=== PATIENT | female | born 1945 | race Two or more races ===

== ENCOUNTER 2022-05-12 11:38 | Inpatient (IN) | payer MEDICARE, MEDICAID, SELFPAY ==
[2022-05-12] VITALS (23 sets, daily range): BP systolic 134–178; BP diastolic 49–79; PULSE 66–85; RESP 15–33; TEMP 35–37; O2SAT 65–100; BMI 41.8
--- NOTE | ~2022-05-12 | XR_ITS ---
EXAMINATION: XR CHEST CLINICAL INFORMATION: Acute mental status change COMPARISON: None TECHNIQUE: Frontal view of the chest was obtained. FINDINGS: There is an endotracheal tube with tip projecting over the right mainstem bronchus. This should be pulled back several centimeters. The cardiac and mediastinal contours are normal. There are increased markings in the left upper lobe questionable for pneumonia. The lungs are otherwise clear. There is no pleural effusion or pneumothorax. No acute bone abnormality is seen. XR/XR chest 1V IMPRESSION: Endotracheal tube tip projects over right mainstem bronchus and should be pulled back several centimeters. Question left upper lobe pneumonia. Findings will be communicated by the [place] work flow career development coordinator/teacher.
--- NOTE | ~2022-05-12 | CT_ITS ---
EXAMINATION: CT HEAD WITHOUT CONTRAST CLINICAL INFORMATION: Altered mental status. On eliquis. COMPARISON: No relevant prior imaging. TECHNIQUE: Contiguous axial imaging was performed from the skull base to vertex without intravenous administration of contrast. This CT examination was performed using dose optimization techniques as appropriate, variously including the following: *Automated exposure control *Adjustment of mA and/or kV according to patient size (this includes techniques or standardized protocols for targeted exams where dose is matched to indication/reason for exam; i.e. extremities or head) *Use of iterative reconstruction technique DLP: 763 mGy-cm FINDINGS: There is no acute intracranial hemorrhage or abnormal extra-axial collection. Lateral and third ventricles are normal. No hydrocephalus. There are ill-defined foci of hypoattenuation for instance within the right basal ganglia and both thalami. Scattered nonspecific foci of hypoattenuation are also visualized within the periventricular white matter that most likely represent a chronic manifestation of small vessel ischemia. Aly-white matter differentiation is otherwise preserved and there is no clear evidence of acute territorial infarct. The calvarium and skull base are intact. The right mastoid air cells are completely opacified. No active paranasal sinus disease. CT/CT head/brain wo con IMPRESSION: No evidence of acute intracranial hemorrhage. There are age indeterminant lacunar infarcts within the right basal ganglia and both thalami. Scattered likely chronic small vessel ischemic changes are also visualized throughout the periventricular white matter. Comparison with prior imaging is recommended if available.
--- NOTE | 2022-05-12 11:47 | ECG_ITS ---
Test Reason : intubated p/t arrval Blood Pressure : / mmHG Vent. Rate : 078 BPM Atrial Rate : 078 BPM P-R Int : 154 ms QRS Dur : 084 ms QT Int : 398 ms P-R-T Axes : 065 027 099 degrees QTc Int : 453 ms Normal sinus rhythm T wave abnormality, consider lateral ischemia Abnormal ECG No previous ECGs available Referred By: Harriet Peng Electronically Signed By:JUANY SANCHEZ MD
[2022-05-12] MEDS: methylPREDNISolone Sod Succ 125 MG/2 ML VIAL IVPUSH (11:52)
[2022-05-12] MEDS: Furosemide 100 MG/10 ML VIAL 80 MG IVPUSH (11:53)
--- NOTE | 2022-05-12 12:03 | ED.AMS ---
HPI - Altered Mental Status General Chief Complaint: Upper Respiratory Symptoms Stated Complaint: UNRESPSPONSIVE,BAGGING,INTUBATED PER EMS Time Seen by Provider: 05/12/22 11:46 Source: EMS Mode of arrival: EMS Limitations: altered mental status History of Present Illness HPI narrative: 76 yo female with hx of COPD home O2 dependent, CHF, HTN also on dilt and eliquis from med list ?afib, comes in from home reportedly [facility]NA found patient with dyspnea and sats were 91% on her home O2. EMS notes about 100 feet of O2 tubing. On EMS arrival the patient was obtunded leaning forward with sats at 62% on her home O2. She could not comply with CPAP - intubated with 8.0 tube came in at 27 at the lip R mainstem, pulled back. Patient on arrival to ED awake and able to follow commands of opening eyes and squeezing hands. Patient never lost pulses. MD complaint: altered mental status (respiratory arrest) Onset (ago): day(s) (today ) Timing confirmed by: caregiver Severity: severe Consistency of symptoms: waxing and waning Context: COPD Associated symptoms: shortness of breath and other (altered mental status) Treatments prior to arrival: intubation (8.0 ) Related Data Home Medications Medication Instructions Recorded Confirmed albuterol sulfate 90 mcg/actuation 1 inh inhalation Q4-6H PRN Wheezing 05/12/22 05/12/22 breath activated powder inhaler,sensor budesonide-formoterol HFA 160 2 puff inhalation BID 05/12/22 05/12/22 mcg-4.5 mcg/actuation aerosol inhaler (Symbicort) carisoprodol 350 mg tablet (Soma) 350 mg PO QID 05/12/22 carvedilol 6.25 mg tablet 6.25 mg PO BID 05/12/22 05/12/22 citalopram 20 mg tablet 30 mg PO DAILY 05/12/22 05/12/22 clonazepam 1 mg tablet 1 mg PO BEDTIME 05/12/22 05/12/22 clonidine HCl 0.1 mg tablet 0.1 mg PO BEDTIME 05/12/22 05/12/22 diltiazem HCl 360 mg 360 mg PO DAILY 05/12/22 05/12/22 capsule,extended release 24 hr diphenhydramine HCl 25 mg tablet 25 mg PO BEDTIME 05/12/22 05/12/22 insulin glargine 100 unit/mL (3 55 unit subcut DAILY 05/12/22 05/12/22 mL) subcutaneous pen (Basaglar KwikPen U-100 Insulin) irbesartan 300 mg tablet 300 mg PO DAILY 05/12/22 05/12/22 metformin 500 mg tablet,extended 1,000 mg PO BID 05/12/22 05/12/22 release 24 hr mirtazapine 15 mg tablet 15 mg PO BEDTIME 05/12/22 05/12/22 omeprazole 20 mg capsule,delayed 20 mg PO DAILY 05/12/22 05/12/22 release ramelteon 8 mg tablet 8 mg PO BEDTIME 05/12/22 05/12/22 spironolactone 25 mg tablet 25 mg PO DAILY 05/12/22 05/12/22 Allergies Allergy/AdvReac Type Severity Reaction Status Date / Time codeine Allergy Unknown Verified 05/12/22 12:14 naproxen Allergy Unknown Verified 05/12/22 12:15 Review of Systems Review of Systems: ROS unable to be obtained due to altered mental status [facility] Past Medical History Source: unable to obtain Medical History (Updated 05/12/22 @ 13:30 by Darline Kang DO) Anemia CHF (congestive heart failure) COPD (chronic obstructive pulmonary disease) Diabetes HTN (hypertension) Social History Social History (Updated 05/12/22 @ 12:11 by Darline Kang DO) Household Members: Unknown / Unable to assess Housing: Unknown / Unable to assess Unable to assess alcohol history related to: Unable to respond and Unknown Patient Tobacco Use Status: Tobacco use Unknown Use of substances other than those prescribed or required for medical reasons: Unable to respond Spiritual Healthcare Practices: unable to assess Quaker Healthcare Practices: unable to assess Cultural Healthcare Practices: unable to assess Advance Directives: No Advance Directives Information Provided: No Do you have thoughts of harming others: None Do you have a plan to hurt others: No Plan Recently lost weight without trying: Unsure How much weight loss: Unsure Nutrition Risks: On aspiration precautions Patient : No : No Poor oral hygiene: No Physical Exam ED Vital Signs: Vital Signs - 24 hr 05/12/22 11:46 05/12/22 12:04 05/12/22 12:05 Temperature 97 F Pulse Rate 85 70 Respiratory Rate 20 22 H Blood Pressure 174/69 H Pulse Oximetry 95 Oxygen Delivery Method Fraction of Inspired Oxygen 40 05/12/22 13:19 05/12/22 13:26 05/12/22 13:22 Temperature 97.4 F Pulse Rate 66 Respiratory Rate 16 Blood Pressure 162/51 H Pulse Oximetry 95 95 Oxygen Delivery Method Mechanical Ventilation Mechanical Ventilation Fraction of Inspired Oxygen 40 BMI result Body Mass Index 3.6 Appearance: Somnolent, follows simple commands mild acute distress. Eyes: R pupil reactive 3mm L pupil reactive 4mm ENT: Pharynx normal. some frothy secretions noted 8.0 ETT tube 27 at the lip Neck: Normal inspection. Neck supple. CVS: Normal heart rate and rhythm. Pulses normal. Respiratory: Mild respiratory distress. Breath sounds diminished throughout with rales at the bases Abdomen: Soft and nontender. Obese Skin: Skin warm and dry. Normal skin color. Normal skin turgor. Extremities: 1+ pitting lower extremity edema. No calf ttp Neuro: Follows commands, opens eyes moves both feet and squeezes both hands when asked to. Course Course Course Narrative: ETT pulled back confirmed via CXR at this time possible infection suspected 124pm one dose of IV zosyn ordered failed PSV in ED - will discuss with ICU attending Hemoglobin 7.3 patient reports a hx of anemia will call out to other hospitals for med records will admit to ICU for further workup MDM - Altered Mental Status MDM Narrative Medical decision making narrative: 76 yo female with hx of HTN, COPD O2 dependent, DM, anemia, CHF here with c/o respiratory arrest at home on arrival she is following commands was R mainstem prehospital - at this time inline neb ordered, IV lasix, IV steroids, CXR, CT head given anisocoria and eliquis use for ICH. ABG ordered. Suspect COPD/CHF exacerbation. Patient is clearing quite well in the ED with assisted ventilation. Lab Data Result diagrams: 05/12/22 12:34 05/12/22 12:33 Labs: Lab Results 05/12/22 05/12/22 05/12/22 Range/Units 11:42 12:03 12:03 WBC (4.8-10.8) X10*3/uL RBC (4.20-5.50) X10*6/uL Hgb (12.0-16.0) g/dl Hct (37.0-47.0) % MCV (80.0-98.0) fL MCH (27.0-33.0) pg MCHC (31.0-35.0) g/dl RDW (11.0-16.0) % Plt Count (160-400) X10*3/uL MPV (9.4-12.3) fL Immature Gran % (Auto) (0.0-0.4) % Neut % (Auto) (45-73) % Lymph % (Auto) (20-40) % [place] % (Auto) (2-11) % Eos % (Auto) (0-4) % Baso % (Auto) (0-2) % Lymph # (Auto) (1.2-4.9) X10*3/uL [place] # (Auto) (0.1-1.2) X10*3/uL Eos # (Auto) (0.0-0.4) X10*3/uL Baso # (Auto) (0.0-0.2) X10*3/uL Abs Immat Gran (auto) (0.00-0.03) X10*3/uL Absolute Neuts (auto) (2.0-8.3) x10*3/uL Absolute Nucleated RBC (0.0-0.012) X10*3/uL Nucleated RBC % (auto) (0.0-0.2) /100WBC PT (9.9-13.0) SEC INR (0.9-1.1) O2 Saturation % ABG pH at Pt Temp (7.35-7.45) ABG pCO2 at Pt Temp (32-45) mmHg ABG pO2 at Pt Temp (83-108) mmHg ABG HCO3 (22-26) mmol/L ABG Base Excess (Actual) VBG pH (7.32-7.43) VBG pCO2 mmHg VBG pO2 mmHg VBG HCO3 (22-26) mmol/L VBG O2 Saturation % VBG Base Excess mmol/L Sodium (135-145) mmol/L Potassium (3.3-5.1) mmol/L Chloride (96-108) mmol/L Carbon Dioxide (22-29) mmol/L Anion Gap (12-20) BUN (9-16) mg/dL Creatinine (0.5-1.4) mg/dL Estim Creat Clear Calc Estimated GFR POC Glucose 376 H* (60-115) mg/dL Random Glucose (60-115) mg/dL Lactic Acid 1.7 (0.5-2.0) mmol/L Calcium (8.4-10.2) mg/dL Magnesium (1.6-2.6) mg/dL Total Bilirubin (0.0-1.0) mg/dL AST (5-31) U/L ALT (0-31) U/L Alkaline Phosphatase (39-117) U/L Troponin I High Sens (<3.5-17.0) ng/L B-Natriuretic Peptide 110 H (<100) pg/mL Total Protein (6.5-8.0) g/dL Albumin (3.5-5.0) g/dL Lipase (8-78) U/L Urine Color Urine Appearance Urine pH (5.0-8.0) Ur Specific [employer] [place] (1.005-1.025) Urine Protein (NEG-TRACE) MG/DL Urine Glucose (UA) (NEG) MG/DL Urine Ketones (NEG) MG/DL Urine Blood (NEG) Urine Nitrite (NEG) Ur Leukocyte Esterase (NEG) Urine RBC (0) /HPF Urine WBC (0-4) /HPF Ur Squamous Epith Cells /LPF Amorphous Sediment /LPF Urine Bacteria /LPF Stool Occult Blood (NEGATIVE) Urine Opiates Screen (Not Detect) Urine Fentanyl Screen (Not Detect) Ur Barbiturates Screen (Not Detect) Ur Phencyclidine Scrn (Not Detect) Ur Amphetamines Screen (Not Detect) U Benzodiazepines Scrn (Not Detect) Urine Cocaine Screen (Not Detect) U Marijuana (THC) Screen (Not Detect) COVID-19 (KIM) (Negative) COVID-19 Clin Com 05/12/22 05/12/22 05/12/22 Range/Units 12:03 12:23 12:33 WBC (4.8-10.8) X10*3/uL RBC (4.20-5.50) X10*6/uL Hgb (12.0-16.0) g/dl Hct (37.0-47.0) % MCV (80.0-98.0) fL MCH (27.0-33.0) pg MCHC (31.0-35.0) g/dl RDW (11.0-16.0) % Plt Count (160-400) X10*3/uL MPV (9.4-12.3) fL Immature Gran % (Auto) (0.0-0.4) % Neut % (Auto) (45-73) % Lymph % (Auto) (20-40) % [place] % (Auto) (2-11) % Eos % (Auto) (0-4) % Baso % (Auto) (0-2) % Lymph # (Auto) (1.2-4.9) X10*3/uL [place] # (Auto) (0.1-1.2) X10*3/uL Eos # (Auto) (0.0-0.4) X10*3/uL Baso # (Auto) (0.0-0.2) X10*3/uL Abs Immat Gran (auto) (0.00-0.03) X10*3/uL Absolute Neuts (auto) (2.0-8.3) x10*3/uL Absolute Nucleated RBC (0.0-0.012) X10*3/uL Nucleated RBC % (auto) (0.0-0.2) /100WBC PT (9.9-13.0) SEC INR (0.9-1.1) O2 Saturation 91.0 % ABG pH at Pt Temp 7.35 (7.35-7.45) ABG pCO2 at Pt Temp 63 H* (32-45) mmHg ABG pO2 at Pt Temp 68 L (83-108) mmHg ABG HCO3 35 H (22-26) mmol/L ABG Base Excess (Actual) TNP VBG pH (7.32-7.43) VBG pCO2 mmHg VBG pO2 mmHg VBG HCO3 (22-26) mmol/L VBG O2 Saturation % VBG Base Excess mmol/L Sodium 134 L (135-145) mmol/L Potassium 5.3 H (3.3-5.1) mmol/L Chloride 93 L (96-108) mmol/L Carbon Dioxide 34 H (22-29) mmol/L Anion Gap 12 (12-20) BUN 15 (9-16) mg/dL Creatinine 0.87 (0.5-1.4) mg/dL Estim Creat Clear Calc 8.0 Estimated GFR > 60 POC Glucose (60-115) mg/dL Random Glucose 420 H* (60-115) mg/dL Lactic Acid (0.5-2.0) mmol/L Calcium 8.5 (8.4-10.2) mg/dL Magnesium 1.8 (1.6-2.6) mg/dL Total Bilirubin 0.3 (0.0-1.0) mg/dL AST 30 (5-31) U/L ALT 28 (0-31) U/L Alkaline Phosphatase 138 H (39-117) U/L Troponin I High Sens 6.1 (<3.5-17.0) ng/L B-Natriuretic Peptide (<100) pg/mL Total Protein 7.2 (6.5-8.0) g/dL Albumin 3.7 (3.5-5.0) g/dL Lipase 25 (8-78) U/L Urine Color Urine Appearance Urine pH (5.0-8.0) Ur Specific [employer] [place] (1.005-1.025) Urine Protein (NEG-TRACE) MG/DL Urine Glucose (UA) (NEG) MG/DL Urine Ketones (NEG) MG/DL Urine Blood (NEG) Urine Nitrite (NEG) Ur Leukocyte Esterase (NEG) Urine RBC (0) /HPF Urine WBC (0-4) /HPF Ur Squamous Epith Cells /LPF Amorphous Sediment /LPF Urine Bacteria /LPF Stool Occult Blood (NEGATIVE) Urine Opiates Screen (Not Detect) Urine Fentanyl Screen (Not Detect) Ur Barbiturates Screen (Not Detect) Ur Phencyclidine Scrn (Not Detect) Ur Amphetamines Screen (Not Detect) U Benzodiazepines Scrn (Not Detect) Urine Cocaine Screen (Not Detect) U Marijuana (THC) Screen (Not Detect) COVID-19 (KIM) (Negative) COVID-19 Clin Com 05/12/22 05/12/22 05/12/22 Range/Units 12:33 12:34 12:40 WBC 12.3 H (4.8-10.8) X10*3/uL RBC 4.13 L (4.20-5.50) X10*6/uL Hgb 7.3 L (12.0-16.0) g/dl Hct 28.9 L (37.0-47.0) % MCV 70.0 L (80.0-98.0) fL MCH 17.7 L (27.0-33.0) pg MCHC 25.3 L (31.0-35.0) g/dl RDW 18.3 H (11.0-16.0) % Plt Count 230 (160-400) X10*3/uL MPV 9.5 (9.4-12.3) fL Immature Gran % (Auto) 1.0 H (0.0-0.4) % Neut % (Auto) 87.1 H (45-73) % Lymph % (Auto) 7.4 L (20-40) % [place] % (Auto) 3.7 (2-11) % Eos % (Auto) 0.6 (0-4) % Baso % (Auto) 0.2 (0-2) % Lymph # (Auto) 0.9 L (1.2-4.9) X10*3/uL [place] # (Auto) 0.5 (0.1-1.2) X10*3/uL Eos # (Auto) 0.1 (0.0-0.4) X10*3/uL Baso # (Auto) 0.0 (0.0-0.2) X10*3/uL Abs Immat Gran (auto) 0.12 H (0.00-0.03) X10*3/uL Absolute Neuts (auto) 10.7 H (2.0-8.3) x10*3/uL Absolute Nucleated RBC 0.000 (0.0-0.012) X10*3/uL Nucleated RBC % (auto) 0.0 (0.0-0.2) /100WBC PT 11.5 (9.9-13.0) SEC INR 1.0 (0.9-1.1) O2 Saturation % ABG pH at Pt Temp (7.35-7.45) ABG pCO2 at Pt Temp (32-45) mmHg ABG pO2 at Pt Temp (83-108) mmHg ABG HCO3 (22-26) mmol/L ABG Base Excess (Actual) VBG pH 7.30 L (7.32-7.43) VBG pCO2 85 mmHg VBG pO2 68 mmHg VBG HCO3 42 H (22-26) mmol/L VBG O2 Saturation 89.0 % VBG Base Excess 13.3 mmol/L Sodium (135-145) mmol/L Potassium (3.3-5.1) mmol/L Chloride (96-108) mmol/L Carbon Dioxide (22-29) mmol/L Anion Gap (12-20) BUN (9-16) mg/dL Creatinine (0.5-1.4) mg/dL Estim Creat Clear Calc Estimated GFR POC Glucose (60-115) mg/dL Random Glucose (60-115) mg/dL Lactic Acid (0.5-2.0) mmol/L Calcium (8.4-10.2) mg/dL Magnesium (1.6-2.6) mg/dL Total Bilirubin (0.0-1.0) mg/dL AST (5-31) U/L ALT (0-31) U/L Alkaline Phosphatase (39-117) U/L Troponin I High Sens (<3.5-17.0) ng/L B-Natriuretic Peptide (<100) pg/mL Total Protein (6.5-8.0) g/dL Albumin (3.5-5.0) g/dL Lipase (8-78) U/L Urine Color Urine Appearance Urine pH (5.0-8.0) Ur Specific [employer] (1.005-1.025) Urine Protein (NEG-TRACE) MG/DL Urine Glucose (UA) (NEG) MG/DL Urine Ketones (NEG) MG/DL Urine Blood (NEG) Urine Nitrite (NEG) Ur Leukocyte Esterase (NEG) Urine RBC (0) /HPF Urine WBC (0-4) /HPF Ur Squamous Epith Cells /LPF Amorphous Sediment /LPF Urine Bacteria /LPF Stool Occult Blood (NEGATIVE) Urine Opiates Screen (Not Detect) Urine Fentanyl Screen (Not Detect) Ur Barbiturates Screen (Not Detect) Ur Phencyclidine Scrn (Not Detect) Ur Amphetamines Screen (Not Detect) U Benzodiazepines Scrn (Not Detect) Urine Cocaine Screen (Not Detect) U Marijuana (THC) Screen (Not Detect) COVID-19 (KIM) (Negative) COVID-19 Clin Com 05/12/22 05/12/22 05/12/22 Range/Units 12:43 12:43 12:43 WBC (4.8-10.8) X10*3/uL RBC (4.20-5.50) X10*6/uL Hgb (12.0-16.0) g/dl Hct (37.0-47.0) % MCV (80.0-98.0) fL MCH (27.0-33.0) pg MCHC (31.0-35.0) g/dl RDW (11.0-16.0) % Plt Count (160-400) X10*3/uL MPV (9.4-12.3) fL Immature Gran % (Auto) (0.0-0.4) % Neut % (Auto) (45-73) % Lymph % (Auto) (20-40) % [place] % (Auto) (2-11) % Eos % (Auto) (0-4) % Baso % (Auto) (0-2) % Lymph # (Auto) (1.2-4.9) X10*3/uL [place] # (Auto) (0.1-1.2) X10*3/uL Eos # (Auto) (0.0-0.4) X10*3/uL Baso # (Auto) (0.0-0.2) X10*3/uL Abs Immat Gran (auto) (0.00-0.03) X10*3/uL Absolute Neuts (auto) (2.0-8.3) x10*3/uL Absolute Nucleated RBC (0.0-0.012) X10*3/uL Nucleated RBC % (auto) (0.0-0.2) /100WBC PT (9.9-13.0) SEC INR (0.9-1.1) O2 Saturation % ABG pH at Pt Temp (7.35-7.45) ABG pCO2 at Pt Temp (32-45) mmHg ABG pO2 at Pt Temp (83-108) mmHg ABG HCO3 (22-26) mmol/L ABG Base Excess (Actual) VBG pH (7.32-7.43) VBG pCO2 mmHg VBG pO2 mmHg VBG HCO3 (22-26) mmol/L VBG O2 Saturation % VBG Base Excess mmol/L Sodium (135-145) mmol/L Potassium (3.3-5.1) mmol/L Chloride (96-108) mmol/L Carbon Dioxide (22-29) mmol/L Anion Gap (12-20) BUN (9-16) mg/dL Creatinine (0.5-1.4) mg/dL Estim Creat Clear Calc Estimated GFR POC Glucose (60-115) mg/dL Random Glucose (60-115) mg/dL Lactic Acid (0.5-2.0) mmol/L Calcium (8.4-10.2) mg/dL Magnesium (1.6-2.6) mg/dL Total Bilirubin (0.0-1.0) mg/dL AST (5-31) U/L ALT (0-31) U/L Alkaline Phosphatase (39-117) U/L Troponin I High Sens (<3.5-17.0) ng/L B-Natriuretic Peptide (<100) pg/mL Total Protein (6.5-8.0) g/dL Albumin (3.5-5.0) g/dL Lipase (8-78) U/L Urine Color YELLOW Urine Appearance CLEAR Urine pH 7.0 (5.0-8.0) Ur Specific [place] 1.020 (1.005-1.025) Urine Protein 3+ H (NEG-TRACE) MG/DL Urine Glucose (UA) >=1000 H (NEG) MG/DL Urine Ketones NEG (NEG) MG/DL Urine Blood TRACE (NEG) Urine Nitrite NEG (NEG) Ur Leukocyte Esterase NEG (NEG) Urine RBC 1-4 (0) /HPF Urine WBC 1-4 (0-4) /HPF Ur Squamous Epith Cells TRACE /LPF Amorphous Sediment 1+ /LPF Urine Bacteria NONE /LPF Stool Occult Blood (NEGATIVE) Urine Opiates Screen Not Detected (Not Detect) Urine Fentanyl Screen Not Detected (Not Detect) Ur Barbiturates Screen Not Detected (Not Detect) Ur Phencyclidine Scrn Not Detected (Not Detect) Ur Amphetamines Screen Not Detected (Not Detect) U Benzodiazepines Scrn Not Detected (Not Detect) Urine Cocaine Screen Not Detected (Not Detect) U Marijuana (THC) Screen Not Detected (Not Detect) COVID-19 (KIM) Negative (Negative) COVID-19 Clin Com See Note 05/12/22 Range/Units 13:54 WBC (4.8-10.8) X10*3/uL RBC (4.20-5.50) X10*6/uL Hgb (12.0-16.0) g/dl Hct (37.0-47.0) % MCV (80.0-98.0) fL MCH (27.0-33.0) pg MCHC (31.0-35.0) g/dl RDW (11.0-16.0) % Plt Count (160-400) X10*3/uL MPV (9.4-12.3) fL Immature Gran % (Auto) (0.0-0.4) % Neut % (Auto) (45-73) % Lymph % (Auto) (20-40) % [place] % (Auto) (2-11) % Eos % (Auto) (0-4) % Baso % (Auto) (0-2) % Lymph # (Auto) (1.2-4.9) X10*3/uL [place] # (Auto) (0.1-1.2) X10*3/uL Eos # (Auto) (0.0-0.4) X10*3/uL Baso # (Auto) (0.0-0.2) X10*3/uL Abs Immat Gran (auto) (0.00-0.03) X10*3/uL Absolute Neuts (auto) (2.0-8.3) x10*3/uL Absolute Nucleated RBC (0.0-0.012) X10*3/uL Nucleated RBC % (auto) (0.0-0.2) /100WBC PT (9.9-13.0) SEC INR (0.9-1.1) O2 Saturation % ABG pH at Pt Temp (7.35-7.45) ABG pCO2 at Pt Temp (32-45) mmHg ABG pO2 at Pt Temp (83-108) mmHg ABG HCO3 (22-26) mmol/L ABG Base Excess (Actual) VBG pH (7.32-7.43) VBG pCO2 mmHg VBG pO2 mmHg VBG HCO3 (22-26) mmol/L VBG O2 Saturation % VBG Base Excess mmol/L Sodium (135-145) mmol/L Potassium (3.3-5.1) mmol/L Chloride (96-108) mmol/L Carbon Dioxide (22-29) mmol/L Anion Gap (12-20) BUN (9-16) mg/dL Creatinine (0.5-1.4) mg/dL Estim Creat Clear Calc Estimated GFR POC Glucose (60-115) mg/dL Random Glucose (60-115) mg/dL Lactic Acid (0.5-2.0) mmol/L Calcium (8.4-10.2) mg/dL Magnesium (1.6-2.6) mg/dL Total Bilirubin (0.0-1.0) mg/dL AST (5-31) U/L ALT (0-31) U/L Alkaline Phosphatase (39-117) U/L Troponin I High Sens (<3.5-17.0) ng/L B-Natriuretic Peptide (<100) pg/mL Total Protein (6.5-8.0) g/dL Albumin (3.5-5.0) g/dL Lipase (8-78) U/L Urine Color Urine Appearance Urine pH (5.0-8.0) Ur Specific [place] (1.005-1.025) Urine Protein (NEG-TRACE) MG/DL Urine Glucose (UA) (NEG) MG/DL Urine Ketones (NEG) MG/DL Urine Blood (NEG) Urine Nitrite (NEG) Ur Leukocyte Esterase (NEG) Urine RBC (0) /HPF Urine WBC (0-4) /HPF Ur Squamous Epith Cells /LPF Amorphous Sediment /LPF Urine Bacteria /LPF Stool Occult Blood NEGATIVE (NEGATIVE) Urine Opiates Screen (Not Detect) Urine Fentanyl Screen (Not Detect) Ur Barbiturates Screen (Not Detect) Ur Phencyclidine Scrn (Not Detect) Ur Amphetamines Screen (Not Detect) U Benzodiazepines Scrn (Not Detect) Urine Cocaine Screen (Not Detect) U Marijuana (THC) Screen (Not Detect) COVID-19 (KIM) (Negative) COVID-19 Clin Com ECG Data ECG #1: Attestation: I personally reviewed and interpreted this ECG as follows: ECG interpretation date: 05/12/22 ECG interpretation time: 13:37 Interpretation: Rate: 78 Rhythm: NSR [place]: normal Normal P waves. Normal GINA. Normal QRS complex. Poor R wave progression ST T wave : no MARC, inverted in I and aVL qTC: normal prior studies: none available The study has been interpreted contemporaneously by me. . Critical Care Time Critical Care Time Critical Care Time: Yes Total Critical Care Time: 60 Attestation: vent settings, management of pre-hospital airway, IV medications, admission to ICU I attest to this time spent taking care of the patient Discharge Plan Discharge Clinical Impression: Anemia, COPD with acute exacerbation Respiratory failure Qualifiers: Chronicity: acute Respiratory failure complication: hypoxia Qualified Code(s): J96.01 - Acute respiratory failure with hypoxia Patient Disposition: Admitted As Inpatient Discharge Date/Time: 05/12/22 15:19
[2022-05-12] MEDS: Albuterol/Iprat 2.5/0.5MG 3 ML AMPUL.NEB INHALE (12:04)
--- NOTE | 2022-05-12 12:17 | PC.NURSE ---
patient presented to Ed intubated by EMS , she was ventilating appropriately vitals stable on arrival . tolerating vent . on AC settings .Provider pulled tube to 24 at lip .patient arrousable to stimuli . able to follow simple commands . pupils unequal per provider , plan for brain CT . left pupil sluggish reaction to light . skin warm dry . lungs diminished throughout ., right lower lobe absent sounds .At this time vitals signs stable . patient calm not pulling at medical devices .
[2022-05-12 12:21] LABS: Lactic Acid 1.7 mmol/L (0.5-2.0)
[2022-05-12 12:30] LABS: ABG HCO3 35 mmol/L (22-26); ABG pCO2 63 mmHg (32-45); ABG pH 7.35 (7.35-7.45); ABG pO2 68 mmHg (83-108)
[2022-05-12 12:31] LABS: B Type Natriuretic Peptide 110 pg/mL (<100); Troponin-I High Sensitivity 6.1 ng/L (<3.5-17.0)
[2022-05-12 12:44] LABS: Basophils Percent Auto 0.2 % (0-2); Eosinophils Absolute Auto 0.1 X10*3/uL (0.0-0.4); Eosinophils Percent Auto 0.6 % (0-4); Hematocrit 28.9 % (37.0-47.0); Hemoglobin 7.3 g/dl (12.0-16.0); Imm Gran Abs Auto 0.12 X10*3/uL (0.00-0.03); Lymphocytes Absolute Auto 0.9 X10*3/uL (1.2-4.9); Lymphocytes Percent Auto 7.4 % (20-40); MANUAL DIFF FLAG NO; Mean Corpuscular HGB Conc 25.3 g/dl (31.0-35.0); Mean Corpuscular Hemoglobin 17.7 pg (27.0-33.0); Mean Platelet Volume 9.5 fL (9.4-12.3); Monocytes Absolute Auto 0.5 X10*3/uL (0.1-1.2); Monocytes Percent Auto 3.7 % (2-11); Neutrophils Absolute Auto 10.7 x10*3/uL (2.0-8.3); Neutrophils Percent Auto 87.1 % (45-73); Platelet Count 230 X10*3/uL (160-400); Red Blood Count 4.13 X10*6/uL (4.20-5.50); Red Cell Distribution Width 18.3 % (11.0-16.0); White Blood Count 12.3 X10*3/uL (4.8-10.8)
[2022-05-12 12:45] LABS: Venous Blood Gas Refer to POC result
[2022-05-12 12:50] LABS: VBG Base Excess 13.3 mmol/L; VBG HCO3 42 mmol/L (22-26); VBG pCO2 85 mmHg; VBG pO2 68 mmHg
[2022-05-12 12:55] LABS: Prothrombin Time 11.5 SEC (9.9-13.0)
--- NOTE | 2022-05-12 12:56 | PC.NURSE ---
Vent settings peap 8 at 40% volume 400 .
[2022-05-12 13:03] LABS: Appearance Urine CLEAR; Color Urine YELLOW; Glucose Urine UA >=1000 MG/DL (NEG); Leukocyte Esterase Urine NEG (NEG); Nitrite Urine NEG (NEG); UACC Culture Trigger NO; Urine Blood TRACE (NEG); Urine Ketones NEG (NEG); Urine Protein 3+ MG/DL (NEG-TRACE)
[2022-05-12 13:12] LABS: COVID-19 Test Negative (Negative)
[2022-05-12 13:16] LABS: Amorphous Sediment Urine 1+ /LPF; Squamous Epithelial Cell Urine TRACE /LPF
[2022-05-12 13:29] LABS: Alanine Aminotransferase 28 U/L (0-31); Albumin Level 3.7 g/dL (3.5-5.0); Alkaline Phosphatase 138 U/L (39-117); Anion Gap 12 (12-20); Aspartate Amino Transferase 30 U/L (5-31); Bilirubin Total 0.3 mg/dL (0.0-1.0); Blood Urea Nitrogen 15 mg/dL (9-16); Calcium 8.5 mg/dL (8.4-10.2); Carbon Dioxide 34 mmol/L (22-29); Chloride 93 mmol/L (96-108); Estimated Glomerular Filt Rate > 60; Glucose Random 420 mg/dL (60-115); Lipase 25 U/L (8-78); Magnesium 1.8 mg/dL (1.6-2.6); Potassium 5.3 mmol/L (3.3-5.1); Sodium 134 mmol/L (135-145); Total Protein 7.2 g/dL (6.5-8.0)
--- NOTE | 2022-05-12 13:29 | PC.NURSE ---
Orogastric placed with positive placement per MD.Not hooked up to suction per MD . positive placement per auscultation .
[2022-05-12] MEDS: Insulin Regular, Human 100 UNIT/ML 3 ML VIAL IVPUSH (13:43)
[2022-05-12] MEDS: Piperacillin Sodium/Tazobactam 3.375 GM in 0.9 % Sodium Chloride 50 ML IV (13:45)
[2022-05-12 13:46] LABS: Glucose, Whole Blood 376 mg/dL (60-115)
[2022-05-12 13:56] LABS: ABG Refer to POC result
[2022-05-12 14:03] LABS: OBS Int Ctl Valid YES; OBS1 NEGATIVE (NEGATIVE)
[2022-05-12 14:06] LABS: Amphetamine Screen Urine Not Detected (Not Detect); Barbiturates, Urine Not Detected (Not Detect); Benzodiazepines Screen Urine Not Detected (Not Detect); Cannabinoid Screen Urine Not Detected (Not Detect); Cocaine Screen Urine Not Detected (Not Detect); Fentanyl, urine Not Detected (Not Detect); Opiate Screen Urine Not Detected (Not Detect); Phencyclidine Screen Urine Not Detected (Not Detect)
--- NOTE | 2022-05-12 14:35 | PC.NURSE ---
Rn to RN given to Jory .
--- NOTE | 2022-05-12 14:54 | PHA.MEDREC ---
Addendum entered by Eveline Love RPh 05/13/22 10:31: Patient name and updated, Soma confirmed with PDMP Original Note: Pharmacy Consult ? Medication Reconciliation Pharmacy has completed the medication reconciliation. Spoke with billyugther to confirm medications. She reported most but could not recall them all. Daughter reported patient goes to 3 pharmacy; [facility], [facility] [place], and [facility]. The medication daughter did not report but pharmacy had was Symbicort, citalopram, and omeprazole. Daughter reported diltiazem however last fill 11/27/21. Daughter report Soma 350 mg QID however I cannot confirm medicaiton with pharmacy or on PDMP. [facility] as [facility]. [facility] even though daughter report picking up medication there. Eveline Love, PharmD
--- NOTE | 2022-05-12 15:23 | PC.NURSE ---
Patient arrived to unit via stretcher from ED at 1500 - Patient awake, following commands, calm and corporative. Vent setting switched over to PSV 15/5 30% at 1505 - tolerating well, O2 sat 100%, breathing even and nonlabored. Patient extubated to Bipap support 15/5 45% at 1520 per MD order - tolerating well.
--- NOTE | 2022-05-12 15:23 | PM.CCHP ---
History of Present Illness Date of Service: 05/12/22 Attending physician on admission: Jaswinder Thompson Chief Complaint: Acute respiratory failure Mrs. Hutton is admitted to the ICU this afternoon with acute respiratory failure. 76 yo female with PMhx of obesity, COPD on 2L home oxygen, CHF on Aldactone, Coreg and valsartan, HTN, DM on Lantus, anemia, GERD, SHARON, and restless leg syndrome. [place] [facility] [place] was hospitalized there for COVID infection 11/25-, and for subsequent pulmon embolism 12/15-, for which she was started on Eliquis.? Also from 02/13- for COPD exac requiring BiPAP, and 02/24-07/2022 for influenza A requiring BiPAP.? The records indicate that she is an active smoker, VNA found patient with dyspnea at home this morning, reportedly w sat 91% on her home O2. ?EMS was called. ?On EMS arrival, the patient was obtunded, with sats 62% on her home O2. ?She could not comply with CPAP.? There was no circulatory arrest, nor any resp arrest as far as I can tell.? The patient was intubated in the field, then BIBA to the ED. In the ED, the patient arrived with an 8.0 ETT, at 27cm at the lip, with Sat 95% on ambu bag ventilation.? CXR showed a 2-3 cm R mainstem intubation, w loss of vol on the left, with either CHRIST infiltrate or collapse. ?The ETT was pulled back, resulting in improved oxygenation and improved aeration of the entire left lung.? The patient was awake on arrival to ED, able to answer simple questions about her history and follow simple commands.? She was afebrile.? HR 85, BP 174/69.? Some froth noted in the ETT.? Rhythm was sinus.? She had rales at the bases, w 1+ pitting lower extremity edema.? No neuro deficits.? Stool was brown, guiac neg. Labs in the ED noted WBC 12, Hgb 7.3 (was 7.6 on 02/26/22), INR 1.0, BUN/creat 15/0.8, bicarb 34, gluc 420, alb 3.7, Lactic acid 1.7, trop 6.1, BNP 110.? ABG (unstated FiO2) at 12:23 was 7.35/63/68/35.? VBG at 12:40 was 7.30/85/+13.? U/A negative for infection.? Urine tox all negative.? COVID neg.? The patient was given a dose of diuretic and a dose of Abx.? Since she was awake, she was tried on PSV but reportedly failed.? She was therefore admitted to the ICU. On my exam, the patient was completely awake and easily able to answer all our questions.? MS looks completely normal and she is requesting to have the ETT removed.? Temp 97.6?.? HR is 73, SR.? BP is 178/69.? On PSV 15/40%/+8, RR is 23, Vt 350cc, Ve 8L, PIP 23cm, ETCO2 40mm, Sat 98-100%.? No JVD at 30-40?.? Chest is CTA w normal exp phase.? Heart tones soft, no murmur or gallops were noted. ?Abdomen is obese and benign.? It feels like she has at least 1+ central edema.? She has about a liter of clear light yellow urine in her Jovel bag from the Lasix in the ED.? Last POC was 354. The patient was extubated to BiPAP.? After about half an hour or so, we had her down to BiPAP 10/5/30%, on which RR was 21, Vt 440cc, Ve 9.4L, ETCO2 50, Sat 97%.? On questioning, the patient denied a h/o heart failure, she says she doesn?t see a hot billet shear operator, but she may not know. IMPRESSION: 1. Underlying COPD 2. Underlying tobacco abuse.? She?s gotta stop smoking, which is further dangerous bec of her home oxygen. 3. Underlying chronic hypoxemic and hypercapnic resp failure (high serum bicarb suggests CO2 retention; she is not on diuretics). 4. Reported h/o CHF, but I have no documentation.? She is obviously on heart failure medicines though.? Not sure why she is not on a diuretic. 5. Acute hypoxemic and hypercarbic resp failure.? Unclear etiology.? She has no wheezing and no cough, so not likely COPD exac, but she was hypercarbic.? Could be CHF.? Needs an echo.? She also has a metabolic alkalosis.? We?ll start her on Diamox.? Continue Coreg and valsartan.? Hold Aldactone for now bec of her hyperkalemia. 6. Uncontrolled HTN. ?Continue her home meds.? NTP 2? for now. 7. DM.? Start SS insulin. 8. SHARON.? Continue the citalopram. 9. Hyperkalemia.? Hold Aldactone. 10. Replete magnesium. Critical care time (include review of extensive [facility] records):? 110+ min REPLACED BY [facility] Past Medical History Medical History (Updated 05/12/22 @ 13:30 by Darline Kang DO) Anemia CHF (congestive heart failure) COPD (chronic obstructive pulmonary disease) Diabetes HTN (hypertension) Social History Social History (Updated 05/12/22 @ 12:11 by Darline Kang DO) Household Members: Unknown / Unable to assess Housing: Unknown / Unable to assess Unable to assess alcohol history related to: Unable to respond and Unknown Patient Tobacco Use Status: Tobacco use Unknown Use of substances other than those prescribed or required for medical reasons: Unable to respond Spiritual Healthcare Practices: unable to assess Scientology Healthcare Practices: unable to assess Cultural Healthcare Practices: unable to assess Advance Directives: No Advance Directives Information Provided: No Do you have thoughts of harming others: None Do you have a plan to hurt others: No Plan Recently lost weight without trying: Unsure How much weight loss: Unsure Nutrition Risks: On aspiration precautions Patient : No : No Poor oral hygiene: No Meds Allergies Allergy/AdvReac Type Severity Reaction Status Date / Time codeine Allergy Unknown Verified 05/12/22 12:14 naproxen Allergy Unknown Verified 05/12/22 12:15 Active Medications: Current Medications Nitroglycerin (Nitroglycerin 2 % Oint 1 Gm Packet) 2 inch TRANSDERMA Q6H [facility] Home Medications Medication Instructions Recorded Confirmed Last Taken Type albuterol sulfate 90 mcg/actuation 1 inh inhalation Q4-6H PRN Wheezing 05/12/22 05/12/22 Unknown History breath activated powder inhaler,sensor apixaban 5 mg tablet (Eliquis) 5 mg PO BID 05/12/22 05/12/22 Unknown History budesonide-formoterol HFA 160 2 puff inhalation BID 05/12/22 05/12/22 Unknown History mcg-4.5 mcg/actuation aerosol inhaler (Symbicort) carisoprodol 350 mg tablet (Soma) 350 mg PO QID 05/12/22 Unknown History carvedilol 6.25 mg tablet 6.25 mg PO BID 05/12/22 05/12/22 Unknown History citalopram 20 mg tablet 30 mg PO DAILY 05/12/22 05/12/22 Unknown History clonazepam 1 mg tablet 1 mg PO BEDTIME 05/12/22 05/12/22 Unknown History clonidine HCl 0.1 mg tablet 0.1 mg PO BEDTIME 05/12/22 05/12/22 Unknown History diltiazem HCl 360 mg 360 mg PO DAILY 05/12/22 05/12/22 Unknown History capsule,extended release 24 hr diphenhydramine HCl 25 mg tablet 25 mg PO BEDTIME 05/12/22 05/12/22 Unknown History insulin glargine 100 unit/mL (3 55 unit subcut DAILY 05/12/22 05/12/22 Unknown History mL) subcutaneous pen (Basaglar KwikPen U-100 Insulin) irbesartan 300 mg tablet 300 mg PO DAILY 05/12/22 05/12/22 Unknown History metformin 500 mg tablet,extended 1,000 mg PO BID 05/12/22 05/12/22 Unknown History release 24 hr mirtazapine 15 mg tablet 15 mg PO BEDTIME 05/12/22 05/12/22 Unknown History omeprazole 20 mg capsule,delayed 20 mg PO DAILY 05/12/22 05/12/22 Unknown History release ramelteon 8 mg tablet 8 mg PO BEDTIME 05/12/22 05/12/22 Unknown History spironolactone 25 mg tablet 25 mg PO DAILY 05/12/22 05/12/22 Unknown History Physical Exam Vital Signs: Vital Signs: Last Vital Signs Temp 98.2 F 05/12/22 14:16 Pulse 68 05/12/22 14:16 Resp 16 05/12/22 14:16 BP 147/50 H 05/12/22 14:16 Pulse Ox 95 05/12/22 14:16 O2 Del Method 05/12/22 14:16 FiO2 40 05/12/22 13:22 BMI result Body Mass Index 3.6 Results Labs CBC and Chem 7: 05/12/22 12:34 05/12/22 12:33 Labs: Laboratory Results - last 24 hr 05/12/22 05/12/22 05/12/22 11:42 12:03 12:03 MCV MCH MCHC RDW Plt Count MPV Immature Gran % (Auto) Neut % (Auto) Lymph % (Auto) [place] % (Auto) Eos % (Auto) Baso % (Auto) Lymph # (Auto) [place] # (Auto) Eos # (Auto) Baso # (Auto) Abs Immat Gran (auto) Absolute Neuts (auto) Absolute Nucleated RBC Nucleated RBC % (auto) PT INR O2 Saturation ABG pH at Pt Temp ABG pCO2 at Pt Temp ABG pO2 at Pt Temp ABG HCO3 ABG Base Excess (Actual) VBG pH VBG pCO2 VBG pO2 VBG HCO3 VBG O2 Saturation VBG Base Excess Anion Gap Estim Creat Clear Calc Estimated GFR POC Glucose 376 H* Random Glucose Lactic Acid 1.7 Calcium Magnesium Total Bilirubin AST ALT Alkaline Phosphatase Troponin I High Sens B-Natriuretic Peptide 110 H Total Protein Albumin Lipase Urine Color Urine Appearance Urine pH Ur Specific [place] Urine Protein Urine Glucose (UA) Urine Ketones Urine Blood Urine Nitrite Ur Leukocyte Esterase Urine RBC Urine WBC Ur Squamous Epith Cells Amorphous Sediment Urine Bacteria Stool Occult Blood Urine Opiates Screen Urine Fentanyl Screen Ur Barbiturates Screen Ur Phencyclidine Scrn Ur Amphetamines Screen U Benzodiazepines Scrn Urine Cocaine Screen U Marijuana (THC) Screen COVID-19 (KIM) COVID-19 Clin Com 05/12/22 05/12/22 05/12/22 12:03 12:23 12:33 MCV MCH MCHC RDW Plt Count MPV Immature Gran % (Auto) Neut % (Auto) Lymph % (Auto) [place] % (Auto) Eos % (Auto) Baso % (Auto) Lymph # (Auto) [place] # (Auto) Eos # (Auto) Baso # (Auto) Abs Immat Gran (auto) Absolute Neuts (auto) Absolute Nucleated RBC Nucleated RBC % (auto) PT INR O2 Saturation 91.0 ABG pH at Pt Temp 7.35 ABG pCO2 at Pt Temp 63 H* ABG pO2 at Pt Temp 68 L ABG HCO3 35 H ABG Base Excess (Actual) TNP VBG pH VBG pCO2 VBG pO2 VBG HCO3 VBG O2 Saturation VBG Base Excess Anion Gap 12 Estim Creat Clear Calc 8.0 Estimated GFR > 60 POC Glucose Random Glucose 420 H* Lactic Acid Calcium 8.5 Magnesium 1.8 Total Bilirubin 0.3 AST 30 ALT 28 Alkaline Phosphatase 138 H Troponin I High Sens 6.1 B-Natriuretic Peptide Total Protein 7.2 Albumin 3.7 Lipase 25 Urine Color Urine Appearance Urine pH Ur Specific [place] Urine Protein Urine Glucose (UA) Urine Ketones Urine Blood Urine Nitrite Ur Leukocyte Esterase Urine RBC Urine WBC Ur Squamous Epith Cells Amorphous Sediment Urine Bacteria Stool Occult Blood Urine Opiates Screen Urine Fentanyl Screen Ur Barbiturates Screen Ur Phencyclidine Scrn Ur Amphetamines Screen U Benzodiazepines Scrn Urine Cocaine Screen U Marijuana (THC) Screen COVID-19 (KIM) COVID-19 Clin Com 05/12/22 05/12/22 05/12/22 12:33 12:34 12:40 MCV 70.0 L MCH 17.7 L MCHC 25.3 L RDW 18.3 H Plt Count 230 MPV 9.5 Immature Gran % (Auto) 1.0 H Neut % (Auto) 87.1 H Lymph % (Auto) 7.4 L [place] % (Auto) 3.7 Eos % (Auto) 0.6 Baso % (Auto) 0.2 Lymph # (Auto) 0.9 L [place] # (Auto) 0.5 Eos # (Auto) 0.1 Baso # (Auto) 0.0 Abs Immat Gran (auto) 0.12 H Absolute Neuts (auto) 10.7 H Absolute Nucleated RBC 0.000 Nucleated RBC % (auto) 0.0 PT 11.5 INR 1.0 O2 Saturation ABG pH at Pt Temp ABG pCO2 at Pt Temp ABG pO2 at Pt Temp ABG HCO3 ABG Base Excess (Actual) VBG pH 7.30 L VBG pCO2 85 VBG pO2 68 VBG HCO3 42 H VBG O2 Saturation 89.0 VBG Base Excess 13.3 Anion Gap Estim Creat Clear Calc Estimated GFR POC Glucose Random Glucose Lactic Acid Calcium Magnesium Total Bilirubin AST ALT Alkaline Phosphatase Troponin I High Sens B-Natriuretic Peptide Total Protein Albumin Lipase Urine Color Urine Appearance Urine pH Ur Specific [place] Urine Protein Urine Glucose (UA) Urine Ketones Urine Blood Urine Nitrite Ur Leukocyte Esterase Urine RBC Urine WBC Ur Squamous Epith Cells Amorphous Sediment Urine Bacteria Stool Occult Blood Urine Opiates Screen Urine Fentanyl Screen Ur Barbiturates Screen Ur Phencyclidine Scrn Ur Amphetamines Screen U Benzodiazepines Scrn Urine Cocaine Screen U Marijuana (THC) Screen COVID-19 (KIM) COVID-19 [email or web address] 05/12/22 05/12/22 05/12/22 12:43 12:43 12:43 MCV MCH MCHC RDW Plt Count MPV Immature Gran % (Auto) Neut % (Auto) Lymph % (Auto) [place] % (Auto) Eos % (Auto) Baso % (Auto) Lymph # (Auto) [place] # (Auto) Eos # (Auto) Baso # (Auto) Abs Immat Gran (auto) Absolute Neuts (auto) Absolute Nucleated RBC Nucleated RBC % (auto) PT INR O2 Saturation ABG pH at Pt Temp ABG pCO2 at Pt Temp ABG pO2 at Pt Temp ABG HCO3 ABG Base Excess (Actual) VBG pH VBG pCO2 VBG pO2 VBG HCO3 VBG O2 Saturation VBG Base Excess Anion Gap Estim Creat Clear Calc Estimated GFR POC Glucose Random Glucose Lactic Acid Calcium Magnesium Total Bilirubin AST ALT Alkaline Phosphatase Troponin I High Sens B-Natriuretic Peptide Total Protein Albumin Lipase Urine Color YELLOW Urine Appearance CLEAR Urine pH 7.0 Ur Specific [place] 1.020 Urine Protein 3+ H Urine Glucose (UA) >=1000 H Urine Ketones NEG Urine Blood TRACE Urine Nitrite NEG Ur Leukocyte Esterase NEG Urine RBC 1-4 Urine WBC 1-4 Ur Squamous Epith Cells TRACE Amorphous Sediment 1+ Urine Bacteria NONE Stool Occult Blood Urine Opiates Screen Not Detected Urine Fentanyl Screen Not Detected Ur Barbiturates Screen Not Detected Ur Phencyclidine Scrn Not Detected Ur Amphetamines Screen Not Detected U Benzodiazepines Scrn Not Detected Urine Cocaine Screen Not Detected U Marijuana (THC) Screen Not Detected COVID-19 (KIM) Negative COVID-19 [email or web address] See Note 05/12/22 13:54 MCV MCH MCHC RDW Plt Count MPV Immature Gran % (Auto) Neut % (Auto) Lymph % (Auto) [place] % (Auto) Eos % (Auto) Baso % (Auto) Lymph # (Auto) [place] # (Auto) Eos # (Auto) Baso # (Auto) Abs Immat Gran (auto) Absolute Neuts (auto) Absolute Nucleated RBC Nucleated RBC % (auto) PT INR O2 Saturation ABG pH at Pt Temp ABG pCO2 at Pt Temp ABG pO2 at Pt Temp ABG HCO3 ABG Base Excess (Actual) VBG pH VBG pCO2 VBG pO2 VBG HCO3 VBG O2 Saturation VBG Base Excess Anion Gap Estim Creat Clear Calc Estimated GFR POC Glucose Random Glucose Lactic Acid Calcium Magnesium Total Bilirubin AST ALT Alkaline Phosphatase Troponin I High Sens B-Natriuretic Peptide Total Protein Albumin Lipase Urine Color Urine Appearance Urine pH Ur Specific [place] Urine Protein Urine Glucose (UA) Urine Ketones Urine Blood Urine Nitrite Ur Leukocyte Esterase Urine RBC Urine WBC Ur Squamous Epith Cells Amorphous Sediment Urine Bacteria Stool Occult Blood NEGATIVE Urine Opiates Screen Urine Fentanyl Screen Ur Barbiturates Screen Ur Phencyclidine Scrn Ur Amphetamines Screen U Benzodiazepines Scrn Urine Cocaine Screen U Marijuana (THC) Screen COVID-19 (KIM) COVID-19 Clin Com Imaging Radiologist's Impressions: Impressions Chest X-Ray 05/12/22 12:00 IMPRESSION: Endotracheal tube tip projects over right mainstem bronchus and should be pulled back several centimeters. Question left upper lobe pneumonia. Findings will be communicated by the [place] work flow locomotive inspector. Head CT 05/12/22 13:23 IMPRESSION: No evidence of acute intracranial hemorrhage. There are age indeterminant lacunar infarcts within the right basal ganglia and both thalami. Scattered likely chronic small vessel ischemic changes are also visualized throughout the periventricular white matter. Comparison with prior imaging is recommended if available. Critical Care Time Critical Care Time (minutes): 120
[2022-05-12] MEDS: fentaNYL citrate/PF 100 MCG/2 ML VIAL 25 MCG IVPUSH (15:30)
[2022-05-12] MEDS: Nitroglycerin 2 % Oint 1 GM Packet 2 INCH TRANSDERMA ×2 (15:32→20:40)
[2022-05-12 15:53] LABS: Glucose, Whole Blood 354 mg/dL (60-115)
[2022-05-12] MEDS: acetaZOLAMIDE sodium 500 MG VIAL IVPUSH (16:22)
[2022-05-12] MEDS: Insulin Lispro 100 UNIT/ML 3 ML VIAL 15 UNIT SUBCUT (16:23)
[2022-05-12] MEDS: Magnesium Sulfate/H2O 2 GM/50 ML PIGGYBACK IV (17:48)
[2022-05-12 18:16] LABS: Phosphorus 4.8 mg/dL (2.7-4.5)
[2022-05-12 18:55] LABS: Glucose, Whole Blood 299 mg/dL (60-115)
[2022-05-12 19:37] LABS: VBG Base Excess 10.6 mmol/L; VBG HCO3 36 mmol/L (22-26); VBG pCO2 54 mmHg; VBG pH 7.43 (7.32-7.43); VBG pO2 51 mmHg
[2022-05-12 19:37] LABS: Venous Blood Gas Refer to POC result
[2022-05-12 20:03] LABS: Glucose, Whole Blood 283 mg/dL (60-115)
[2022-05-12 20:23] LABS: Anion Gap 13 (12-20); Blood Urea Nitrogen 18 mg/dL (9-16); Calcium 8.5 mg/dL (8.4-10.2); Carbon Dioxide 35 mmol/L (22-29); Chloride 92 mmol/L (96-108); Creatinine Clr Calc Pharmacy 72.4; Estimated Glomerular Filt Rate > 60; Glucose Random 303 mg/dL (60-115); Potassium 3.8 mmol/L (3.3-5.1); Sodium 136 mmol/L (135-145)
[2022-05-12] MEDS: cloNIDine HCL 0.1 MG TABLET PO (20:36)
[2022-05-12] MEDS: Mirtazapine 15 MG TABLET PO (20:36)
[2022-05-12] MEDS: diphenhydrAMINE HCL 25 MG TABLET PO (20:36)
[2022-05-12] MEDS: Apixaban 5 MG TABLET PO (20:36)
[2022-05-12] MEDS: carvediloL 6.25 MG TABLET PO (20:36)
[2022-05-12] MEDS: Insulin Lispro 100 UNIT/ML 3 ML VIAL SUBCUT (20:37)
[2022-05-13] VITALS (22 sets, daily range): BP systolic 119–167; BP diastolic 48–79; PULSE 56–112; RESP 10–27; TEMP 37–37.6; O2SAT 89–100; BMI 41.1
[2022-05-13] MEDS: Acetaminophen 325 MG TABLET 650 MG PO (01:15)
[2022-05-13] MEDS: acetaZOLAMIDE sodium 500 MG VIAL IVPUSH (03:21)
[2022-05-13] MEDS: Nitroglycerin 2 % Oint 1 GM Packet 2 INCH TRANSDERMA (03:30)
[2022-05-13] MEDS: Omeprazole 20 MG CAPSULE.DR PO (05:40)
[2022-05-13 05:46] LABS: MANUAL DIFF FLAG NO
[2022-05-13 05:49] LABS: Basophils Percent Auto 0.2 % (0-2); Hematocrit 24.6 % (37.0-47.0); Imm Gran Abs Auto 0.08 X10*3/uL (0.00-0.03); Imm Gran Pct Auto 0.7 % (0.0-0.4); Lymphocytes Absolute Auto 1.2 X10*3/uL (1.2-4.9); Lymphocytes Percent Auto 10.6 % (20-40); Mean Corpuscular HGB Conc 27.2 g/dl (31.0-35.0); Mean Corpuscular Hemoglobin 18.3 pg (27.0-33.0); Mean Corpuscular Volume 67.2 fL (80.0-98.0); Mean Platelet Volume 9.9 fL (9.4-12.3); Monocytes Absolute Auto 0.4 X10*3/uL (0.1-1.2); Monocytes Percent Auto 3.6 % (2-11); NRBC Pct Auto 0.2 /100WBC (0.0-0.2); Neutrophils Absolute Auto 9.8 x10*3/uL (2.0-8.3); Neutrophils Percent Auto 84.9 % (45-73); Platelet Count 243 X10*3/uL (160-400); Red Blood Count 3.66 X10*6/uL (4.20-5.50); Red Cell Distribution Width 18.2 % (11.0-16.0); White Blood Count 11.5 X10*3/uL (4.8-10.8)
[2022-05-13 05:52] LABS: Hemoglobin 6.7 g/dl (12.0-16.0)
[2022-05-13 05:57] LABS: VBG Base Excess 9.4 mmol/L; VBG HCO3 34 mmol/L (22-26); VBG pCO2 46 mmHg; VBG pH 7.47 (7.32-7.43); VBG pO2 91 mmHg
[2022-05-13 05:57] LABS: Venous Blood Gas Refer to POC result
[2022-05-13 06:15] LABS: Alanine Aminotransferase 19 U/L (0-31); Albumin Level 3.3 g/dL (3.5-5.0); Alkaline Phosphatase 102 U/L (39-117); Anion Gap 12 (12-20); Aspartate Amino Transferase 11 U/L (5-31); Bilirubin Total 0.3 mg/dL (0.0-1.0); Blood Urea Nitrogen 21 mg/dL (9-16); Calcium 8.3 mg/dL (8.4-10.2); Carbon Dioxide 31 mmol/L (22-29); Chloride 97 mmol/L (96-108); Creatinine Clr Calc Pharmacy 70.8; Estimated Glomerular Filt Rate > 60; Glucose Random 223 mg/dL (60-115); Potassium 3.6 mmol/L (3.3-5.1); Sodium 136 mmol/L (135-145); Total Protein 6.4 g/dL (6.5-8.0)
--- NOTE | 2022-05-13 07:00 | CA_ITS ---
Transthoracic Echocardiogram Patient (Last, First, Middle): Abby Ford, Gender: Female Date of : 1945 Age: 76 Procedure Date: 05/13/2022 Procedure Type: Transthoracic Echocardiogram Location: ICU Height: 157.48 cm Weight: 102.06 kg BSA: 2.01 m2 Heart Rate: bpm BP: 134 / 49 mmHg Tree Chipper: MOHAN Kennedy MD: Tera GIORDANO Paint Spray Inspector: Aristides Preciado MD Symptoms: Chf Study Quality: Technically Difficult/contrast ECG Rhythm: Sinus Conclusions: - 1. Technically limited study despite use of contrast agent due to body habitus 2. Normal LV systolic function with impaired relaxation filling pattern 3. Possible mild aortic stenosis 4. RV systolic pressure could not be calculated on this study Findings Procedure Information Contrast agent, definity, is being given per protocol without apparent complications. Left Ventricle Normal left ventricular size, thickness, and systolic function. The visually estimated ejection fraction is between 55-60%. Spectral Doppler is indicative of an impaired relaxation filling pattern. E/E prime ratio is between 8 and 15 consistent with indeterminate filling pressures. Right Ventricle The right ventricle was not well visualized. Atria The left atrium is mildly dilated. Interatrial shunt cannot be excluded. The right atrium was not well visualized. Aortic Valve The aortic valve was not well visualized. There is mild aortic valve stenosis. The peak aortic gradient is 14 mmHg.The mean gradient is 7 mmHg. The aortic valve area is 1.68 cm2. There is no aortic valve regurgitation. Mitral Valve The mitral valve was not well visualized. There is trace mitral valve regurgitation. There is no mitral valve stenosis. Pulmonic Valve The pulmonic valve was not well visualized. Tricuspid Valve The tricuspid valve was not well visualized. Tricuspid regurgitation envelope is inadequate for calculation of right ventricular systolic pressure. Great Vessels The aorta was not well visualized. The pulmonary artery was not well visualized. Venous The inferior vena cava was not well visualized. Pericardium/Pleural The pericardium was not well visualized. Prior Study Comparison No prior study available for comparison. Measurements 2D Linear Measurements IVSd: 1.09 0.6-0.9/0.6-1.0 cm LVIDd: 4.28 3.9-5.3/4.2-5.9 cm LVIDd Index: 2.13 2.4-3.2/2.2-3.1 cm/m2 LVIDs: 2.71 2.0-3.6 cm LVPWd: 0.98 0.7-1.1 cm LA Diam: 3.70 2.7-3.8/3.0-4.0 cm LAIDs Index: 1.84 1.5-2.3 cm/m2 LV Mass: 306.64 67-162/88-224 g LV Mass Index: 152.56 43-95/49-115 g/m2 LVOT Diam: 1.90 3.0+(-)1.3 cm 2D Systolic Function EF 4C: 51.10 >55% EF 2C: 59.70 >55% EF BiP: 55.50 >55% Mitral Valve MV Pk E: 0.94 MV PK A: 1.15 MV Decel Time: 235.00 E/A: 0.80 E'Lateral: 8.05 E'Medial: 7.51 E/E' Med: 12.50 E/E' Lat: 11.70 PHT: 69.00 MVA PHT: 3.19 Decel [place]: 3.99 Aortic Valve AoV Pk Jose L: 1.85 AoV Mn Jose L: 1.27 AoV VTI: 0.43 AoV Pk Grad: 14.00 Aov Mn Grad: 7.00 JARVIS Cont.VTI: 1.68 LVOT LVOT Pk Jose L: 1.00 LVOT Mn Jose L: 0.72 LVOT VTI: 0.25 LVOT Pk Grad: 4.00 LVOT Mn Grad: 2.00 LVOT Diam: 1.90 LVOT Area: 2.84 Diastolic Function MV Pk E: 0.94 MV Pk A: 1.15 E/A: 0.80 E'Medial: 7.51 E/E' Med: 12.50 E' Laterial: 8.05 E/E' Lat: 11.70 Right Ventricle TAPSE (mm): 29.50 TVS' Jose L: 12.70 Great Vessels Aorta Sinus of Valsalva: 2.81 2.0-3.5 cm Ao Asc: 2.90 2.1-3.4 cm Updated in Other Vendor System with Status of Final Aristides Preciado MD electronically signed on 05/13/2022 3:31:17 PM with status of Final
[2022-05-13 07:07] LABS: Glucose, Whole Blood 223 mg/dL (60-115)
[2022-05-13] MEDS: Valsartan 160 MG TABLET PO (08:50)
[2022-05-13] MEDS: Escitalopram Oxalate 10 MG TABLET 15 MG PO (08:50)
[2022-05-13] MEDS: carvediloL 6.25 MG TABLET PO ×2 (08:50→21:58)
[2022-05-13] MEDS: Apixaban 5 MG TABLET PO (08:50)
[2022-05-13] MEDS: dilTIAZem HCL CD 180 MG CAP.ER.24H 360 MG PO (08:50)
[2022-05-13] MEDS: Insulin Lispro 100 UNIT/ML 3 ML VIAL SUBCUT ×4 (08:50→21:59)
--- NOTE | 2022-05-13 10:17 | P.CDIC_ITS ---
CDI Concurrent Query Documentation Clarification: PHYSICIAN'S DOCUMENTATION REQUEST Date of Query: 05/13/22 1018 Patient Name: Abby Ford Admit Date: 05/12/22 Dear Doctor, A review of the medical record indicates additional documentation may be needed. Please review below and update the documentation accordingly. Clinical Indicators: Risk Factors/Clinical Indicators/Treatments ICU note 05/12 - DM on Lantus, gluc 420 DM - Start SS Insulin POC glucose 05/12 - [id number] Please clarify the following regarding Diabetes Mellitus (DM): l Type/Etiology: * Type I DM * Type II DM * Other type of DM (please specify) * Hypoglycemia * Hyperglycemia * No complications of DM * Other complication ? please specify * Unable to determine Use of terms such as suspected, likely, concern for, or probable (associated with a specific diagnosis that is being evaluated, monitored, or treated as if it exists) are acceptable and can be coded in the inpatient setting, when documented at the time of discharge. Thank you, Argelia Ruiz [facility], CDIS Extension: [phone] Please use your independent medical judgment in providing your response. THIS QUERY IS PART OF THE PERMANENT MEDICAL RECORD Provider Response: Other Other Diagnosis: Type II DM
--- NOTE | 2022-05-13 10:24 | PM.CCPN ---
Subjective Subjective Date of Service: 05/13/22 Interval History: Mrs. Hutton was admitted to the ICU yesterday (May 12) with acute respiratory failure. The patient is a 76 yo female with PMhx of obesity, COPD on 2L home oxygen, CHF on Aldactone, Coreg and valsartan, HTN, DM on Lantus, anemia, GERD, SHARON, and restless leg syndrome. Records from [facility] indicate that she was hospitalized there for COVID infection 11/25-, and for subsequent pulmon embolism 12/15-, for which she was started on Eliquis.? She was also admitted there from 02/13- for COPD exac requiring BiPAP, and 02/24-07/2022 for influenza A requiring BiPAP.? The records indicate that she is an active smoker, HISTORY OF PRESENT ILLNESS: ?Yesterday morning, her VNA found the patient with dyspnea at home, reportedly w sat 91% on her home O2. ?EMS was called. ?On EMS arrival, the patient was obtunded, with sats 62% on her home O2. ?She could not comply with CPAP.? There was no circulatory arrest, nor any resp arrest as far as I can tell.? The patient was intubated in the field, then BIBA to the ED. In the ED, the patient arrived with an 8.0 ETT at 27cm at the lip, with Sat 95% on ambu bag ventilation.? CXR showed a 2-3 cm R mainstem intubation, w loss of vol on the left, with either CHRIST infiltrate or collapse.? The ETT was pulled back, resulting in improved oxygenation and improved aeration of the entire left lung on chest x-ray.? The patient was awake on arrival to ED, able to answer simple questions about her history and follow simple commands.? She was afebrile.? HR 85, BP 174/69.? Some froth noted in the ETT.? Rhythm was sinus.? She had rales at the bases, w 1+ pitting lower extremity edema.? No neuro deficits.? Stool was brown, guiac neg. Labs in the ED noted WBC 12, Hgb 7.3 (was 7.6 on 02/26/22), INR 1.0, BUN/creat 15/0.8, bicarb 34, gluc 420, alb 3.7, Lactic acid 1.7, trop 6.1, BNP 110.? ABG (unstated FiO2) at 12:23 was 7.35/63/68/35.? VBG at 12:40 was 7.30/85/+13.? U/A negative for infection.? Urine tox all negative.? COVID neg.? The patient was given a dose of diuretic and a dose of Abx.? She was awake, so she was tried on PSV but reportedly failed.? She was therefore admitted to the ICU. On my exam, the patient was completely awake and easily able to answer all our questions.? MS was normal and she was requesting to have the ETT removed.? Sat was up to 100% on FiO2 40%.? No JVD.? Chest was CTA w normal exp phase.? She had at least 1+ central edema, w copious urine in the [place] bag. The patient was extubated to BiPAP without incident.? She was able to come off BiPAP in the evening with no problem to take her pills.? She stayed on BiPAP overnight.? This morning?s VBG on BiPAP 30% showed 7.47/46/+9.? She came off BiPAP this morning with no problems, ate her breakfast.? Breathing easy with Sat 97% on 2L, Sat 95% on 1L, and Sat 89% on room air.? We put her back on 1L.? HR 70, BP 161/63.? When I asked her what happened yesterday, she does not know.? She has no jugular venous distention with the head of the bed at about 40 degrees.? Chest is clear to auscultation, with a normal expiratory phase.? Heart tones are soft, I heard no murmur or gallops.? The abdomen is obese and benign.? She has 1-2 +central edema. LABORATORY DATA:? As below.? Notably, Hb is down to 6.7.? BUN/creat 21/0.7 after the diuretic yesterday, POC in the 220s. ECHOCARDIOGRAM done this morning by the histology tech, interpreted by me:? LV function is normal, no regional wall motion abnormalities noted. ?EF probably around 60%.? Moderate LVH.? RV size and contractility is normal.? No significant valvular abnormalities.? Pulmonary artery pressure normal.? IVC was dilated w minimal insp collapse. IMPRESSION: 1. Underlying COPD 2. Underlying tobacco abuse.? She?s gotta stop smoking, which is further dangerous bec of her home oxygen. 3. Underlying chronic hypoxemic and hypercapnic resp failure (high serum bicarb suggests CO2 retention; she was not previously on diuretics). 4. H/o PE, for which she?s on Eliquis. 5. Reported h/o CHF, but I have no previous documentation.? She is obviously on heart failure medicines.? Not sure why she is not on a diuretic.? The echo from this morning suggests that she has heart failure with normal ejection fraction, i.e. diastolic failure.? The echo also suggests that she may be volume overloaded.? I put her on Lasix.? Continue Coreg, valsartan, and Aldactone. 6. Acute hypoxemic and hypercarbic resp failure.? Unclear etiology.? She had no wheezing and no cough, so not likely COPD exac.? She was hypercarbic.? Most likely etiol was diastolic heart failure.? She needs more diuresis.? I gave her 40 mg Lasix po this morning and put her on Lasix 20 mg po daily.? She also has a compensatory metabolic alkalosis, so I put her on Diamox.? Would check a VBG every morning that she has routine morning labs.? D/C the Diamox when her BE gets down to low single digits. 7. HTN.? Continue her home meds. 8. DM.? On SS insulin. ?I restarted her metformin this morning. 9. SHARON.? Continue the citalopram. 10. Anemia.? She has a h/o anemia which I believe is followed at [facility].? We gave her 1 unit RBCs this morning. Stable for transfer to [facility].? I will sign out to the hospitalist. Critical Care Time (minutes): 0 Physical Exam Vital Signs: Vital Signs: Last Vital Signs Temp 99.0 F 05/13/22 09:50 Pulse 82 05/13/22 10:00 Resp 27 H 05/13/22 10:00 BP 163/63 H 05/13/22 10:00 Pulse Ox 89 L 05/13/22 10:00 O2 Del Method 05/13/22 10:00 O2 Flow Rate 2 05/13/22 09:00 FiO2 30 05/13/22 08:00 BMI result Body Mass Index 41.1 Objective Data Labs CBC & Chem 7: 05/13/22 05:37 05/13/22 05:37 Labs: Laboratory Results - last 24 hr 05/12/22 05/12/22 05/12/22 11:42 12:03 12:03 WBC RBC Hgb Hct MCV MCH MCHC RDW Plt Count MPV Immature Gran % (Auto) Neut % (Auto) Lymph % (Auto) [place] % (Auto) Eos % (Auto) Baso % (Auto) Lymph # (Auto) [place] # (Auto) Eos # (Auto) Baso # (Auto) Abs Immat Gran (auto) Absolute Neuts (auto) Absolute Nucleated RBC Nucleated RBC % (auto) PT INR O2 Saturation ABG pH at Pt Temp ABG pCO2 at Pt Temp ABG pO2 at Pt Temp ABG HCO3 ABG Base Excess (Actual) VBG pH VBG pCO2 VBG pO2 VBG HCO3 VBG O2 Saturation VBG Base Excess Sodium Potassium Chloride Carbon Dioxide Anion Gap BUN Creatinine Estim Creat Clear Calc Estimated GFR POC Glucose 376 H* Random Glucose Lactic Acid 1.7 Calcium Phosphorus Magnesium Total Bilirubin AST ALT Alkaline Phosphatase Troponin I High Sens B-Natriuretic Peptide 110 H Total Protein Albumin Lipase Urine Color Urine Appearance Urine pH Ur Specific [place] Urine Protein Urine Glucose (UA) Urine Ketones Urine Blood Urine Nitrite Ur Leukocyte Esterase Urine RBC Urine WBC Ur Squamous Epith Cells Amorphous Sediment Urine Bacteria Stool Occult Blood Urine Opiates Screen Urine Fentanyl Screen Ur Barbiturates Screen Ur Phencyclidine Scrn Ur Amphetamines Screen U Benzodiazepines Scrn Urine Cocaine Screen U Marijuana (THC) Screen COVID-19 (KIM) COVID-19 Clin Com Blood Type Antibody Screen Crossmatch 05/12/22 05/12/22 05/12/22 12:03 12:23 12:33 WBC RBC Hgb Hct MCV MCH MCHC RDW Plt Count MPV Immature Gran % (Auto) Neut % (Auto) Lymph % (Auto) [place] % (Auto) Eos % (Auto) Baso % (Auto) Lymph # (Auto) [place] # (Auto) Eos # (Auto) Baso # (Auto) Abs Immat Gran (auto) Absolute Neuts (auto) Absolute Nucleated RBC Nucleated RBC % (auto) PT INR O2 Saturation 91.0 ABG pH at Pt Temp 7.35 ABG pCO2 at Pt Temp 63 H* ABG pO2 at Pt Temp 68 L ABG HCO3 35 H ABG Base Excess (Actual) TNP VBG pH VBG pCO2 VBG pO2 VBG HCO3 VBG O2 Saturation VBG Base Excess Sodium 134 L Potassium 5.3 H Chloride 93 L Carbon Dioxide 34 H Anion Gap 12 BUN 15 Creatinine 0.87 Estim Creat Clear Calc 8.0 Estimated GFR > 60 POC Glucose Random Glucose 420 H* Lactic Acid Calcium 8.5 Phosphorus 4.8 H Magnesium 1.8 Total Bilirubin 0.3 AST 30 ALT 28 Alkaline Phosphatase 138 H Troponin I High Sens 6.1 B-Natriuretic Peptide Total Protein 7.2 Albumin 3.7 Lipase 25 Urine Color Urine Appearance Urine pH Ur Specific [place] Urine Protein Urine Glucose (UA) Urine Ketones Urine Blood Urine Nitrite Ur Leukocyte Esterase Urine RBC Urine WBC Ur Squamous Epith Cells Amorphous Sediment Urine Bacteria Stool Occult Blood Urine Opiates Screen Urine Fentanyl Screen Ur Barbiturates Screen Ur Phencyclidine Scrn Ur Amphetamines Screen U Benzodiazepines Scrn Urine Cocaine Screen U Marijuana (THC) Screen COVID-19 (KIM) COVID-19 Clin Com Blood Type Antibody Screen Crossmatch 05/12/22 05/12/22 05/12/22 12:33 12:34 12:40 WBC 12.3 H RBC 4.13 L Hgb 7.3 L Hct 28.9 L MCV 70.0 L MCH 17.7 L MCHC 25.3 L RDW 18.3 H Plt Count 230 MPV 9.5 Immature Gran % (Auto) 1.0 H Neut % (Auto) 87.1 H Lymph % (Auto) 7.4 L [place] % (Auto) 3.7 Eos % (Auto) 0.6 Baso % (Auto) 0.2 Lymph # (Auto) 0.9 L [place] # (Auto) 0.5 Eos # (Auto) 0.1 Baso # (Auto) 0.0 Abs Immat Gran (auto) 0.12 H Absolute Neuts (auto) 10.7 H Absolute Nucleated RBC 0.000 Nucleated RBC % (auto) 0.0 PT 11.5 INR 1.0 O2 Saturation ABG pH at Pt Temp ABG pCO2 at Pt Temp ABG pO2 at Pt Temp ABG HCO3 ABG Base Excess (Actual) VBG pH 7.30 L VBG pCO2 85 VBG pO2 68 VBG HCO3 42 H VBG O2 Saturation 89.0 VBG Base Excess 13.3 Sodium Potassium Chloride Carbon Dioxide Anion Gap BUN Creatinine Estim Creat Clear Calc Estimated GFR POC Glucose Random Glucose Lactic Acid Calcium Phosphorus Magnesium Total Bilirubin AST ALT Alkaline Phosphatase Troponin I High Sens B-Natriuretic Peptide Total Protein Albumin Lipase Urine Color Urine Appearance Urine pH Ur Specific [place] Urine Protein Urine Glucose (UA) Urine Ketones Urine Blood Urine Nitrite Ur Leukocyte Esterase Urine RBC Urine WBC Ur Squamous Epith Cells Amorphous Sediment Urine Bacteria Stool Occult Blood Urine Opiates Screen Urine Fentanyl Screen Ur Barbiturates Screen Ur Phencyclidine Scrn Ur Amphetamines Screen U Benzodiazepines Scrn Urine Cocaine Screen U Marijuana (THC) Screen COVID-19 (KIM) COVID-19 Clin Com Blood Type Antibody Screen Crossmatch 05/12/22 05/12/22 05/12/22 12:43 12:43 12:43 WBC RBC Hgb Hct MCV MCH MCHC RDW Plt Count MPV Immature Gran % (Auto) Neut % (Auto) Lymph % (Auto) [place] % (Auto) Eos % (Auto) Baso % (Auto) Lymph # (Auto) [place] # (Auto) Eos # (Auto) Baso # (Auto) Abs Immat Gran (auto) Absolute Neuts (auto) Absolute Nucleated RBC Nucleated RBC % (auto) PT INR O2 Saturation ABG pH at Pt Temp ABG pCO2 at Pt Temp ABG pO2 at Pt Temp ABG HCO3 ABG Base Excess (Actual) VBG pH VBG pCO2 VBG pO2 VBG HCO3 VBG O2 Saturation VBG Base Excess Sodium Potassium Chloride Carbon Dioxide Anion Gap BUN Creatinine Estim Creat Clear Calc Estimated GFR POC Glucose Random Glucose Lactic Acid Calcium Phosphorus Magnesium Total Bilirubin AST ALT Alkaline Phosphatase Troponin I High Sens B-Natriuretic Peptide Total Protein Albumin Lipase Urine Color YELLOW Urine Appearance CLEAR Urine pH 7.0 Ur Specific [place] 1.020 Urine Protein 3+ H Urine Glucose (UA) >=1000 H Urine Ketones NEG Urine Blood TRACE Urine Nitrite NEG Ur Leukocyte Esterase NEG Urine RBC 1-4 Urine WBC 1-4 Ur Squamous Epith Cells TRACE Amorphous Sediment 1+ Urine Bacteria NONE Stool Occult Blood Urine Opiates Screen Not Detected Urine Fentanyl Screen Not Detected Ur Barbiturates Screen Not Detected Ur Phencyclidine Scrn Not Detected Ur Amphetamines Screen Not Detected U Benzodiazepines Scrn Not Detected Urine Cocaine Screen Not Detected U Marijuana (THC) Screen Not Detected COVID-19 (KIM) Negative COVID-19 Clin Com See Note Blood Type Antibody Screen Crossmatch 05/12/22 05/12/22 05/12/22 13:54 14:41 15:50 WBC RBC Hgb Hct MCV MCH MCHC RDW Plt Count MPV Immature Gran % (Auto) Neut % (Auto) Lymph % (Auto) [place] % (Auto) Eos % (Auto) Baso % (Auto) Lymph # (Auto) [place] # (Auto) Eos # (Auto) Baso # (Auto) Abs Immat Gran (auto) Absolute Neuts (auto) Absolute Nucleated RBC Nucleated RBC % (auto) PT INR O2 Saturation ABG pH at Pt Temp ABG pCO2 at Pt Temp ABG pO2 at Pt Temp ABG HCO3 ABG Base Excess (Actual) VBG pH VBG pCO2 VBG pO2 VBG HCO3 VBG O2 Saturation VBG Base Excess Sodium Potassium Chloride Carbon Dioxide Anion Gap BUN Creatinine Estim Creat Clear Calc Estimated GFR POC Glucose 354 H* Random Glucose Lactic Acid Calcium Phosphorus Magnesium Total Bilirubin AST ALT Alkaline Phosphatase Troponin I High Sens B-Natriuretic Peptide Total Protein Albumin Lipase Urine Color Urine Appearance Urine pH Ur Specific [place] Urine Protein Urine Glucose (UA) Urine Ketones Urine Blood Urine Nitrite Ur Leukocyte Esterase Urine RBC Urine WBC Ur Squamous Epith Cells Amorphous Sediment Urine Bacteria Stool Occult Blood NEGATIVE Urine Opiates Screen Urine Fentanyl Screen Ur Barbiturates Screen Ur Phencyclidine Scrn Ur Amphetamines Screen U Benzodiazepines Scrn Urine Cocaine Screen U Marijuana (THC) Screen COVID-19 (KIM) COVID-19 Clin Com Blood Type B Positive Antibody Screen NEGATIVE Crossmatch See Detail 05/12/22 05/12/22 05/12/22 18:52 19:33 19:59 WBC RBC Hgb Hct MCV MCH MCHC RDW Plt Count MPV Immature Gran % (Auto) Neut % (Auto) Lymph % (Auto) [place] % (Auto) Eos % (Auto) Baso % (Auto) Lymph # (Auto) [place] # (Auto) Eos # (Auto) Baso # (Auto) Abs Immat Gran (auto) Absolute Neuts (auto) Absolute Nucleated RBC Nucleated RBC % (auto) PT INR O2 Saturation ABG pH at Pt Temp ABG pCO2 at Pt Temp ABG pO2 at Pt Temp ABG HCO3 ABG Base Excess (Actual) VBG pH 7.43 VBG pCO2 54 VBG pO2 51 VBG HCO3 36 H VBG O2 Saturation 82.0 VBG Base Excess 10.6 Sodium Potassium Chloride Carbon Dioxide Anion Gap BUN Creatinine Estim Creat Clear Calc Estimated GFR POC Glucose 299 H 283 H Random Glucose Lactic Acid Calcium Phosphorus Magnesium Total Bilirubin AST ALT Alkaline Phosphatase Troponin I High Sens B-Natriuretic Peptide Total Protein Albumin Lipase Urine Color Urine Appearance Urine pH Ur Specific [place] Urine Protein Urine Glucose (UA) Urine Ketones Urine Blood Urine Nitrite Ur Leukocyte Esterase Urine RBC Urine WBC Ur Squamous Epith Cells Amorphous Sediment Urine Bacteria Stool Occult Blood Urine Opiates Screen Urine Fentanyl Screen Ur Barbiturates Screen Ur Phencyclidine Scrn Ur Amphetamines Screen U Benzodiazepines Scrn Urine Cocaine Screen U Marijuana (THC) Screen COVID-19 (KIM) COVID-19 Clin Com Blood Type Antibody Screen Crossmatch 05/12/22 05/13/22 05/13/22 20:04 05:36 05:37 WBC 11.5 H RBC 3.66 L Hgb 6.7 L* Hct 24.6 L MCV 67.2 L MCH 18.3 L MCHC 27.2 L RDW 18.2 H Plt Count 243 MPV 9.9 Immature Gran % (Auto) 0.7 H Neut % (Auto) 84.9 H Lymph % (Auto) 10.6 L [place] % (Auto) 3.6 Eos % (Auto) 0.0 Baso % (Auto) 0.2 Lymph # (Auto) 1.2 [place] # (Auto) 0.4 Eos # (Auto) 0.0 Baso # (Auto) 0.0 Abs Immat Gran (auto) 0.08 H Absolute Neuts (auto) 9.8 H Absolute Nucleated RBC 0.020 H Nucleated RBC % (auto) 0.2 PT INR O2 Saturation ABG pH at Pt Temp ABG pCO2 at Pt Temp ABG pO2 at Pt Temp ABG HCO3 ABG Base Excess (Actual) VBG pH 7.47 H VBG pCO2 46 VBG pO2 91 VBG HCO3 34 H VBG O2 Saturation 99.0 VBG Base Excess 9.4 Sodium 136 Potassium 3.8 D Chloride 92 L Carbon Dioxide 35 H Anion Gap 13 BUN 18 H Creatinine 0.77 Estim Creat Clear Calc 72.4 Estimated GFR > 60 POC Glucose Random Glucose 303 H Lactic Acid Calcium 8.5 Phosphorus Magnesium Total Bilirubin AST ALT Alkaline Phosphatase Troponin I High Sens B-Natriuretic Peptide Total Protein Albumin Lipase Urine Color Urine Appearance Urine pH Ur Specific [place] Urine Protein Urine Glucose (UA) Urine Ketones Urine Blood Urine Nitrite Ur Leukocyte Esterase Urine RBC Urine WBC Ur Squamous Epith Cells Amorphous Sediment Urine Bacteria Stool Occult Blood Urine Opiates Screen Urine Fentanyl Screen Ur Barbiturates Screen Ur Phencyclidine Scrn Ur Amphetamines Screen U Benzodiazepines Scrn Urine Cocaine Screen U Marijuana (THC) Screen COVID-19 (KIM) COVID-19 Clin Com Blood Type Antibody Screen Crossmatch 05/13/22 05/13/22 05:37 07:04 WBC RBC Hgb Hct MCV MCH MCHC RDW Plt Count MPV Immature Gran % (Auto) Neut % (Auto) Lymph % (Auto) [place] % (Auto) Eos % (Auto) Baso % (Auto) Lymph # (Auto) [place] # (Auto) Eos # (Auto) Baso # (Auto) Abs Immat Gran (auto) Absolute Neuts (auto) Absolute Nucleated RBC Nucleated RBC % (auto) PT INR O2 Saturation ABG pH at Pt Temp ABG pCO2 at Pt Temp ABG pO2 at Pt Temp ABG HCO3 ABG Base Excess (Actual) VBG pH VBG pCO2 VBG pO2 VBG HCO3 VBG O2 Saturation VBG Base Excess Sodium 136 Potassium 3.6 Chloride 97 Carbon Dioxide 31 H Anion Gap 12 BUN 21 H Creatinine 0.78 Estim Creat Clear Calc 70.8 Estimated GFR > 60 POC Glucose 223 H Random Glucose 223 H Lactic Acid Calcium 8.3 L Phosphorus Magnesium Total Bilirubin 0.3 AST 11 D ALT 19 Alkaline Phosphatase 102 D Troponin I High Sens B-Natriuretic Peptide Total Protein 6.4 L Albumin 3.3 L Lipase Urine Color Urine Appearance Urine pH Ur Specific [place] Urine Protein Urine Glucose (UA) Urine Ketones Urine Blood Urine Nitrite Ur Leukocyte Esterase Urine RBC Urine WBC Ur Squamous Epith Cells Amorphous Sediment Urine Bacteria Stool Occult Blood Urine Opiates Screen Urine Fentanyl Screen Ur Barbiturates Screen Ur Phencyclidine Scrn Ur Amphetamines Screen U Benzodiazepines Scrn Urine Cocaine Screen U Marijuana (THC) Screen COVID-19 (KIM) COVID-19 Clin Com Blood Type Antibody Screen Crossmatch Quality Stroke Does the patient have a stroke diagnosis?: No VTE Prior VTE?: Yes VTE Risk Level:: Medical - moderate - high VTE Device Contraindication: N/A - Device Ordered VTE Drug Contraindication: N/A - Med Ordered
[2022-05-13] MEDS: acetaZOLAMIDE 250 MG TABLET PO ×3 (11:02→21:58)
[2022-05-13] MEDS: Furosemide 40 MG TABLET PO (11:02)
[2022-05-13] MEDS: Spironolactone 25 MG TABLET PO (11:03)
[2022-05-13 11:11] LABS: Glucose, Whole Blood 254 mg/dL (60-115)
[2022-05-13] MEDS: Fluticasone/Vilanterol 200/25 BLST.W.DEV 1 PUFF INHALE (11:46)
[2022-05-13] MEDS: metFORMIN HCl ER 500 MG TAB.ER.24H PO ×2 (11:46→22:06)
--- NOTE | 2022-05-13 13:02 | MHC.CM.PN ---
This flex o writer operator spoke with daughter/HCP Paige for discharge planning. [facility] reviewed- certified notice mailed. Patient does have apartment but has been staying with daughter in [place] receiving PT/OT and RN services from [facility]. Referral sent to [facility] to follow patient. HCP requested from [facility]. Daughter would like patient to return to her apartment as it is more functionally fit to her needs, but there are something they need to do to the apartment first i.e. install cameras for safety. Pt can return to daughter's house if those things are not completed. PCP is Misti [facility].
[2022-05-13 13:29] LABS: Iron 11 mcg/dL (30-160); Percent Iron Saturation 3 % (15-50); Total Iron Binding Capacity 345 mcg/dL (228-428); Unsaturated Iron Binding 334 ug/dL
--- NOTE | 2022-05-13 13:59 | P.EN_ITS ---
Event Note Date of Service: 05/13/22 Event Note: 76F admitted with acute hypoxic and hypercapnic respiratory failure due to acute on chronic diastolic CHF and COPD exacerbation requiring intubation. Patient was diuresed and able to be extubated. Of note patient has acute drop in hemoglobin, suspected to be acute on chronic blood loss anemia with iron labs consistent with iron deficiency. Patient has a history of possible small subsegmental PE in the left upper lobe from November 2021, she has been on Eliqui s now for 6 months, bedside echo with no RV strain, low clot burden, question GI bleed, therefore, will discontinue Eliquis. Will continue diuresis and request GI eval.
[2022-05-13 14:00] LABS: Ferritin 5 ng/mL (10-250)
[2022-05-13 16:49] LABS: Glucose, Whole Blood 267 mg/dL (60-115)
[2022-05-13 20:03] LABS: Glucose, Whole Blood 337 mg/dL (60-115)
[2022-05-13] MEDS: cloNIDine HCL 0.1 MG TABLET PO (21:58)
[2022-05-13] MEDS: Mirtazapine 15 MG TABLET PO (21:58)
[2022-05-13] MEDS: diphenhydrAMINE HCL 25 MG TABLET PO (21:58)
[2022-05-14 03:36] VITALS: BP 135/63; PULSE 63; RESP 20; TEMP 36.6; O2SAT 100
[2022-05-14 06:00] VITALS: BMI 39.1
[2022-05-14 06:30] LABS: Hematocrit 31.5 % (37.0-47.0); Hemoglobin 8.7 g/dl (12.0-16.0); Mean Corpuscular HGB Conc 27.6 g/dl (31.0-35.0); Mean Corpuscular Hemoglobin 19.2 pg (27.0-33.0); Mean Corpuscular Volume 69.7 fL (80.0-98.0); Mean Platelet Volume 9.8 fL (9.4-12.3); NRBC Pct Auto 0.3 /100WBC (0.0-0.2); Platelet Count 283 X10*3/uL (160-400); Red Blood Count 4.52 X10*6/uL (4.20-5.50); Red Cell Distribution Width 19.7 % (11.0-16.0); White Blood Count 9.1 X10*3/uL (4.8-10.8)
[2022-05-14 06:33] LABS: VBG Base Excess 5.3 mmol/L; VBG HCO3 32 mmol/L (22-26); VBG pCO2 59 mmHg; VBG pH 7.34 (7.32-7.43); VBG pO2 48 mmHg
[2022-05-14] MEDS: Omeprazole 20 MG CAPSULE.DR PO (06:33)
[2022-05-14 06:53] LABS: Anion Gap 12 (12-20); Blood Urea Nitrogen 30 mg/dL (9-16); Calcium 8.6 mg/dL (8.4-10.2); Carbon Dioxide 31 mmol/L (22-29); Chloride 97 mmol/L (96-108); Creatinine Clr Calc Pharmacy 50.6; Estimated Glomerular Filt Rate 51; Glucose Random 223 mg/dL (60-115); Magnesium 2.2 mg/dL (1.6-2.6); Phosphorus 4.5 mg/dL (2.7-4.5); Sodium 136 mmol/L (135-145)
[2022-05-14 07:54] VITALS: BP 138/60; PULSE 62; RESP 20; TEMP 36.4; O2SAT 98
[2022-05-14 07:59] LABS: Glucose, Whole Blood 229 mg/dL (60-115)
[2022-05-14 08:04] LABS: Venous Blood Gas Refer to POC result
[2022-05-14] MEDS: Insulin Lispro 100 UNIT/ML 3 ML VIAL SUBCUT ×4 (09:10→20:56)
[2022-05-14] MEDS: metFORMIN HCl ER 500 MG TAB.ER.24H PO ×2 (09:11→19:54)
[2022-05-14] MEDS: Spironolactone 25 MG TABLET PO (09:11)
[2022-05-14] MEDS: Escitalopram Oxalate 10 MG TABLET 15 MG PO (09:11)
[2022-05-14] MEDS: Furosemide 20 MG TABLET PO (09:11)
[2022-05-14] MEDS: Valsartan 160 MG TABLET PO (09:11)
[2022-05-14] MEDS: carvediloL 6.25 MG TABLET PO ×2 (09:11→19:54)
[2022-05-14] MEDS: dilTIAZem HCL CD 180 MG CAP.ER.24H 360 MG PO (09:11)
[2022-05-14] MEDS: acetaZOLAMIDE 250 MG TABLET PO (09:11)
--- NOTE | 2022-05-14 09:14 | P.CDIC_ITS ---
CDI Concurrent Query Documentation Clarification: PHYSICIAN'S DOCUMENTATION REQUEST Date of Query: 05/14/2214 Patient Name: Abby Ford Admit Date: 05/12/22 Dear Doctor, A review of the medical record indicates additional documentation may be needed. Please review below and update the documentation accordingly. Risk Factors/Clinical Indicators/Treatments Nursing height and weight - BMI 41.1 5' 2 in height. Extreme obesity Class III If possible, please provide an associated diagnosis related to the abnormal BMI, such as: For a BMI >= 40: * Overweight * Obesity * Due to excess calories * Drug induced * Due to other cause * Severe or Morbid Obesity * With alveolar hypoventilation * Without alveolar hypoventilation Or: * BMI is not significant * Other (please specify) * Unable to determine Use of terms such as suspected, likely, concern for, or probable (associated with a specific diagnosis that is being evaluated, monitored, or treated as if it exists) are acceptable and can be coded in the inpatient setting, when documented at the time of discharge. Thank you, Argelia Ruiz [facility], CDIS Extension: [phone] Please use your independent medical judgment in providing your response. THIS QUERY IS PART OF THE PERMANENT MEDICAL RECORD Provider Response: Morbid Obesity
--- NOTE | 2022-05-14 09:14 | MHC.CDI.CONC ---
CDI Concurrent Query Documentation Clarification: PHYSICIAN'S DOCUMENTATION REQUEST Date of Query: 05/14/2214 Patient Name: Abby Ford Admit Date: 05/12/22 Dear Doctor, A review of the medical record indicates additional documentation may be needed. Please review below and update the documentation accordingly. Risk Factors/Clinical Indicators/Treatments Nursing height and weight - BMI 41.1 5' 2 in height. Extreme obesity Class III If possible, please provide an associated diagnosis related to the abnormal BMI, such as: For a BMI >= 40: Overweight Obesity Due to excess calories Drug induced Due to other cause Severe or Morbid Obesity With alveolar hypoventilation Without alveolar hypoventilation Or: BMI is not significant Other (please specify) Unable to determine Use of terms such as suspected, likely, concern for, or probable (associated with a specific diagnosis that is being evaluated, monitored, or treated as if it exists) are acceptable and can be coded in the inpatient setting, when documented at the time of discharge. Thank you, Argelia Ruiz [facility], CDIS Extension: [phone] Please use your independent medical judgment in providing your response. THIS QUERY IS PART OF THE PERMANENT MEDICAL RECORD Provider Response: Morbid Obesity
[2022-05-14 11:34] VITALS: BP 164/70; PULSE 69; RESP 20; TEMP 36.6; O2SAT 92
--- NOTE | 2022-05-14 11:36 | CONS_ITS ---
DATE OF SERVICE: 05/14/2022 REFERRING PHYSICIAN: Tha Mae MD REASON FOR CONSULTATION: Iron-deficiency anemia. HISTORY OF PRESENT ILLNESS: The patient is a pleasant 76-year-old woman, who was admitted to the hospital on May 12 after presenting to the emergency room with respiratory failure. She required endotracheal intubation and did well. She was extubated and transferred to the floor. During this hospitalization, the patient has been found to have anemia with a hematocrit of 28.9 on admission. This dropped to 24.6 without any GI bleeding and she was transfused 1 unit of packed red blood cells with improvement in her hematocrit to 31.5 this morning. MCV has been low and iron saturation was also low at 3%. Ferritin was low at 5. She does have a prior history of Eliquis use for PE and Eliquis has subsequently been discontinued. Stool occult blood testing has been negative. The patient denies any prior history of upper GI symptoms except for reflux, for which she takes medication. She believes she underwent colonoscopy many years ago in [place], which was negative. PAST MEDICAL HISTORY: 1. COPD, on home oxygen. 2. Congestive heart failure. 3. Hypertension. 4. Diabetes. 5. Gastroesophageal reflux disease. 6. Restless legs syndrome. 7. Anxiety. CURRENT MEDICATIONS: Current medication list is reviewed in the chart. ALLERGIES: CODEINE AND NAPROXEN. FAMILY HISTORY: This is reviewed with the patient and is negative for GI malignancy. SOCIAL HISTORY: She is a tobacco user. There is no history of substance abuse. REVIEW OF SYSTEMS: SKIN: No pruritus. HEENT: Negative. CARDIOPULMONARY: No shortness of breath or chest pain. GASTROINTESTINAL: As above. GENITOURINARY: Negative. NEUROPSYCHIATRIC: Negative. PHYSICAL EXAMINATION: GENERAL: Shows a pleasant female, sitting comfortably in a chair. She is tolerating a diet. VITAL SIGNS: Stable. SKIN: Anicteric. HEENT: Shows no scleral icterus. NECK: Without lymphadenopathy or thyromegaly. LUNGS: Clear. HEART: Shows regular rate and rhythm. S1, S2. No murmur. ABDOMEN: Soft without focal masses or tenderness. Bowel sounds are present. No organomegaly is noted. EXTREMITIES: Without edema. LABORATORY DATA: Reviewed. IMPRESSION: Iron-deficiency anemia. She shows no signs of active GI bleeding at this time. She should undergo outpatient elective colonoscopy at some point and consideration could also be given to endoscopy because of her history of reflux. This does not need to be done emergently and can be arranged for the time when her pulmonary status has been maximized as she is at higher risk for complications given her underlying cardiopulmonary issues. I agree with continuing her proton pump inhibitor for her underlying reflux symptoms. Thanks for asking me to see her. I will follow her in the hospital with you. MD PATRICIA Gilbert/NALIA / [phone]
[2022-05-14 11:40] LABS: Glucose, Whole Blood 167 mg/dL (60-115)
--- NOTE | 2022-05-14 12:52 | HO.PM.IMPN ---
Subjective Subjective Date of Service: 05/14/22 Interval History: cc: sob interval history:improved Cardiovascular Cardiovascular: Reports no additional cardiovascular complaints Gastrointestinal Gastrointestinal: Reports no additional gastrointestinal complaints Physical Exam Vital Signs: Vital Signs: Last Vital Signs Temp 98 F 05/14/22 11:34 Pulse 69 05/14/22 11:34 Resp 20 05/14/22 11:34 BP 164/70 H 05/14/22 11:34 Pulse Ox 92 05/14/22 11:34 O2 Del Method 05/14/22 11:34 O2 Flow Rate 2 05/14/22 07:54 FiO2 30 05/13/22 08:00 BMI result Body Mass Index 39.1 General: AO X 3, no acute distress Resp: Crackles bilateral, no accessory muscles used CVS: S1,S2,RRR, edema GI: soft, non tender, non distended Neuro: motor grossly intact, alert Psych: appropriate affect, appropriate insight Objective Data Active Medications Acetaminophen (Acetaminophen 325 Mg Tablet) 650 mg PO Q6H PRN PRN Reason: Headache Last Admin: 05/13/22 01:15 Dose: 650 mg Documented By: GIANFRANCO Carvedilol (Carvedilol 6.25 Mg Tablet) 6.25 mg PO BID MAGGIE; Protocol Last Admin: 05/14/22 09:11 Dose: 6.25 mg Documented By: NICOLE Clonidine HCl (Clonidine Hcl 0.1 Mg Tablet) 0.1 mg PO BEDTIME MAGGIE; Protocol Last Admin: 05/13/22 21:58 Dose: 0.1 mg Documented By: GREY Diltiazem HCl (Diltiazem Hcl Cd 180 Mg Cap.Er.24h) 360 mg PO DAILY MAGGIE; Protocol Last Admin: 05/14/22 09:11 Dose: 360 mg Documented By: NICOLE Diphenhydramine HCl (Diphenhydramine Hcl 25 Mg Tablet) 25 mg PO BEDTIME MAGGIE Last Admin: 05/13/22 21:58 Dose: 25 mg Documented By: GREY Escitalopram Oxalate (Escitalopram Oxalate 10 Mg Tablet) 15 mg PO DAILY MAGGIE Last Admin: 05/14/22 09:11 Dose: 15 mg Documented By: NICOLE Fentanyl (Fentanyl Citrate/Pf 100 Mcg/2 Ml Vial) 25 mcg IVPUSH Q15M PRN; Protocol PRN Reason: WOB Last Admin: 05/12/22 15:30 Dose: 25 mcg Documented By: CHARMAINE Fluticasone/Vilanterol (Fluticasone/Vilanterol 200/25 Blst.W.Dev) 1 puff INHALE RDAILY [facility] Last Admin: 05/13/22 11:46 Dose: 1 puff Documented By: CHARMAINE Insulin Human Lispro (Insulin Lispro 100 Unit/Ml 3 Ml Vial) 0 unit SUBCUT QIDACHS [facility]; Protocol Last Admin: 05/14/22 09:10 Dose: 6 unit Documented By: NICOLE Metformin HCl (Metformin Hcl Er 500 Mg Tab.Er.24h) 500 mg PO BID [facility] Last Admin: 05/14/22 09:11 Dose: 500 mg Documented By: NICOLE Mirtazapine (Mirtazapine 15 Mg Tablet) 15 mg PO BEDTIME [facility] Last Admin: 05/13/22 21:58 Dose: 15 mg Documented By: GREY Non-Formulary Medication (Ramelteon) 8 mg PO BEDTIME [facility] Omeprazole (Omeprazole 20 Mg Capsule.Dr) 20 mg PO DAILY@0630 [facility] Last Admin: 05/14/22 06:33 Dose: 20 mg Documented By: GREY Spironolactone (Spironolactone 25 Mg Tablet) 25 mg PO DAILY [facility]; Protocol Last Admin: 05/14/22 09:11 Dose: 25 mg Documented By: NICOLE Valsartan (Valsartan 160 Mg Tablet) 160 mg PO DAILY [facility] Last Admin: 05/14/22 09:11 Dose: 160 mg Documented By: NICOLE Labs CBC & Chem 7: 05/14/22 06:17 05/14/22 06:17 Labs: Laboratory Results - last 24 hr 05/13/22 05/13/22 05/13/22 05:36 05:37 05:37 MCV MCH MCHC RDW Plt Count MPV Absolute Nucleated RBC Nucleated RBC % (auto) Smear Path Review SEE NOTE VBG pH 7.47 H VBG pCO2 46 VBG pO2 91 VBG HCO3 34 H VBG O2 Saturation 99.0 VBG Base Excess 9.4 Anion Gap Estim Creat Clear Calc Estimated GFR POC Glucose Random Glucose Calcium Phosphorus Magnesium Iron 11 L TIBC 345 % Saturation 3 L Unsat Iron Binding 334 Ferritin 5 L 05/13/22 05/13/22 05/14/22 16:45 19:40 06:17 MCV 69.7 L MCH 19.2 L MCHC 27.6 L RDW 19.7 H Plt Count 283 MPV 9.8 Absolute Nucleated RBC 0.030 H Nucleated RBC % (auto) 0.3 H Smear Path Review VBG pH VBG pCO2 VBG pO2 VBG HCO3 VBG O2 Saturation VBG Base Excess Anion Gap Estim Creat Clear Calc Estimated GFR POC Glucose 267 H 337 H Random Glucose Calcium Phosphorus Magnesium Iron TIBC % Saturation Unsat Iron Binding Ferritin 05/14/22 05/14/22 05/14/22 06:17 06:29 07:56 MCV MCH MCHC RDW Plt Count MPV Absolute Nucleated RBC Nucleated RBC % (auto) Smear Path Review VBG pH 7.34 VBG pCO2 59 VBG pO2 48 VBG HCO3 32 H VBG O2 Saturation 71.0 VBG Base Excess 5.3 Anion Gap 12 Estim Creat Clear Calc 50.6 Estimated GFR 51 POC Glucose 229 H Random Glucose 223 H Calcium 8.6 Phosphorus 4.5 Magnesium 2.2 Iron TIBC % Saturation Unsat Iron Binding Ferritin 05/14/22 11:32 MCV MCH MCHC RDW Plt Count MPV Absolute Nucleated RBC Nucleated RBC % (auto) Smear Path Review VBG pH VBG pCO2 VBG pO2 VBG HCO3 VBG O2 Saturation VBG Base Excess Anion Gap Estim Creat Clear Calc Estimated GFR POC Glucose 167 H Random Glucose Calcium Phosphorus Magnesium Iron TIBC % Saturation Unsat Iron Binding Ferritin Microbiology Microbiology Results: Microbiology 05/12/22 12:28 Blood Culture - Preliminary Blood - Venous No growth after 24 hours. 05/12/22 12:03 Blood Culture - Preliminary Blood - Venous No growth after 24 hours. Assessment and Plan (1) COPD with acute exacerbation: Status: Acute Plan 76F presented with sob, was intubated in the field, diuresed and quickly able to be successfully extubated acute on chronic hypoxic and hypercapneic respiratory failure due to copd/OHS/ISAAC and acute on chronic diastolic chf diuresed well, will do diuretic holiday for now monitor bmp pulm eval wean o2 PT eval morbid obesity weight loss subsegemental pe was in november 2021, will dc eliquis iron defeciency anemia gi appreaciated, no active bleed, continue ppi, outpatient scope DM insulin HTN aldactone, coreg, valsartan dvt prophylaxis - lovenox reason for continued hospitalization: onhoing risk for hypcapnea, close monitoring of electrolytes Quality Stroke Does the patient have a stroke diagnosis?: No VTE Prior VTE?: Yes VTE Risk Level:: Medical - moderate - high VTE Device Contraindication: N/A - Device Ordered VTE Drug Contraindication: N/A - Med Ordered
[2022-05-14] MEDS: Enoxaparin Sodium 40 MG/0.4 ML SYRINGE SUBCUT (13:43)
[2022-05-14 15:10] VITALS: BP 167/70; PULSE 58; RESP 18; TEMP 36.6; O2SAT 90
[2022-05-14 17:29] LABS: Glucose, Whole Blood 327 mg/dL (60-115)
[2022-05-14 19:52] VITALS: BP 180/88; PULSE 62; RESP 14; TEMP 36.2; O2SAT 94
[2022-05-14] MEDS: Acetaminophen 325 MG TABLET 650 MG PO (19:54)
[2022-05-14] MEDS: Mirtazapine 15 MG TABLET PO (19:55)
[2022-05-14] MEDS: diphenhydrAMINE HCL 25 MG TABLET PO (19:55)
[2022-05-14] MEDS: cloNIDine HCL 0.1 MG TABLET PO (19:55)
[2022-05-14 20:41] LABS: Glucose, Whole Blood 342 mg/dL (60-115)
[2022-05-14 23:46] VITALS: BP 193/80; PULSE 59; RESP 18; TEMP 36.6; O2SAT 95
[2022-05-15 03:21] VITALS: BP 154/69; PULSE 56; RESP 20; TEMP 36.8; O2SAT 100
--- NOTE | 2022-05-15 05:14 | PC.NURSE ---
Pt desats to 86-87% on RA while asleep after midnight, pt was arousable, O2 at 1- 2L/min via NC placed, O2 sats went up to high 90s after.
[2022-05-15] MEDS: Omeprazole 20 MG CAPSULE.DR PO (05:21)
[2022-05-15 05:54] VITALS: BMI 39.2
[2022-05-15 06:46] LABS: Hematocrit 32.3 % (37.0-47.0); Mean Corpuscular HGB Conc 27.9 g/dl (31.0-35.0); Mean Corpuscular Hemoglobin 19.3 pg (27.0-33.0); Mean Corpuscular Volume 69.2 fL (80.0-98.0); Mean Platelet Volume 9.4 fL (9.4-12.3); NRBC Pct Auto 0.2 /100WBC (0.0-0.2); Platelet Count 271 X10*3/uL (160-400); Red Blood Count 4.67 X10*6/uL (4.20-5.50); Red Cell Distribution Width 19.8 % (11.0-16.0)
[2022-05-15 06:47] LABS: Venous Blood Gas Refer to POC result
[2022-05-15 06:48] LABS: VBG Base Excess 5.2 mmol/L; VBG HCO3 32 mmol/L (22-26); VBG pCO2 60 mmHg; VBG pH 7.33 (7.32-7.43); VBG pO2 48 mmHg
[2022-05-15 07:06] LABS: Anion Gap 12 (12-20); Blood Urea Nitrogen 23 mg/dL (9-16); Calcium 8.8 mg/dL (8.4-10.2); Carbon Dioxide 29 mmol/L (22-29); Chloride 99 mmol/L (96-108); Creatinine Clr Calc Pharmacy 68.9; Estimated Glomerular Filt Rate > 60; Glucose Fasting 241 mg/dL (60-99); Potassium 3.7 mmol/L (3.3-5.1); Sodium 136 mmol/L (135-145)
[2022-05-15 07:29] LABS: Glucose, Whole Blood 221 mg/dL (60-115)
[2022-05-15 07:44] VITALS: BP 147/50; PULSE 68; RESP 20; TEMP 36.4; O2SAT 97
[2022-05-15 08:08] LABS: Glucose, Whole Blood 244 mg/dL (60-115)
[2022-05-15] MEDS: Insulin Lispro 100 UNIT/ML 3 ML VIAL SUBCUT ×4 (08:31→21:16)
[2022-05-15] MEDS: dilTIAZem HCL CD 180 MG CAP.ER.24H 360 MG PO (08:32)
[2022-05-15] MEDS: metFORMIN HCl ER 500 MG TAB.ER.24H PO ×2 (08:33→21:16)
[2022-05-15] MEDS: Escitalopram Oxalate 10 MG TABLET 15 MG PO (08:33)
[2022-05-15] MEDS: Valsartan 160 MG TABLET PO (08:33)
[2022-05-15] MEDS: Spironolactone 25 MG TABLET PO (08:34)
[2022-05-15] MEDS: carvediloL 6.25 MG TABLET PO ×2 (08:34→21:16)
[2022-05-15 10:06] VITALS: BP 147/50; PULSE 68; O2SAT 97
[2022-05-15 11:09] LABS: Glucose, Whole Blood 197 mg/dL (60-115)
--- NOTE | 2022-05-15 11:10 | PM.CNPUL ---
History of Present Illness History of Present Illness Consult date: 05/15/22 Reason for consult: COPD, obstructive sleep apnea and other (Resp. failure ) Chief complaint: ACUTE RESPIRATORY FAILURE Narrative: This 76 years old female was admitted on 05/13, with acute respiratory failure, required intubation in the field, and after evaluation in the emergency room she was admitted to ICU. However she recovered quickly and became quite alert , asking to be extubated which was done, and she has stayed alert and orientated afterwards. The circumstances which should precipitated her acute on chronic failure is not clear, but most likely she was non compliant to the use of NIVS at night, and also continued smoking. Patient is not a good historian and I have collected the information mainly from the hospital records. This 76 years old female, probably does have chronic obstructive sleep apnea/hypoventilation syndrome. She also must have chronic obstructive pulmonary disease, and she is an active smoker. She is grossly obese with BMI of 39.2. In November this year, she was hospitalized in [facility] with acute COVID pneumonia, after discharge within 1 week she was readmitted with pulmonary embolism. Patient does have multiple comorbidities including, morbid obesity, ISAAC/hypoventilation syndrome, COPD, active smoking, GERD symptoms,, Patient is supposed to use CPAP at night and also oxygen 2 L/minute. However as noted above she has probably been non compliant. Also as noted above she has been smoking actively. Review of Systems Review of Systems: Yes Unobtainable due to mental condition PMFSH Past Medical History Medical History Anemia CHF (congestive heart failure) COPD (chronic obstructive pulmonary disease) Diabetes HTN (hypertension) Social History Social History Household Members: Unknown / Unable to assess Housing: Unknown / Unable to assess Unable to assess alcohol history related to: Unable to respond and Unknown Patient Tobacco Use Status: Tobacco use Unknown Use of substances other than those prescribed or required for medical reasons: Unable to respond Currently Displaying Signs/Symptoms of Drug Intoxication Withdrawal: No Spiritual Healthcare Practices: unable to assess [facility] Pract[facility]: unable to assess Cultural Healthcare Practices: unable to assess Advance Directives: No Advance Directives Information Provided: No Do you have thoughts of harming others: None Do you have a plan to hurt others: No Plan Recently lost weight without trying: Unsure How much weight loss: Unsure Nutrition Risks: On aspiration precautions Patient : No : No Poor oral hygiene: No service: No Current occupational status: disabled Meds Allergies Allergy/AdvReac Type Severity Reaction Status Date / Time codeine Allergy Unknown Verified 05/12/22 12:14 naproxen Allergy Unknown Verified 05/12/22 12:15 Active Medications: Current Medications Acetaminophen (Acetaminophen 325 Mg Tablet) 650 mg PO Q6H PRN PRN Reason: Headache Last Admin: 05/14/22 19:54 Dose: 650 mg Carvedilol (Carvedilol 6.25 Mg Tablet) 6.25 mg PO BID [facility]; Protocol Last Admin: 05/15/22 08:34 Dose: 6.25 mg Clonidine HCl (Clonidine Hcl 0.1 Mg Tablet) 0.1 mg PO BEDTIME [facility]; Protocol Last Admin: 05/14/22 19:55 Dose: 0.1 mg Diltiazem HCl (Diltiazem Hcl Cd 180 Mg Cap.Er.24h) 360 mg PO DAILY [facility]; Protocol Last Admin: 05/15/22 08:32 Dose: 360 mg Diphenhydramine HCl (Diphenhydramine Hcl 25 Mg Tablet) 25 mg PO BEDTIME [facility] Last Admin: 05/14/22 19:55 Dose: 25 mg Enoxaparin Sodium (Enoxaparin Sodium 40 Mg/0.4 Ml Syringe) 40 mg SUBCUT Q24H [facility] Last Admin: 05/14/22 13:43 Dose: 40 mg Escitalopram Oxalate (Escitalopram Oxalate 10 Mg Tablet) 15 mg PO DAILY [facility] Last Admin: 05/15/22 08:33 Dose: 15 mg Fentanyl (Fentanyl Citrate/Pf 100 Mcg/2 Ml Vial) 25 mcg IVPUSH Q15M PRN; Protocol PRN Reason: WOB Last Admin: 05/12/22 15:30 Dose: 25 mcg Fluticasone/Vilanterol (Fluticasone/Vilanterol 200/25 Blst.W.Dev) 1 puff INHALE RDAILY [facility] Last Admin: 05/15/22 08:22 Dose: Not Given Insulin Human Lispro (Insulin Lispro 100 Unit/Ml 3 Ml Vial) 0 unit SUBCUT QIDACHS [facility]; Protocol Last Admin: 05/15/22 08:31 Dose: 6 unit Metformin HCl (Metformin Hcl Er 500 Mg Tab.Er.24h) 500 mg PO BID [facility] Last Admin: 05/15/22 08:33 Dose: 500 mg Mirtazapine (Mirtazapine 15 Mg Tablet) 15 mg PO BEDTIME [facility] Last Admin: 05/14/22 19:55 Dose: 15 mg Non-Formulary Medication (Ramelteon) 8 mg PO BEDTIME [facility] Omeprazole (Omeprazole 20 Mg Capsule.Dr) 20 mg PO DAILY@0630 [facility] Last Admin: 05/15/22 05:21 Dose: 20 mg Spironolactone (Spironolactone 25 Mg Tablet) 25 mg PO DAILY [facility]; Protocol Last Admin: 05/15/22 08:34 Dose: 25 mg Valsartan (Valsartan 160 Mg Tablet) 160 mg PO DAILY [facility] Last Admin: 05/15/22 08:33 Dose: 160 mg Home Medications Medication Instructions Recorded Confirmed Last Taken Type albuterol sulfate 90 mcg/actuation 1 inh inhalation Q4-6H PRN Wheezing 05/12/22 05/12/22 Unknown History breath activated powder inhaler,sensor apixaban 5 mg tablet (Eliquis) 5 mg PO BID 05/12/22 05/12/22 Unknown History budesonide-formoterol HFA 160 2 puff inhalation BID 05/12/22 05/12/22 Unknown History mcg-4.5 mcg/actuation aerosol inhaler (Symbicort) carisoprodol 350 mg tablet (Soma) 350 mg PO QID 05/12/22 05/13/22 Unknown History carvedilol 6.25 mg tablet 6.25 mg PO BID 05/12/22 05/12/22 Unknown History citalopram 20 mg tablet 30 mg PO DAILY 05/12/22 05/12/22 Unknown History clonazepam 1 mg tablet 1 mg PO BEDTIME 05/12/22 05/12/22 Unknown History clonidine HCl 0.1 mg tablet 0.1 mg PO BEDTIME 05/12/22 05/12/22 Unknown History diltiazem HCl 360 mg 360 mg PO DAILY 05/12/22 05/12/22 Unknown History capsule,extended release 24 hr diphenhydramine HCl 25 mg tablet 25 mg PO BEDTIME 05/12/22 05/12/22 Unknown History insulin glargine 100 unit/mL (3 55 unit subcut DAILY 05/12/22 05/12/22 Unknown History mL) subcutaneous pen (Basaglar KwikPen U-100 Insulin) irbesartan 300 mg tablet 300 mg PO DAILY 05/12/22 05/12/22 Unknown History metformin 500 mg tablet,extended 1,000 mg PO BID 05/12/22 05/12/22 Unknown History release 24 hr mirtazapine 15 mg tablet 15 mg PO BEDTIME 05/12/22 05/12/22 Unknown History omeprazole 20 mg capsule,delayed 20 mg PO DAILY 05/12/22 05/12/22 Unknown History release ramelteon 8 mg tablet 8 mg PO BEDTIME 05/12/22 05/12/22 Unknown History spironolactone 25 mg tablet 25 mg PO DAILY 05/12/22 05/12/22 Unknown History Physical Exam Vital Signs: Vital Signs: Last Vital Signs Temp 97.6 F 05/15/22 07:44 Pulse 68 05/15/22 10:06 Resp 20 05/15/22 07:44 BP 147/50 H 05/15/22 10:06 Pulse Ox 97 05/15/22 10:06 O2 Del Method 05/15/22 07:44 O2 Flow Rate 2 05/15/22 07:44 FiO2 30 05/13/22 08:00 BMI result Body Mass Index 39.2 Const: Other: At the time of my examination she does answer questions, but slow, and cannot carry on any conversation. She is sitting up in chair and seems to be comfortable General: comfortable and no acute distress HEENT: Head: Yes normal to inspection General nose exam: No nasal polyps present and No nasal discharge present Face and sinus: Yes sinuses nontender Mouth: oropharynx normal Throat: Yes posterior oropharynx normal Eyes: General: appearance normal, both eyes and all related structures Neck: Neck: Yes normal visual inspection, Yes no lymphadenopathy, Yes trachea midline and Yes no JVD Thyroid: Thyroid normal Chest: Chest palpation & inspection: normal inspection of the chest and no tenderness Resp: Other: Percussion note resonant, breath sounds are very distant with prolonged expiratory phase. No active wheezes or crepitations are heard. Cardio: Palpation: PMI not normal Rate: regular rate Rhythm: regular rhythm Heart sounds: no gallops and no murmurs GI: Palpation (GI): Soft to palpation, nontender, No hepatosplenomegaly present and no masses Auscultation: normal bowel sounds Back/Spine/Pelvis: Thoracic/Lumbar Spine: thoracic and lumbar spine normal to inspection Skin: General skin exam: no rashes or lesions noted Neuro: General: no focal motor deficits Cranial nerves: Yes CN's II-XII intact bilaterally Extrem: General: Yes normal to inspection, Yes no clubbing, cyanosis or edema and Yes no calf tenderness Psych: Speech and movement: Normal speech and movement present Results Laboratory Findings CBC and BMP: 05/15/22 06:36 05/15/22 06:36 ABG, PT/INR, D-dimer: PT/INR, D-dimer PT 11.5 SEC (9.9-13.0) 05/12/22 12:33 INR 1.0 (0.9-1.1) 05/12/22 12:33 Abnormal lab findings: Abnormal Labs 05/12/22 05/12/22 05/12/22 11:42 12:03 12:23 WBC RBC Hgb Hct MCV MCH MCHC RDW Immature Gran % (Auto) Neut % (Auto) Lymph % (Auto) Lymph # (Auto) Abs Immat Gran (auto) Absolute Neuts (auto) Absolute Nucleated RBC Nucleated RBC % (auto) ABG pCO2 at Pt Temp 63 H* ABG pO2 at Pt Temp 68 L ABG HCO3 35 H VBG pH VBG HCO3 Sodium Potassium Chloride Carbon Dioxide BUN POC Glucose 376 H* Random Glucose Fasting Glucose Calcium Phosphorus Iron % Saturation Ferritin Alkaline Phosphatase B-Natriuretic Peptide 110 H Total Protein Albumin Urine Protein Urine Glucose (UA) Crossmatch 05/12/22 05/12/22 05/12/22 12:33 12:34 12:40 WBC 12.3 H RBC 4.13 L Hgb 7.3 L Hct 28.9 L MCV 70.0 L MCH 17.7 L MCHC 25.3 L RDW 18.3 H Immature Gran % (Auto) 1.0 H Neut % (Auto) 87.1 H Lymph % (Auto) 7.4 L Lymph # (Auto) 0.9 L Abs Immat Gran (auto) 0.12 H Absolute Neuts (auto) 10.7 H Absolute Nucleated RBC Nucleated RBC % (auto) ABG pCO2 at Pt Temp ABG pO2 at Pt Temp ABG HCO3 VBG pH 7.30 L VBG HCO3 42 H Sodium 134 L Potassium 5.3 H Chloride 93 L Carbon Dioxide 34 H BUN POC Glucose Random Glucose 420 H* Fasting Glucose Calcium Phosphorus 4.8 H Iron % Saturation Ferritin Alkaline Phosphatase 138 H B-Natriuretic Peptide Total Protein Albumin Urine Protein Urine Glucose (UA) Crossmatch 05/12/22 05/12/22 05/12/22 12:43 14:41 15:50 WBC RBC Hgb Hct MCV MCH MCHC RDW Immature Gran % (Auto) Neut % (Auto) Lymph % (Auto) Lymph # (Auto) Abs Immat Gran (auto) Absolute Neuts (auto) Absolute Nucleated RBC Nucleated RBC % (auto) ABG pCO2 at Pt Temp ABG pO2 at Pt Temp ABG HCO3 VBG pH VBG HCO3 Sodium Potassium Chloride Carbon Dioxide BUN POC Glucose 354 H* Random Glucose Fasting Glucose Calcium Phosphorus Iron % Saturation Ferritin Alkaline Phosphatase B-Natriuretic Peptide Total Protein Albumin Urine Protein 3+ H Urine Glucose (UA) >=1000 H Crossmatch See Detail 05/12/22 05/12/22 05/12/22 18:52 19:33 19:59 WBC RBC Hgb Hct MCV MCH MCHC RDW Immature Gran % (Auto) Neut % (Auto) Lymph % (Auto) Lymph # (Auto) Abs Immat Gran (auto) Absolute Neuts (auto) Absolute Nucleated RBC Nucleated RBC % (auto) ABG pCO2 at Pt Temp ABG pO2 at Pt Temp ABG HCO3 VBG pH VBG HCO3 36 H Sodium Potassium Chloride Carbon Dioxide BUN POC Glucose 299 H 283 H Random Glucose Fasting Glucose Calcium Phosphorus Iron % Saturation Ferritin Alkaline Phosphatase B-Natriuretic Peptide Total Protein Albumin Urine Protein Urine Glucose (UA) Crossmatch 05/12/22 05/13/22 05/13/22 20:04 05:36 05:37 WBC 11.5 H RBC 3.66 L Hgb 6.7 L* Hct 24.6 L MCV 67.2 L MCH 18.3 L MCHC 27.2 L RDW 18.2 H Immature Gran % (Auto) 0.7 H Neut % (Auto) 84.9 H Lymph % (Auto) 10.6 L Lymph # (Auto) Abs Immat Gran (auto) 0.08 H Absolute Neuts (auto) 9.8 H Absolute Nucleated RBC 0.020 H Nucleated RBC % (auto) ABG pCO2 at Pt Temp ABG pO2 at Pt Temp ABG HCO3 VBG pH 7.47 H VBG HCO3 34 H Sodium Potassium Chloride 92 L Carbon Dioxide 35 H BUN 18 H POC Glucose Random Glucose 303 H Fasting Glucose Calcium Phosphorus Iron % Saturation Ferritin Alkaline Phosphatase B-Natriuretic Peptide Total Protein Albumin Urine Protein Urine Glucose (UA) Crossmatch 05/13/22 05/13/22 05/13/22 05:37 07:04 11:08 WBC RBC Hgb Hct MCV MCH MCHC RDW Immature Gran % (Auto) Neut % (Auto) Lymph % (Auto) Lymph # (Auto) Abs Immat Gran (auto) Absolute Neuts (auto) Absolute Nucleated RBC Nucleated RBC % (auto) ABG pCO2 at Pt Temp ABG pO2 at Pt Temp ABG HCO3 VBG pH VBG HCO3 Sodium Potassium Chloride Carbon Dioxide 31 H BUN 21 H POC Glucose 223 H 254 H Random Glucose 223 H Fasting Glucose Calcium 8.3 L Phosphorus Iron 11 L % Saturation 3 L Ferritin 5 L Alkaline Phosphatase B-Natriuretic Peptide Total Protein 6.4 L Albumin 3.3 L Urine Protein Urine Glucose (UA) Crossmatch 05/13/22 05/13/22 05/14/22 16:45 19:40 06:17 WBC RBC Hgb 8.7 L D Hct 31.5 L D MCV 69.7 L MCH 19.2 L MCHC 27.6 L RDW 19.7 H Immature Gran % (Auto) Neut % (Auto) Lymph % (Auto) Lymph # (Auto) Abs Immat Gran (auto) Absolute Neuts (auto) Absolute Nucleated RBC 0.030 H Nucleated RBC % (auto) 0.3 H ABG pCO2 at Pt Temp ABG pO2 at Pt Temp ABG HCO3 VBG pH VBG HCO3 Sodium Potassium Chloride Carbon Dioxide BUN POC Glucose 267 H 337 H Random Glucose Fasting Glucose Calcium Phosphorus Iron % Saturation Ferritin Alkaline Phosphatase B-Natriuretic Peptide Total Protein Albumin Urine Protein Urine Glucose (UA) Crossmatch 05/14/22 05/14/22 05/14/22 06:17 06:29 07:56 WBC RBC Hgb Hct MCV MCH MCHC RDW Immature Gran % (Auto) Neut % (Auto) Lymph % (Auto) Lymph # (Auto) Abs Immat Gran (auto) Absolute Neuts (auto) Absolute Nucleated RBC Nucleated RBC % (auto) ABG pCO2 at Pt Temp ABG pO2 at Pt Temp ABG HCO3 VBG pH VBG HCO3 32 H Sodium Potassium Chloride Carbon Dioxide 31 H BUN 30 H POC Glucose 229 H Random Glucose 223 H Fasting Glucose Calcium Phosphorus Iron % Saturation Ferritin Alkaline Phosphatase B-Natriuretic Peptide Total Protein Albumin Urine Protein Urine Glucose (UA) Crossmatch 05/14/22 05/14/22 05/14/22 11:32 15:12 17:26 WBC RBC Hgb Hct MCV MCH MCHC RDW Immature Gran % (Auto) Neut % (Auto) Lymph % (Auto) Lymph # (Auto) Abs Immat Gran (auto) Absolute Neuts (auto) Absolute Nucleated RBC Nucleated RBC % (auto) ABG pCO2 at Pt Temp ABG pO2 at Pt Temp ABG HCO3 VBG pH VBG HCO3 Sodium Potassium Chloride Carbon Dioxide BUN POC Glucose 167 H 244 H 327 H Random Glucose Fasting Glucose Calcium Phosphorus Iron % Saturation Ferritin Alkaline Phosphatase B-Natriuretic Peptide Total Protein Albumin Urine Protein Urine Glucose (UA) Crossmatch 05/14/22 05/15/22 05/15/22 20:35 06:36 06:36 WBC RBC Hgb 9.0 L Hct 32.3 L MCV 69.2 L MCH 19.3 L MCHC 27.9 L RDW 19.8 H Immature Gran % (Auto) Neut % (Auto) Lymph % (Auto) Lymph # (Auto) Abs Immat Gran (auto) Absolute Neuts (auto) Absolute Nucleated RBC 0.020 H Nucleated RBC % (auto) ABG pCO2 at Pt Temp ABG pO2 at Pt Temp ABG HCO3 VBG pH VBG HCO3 Sodium Potassium Chloride Carbon Dioxide BUN 23 H POC Glucose 342 H Random Glucose Fasting Glucose 241 H Calcium Phosphorus Iron % Saturation Ferritin Alkaline Phosphatase B-Natriuretic Peptide Total Protein Albumin Urine Protein Urine Glucose (UA) Crossmatch 05/15/22 05/15/22 05/15/22 06:43 07:26 11:01 WBC RBC Hgb Hct MCV MCH MCHC RDW Immature Gran % (Auto) Neut % (Auto) Lymph % (Auto) Lymph # (Auto) Abs Immat Gran (auto) Absolute Neuts (auto) Absolute Nucleated RBC Nucleated RBC % (auto) ABG pCO2 at Pt Temp ABG pO2 at Pt Temp ABG HCO3 VBG pH VBG HCO3 32 H Sodium Potassium Chloride Carbon Dioxide BUN POC Glucose 221 H 197 H Random Glucose Fasting Glucose Calcium Phosphorus Iron % Saturation Ferritin Alkaline Phosphatase B-Natriuretic Peptide Total Protein Albumin Urine Protein Urine Glucose (UA) Crossmatch Microbiology: Microbiology 05/12/22 12:28 Blood - Venous Blood Culture - Preliminary No growth after 48 hours. 05/12/22 12:03 Blood - Venous Blood Culture - Preliminary No growth after 48 hours. Diagnostic Findings Chest x-ray: report reviewed and image reviewed Assessment and Plan (1) COPD with acute exacerbation: Status: Acute (2) ISAAC and COPD overlap syndrome: Status: Acute (3) Hypoventilation syndrome: Status: Acute Plan In addition to her multiple comorbidities, she has above-noted pulmonary and sleep related problems. She presents with issue of noncompliance and poor management at home. Continued smoking, and not using the CPAP/BiPAP , results in acute on chronic respiratory failure. She does have underlying chronic obstructive pulmonary disease as well, which will not improve as long as she keeps on smoking. I a.m. not sure if she is competent to take care of herself at home or not. For the time being I recommend: That she should use O2 2 L/minute or as needed to keep O2 sat above 90%. She should use by BIPAP, a t night, pressure setting 15/6 cm , at least for 8 hours daily. When she is more alert she should be encouraged to do deep breathing exercises. For COPD she can be continued on Breo 200-25 1 inhalation daily. I think she would also benefit from, Marianna kwok, Q 6 hours while awake. She may need a short-term rehab placement, on total her general condition is stabilized. Procedures Date of Service Date of Service: 05/15/22
[2022-05-15 11:25] VITALS: BP 163/57; PULSE 59; RESP 20; TEMP 36.8; O2SAT 95
--- NOTE | 2022-05-15 12:10 | HO.PM.IMPN ---
Subjective Subjective Date of Service: 05/15/22 Interval History: cc: sob interval history:improved Cardiovascular Cardiovascular: Reports no additional cardiovascular complaints Gastrointestinal Gastrointestinal: Reports no additional gastrointestinal complaints Physical Exam Vital Signs: Vital Signs: Last Vital Signs Temp 98.3 F 05/15/22 11:25 Pulse 59 05/15/22 11:25 Resp 20 05/15/22 11:25 BP 163/57 H 05/15/22 11:25 Pulse Ox 95 05/15/22 11:25 O2 Del Method 05/15/22 11:25 O2 Flow Rate 2 05/15/22 07:44 FiO2 30 05/13/22 08:00 BMI result Body Mass Index 39.2 General: AO X 3, no acute distress Resp: Crackles bilateral, no accessory muscles used CVS: S1,S2,RRR, edema GI: soft, non tender, non distended Neuro: motor grossly intact, alert Psych: appropriate affect, appropriate insight Objective Data Active Medications Acetaminophen (Acetaminophen 325 Mg Tablet) 650 mg PO Q6H PRN PRN Reason: Headache Last Admin: 05/14/22 19:54 Dose: 650 mg Documented By: ESTEABN Carvedilol (Carvedilol 6.25 Mg Tablet) 6.25 mg PO BID [facility]; Protocol Last Admin: 05/15/22 08:34 Dose: 6.25 mg Documented By: ALLAN Clonidine HCl (Clonidine Hcl 0.1 Mg Tablet) 0.1 mg PO BEDTIME [facility]; Protocol Last Admin: 05/14/22 19:55 Dose: 0.1 mg Documented By: ESTEBAN Comments: GD=015/88 Diltiazem HCl (Diltiazem Hcl Cd 180 Mg Cap.Er.24h) 360 mg PO DAILY [facility]; Protocol Last Admin: 05/15/22 08:32 Dose: 360 mg Documented By: ALLAN Diphenhydramine HCl (Diphenhydramine Hcl 25 Mg Tablet) 25 mg PO BEDTIME [facility] Last Admin: 05/14/22 19:55 Dose: 25 mg Documented By: ESTEBAN Enoxaparin Sodium (Enoxaparin Sodium 40 Mg/0.4 Ml Syringe) 40 mg SUBCUT Q24H [facility] Last Admin: 05/14/22 13:43 Dose: 40 mg Documented By: JERICAORRDarrick Escitalopram Oxalate (Escitalopram Oxalate 10 Mg Tablet) 15 mg PO DAILY [facility] Last Admin: 05/15/22 08:33 Dose: 15 mg Documented By: ALLAN Fentanyl (Fentanyl Citrate/Pf 100 Mcg/2 Ml Vial) 25 mcg IVPUSH Q15M PRN; Protocol PRN Reason: WOB Last Admin: 05/12/22 15:30 Dose: 25 mcg Documented By: CHARMAINE Fluticasone/Vilanterol (Fluticasone/Vilanterol 200/25 Blst.W.Dev) 1 puff INHALE RDAILY [facility] Last Admin: 05/15/22 08:22 Dose: Not Given Documented By: YUVAL Non-Admin Reason: Med Not Available Insulin Human Lispro (Insulin Lispro 100 Unit/Ml 3 Ml Vial) 0 unit SUBCUT QIDACHS [facility]; Protocol Last Admin: 05/15/22 11:54 Dose: 4 unit Documented By: YAS Metformin HCl (Metformin Hcl Er 500 Mg Tab.Er.24h) 500 mg PO BID [facility] Last Admin: 05/15/22 08:33 Dose: 500 mg Documented By: ALLAN Mirtazapine (Mirtazapine 15 Mg Tablet) 15 mg PO BEDTIME [facility] Last Admin: 05/14/22 19:55 Dose: 15 mg Documented By: ESTEBAN Non-Formulary Medication (Ramelteon) 8 mg PO BEDTIME [facility] Omeprazole (Omeprazole 20 Mg Capsule.Dr) 20 mg PO DAILY@0630 [facility] Last Admin: 05/15/22 05:21 Dose: 20 mg Documented By: ESTEBAN Spironolactone (Spironolactone 25 Mg Tablet) 25 mg PO DAILY [facility]; Protocol Last Admin: 05/15/22 08:34 Dose: 25 mg Documented By: ALLAN Valsartan (Valsartan 160 Mg Tablet) 160 mg PO DAILY [facility] Last Admin: 05/15/22 08:33 Dose: 160 mg Documented By: ALLAN Labs CBC & Chem 7: 05/15/22 06:36 05/15/22 06:36 Labs: Laboratory Results - last 24 hr 05/14/22 05/14/22 05/14/22 15:12 17:26 20:35 MCV MCH MCHC RDW Plt Count MPV Absolute Nucleated RBC Nucleated RBC % (auto) VBG pH VBG pCO2 VBG pO2 VBG HCO3 VBG O2 Saturation VBG Base Excess Anion Gap Estim Creat Clear Calc Estimated GFR POC Glucose 244 H 327 H 342 H Fasting Glucose Calcium 05/15/22 05/15/22 05/15/22 06:36 06:36 06:43 MCV 69.2 L MCH 19.3 L MCHC 27.9 L RDW 19.8 H Plt Count 271 MPV 9.4 Absolute Nucleated RBC 0.020 H Nucleated RBC % (auto) 0.2 VBG pH 7.33 VBG pCO2 60 VBG pO2 48 VBG HCO3 32 H VBG O2 Saturation 72.0 VBG Base Excess 5.2 Anion Gap 12 Estim Creat Clear Calc 68.9 Estimated GFR > 60 POC Glucose Fasting Glucose 241 H Calcium 8.8 05/15/22 05/15/22 07:26 11:01 MCV MCH MCHC RDW Plt Count MPV Absolute Nucleated RBC Nucleated RBC % (auto) VBG pH VBG pCO2 VBG pO2 VBG HCO3 VBG O2 Saturation VBG Base Excess Anion Gap Estim Creat Clear Calc Estimated GFR POC Glucose 221 H 197 H Fasting Glucose Calcium Microbiology Microbiology Results: Microbiology 05/12/22 12:28 Blood Culture - Preliminary Blood - Venous No growth after 48 hours. 05/12/22 12:03 Blood Culture - Preliminary Blood - Venous No growth after 48 hours. Assessment and Plan (1) COPD with acute exacerbation: Status: Acute Plan 76F presented with sob, was intubated in the field, diuresed and quickly able to be successfully extubated acute on chronic hypoxic and hypercapneic respiratory failure due to copd/OHS/ISAAC and acute on chronic diastolic chf diuresed well, will do diuretic holiday for now monitor bmp pulm aprpeciated, will likely need bipap, plan for overnight pulse ox morbid obesity weight loss subsegemental pe was in november 2021, dced eliquis iron defeciency anemia gi appreaciated, no active bleed, continue ppi, outpatient scope DM insulin HTN aldactone, coreg, valsartan dvt prophylaxis - lovenox reason for continued hospitalization: onhoing risk for hypcapnea, close monitoring of electrolytes, needs to set up bipap prior to discharge to avoid readmission for similar presentation Quality Stroke Does the patient have a stroke diagnosis?: No VTE Prior VTE?: Yes VTE Risk Level:: Medical - moderate - high VTE Device Contraindication: N/A - Device Ordered VTE Drug Contraindication: N/A - Med Ordered
[2022-05-15] MEDS: Enoxaparin Sodium 40 MG/0.4 ML SYRINGE SUBCUT (14:45)
[2022-05-15 15:12] VITALS: BP 173/61; PULSE 62; RESP 18; TEMP 37; O2SAT 94
[2022-05-15 16:01] LABS: Glucose, Whole Blood 272 mg/dL (60-115)
[2022-05-15 20:00] VITALS: BP 199/84; PULSE 70; RESP 18; TEMP 36.9; O2SAT 98
[2022-05-15 20:54] LABS: Glucose, Whole Blood 281 mg/dL (60-115)
[2022-05-15] MEDS: diphenhydrAMINE HCL 25 MG TABLET PO (21:16)
[2022-05-15] MEDS: Mirtazapine 15 MG TABLET PO (21:16)
[2022-05-15] MEDS: cloNIDine HCL 0.1 MG TABLET PO (21:16)
[2022-05-15] MEDS: Acetaminophen 325 MG TABLET 650 MG PO (21:23)
[2022-05-16] VITALS: BP 164/72; PULSE 64; RESP 18; TEMP 36.9; O2SAT 95
[2022-05-16 04:00] VITALS: BP 173/65; PULSE 68; RESP 18; TEMP 36.6; O2SAT 88
[2022-05-16 05:36] VITALS: O2SAT 91
[2022-05-16 05:50] LABS: ABG Base Excess 2.3 mmol/L; ABG HCO3 27 mmol/L (22-26); ABG pCO2 41 mmHg (32-45); ABG pH 7.41 (7.35-7.45); ABG pO2 62 mmHg (83-108)
[2022-05-16 05:50] LABS: ABG Refer to POC result
[2022-05-16] MEDS: Omeprazole 20 MG CAPSULE.DR PO (06:12)
[2022-05-16 07:06] LABS: VBG Base Excess 1.9 mmol/L; VBG HCO3 25 mmol/L (22-26); VBG pCO2 37 mmHg; VBG pH 7.44 (7.32-7.43); VBG pO2 71 mmHg
[2022-05-16 07:11] LABS: Hematocrit 30.5 % (37.0-47.0); Hemoglobin 8.7 g/dl (12.0-16.0); Mean Corpuscular HGB Conc 28.5 g/dl (31.0-35.0); Mean Corpuscular Hemoglobin 19.3 pg (27.0-33.0); Mean Corpuscular Volume 67.8 fL (80.0-98.0); Mean Platelet Volume 10.1 fL (9.4-12.3); Platelet Count 291 X10*3/uL (160-400); Red Cell Distribution Width 19.7 % (11.0-16.0); Venous Blood Gas Refer to POC result
[2022-05-16] MEDS: Insulin Lispro 100 UNIT/ML 3 ML VIAL SUBCUT ×2 (07:26→11:59)
[2022-05-16 07:31] LABS: Anion Gap 11 (12-20); Blood Urea Nitrogen 19 mg/dL (9-16); Calcium 8.5 mg/dL (8.4-10.2); Carbon Dioxide 27 mmol/L (22-29); Chloride 102 mmol/L (96-108); Creatinine Clr Calc Pharmacy 73.5; Estimated Glomerular Filt Rate > 60; Glucose Fasting 253 mg/dL (60-99); Potassium 3.9 mmol/L (3.3-5.1); Sodium 136 mmol/L (135-145)
[2022-05-16 07:32] LABS: Glucose, Whole Blood 270 mg/dL (60-115)
[2022-05-16 07:44] VITALS: BP 165/72; PULSE 73; RESP 18; TEMP 36.7; O2SAT 93
[2022-05-16] MEDS: dilTIAZem HCL CD 180 MG CAP.ER.24H 360 MG PO (08:21)
[2022-05-16] MEDS: Spironolactone 25 MG TABLET PO (08:22)
[2022-05-16] MEDS: Escitalopram Oxalate 10 MG TABLET 15 MG PO (08:22)
[2022-05-16] MEDS: metFORMIN HCl ER 500 MG TAB.ER.24H PO (08:22)
[2022-05-16] MEDS: carvediloL 6.25 MG TABLET PO (08:22)
[2022-05-16] MEDS: Valsartan 160 MG TABLET PO (08:22)
[2022-05-16 09:10] VITALS: PULSE 66; PULSE 93; O2SAT 91; O2SAT 94
[2022-05-16 11:16] VITALS: BP 164/71; PULSE 69; RESP 18; TEMP 37.1; O2SAT 95
[2022-05-16 11:45] LABS: Glucose, Whole Blood 201 mg/dL (60-115)
--- NOTE | 2022-05-16 11:55 | PM.DS ---
DS: Providers Provider Date of Service: 05/16/22 Date of admission: 05/12/22 13:57 Primary care physician: Misti Francis PA-C Consults: 05/13/22 13:58 Consult to Gastroenterology Routine Consulting Provider: Dony Jimenez Reason for consultation: iron defeciency anemia 05/14/22 10:29 Consult to Pulmonology Routine Consulting Provider: Humberto Caldwell Reason for consultation: ?OHS/ISAAC DS: Diagnosis Discharge Diagnosis (1) COPD with acute exacerbation: Status: Acute DS: Summary Hospital Course Hospital Course: from intiial hpi: Chief Complaint: Acute respiratory failure Mrs. Hutton is admitted to the ICU this afternoon with acute respiratory failure. 76 yo female with PMhx of obesity, COPD on 2L home oxygen, CHF on Aldactone, Coreg and valsartan, HTN, DM on Lantus, anemia, GERD, SHARON, and restless leg syndrome. [place] [facility] [place] for COVID infection 11/25-, and for subsequent pulmon embolism 12/15-, for which she was started on Eliquis.? Also from 02/13- for COPD exac requiring BiPAP, and 02/24-07/2022 for influenza A requiring BiPAP.? The records indicate that she is an active smoker, [facility] found patient with dyspnea at home this morning, reportedly w sat 91% on her home O2. ?EMS was called. ?On EMS arrival, the patient was obtunded, with sats 62% on her home O2. ?She could not comply with CPAP.? There was no circulatory arrest, nor any resp arrest as far as I can tell.? The patient was intubated in the field, then BIBA to the ED. In the ED, the patient arrived with an 8.0 ETT, at 27cm at the lip, with Sat 95% on ambu bag ventilation.? CXR showed a 2-3 cm R mainstem intubation, w loss of vol on the left, with either CHRIST infiltrate or collapse. ?The ETT was pulled back, resulting in improved oxygenation and improved aeration of the entire left lung.? The patient was awake on arrival to ED, able to answer simple questions about her history and follow simple commands.? She was afebrile.? HR 85, BP 174/69.? Some froth noted in the ETT.? Rhythm was sinus.? She had rales at the bases, w 1+ pitting lower extremity edema.? No neuro deficits.? Stool was brown, guiac neg. Labs in the ED noted WBC 12, Hgb 7.3 (was 7.6 on 02/26/22), INR 1.0, BUN/creat 15/0.8, bicarb 34, gluc 420, alb 3.7, Lactic acid 1.7, trop 6.1, BNP 110.? ABG (unstated FiO2) at 12:23 was 7.35/63/68/35.? VBG at 12:40 was 7.30/85/+13.? U/A negative for infection.? Urine tox all negative.? COVID neg.? The patient was given a dose of diuretic and a dose of Abx.? Since she was awake, she was tried on PSV but reportedly failed.? She was therefore admitted to the ICU. On my exam, the patient was completely awake and easily able to answer all our questions.? MS looks completely normal and she is requesting to have the ETT removed.? Temp 97.6?.? HR is 73, SR.? BP is 178/69.? On PSV 15/40%/+8, RR is 23, Vt 350cc, Ve 8L, PIP 23cm, ETCO2 40mm, Sat 98-100%.? No JVD at 30-40?.? Chest is CTA w normal exp phase.? Heart tones soft, no murmur or gallops were noted. ?Abdomen is obese and benign.? It feels like she has at least 1+ central edema.? She has about a liter of clear light yellow urine in her Jovel bag from the Lasix in the ED.? Last POC was 354. The patient was extubated to BiPAP.? After about half an hour or so, we had her down to BiPAP 10/5/30%, on which RR was 21, Vt 440cc, Ve 9.4L, ETCO2 50, Sat 97%.? 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 hospital course: Patient was admitted for acute on chronic hypoxic and hypercapnic respiratory failure due to COPD/ohs/ ISAAC and acute on chronic diastolic CHF. patient had been intubated in the field, was admitted to the intensive care unit, Patient diuresed well and was able to be extubated fairly quickly. She was seen by Pulmonary who felt patient would likely need BiPAP at night, overnight continuous oxygen sleep study did not qualify patient for BiPAP, but patient does need overnight oxygen, she should follow up outpatient for proper sleep study. Patient was noted to have iron deficiency anemia with no obvious active bleed. She was seen by GI who recommended continuing PPI, iron supplementation, outpatient scope. For patient's history of subsegmental pulmonary embolism in November 2021 her Eliquis has been discontinued due to already completing 6 months of therapy, low clot burden, active iron deficiency anemia, risks of continuing anticoagulation appear to outweigh benefits. For her morbid obesity weight loss recommended. For her diabetes she will continue insulin. For hypertension show continue Aldactone, Coreg, valsartan. Patient is feeling much better will be discharged home with visiting nurse services. Time Spent with Patient Time attestation: Total time spent providing and/or coordinating discharge services: Discharge coordination time: Greater than 30 minutes Quality: Safe Use of Opioids Does Pt have an Active Cancer Diagnosis on the Problem List?: No Quality: Stroke Does the patient have a stroke diagnosis?: No Physical Exam Vital Signs: Vital Signs: Last Vital Signs Temp 98.7 F 05/16/22 11:16 Pulse 69 05/16/22 11:16 Resp 18 05/16/22 11:16 BP 164/71 H 05/16/22 11:16 Pulse Ox 95 05/16/22 11:16 O2 Del Method 05/16/22 11:16 O2 Flow Rate 2 05/15/22 07:44 FiO2 30 05/13/22 08:00 BMI result Body Mass Index 39.2 General: AO X 3, no acute distress Resp: Crackles bilateral, no accessory muscles used CVS: S1,S2,RRR, edema GI: soft, non tender, non distended Neuro: motor grossly intact, alert Psych: appropriate affect, appropriate insight DS: Data Data Completed and Pending Labs on day of discharge: Laboratory Results - last 24 hr 05/15/22 05/15/22 05/16/22 15:54 20:50 05:44 WBC RBC Hgb Hct MCV MCH MCHC RDW Plt Count MPV Absolute Nucleated RBC Nucleated RBC % (auto) O2 Saturation 90.0 ABG pH at Pt Temp 7.41 ABG pCO2 at Pt Temp 41 ABG pO2 at Pt Temp 62 L ABG HCO3 27 H ABG Base Excess (Actual) 2.3 VBG pH VBG pCO2 VBG pO2 VBG HCO3 VBG O2 Saturation VBG Base Excess Sodium Potassium Chloride Carbon Dioxide Anion Gap BUN Creatinine Estim Creat Clear Calc Estimated GFR POC Glucose 272 H 281 H Fasting Glucose Calcium 05/16/22 05/16/22 05/16/22 06:51 06:51 07:00 WBC 8.0 RBC 4.50 Hgb 8.7 L Hct 30.5 L MCV 67.8 L MCH 19.3 L MCHC 28.5 L RDW 19.7 H Plt Count 291 MPV 10.1 Absolute Nucleated RBC 0.000 Nucleated RBC % (auto) 0.0 O2 Saturation ABG pH at Pt Temp ABG pCO2 at Pt Temp ABG pO2 at Pt Temp ABG HCO3 ABG Base Excess (Actual) VBG pH 7.44 H VBG pCO2 37 VBG pO2 71 VBG HCO3 25 VBG O2 Saturation 94.0 VBG Base Excess 1.9 Sodium 136 Potassium 3.9 Chloride 102 Carbon Dioxide 27 Anion Gap 11 L BUN 19 H Creatinine 0.73 Estim Creat Clear Calc 73.5 Estimated GFR > 60 POC Glucose Fasting Glucose 253 H Calcium 8.5 05/16/22 05/16/22 07:25 11:13 WBC RBC Hgb Hct MCV MCH MCHC RDW Plt Count MPV Absolute Nucleated RBC Nucleated RBC % (auto) O2 Saturation ABG pH at Pt Temp ABG pCO2 at Pt Temp ABG pO2 at Pt Temp ABG HCO3 ABG Base Excess (Actual) VBG pH VBG pCO2 VBG pO2 VBG HCO3 VBG O2 Saturation VBG Base Excess Sodium Potassium Chloride Carbon Dioxide Anion Gap BUN Creatinine Estim Creat Clear Calc Estimated GFR POC Glucose 270 H 201 H Fasting Glucose Calcium Preliminary micro results at discharge 05/12/22 12:28 Blood Culture - Preliminary Blood - Venous No growth after 48 hours. 05/12/22 12:03 Blood Culture - Preliminary Blood - Venous No growth after 48 hours. Discharge Plan Discharge Patient Disposition: Home Health Service Discharge Diagnosis: resp failure Referrals: Ronan Franklin [Outside] - 1 Week Humberto Caldwell MD [Physician] - 1 Week Dony Jimenez [Physician] - 1 Week Misti Francis PA-C [Primary Care Provider] - 1 Week Discharge Medications: New ferrous sulfate 325 mg (65 mg iron) tablet 325 mg PO DAILY Qty: 30 0RF Continued carisoprodol [Soma] 350 mg Tablet 350 mg PO QID clonidine HCl 0.1 mg Tablet 0.1 mg PO BEDTIME carvedilol 6.25 mg Tablet 6.25 mg PO BID Rx Instructions: must administer with a meal/food clonazepam 1 mg Tablet 1 mg PO BEDTIME Rx Instructions: administer 30 minutes before bedtime diltiazem HCl 360 mg Capsule,Extended Release 24hr 360 mg PO DAILY spironolactone 25 mg Tablet 25 mg PO DAILY citalopram 20 mg Tablet 30 mg PO DAILY omeprazole 20 mg Capsule,Delayed Release(Dr/Ec) 20 mg PO DAILY mirtazapine 15 mg Tablet 15 mg PO BEDTIME metformin 500 mg Tablet Extended Release 24 Hr 1,000 mg PO BID irbesartan 300 mg Tablet 300 mg PO DAILY ramelteon 8 mg Tablet 8 mg PO BEDTIME budesonide-formoterol [Symbicort] 160-4.5 mcg/actuation Hfa Aerosol Inhaler 2 puff INHALATION BID insulin glargine [Basaglar KwikPen U-100 Insulin] 100 unit/mL (3 mL) Insulin Pen 55 unit SUBCUT DAILY albuterol sulfate 90 mcg/actuation Aero Powdr Breath Act W/Sensor 1 inh INHALATION Q4-6H PRN (Reason: Wheezing) diphenhydramine HCl 25 mg Tablet 25 mg PO BEDTIME Discontinued Eliquis 5 mg Tablet 5 mg PO BID Discharge Orders: Discharge Order (Routine); Ordered 05/16/22 Ordered By: Tha Mae Diet: advance to usual diet Activity on Discharge: As tolerated Stand Alone Forms: Patient Portal Discharge page Care Plan Goals: recovery Health Concerns: isaac, copd, anemia Plan of Treatment: outpatient pulm follow up for sleep study, continue o2 at night, stop eliquis, start iron, follow up with gi Assessment: see above
--- NOTE | 2022-05-16 11:58 | MHC.CM.PN ---
PT CLEARED TO DC HOME TODAY WITH [facility] JODEE CALLED PTS DAUGHTER TO DISCUSS DC PLANS SHE REPORTS THE PLAN IS FOR THE PT TO STAY WITH HER AT [address] [place] [address] AT DC SHE REQUESTS PT BE SENT BY AMBULANCE AT 1700 HOURS AT WHICH TIME SHE WILL BE HOME PT WILL DC TO DAUGHTERS HOME WITH RESUMPTION OF [facility] TODAY AT 1700 HOURS [facility]IA [facility]
--- NOTE | 2022-05-16 11:59 | W.MHC.F2F ---
Service Date Service Date: 05/16/22 Encounter Date of encounter: 05/16/22 Reasons for Services Signs and symptoms assessed: weakness post icu hospitalization Reason for group home: medication management, medication treatment and teach disease management Homebound: Leaving the home is medically contraindicated at this time without the asist of a device and/or another person due th the listed conditions above and below. Reason homebound: unsteady gait / fall risk Certification: Based on the above findings, I certify that this patient is confined to the home and needs intermittent group home care, physical therapy and/or speech therapy, or continues to need occupational therapy. The patient is under my care, and I have initiated the establishment of the plan of care. The patient will be followed by a physician who will periodically review the plan of care.
[2022-05-16] MEDS: Enoxaparin Sodium 40 MG/0.4 ML SYRINGE SUBCUT (14:41)
== END 2022-05-16 17:15 | disposition home health service (06) | DRG 291 ==
LOC: HO.ED 12:43 → HO.EDOVER 14:02 → HO.ICU 14:32 → HO.IMC 05-13 13:57
PROVIDERS: Internal Medicine; Physician Assistant Medical; Student in an Organized Health Care Education/Training Program; Admitting Provider Anesthesiology; Emergency Provider Emergency Medicine; PCP Registered Nurse; Visit Provider Internal Medicine
DX: I11.0 Hypertensive heart disease with heart failure (principal); I50.33 Acute on chronic diastolic (congestive) heart failure; J96.22 Acute and chronic respiratory failure with hypercapnia; J96.21 Acute and chronic respiratory failure with hypoxia; J44.1 Chronic obstructive pulmonary disease with (acute) exacerbation; E87.3 Alkalosis; D62 Acute posthemorrhagic anemia; E66.2 Morbid (severe) obesity with alveolar hypoventilation; Z20.822 Contact with and (suspected) exposure to COVID-19; E11.9 Type 2 diabetes mellitus without complications; Z99.81 Dependence on supplemental oxygen; K21.9 Gastro-esophageal reflux disease without esophagitis; F41.1 Generalized anxiety disorder; G25.81 Restless legs syndrome; Z86.16 Personal history of COVID-19; F17.210 Nicotine dependence, cigarettes, uncomplicated; Z71.6 Tobacco abuse counseling; Z86.711 Personal history of pulmonary embolism; Z68.39 Body mass index [BMI] 39.0-39.9, adult; E87.5 Hyperkalemia; Z88.5 Allergy status to narcotic agent; Z88.6 Allergy status to analgesic agent; Z79.4 Long term (current) use of insulin; Z79.01 Long term (current) use of anticoagulants; Z79.84 Long term (current) use of oral hypoglycemic drugs; Z79.899 Other long term (current) drug therapy
CPT/HCPCS: 36415; 36600; 70450; 71045; 80048; 80053; 80307; 81001; 81003; 82272; 82728; 82803; 82947; 83540; 83605; 83690; 83735; 83880; 84100; 84484; 85025; 85027; 85610; 86850; 86900; 86901; 86923; 87040; 87635; 93005; 93306; 94002; 94640; 96365; 96375; 97116; 97161; 99285; C1758; J1650; J1940; J2543; J2930; J3010; J3475; P9016; Q0163

== ENCOUNTER 2022-06-01 15:58 | Inpatient (IN) | payer MEDICARE, MEDICAID, SELFPAY ==
[2022-06-01] VITALS (15 sets, daily range): BP systolic 000–156; BP diastolic 00–63; PULSE 0–98; RESP 0–24; TEMP -17.7–37.9; O2SAT 0–100; BMI 37.3
--- NOTE | ~2022-06-01 | CT_ITS ---
EXAMINATION: CT HEAD WITHOUT CONTRAST CLINICAL INFORMATION: , Status post cardiac arrest. Rule out stroke. COMPARISON: Head CT 05/12/2022 TECHNIQUE: Imaging was performed from the skull base to vertex without intravenous administration of contrast. This CT examination was performed using dose optimization techniques as appropriate, variously including the following: *Automated exposure control *Adjustment of mA and/or kV according to patient size (this includes techniques or standardized protocols for targeted exams where dose is matched to indication/reason for exam; i.e. extremities or head) *Use of iterative reconstruction technique Total exam dose length product: 920 mGy-cm FINDINGS: No intra or extra-axial fluid collection, hemorrhage, or mass. No ventriculomegaly. No midline shift or herniation. Basal cisterns are patent. Aly-white matter differentiation is maintained. No territorial encephalomalacia. Evidence of prior lacunar infarcts in the left wyatt radiata and right basal ganglia, unchanged. Area of hypoattenuation in the left thalamus compatible with lacunar infarct, unchanged. No significant volume loss. Patchy periventricular and deep white matter hypoattenuation is consistent with mild small vessel ischemic changes. No calvarial fracture or soft tissue abnormality. Nonspecific opacification of mastoid air cells bilaterally. Mild mucosal thickening in ethmoid air cells and left sphenoid sinus. Hyperostosis frontalis interna noted. CT/CT head/brain wo con IMPRESSION: 1. No intracranial hemorrhage, or acute edematous territorial infarct identified. 2. Prior lacunar infarcts and chronic small vessel ischemic white matter changes.
--- NOTE | ~2022-06-01 | CT_ITS ---
EXAMINATION: CT ANGIOGRAM OF THE CHEST WITH AND WITHOUT CONTRAST (CT PULMONARY ANGIOGRAM FOR PE) CLINICAL INFORMATION: Reason for Exam Cardiac arrest r/o PE COMPARISON: None TECHNIQUE: Prior to contrast administration, noncontrast localization images were obtained. Subsequently, multidetector volumetric imaging was performed from the thoracic inlet to below the diaphragms following the administration of 85 mL Omnipaque 350 intravenous contrast. No contrast reaction reported Sagittal, coronal, and MIP oblique sagittal reformatted images were obtained on the CT workstation, uploaded to PACS, and reviewed. This CT examination was performed using dose optimization techniques as appropriate, variously including the following: *Automated exposure control *Adjustment of mA and/or kV according to patient size (this includes techniques or standardized protocols for targeted exams where dose is matched to indication/reason for exam; i.e. extremities or head) *Use of iterative reconstruction technique Total exam dose-length product 192 mGy-cm FINDINGS: QUALITY OF STUDY/CONTRAST BOLUS: Satisfactory. PULMONARY ARTERIES: No central or segmental pulmonary emboli. THORACIC AORTA: No aneurysm or dissection. LUNG: Left lower lobe atelectasis is present. Denser consolidation is present in the superior segment of the left lower lobe (5:28). An area of consolidation is present at the right apex (5:10). PLEURA: No significant pleural effusion or pneumothorax. MEDIASTINUM: Tip of the patient's ET tube is at the proximal right mainstem bronchus and should be Normal heart size. A central line has its tip in the distal SVC. No pericardial effusion. No hilar or mediastinal lymphadenopathy. No evidence of septal bowing or right heart strain. CHEST WALL/AXILLA: No axillary or internal mammary lymphadenopathy. OSSEOUS STRUCTURES: Degenerative changes are present in the spine with scoliosis convex to right. UPPER ABDOMEN: NG tube with tip in antrum No reflux of contrast into the hepatic veins to suggest elevated right heart pressures. CT/CT angio chest PE protocol IMPRESSION: 1. ET tube with tip in right mainstem bronchus and should be pulled back. 2. No pulmonary emboli are noted. 3. Left lower lobe and right upper lobe consolidations. VTE: negative
--- NOTE | ~2022-06-01 | XR_ITS ---
EXAMINATION: XR CHEST CLINICAL INFORMATION: ET tube placement COMPARISON: 06/01/2022 TECHNIQUE: Frontal view of the chest was obtained. FINDINGS: Suboptimal assessment due to patient rotation. Endotracheal tube tip lies approximately 3.5 cm above the power. Enteric tube courses into the stomach. Right IJ central line tip lies in the region of the cavoatrial junction. There is patchy airspace opacity throughout the left lung and possibly in the right perihilar region. No appreciable pneumothorax. Trace left pleural effusion suspected. Cardiac size appears near the upper limits of normal accounting for patient rotation. No acute osseous findings are seen. XR/XR chest 1V IMPRESSION: Endotracheal tube tip 3.5 cm above the poewr. Patchy airspace opacity throughout the left lung and possibly in the right perihilar region. Trace left pleural effusion suspected.
--- NOTE | ~2022-06-01 | XR_ITS ---
EXAMINATION: XR CHEST CLINICAL INFORMATION: Respiratory arrest COMPARISON: Previous chest x-rays most recent 05/12/2022 TECHNIQUE: 2 AP portable of the chest was obtained. FINDINGS: First film demonstrates endotracheal tube projecting over the right mainstem bronchus and complete white out of the left hemithorax. Second film demonstrates endotracheal tube with tip 2 cm above the power. The cardiac and mediastinal contours are stable. There are patchy areas of atelectasis or airspace disease seen in the left lung. There may be central bronchial wall thickening in the right lung and area of atelectasis or airspace disease in the right upper lobe overlying the first rib. There is no pleural effusion or pneumothorax. There is a nasogastric tube. The tip is not seen. XR/XR chest 1V IMPRESSION: First chest x-ray demonstrates endotracheal tube projecting over the right mainstem bronchus and complete atelectasis of the left lung. Second chest x-ray demonstrates endotracheal tube 2 cm above the power and patchy areas of atelectasis or airspace disease in the left lung and bronchial wall thickening and small area of atelectasis or airspace disease in the right upper lobe. Nasogastric tube tip not seen.
--- NOTE | ~2022-06-01 | CT_ITS ---
EXAMINATION: CT ABDOMEN AND PELVIS WITH CONTRAST CLINICAL INFORMATION: Cardiac arrest. UTI with question of uropathy COMPARISON: None TECHNIQUE: Multidetector volumetric images were obtained from the superior aspect of the liver through the pubic symphysis following administration 85 mL of Omnipaque 350 intravenous contrast. Sagittal and coronal reformatted images were obtained on the technologist's workstation. Oral contrast: No This CT examination was performed using dose optimization techniques as appropriate, variously including the following: *Automated exposure control *Adjustment of mA and/or kV according to patient size (this includes techniques or standardized protocols for targeted exams where dose is matched to indication/reason for exam; i.e. extremities or head) *Use of iterative reconstruction technique DLP: 553 mGy-cm FINDINGS: LUNG BASES: Small bilateral pleural effusions are present, left greater than right. Left lower lobe atelectasis and left lower lobe consolidation is again seen LIVER, GALLBLADDER, AND BILIARY TREE: The liver is normal in size, shape, and attenuation. No focal hepatic lesion or biliary ductal dilatation is present. Status post cholecystectomy. PANCREAS: Unremarkable. SPLEEN: Unremarkable. ADRENAL GLANDS: Unremarkable. KIDNEYS AND URETERS: The kidneys are normal in size, shape, and attenuation. Tiny renal hypodensities most likely represent small cysts. No hydronephrosis, hydroureter, or calculi seen. No perinephric stranding. BLADDER: Bladder is empty containing a Jovel catheter GASTROINTESTINAL TRACT: NG tube has its tip in the antrum The small and large bowel are unremarkable. The appendix is is not seen but there is no evidence of appendicitis. ABDOMINAL WALL: No significant hernia is appreciated. LYMPH NODES: No retroperitoneal lymphadenopathy VASCULAR: Unremarkable. PELVIC VISCERA: Unremarkable. OSSEOUS STRUCTURES: Degenerative changes are present in the spine. No bony destructive lesions. CT/CT abdomen pelvis w con IMPRESSION: 1. No nephrolithiasis or urinary tract obstruction is seen. 2. Incidental note made of cholecystectomy and other incidental findings described above. Fleischner guidelines were followed.
--- NOTE | ~2022-06-01 | XR_ITS ---
EXAMINATION: XR CHEST CLINICAL INFORMATION: Central line placement COMPARISON: Chest x-ray 06/01/2022 1611 hours TECHNIQUE: Frontal view of the chest was obtained. FINDINGS: Interval placement of right IJ central venous catheter with distal tip projecting over the distal SVC. No pneumothorax. The power is difficult to clearly delineate on the current radiograph. The endotracheal tube tip terminates approximately 2 cm above the expected position of the power. An enteric tube extends below the diaphragm and included portion of the image. Persistent hazy and patchy opacities throughout the left lung. Patchy opacity in the right lung apex is also redemonstrated. No definite pleural effusion. Cardiomediastinal silhouette is within normal limits allowing for patient rotation. Defibrillator pad overlies the lower lateral right hemithorax. XR/XR chest 1V IMPRESSION: 1. Right IJ central venous catheter tip projects over the distal SVC. No pneumothorax. 2. Slightly low-lying endotracheal tube tip terminating approximately 2 cm above the power. 3. Persistent hazy and patchy airspace opacities in the left lung and right lung apex.
--- NOTE | ~2022-06-01 | XR_ITS ---
EXAMINATION: XR CHEST CLINICAL INFORMATION: Nasogastric tube placement. COMPARISON: 06/18/2022 chest radiograph. TECHNIQUE: Frontal view of the chest was obtained. FINDINGS: Support devices: Interval removal of the endotracheal tube. Nasogastric tube is seen with tip not included on the study but seen below the left hemidiaphragm. The lungs are clear. The heart and mediastinal structures are unremarkable XR/XR chest 1V IMPRESSION: 1. Nasogastric tube tip not included on the study but seen below the left hemidiaphragm and appears similar to the previous study. 2. No acute cardiopulmonary process.
--- NOTE | ~2022-06-01 | XR_ITS ---
EXAMINATION: XR CHEST CLINICAL INFORMATION: NG tube insertion COMPARISON: Chest x-ray on 06/26/2022 TECHNIQUE: Frontal view of the chest was obtained. FINDINGS: The patient is rotated. An enteric tube courses below the diaphragm and terminates near the pylorus. A portion of the tube is not visualized on this exam. Increase in right basilar opacities compared to the prior exam. No pleural effusions. XR/XR chest 1V IMPRESSION: Enteric tube courses below the diaphragm and terminates near the pylorus. Increase in right basilar opacities.
--- NOTE | ~2022-06-01 | XR_ITS ---
EXAMINATION: XR CHEST CLINICAL INFORMATION: Elevated WBC COMPARISON: 06/01/2022 TECHNIQUE: Frontal view of the chest was obtained. FINDINGS: Endotracheal tube is 3.5 cm above the power. The tip of the right IJ catheter is at the level of the mid to distal SVC. Enteric tube courses along the esophagus, into the stomach, beyond the [id number]. Large body habitus. Lungs are hypoinflated. Pulmonary vasculature and not well evaluated due to the hypoinflation. Difficult to exclude any pulmonary vascular congestion. The hazy opacity at the left base appears to represent layering of small pleural effusion. Patchy pulmonary opacities are mildly improved. No new airspace infiltrates compared to 05/22/2022. No pneumothorax. Cardiac silhouette appears to be borderline enlarged. XR/XR chest 1V IMPRESSION: * ET tube is in satisfactory position at 3.5 cm above the power. * Mild interval improvement of patchy pulmonary opacities. No new pulmonary infiltrates. * Persistent small left pleural effusion.
--- NOTE | ~2022-06-01 | CT_ITS ---
EXAMINATION: CT BRAIN, CT CHEST, ABDOMEN PELVIS WITHOUT CONTRAST. CLINICAL INFORMATION: Altered mental status, fever COMPARISON: CT brain 06/06/2022 TECHNIQUE: 5 mm in axial and reformatted 2 mm thin sagittal and coronal images of brain were obtained. Subsequently axial 5 mm thin and reformatted 3 mm thin sagittal and coronal images of chest, abdomen and pelvis were obtained. DLP [id number]. FINDINGS: Brain: There is no acute intra-axial, extra-axial bleed, masses or midline shift. There is no acute infarction evolution. There is no edema. There is diffuse periventricular hypodensity in both cerebral hemispheres suggestive of chronic small vessel ischemic changes. There are few lacunar infarcts in the left wyatt radiata, unchanged. The lateral ventricles are enlarged but symmetrical. Bone windows reveal no calvarial abnormality. There is mild mucoperiosteal thickening left sphenoid and bilateral mastoid sinuses. CHEST: The lungs are expanded with patchy atelectatic changes in the lingula, right lower lobe and left lower lobe posterior basal segment minimal atelectasis consolidation. Heart size and the great vessels are normal caliber. Central trachea and the bronchi widely patent. The endotracheal tube is 9 cm above the power in the neck and needs to be advanced at least by 6 cm. There is an enteric tube with its tip in the stomach. There is a right jugular central venous catheter in the distal SVC. No pericardial effusion seen. There is no pleural effusion or thickening. The axilla and the chest wall appears normal. No osseous abnormality seen except for degenerative spondylosis and calcification of anterior longitudinal ligament. ABDOMEN AND PELVIS: Visualized liver, spleen, pancreas and left adrenal gland is unremarkable. 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 Gallbladder has been surgically removed. There is mild hepatomegaly. Both kidneys are normal size, shape and position. No radiopaque calculi or hydronephrosis seen. The bowel gas pattern is nonspecific with scattered stool and diverticuli in the colon. No diverticulitis seen. There is no obstruction. The small bowel loops are normal caliber. Appendix is not visualized. The abdominal aorta is normal caliber. No retroperitoneal lymph nodes seen. The bladder is nondistended secondary to Jovel's catheter. No free fluid seen. No pelvic or inguinal lymph nodes. No hernia seen. Bone windows reveal degenerative disc changes L5-S1 disc level with spondylosis. There is diffuse osteopenia. CT/CT abdomen pelvis wo con IMPRESSION: No acute intracranial process seen. Few lacunar infarcts and atrophy, stable. Left lower lobe posterior segment minimal consolidation/atelectasis. Minimal atelectatic changes in the lingula and right lower lobe. Endotracheal tube tip is in the neck and needs to be advanced by 5 to 7 cm. Endotracheal tube and right jugular central venous catheter are in satisfactory position. Jovel's catheter tip is in bladder. Colonic diverticulosis and constipation. No diverticulitis or the axilla and the obstruction. Results were called to Dr. Richardson by phone at 8:08 AM.
--- NOTE | ~2022-06-01 | XR_ITS ---
EXAMINATION: XR CHEST CLINICAL INFORMATION: Status post endotracheal and orogastric tube placement. COMPARISON: CT chest dated 06/12/2022; TECHNIQUE: Frontal view of the chest was obtained. The patient is rotated. FINDINGS: Accounting for patient rotation, the heart, great vessels, pulmonary vasculature and mediastinum are stable. There is an endotracheal tube seen, with tip situated approximately 3.7 cm superior to the power. The orogastric tube tip is located inferior to the left hemidiaphragm and cutoff of the submitted examination. Accounting for rotation, the lungs appear relatively clear, without infiltrate or congestive heart failure. Respiratory tubing overlapping the lower left chest, limiting evaluation. No pleural effusion or pneumothorax is seen. There is no acute osseous abnormality. XR/XR chest 1V IMPRESSION: There is satisfactory placement of endotracheal and orogastric tubes, as detailed. No infiltrate or congestive heart failure is seen. There is no pneumothorax or pleural effusion.
--- NOTE | 2022-06-01 15:59 | ECG_ITS ---
Test Reason : cardiac arrest Blood Pressure : / mmHG Vent. Rate : 073 BPM Atrial Rate : 073 BPM P-R Int : 142 ms QRS Dur : 080 ms QT Int : 438 ms P-R-T Axes : 046 024 093 degrees QTc Int : 482 ms Normal sinus rhythm Septal infarct , age undetermined T wave abnormality, consider lateral ischemia Abnormal ECG When compared to the previous EKG of Vent. rate has decreased Referred By: Tera Ryan Electronically Signed By:JUANY SANCHEZ MD
[2022-06-01] MEDS: Etomidate 20 MG/10 ML VIAL IVPUSH (16:02)
[2022-06-01] MEDS: Rocuronium Bromide 50 MG/5 ML VIAL IVPUSH (16:02)
[2022-06-01] MEDS: Magnesium Sulfate/D5W 1 GM/100 ML PIGGYBACK IV (16:17)
--- NOTE | 2022-06-01 16:20 | PC.NURSE ---
chest x-ray at bedside, tube in the the right lung, tube adjusted from 25 at the lip to 23 at the lip, sating at 94% on the vent ac 24/400 and 50% 5 of peep and og in place
[2022-06-01 16:41] LABS: Venous Blood Gas Refer to POC result
[2022-06-01 16:42] LABS: VBG Base Excess -7.7 mmol/L; VBG HCO3 17 mmol/L (22-26); VBG pCO2 34 mmHg; VBG pO2 103 mmHg
[2022-06-01 16:42] LABS: VBG Base Excess -7.7 mmol/L; VBG HCO3 17 mmol/L (22-26); VBG pCO2 34 mmHg; VBG pO2 103 mmHg
[2022-06-01 16:43] LABS: Hematocrit 31.9 % (37.0-47.0); Hemoglobin 8.5 g/dl (12.0-16.0); Mean Corpuscular HGB Conc 26.6 g/dl (31.0-35.0); Mean Corpuscular Hemoglobin 18.9 pg (27.0-33.0); Mean Corpuscular Volume 70.9 fL (80.0-98.0); Mean Platelet Volume 9.2 fL (9.4-12.3); NRBC Pct Auto 0.2 /100WBC (0.0-0.2); Platelet Count 318 X10*3/uL (160-400); Red Cell Distribution Width 19.6 % (11.0-16.0); White Blood Count 15.1 X10*3/uL (4.8-10.8)
--- NOTE | 2022-06-01 16:49 | ED_ITS ---
HPI - CPR General Chief Complaint: Cardiac Arrest/CPR Stated Complaint: cardiac Time Seen by Provider: 06/01/22 15:59 Source: EMS Mode of arrival: EMS Limitations: other History of Present Illness HPI narrative: Patient comes emergency room via EMS. According to EMS, the family reports that they call 911 when they found the patient unconscious. The family reports that 10 minutes prior to the 911 call, the patient was doing well, within normal limits. When EMS arrived to the patient's home, the patient was in agonal breathing, did have a pulse. EMS crew initially ventilated the patient. It was noted that the patient's heart rate was in the low 30s, and blood pressure in the low 80s. 1 g of atropine was given. Shortly after patient went to cardiac arrest. EMS started CPR, approximately 1 minute 30 seconds afterwards, patient regained ROSK. EMS gave the patient 1 round of epinephrine. They were able to insert a Suhas airway. On arrival to the emergency room, patient was intubated Related Data Home Medications Medication Instructions Recorded Confirmed albuterol sulfate 90 mcg/actuation 1 inh inhalation Q4-6H PRN Wheezing 05/12/22 06/01/22 breath activated powder inhaler,sensor budesonide-formoterol HFA 160 2 puff inhalation BID 05/12/22 06/01/22 mcg-4.5 mcg/actuation aerosol inhaler (Symbicort) carisoprodol 350 mg tablet (Soma) 350 mg PO QID 05/12/22 06/01/22 carvedilol 6.25 mg tablet 6.25 mg PO BID 05/12/22 06/01/22 citalopram 20 mg tablet 30 mg PO DAILY 05/12/22 06/01/22 clonazepam 1 mg tablet 1 mg PO BEDTIME 05/12/22 06/01/22 clonidine HCl 0.1 mg tablet 0.1 mg PO BEDTIME 05/12/22 06/01/22 diltiazem HCl 360 mg 360 mg PO DAILY 05/12/22 06/01/22 capsule,extended release 24 hr diphenhydramine HCl 25 mg tablet 25 mg PO BEDTIME 05/12/22 06/01/22 insulin glargine 100 unit/mL (3 65 unit subcut DAILY@1700 05/12/22 06/01/22 mL) subcutaneous pen (Melany AnnaPen U-100 Insulin) irbesartan 300 mg tablet 300 mg PO DAILY 05/12/22 06/01/22 metformin 500 mg tablet,extended 1,000 mg PO BIDAC 05/12/22 06/01/22 release 24 hr mirtazapine 15 mg tablet 15 mg PO BEDTIME 05/12/22 06/01/22 omeprazole 20 mg capsule,delayed 20 mg PO DAILY 05/12/22 06/01/22 release ramelteon 8 mg tablet 8 mg PO BEDTIME 05/12/22 06/01/22 Previous Rx's Medication Instructions Recorded ferrous sulfate 325 mg (65 mg 325 mg PO DAILY #30 tabs 05/16/22 iron) tablet Allergies Allergy/AdvReac Type Severity Reaction Status Date / Time codeine Allergy Unknown Verified 05/12/22 12:14 naproxen Allergy Unknown Verified 05/12/22 12:15 Review of Systems Review of Systems: Yes Unobtainable due to mental condition FORMERLY [facility], [facility] Past Medical History Medical History Anemia CHF (congestive heart failure) COPD (chronic obstructive pulmonary disease) Diabetes HTN (hypertension) Social History Social History Household Members: Unknown / Unable to assess Housing: Unknown / Unable to assess Unable to assess alcohol history related to: Unable to respond and Unknown Patient Tobacco Use Status: Tobacco use Unknown Advance Directives: Yes Advance Directives on File: Yes Advance Directives Date on File: 05/15/22 service: No Current occupational status: disabled Physical Exam Vital Signs: Vital Signs: Last Vital Signs Temp 97.3 F 06/01/22 18:14 Pulse 69 06/01/22 18:14 Resp 22 H 06/01/22 18:14 BP 93/40 L 06/01/22 18:14 Pulse Ox 98 06/01/22 18:14 O2 Del Method 06/01/22 18:14 FiO2 50 06/01/22 17:43 BMI result Body Mass Index 37.3 Const: Other: Appearance: Unresponsive Eyes: Pupils equal, round and reactive to light. ENT: Pharynx normal. Neck: Normal inspection. Neck supple. No lymph nodes noted. No crepitus CVS: Normal heart rate and rhythm. Pulses normal. Normal S1 and S2 Respiratory: Intubated, decreased breath sounds bilaterally Abdomen: Soft and nontender. Distended. Skin: Skin warm and dry. Normal skin color. Normal skin turgor. Extremities: Bilateral +3 pitting edema, No Lacerations. No Rash Neuro: Unable to participating cranial nerve assessment Psych: Unresponsive Course Course Course Narrative: Patient presented similarly approximately 1 month ago, in respiratory arrest. This time, patient did lose pulse for a minute and half. Patient is being giving 2 L of IV fluids based on an ideal weight of 55 kg, patient is morbidly obese. IV Zosyn has been started, there may be airspace. Patient's lactic acid is elevated likely secondary to prolonged hypoxia and chest compressions/CPR Patient was intubated in the emergency room, central line will be placed shortly Central line is placed, no complications, patient tolerated well the procedure. Patient needed additional 4 mg of Versed since she was moving despite being on full dose of propofol I discussed the patient with Dr. Thompson, who recommends to discontinue all fluids, last time that the patient was admitted, patient had CHF exacerbations despite a low BNP MDM - Cardiac Arrest/CPR Lab Data Result diagrams: 06/01/22 16:33 06/01/22 16:34 Labs: Lab Results 06/01/22 06/01/22 06/01/22 Range/Units 16:32 16:33 16:33 WBC 15.1 H (4.8-10.8) X10*3/uL RBC 4.50 (4.20-5.50) X10*6/uL Hgb 8.5 L (12.0-16.0) g/dl Hct 31.9 L (37.0-47.0) % MCV 70.9 L (80.0-98.0) fL MCH 18.9 L (27.0-33.0) pg MCHC 26.6 L (31.0-35.0) g/dl RDW 19.6 H (11.0-16.0) % Plt Count 318 (160-400) X10*3/uL MPV 9.2 L (9.4-12.3) fL Immature Gran % (Auto) Cancelled Neut % (Auto) Cancelled Lymph % (Auto) Cancelled [place] % (Auto) Cancelled Eos % (Auto) Cancelled Baso % (Auto) Cancelled Lymph # (Auto) Cancelled [place] # (Auto) Cancelled Eos # (Auto) Cancelled Baso # (Auto) Cancelled Abs Immat Gran (auto) Cancelled Absolute Neuts (auto) Cancelled Absolute Nucleated RBC 0.030 H (0.0-0.012) X10*3/uL Nucleated RBC % (auto) 0.2 (0.0-0.2) /100WBC Neutrophils % (Manual) 80 H (45-73) % Band Neutrophils % 6 H (3-5) % Lymphocytes % (Manual) 6 L (20-40) % Monocytes % (Manual) 4 (2-11) % Metamyelocytes % 1 % Myelocytes % 3 % Abs Neuts (Manual) 13.0 H (2.0-8.3) X10*3/uL Lymphocytes # (Manual) 0.9 L (1.2-4.9) X10*3/uL Monocytes # (Manual) 0.6 (0.1-1.2) X10*3/uL Metamyelocytes # 0.2 X10*3/uL Myelocytes # 0.5 X10*/uL Platelet Estimate NORMAL (NORMAL) Large Platelets PRESENT Giant Platelets PRESENT Plt Morphology Comment NOTED RBC Morphology NOTED Hypochromasia 2+ (15-30) /OIF Microcytosis 2+ (15-30) /OIF PT 11.2 (10.0-13.1) SEC INR 1.0 (0.9-1.1) VBG pH 7.30 L (7.32-7.43) VBG pCO2 34 mmHg VBG pO2 103 mmHg VBG HCO3 17 L (22-26) mmol/L VBG O2 Saturation 98.0 % VBG Base Excess -7.7 mmol/L Sodium (135-145) mmol/L Potassium (3.3-5.1) mmol/L Chloride (96-108) mmol/L Carbon Dioxide (22-29) mmol/L Anion Gap (12-20) BUN (9-16) mg/dL Creatinine (0.5-1.4) mg/dL Estim Creat Clear Calc Estimated GFR Random Glucose (60-115) mg/dL Lactic Acid (0.5-2.0) mmol/L Calcium (8.4-10.2) mg/dL Magnesium (1.6-2.6) mg/dL Total Bilirubin (0.0-1.0) mg/dL AST (5-31) U/L ALT (0-31) U/L Alkaline Phosphatase (39-117) U/L Troponin I High Sens (<3.5-17.0) ng/L B-Natriuretic Peptide (<100) pg/mL Total Protein (6.5-8.0) g/dL Albumin (3.5-5.0) g/dL Urine Color Urine Appearance Urine pH (5.0-8.0) Ur Specific [place] (1.005-1.025) Urine Protein (NEG-TRACE) MG/DL Urine Glucose (UA) (NEG) MG/DL Urine Ketones (NEG) MG/DL Urine Blood (NEG) Urine Nitrite (NEG) Ur Leukocyte Esterase (NEG) Urine RBC (0) /HPF Urine WBC (0-4) /HPF Ur Squamous Epith Cells /LPF Amorphous Sediment /LPF Urine Bacteria /LPF COVID-19 (KIM) (Negative) COVID-19 Clin Com 06/01/22 06/01/22 06/01/22 Range/Units 16:33 16:33 16:33 WBC (4.8-10.8) X10*3/uL RBC (4.20-5.50) X10*6/uL Hgb (12.0-16.0) g/dl Hct (37.0-47.0) % MCV (80.0-98.0) fL MCH (27.0-33.0) pg MCHC (31.0-35.0) g/dl RDW (11.0-16.0) % Plt Count (160-400) X10*3/uL MPV (9.4-12.3) fL Immature Gran % (Auto) Neut % (Auto) Lymph % (Auto) [place] % (Auto) Eos % (Auto) Baso % (Auto) Lymph # (Auto) [place] # (Auto) Eos # (Auto) Baso # (Auto) Abs Immat Gran (auto) Absolute Neuts (auto) Absolute Nucleated RBC (0.0-0.012) X10*3/uL Nucleated RBC % (auto) (0.0-0.2) /100WBC Neutrophils % (Manual) (45-73) % Band Neutrophils % (3-5) % Lymphocytes % (Manual) (20-40) % Monocytes % (Manual) (2-11) % Metamyelocytes % % Myelocytes % % Abs Neuts (Manual) (2.0-8.3) X10*3/uL Lymphocytes # (Manual) (1.2-4.9) X10*3/uL Monocytes # (Manual) (0.1-1.2) X10*3/uL Metamyelocytes # X10*3/uL Myelocytes # X10*/uL Platelet Estimate (NORMAL) Large Platelets Giant Platelets Plt Morphology Comment RBC Morphology Hypochromasia /OIF Microcytosis /OIF PT (10.0-13.1) SEC INR (0.9-1.1) VBG pH (7.32-7.43) VBG pCO2 mmHg VBG pO2 mmHg VBG HCO3 (22-26) mmol/L VBG O2 Saturation % VBG Base Excess mmol/L Sodium (135-145) mmol/L Potassium (3.3-5.1) mmol/L Chloride (96-108) mmol/L Carbon Dioxide (22-29) mmol/L Anion Gap (12-20) BUN (9-16) mg/dL Creatinine (0.5-1.4) mg/dL Estim Creat Clear Calc Estimated GFR Random Glucose (60-115) mg/dL Lactic Acid 10.6 H* (0.5-2.0) mmol/L Calcium (8.4-10.2) mg/dL Magnesium (1.6-2.6) mg/dL Total Bilirubin (0.0-1.0) mg/dL AST (5-31) U/L ALT (0-31) U/L Alkaline Phosphatase (39-117) U/L Troponin I High Sens 9.5 D (<3.5-17.0) ng/L B-Natriuretic Peptide 139 H (<100) pg/mL Total Protein (6.5-8.0) g/dL Albumin (3.5-5.0) g/dL Urine Color Urine Appearance Urine pH (5.0-8.0) Ur Specific [place] (1.005-1.025) Urine Protein (NEG-TRACE) MG/DL Urine Glucose (UA) (NEG) MG/DL Urine Ketones (NEG) MG/DL Urine Blood (NEG) Urine Nitrite (NEG) Ur Leukocyte Esterase (NEG) Urine RBC (0) /HPF Urine WBC (0-4) /HPF Ur Squamous Epith Cells /LPF Amorphous Sediment /LPF Urine Bacteria /LPF COVID-19 (KIM) Negative (Negative) COVID-19 Clin Com See Note 06/01/22 06/01/22 06/01/22 Range/Units 16:34 16:37 17:40 WBC (4.8-10.8) X10*3/uL RBC (4.20-5.50) X10*6/uL Hgb (12.0-16.0) g/dl Hct (37.0-47.0) % MCV (80.0-98.0) fL MCH (27.0-33.0) pg MCHC (31.0-35.0) g/dl RDW (11.0-16.0) % Plt Count (160-400) X10*3/uL MPV (9.4-12.3) fL Immature Gran % (Auto) Neut % (Auto) Lymph % (Auto) [place] % (Auto) Eos % (Auto) Baso % (Auto) Lymph # (Auto) [place] # (Auto) Eos # (Auto) Baso # (Auto) Abs Immat Gran (auto) Absolute Neuts (auto) Absolute Nucleated RBC (0.0-0.012) X10*3/uL Nucleated RBC % (auto) (0.0-0.2) /100WBC Neutrophils % (Manual) (45-73) % Band Neutrophils % (3-5) % Lymphocytes % (Manual) (20-40) % Monocytes % (Manual) (2-11) % Metamyelocytes % % Myelocytes % % Abs Neuts (Manual) (2.0-8.3) X10*3/uL Lymphocytes # (Manual) (1.2-4.9) X10*3/uL Monocytes # (Manual) (0.1-1.2) X10*3/uL Metamyelocytes # X10*3/uL Myelocytes # X10*/uL Platelet Estimate (NORMAL) Large Platelets Giant Platelets Plt Morphology Comment RBC Morphology Hypochromasia /OIF Microcytosis /OIF PT (10.0-13.1) SEC INR (0.9-1.1) VBG pH 7.30 L (7.32-7.43) VBG pCO2 34 mmHg VBG pO2 103 mmHg VBG HCO3 17 L (22-26) mmol/L VBG O2 Saturation 98.0 % VBG Base Excess -7.7 mmol/L Sodium 130 L (135-145) mmol/L Potassium 5.1 D (3.3-5.1) mmol/L Chloride 91 L (96-108) mmol/L Carbon Dioxide 22 (22-29) mmol/L Anion Gap 22 H (12-20) BUN 11 (9-16) mg/dL Creatinine 0.87 (0.5-1.4) mg/dL Estim Creat Clear Calc 67.1 Estimated GFR > 60 Random Glucose 383 H* (60-115) mg/dL Lactic Acid (0.5-2.0) mmol/L Calcium 8.3 L (8.4-10.2) mg/dL Magnesium 2.4 (1.6-2.6) mg/dL Total Bilirubin 0.3 (0.0-1.0) mg/dL AST 85 H (5-31) U/L ALT 58 H (0-31) U/L Alkaline Phosphatase 143 H D (39-117) U/L Troponin I High Sens (<3.5-17.0) ng/L B-Natriuretic Peptide (<100) pg/mL Total Protein 7.1 (6.5-8.0) g/dL Albumin 3.6 (3.5-5.0) g/dL Urine Color YELLOW Urine Appearance HAZY Urine pH 6.5 (5.0-8.0) Ur Specific [place] 1.025 (1.005-1.025) Urine Protein 2+ H (NEG-TRACE) MG/DL Urine Glucose (UA) >=1000 H (NEG) MG/DL Urine Ketones NEG (NEG) MG/DL Urine Blood 1+ H (NEG) Urine Nitrite NEG (NEG) Ur Leukocyte Esterase NEG (NEG) Urine RBC 10-14 H (0) /HPF Urine WBC 0-2 (0-4) /HPF Ur Squamous Epith Cells TRACE /LPF Amorphous Sediment TRACE /LPF Urine Bacteria TRACE /LPF COVID-19 (KIM) (Negative) COVID-19 Clin Com Imaging Data Chest x-ray: Radiologist's impression: FINDINGS: First film demonstrates endotracheal tube projecting over the right mainstem bronchus and complete white out of the left hemithorax. Second film demonstrates endotracheal tube with tip 2 cm above the power. The cardiac and mediastinal contours are stable. There are patchy areas of atelectasis or airspace disease seen in the left lung. There may be central bronchial wall thickening in the right lung and area of atelectasis or airspace disease in the right upper lobe overlying the first rib. There is no pleural effusion or pneumothorax. There is a nasogastric tube. The tip is not seen. XR/XR chest 1V IMPRESSION: First chest x-ray demonstrates endotracheal tube projecting over the right mainstem bronchus and complete atelectasis of the left lung. ? Second chest x-ray demonstrates endotracheal tube 2 cm above the power and patchy areas of atelectasis or airspace disease in the left lung and bronchial wall thickening and small area of atelectasis or airspace disease in the right upper lobe. Nasogastric tube tip not seen. Procedures Central Line Placement Right IJ: Time Out Performed: Yes Patient Placed on Monitor/Pulse Ox: Yes MD Prep: mask, gown and gloves Central Line Prep: Chlorhexidine scrub Ultrasound Used for Placement: Yes Central Line Lumen Inserted: triple Post Procedure: sutured in place, good blood return, all ports aspirated, flushed, capped and sterile dressing applied Post Procedure X-Ray: tip of catheter in good position and no pneumothorax seen Patient Tolerated Procedure: well Complications: none Intubation sedative: Etomidate Mg Given: 20 paralytic: Rocuronium Mg Given: 50 Laryngoscope: other (GlideScope) ET Tube Size: 7 ET Tube Uncuffed: Yes Tube Secured Depth (cm): 23 Tube Secured Location: lips Tube Placement Confirmation: visualized tube passing through cords, equal breath sounds bilaterally, no breath sounds over epigastrium and confirmation by capnometry Patient Tolerated Procedure: well Intubation Complications: none Critical Care Time Critical Care Time Critical Care Time: Yes Total Critical Care Time: 90 Attestation: I have personally provided critical care time. Time includes review of lab data, radiology results, discussion with consultants, and monitoring for potential decompensation. Intervention performed as documented. Discharge Plan Discharge Clinical Impression: Cardiac arrest, Respiratory failure, Pneumonia, Acute hyperglycemia Patient Disposition: Admitted As Inpatient
[2022-06-01 16:57] LABS: Prothrombin Time 11.2 SEC (10.0-13.1)
[2022-06-01 17:01] LABS: Lactic Acid 10.6 mmol/L (0.5-2.0)
[2022-06-01 17:04] LABS: COVID-19 Test Negative (Negative); IDNOW Serial# 16C4AD1C
[2022-06-01 17:06] LABS: B Type Natriuretic Peptide 139 pg/mL (<100); Troponin-I High Sensitivity 9.5 ng/L (<3.5-17.0)
[2022-06-01] MEDS: propofoL 1,000 MG/100 ML VIAL 18.32 MG IVCONT (17:07)
[2022-06-01] MEDS: 0.9 % Sodium Chloride 2,000 ML 999 ML IVCONT ×2 (17:10→23:58)
[2022-06-01 17:14] LABS: Alanine Aminotransferase 58 U/L (0-31); Albumin Level 3.6 g/dL (3.5-5.0); Alkaline Phosphatase 143 U/L (39-117); Anion Gap 22 (12-20); Aspartate Amino Transferase 85 U/L (5-31); Bilirubin Total 0.3 mg/dL (0.0-1.0); Blood Urea Nitrogen 11 mg/dL (9-16); Calcium 8.3 mg/dL (8.4-10.2); Carbon Dioxide 22 mmol/L (22-29); Chloride 91 mmol/L (96-108); Creatinine Clr Calc Pharmacy 67.1; Estimated Glomerular Filt Rate > 60; Glucose Random 383 mg/dL (60-115); Magnesium 2.4 mg/dL (1.6-2.6); Potassium 5.1 mmol/L (3.3-5.1); Sodium 130 mmol/L (135-145); Total Protein 7.1 g/dL (6.5-8.0)
[2022-06-01 17:16] LABS: Band Neutrophils Percent 6 % (3-5); Lymphocytes Absolute Manual 0.9 X10*3/uL (1.2-4.9); Lymphocytes Percent Manual 6 % (20-40); Metamyelocytes Absolute 0.2 X10*3/uL; Metamyelocytes Percent 1 %; Monocytes Absolute Manual 0.6 X10*3/uL (0.1-1.2); Monocytes Percent Manual 4 % (2-11); Myelocytes Absolute 0.5 X10*/uL; Myelocytes Percent 3 %; Neutrophils Percent Manual 80 % (45-73)
[2022-06-01 17:17] LABS: Microcytosis 2+ (15-30) /OIF; RBC Morphology NOTED
[2022-06-01 17:18] LABS: Giant Platelet PRESENT; Large Platelet PRESENT; Platelet Estimate NORMAL (NORMAL); Platelet Morphology Comment NOTED
[2022-06-01 17:19] LABS: Hypochromasia 2+ (15-30) /OIF
[2022-06-01] MEDS: Piperacillin Sodium/Tazobactam 3.375 GM in 0.9 % Sodium Chloride 50 ML IV (17:19)
[2022-06-01] MEDS: Midazolam HCl/PF 2 MG/2 ML VIAL 4 MG IVPUSH (17:50)
--- NOTE | 2022-06-01 17:50 | PC.NURSE ---
DR TURNER AT BEDSIDE STARTING A CENTRAL LINE IN THE RIGHT CAROTID
[2022-06-01 18:21] LABS: Appearance Urine HAZY; Color Urine YELLOW; Glucose Urine UA >=1000 MG/DL (NEG); Leukocyte Esterase Urine NEG (NEG); Nitrite Urine NEG (NEG); PH 6.5 (5.0-8.0); Specific Gravity - Urine 1.025 (1.005-1.025); UACC Culture Trigger NO; Urine Blood 1+ (NEG); Urine Ketones NEG (NEG); Urine Protein 2+ MG/DL (NEG-TRACE)
[2022-06-01 18:30] LABS: Squamous Epithelial Cell Urine TRACE /LPF; WBC Urine 0-2 /HPF (0-4)
[2022-06-01 18:31] LABS: Bacteria Urine TRACE /LPF
[2022-06-01 18:32] LABS: UACC CULT NO
[2022-06-01] MEDS: Insulin Regular, Human 100 UNIT/ML 3 ML VIAL 10 UNIT IVPUSH (18:32)
[2022-06-01 18:33] LABS: Amorphous Sediment Urine TRACE /LPF
[2022-06-01 18:37] LABS: Reflex Lactate? Lactic Acid Added
--- NOTE | 2022-06-01 18:37 | PC.NURSE ---
VERBAL ORDER BY DR TURNER TO D.C THE IV FLUIDS AT THIS TIME
--- NOTE | 2022-06-01 18:40 | PHA.MEDREC ---
Pharmacy Consult ? Medication Reconciliation Pharmacy has completed the medication reconciliation. Confirmed medications with patient's daughter Paige. Patient no longer on Eliquis. Daughter reports patient receives metformin 2 tablets BID instead 2 tablet daily. Diltiazem has not been filled since match however daughter reports patient is on medication. Eveline Love, PharmD
--- NOTE | 2022-06-01 19:32 | PC.NURSE ---
Report taken from Kacey CHAN, first contact with pt. Ventilated and sedated, propofol running without difficulty through central line at 40mcg/kg/min. VSS. Skin pwd. Temp sensing bustamante catheter placed by previous RN draining concentrated yellow urine. Vent settings 24-400-40%. Awaiting ICU bed assignment.
[2022-06-01 19:34] LABS: ~Lactic Acid-LAB USE ONLY 3.7 mmol/L (0.5-2.0)
--- NOTE | 2022-06-01 19:52 | PC.NURSE ---
ICU PA to bedside for assessment. Plan for abd CT. LLE IO removed, POC 218. PA notified of updated POC. No change in pt physical assessment. Remains comfortably sedated. VSS.
[2022-06-01 19:55] LABS: Glucose, Whole Blood 218 mg/dL (60-115)
[2022-06-01 20:34] LABS: Phosphorus 5.7 mg/dL (2.7-4.5)
[2022-06-01 20:49] LABS: Troponin-I High Sensitivity 43.6 ng/L (<3.5-17.0)
[2022-06-01 20:58] LABS: Procalcitonin < 0.02 ng/mL
[2022-06-01] MEDS: Heparin Sodium,Porcine 5,000 UNIT/ML VIAL 5000 UNIT SUBCUT (21:00)
[2022-06-01] MEDS: Sodium Bicarbonate 8.4% 50 MEQ/50 ML SYRINGE IVPUSH (21:01)
[2022-06-01] MEDS: propofoL 1,000 MG/100 ML VIAL 24.43 MG IVCONT (21:02)
[2022-06-01 21:16] LABS: Reflex Lactate? 2 Y
--- NOTE | 2022-06-01 21:21 | PHA.PROG ---
Admission Date/Time: June 01, 2022 18:38 Indication: Resp Infection Weight in k.9 kg Adjusted body weight in K.92 kg [place] body weight in K kg Obesity Dosing Indication % IBW: 178% Serum Creatinine - Last 168 Hours 06/01/22 16:34 Creatinine 0.87 Estimated CrCl and GFR - Last 168 Hours 06/01/22 16:34 Estim Creat Clear Calc 67.1 Estimated GFR > 60 Vancomycin Loading Dose: 2000 mg Current Vancomycin Dosing Regimen: 1250 mg Q24H Date and Time for next Vancomycin Level to be drawn: 06/03 @ 1900 Pharmacist Comments on Vancomycin Plan: Patient is morbidly obese. Vancomycin can be unpredicatble in obese patient therefore needs careful monitor. Loading dose vancomycin 2000 mg scheduled to be given in the ED 06/01 @ 2100. Maintenance dose vancomycin 1250 mg Q24H scheduled to begin 06/02 @ 2100. Expected AUC 485 with a trough 12.5. Patient is expected to be in therapeutic levels after loading dose. Random level to be drawn prior to 3rd dose to access for safety and efficacy due to patient's age and weight Pharmacy to monitor renal function Eveline Love PharmD Vancomycin dosing will take advantage of [employer] as a clinical decision support tool that uses Bayesian modeling to calculate individual patient's pharmacokinetic parameters and forecast the patient's drug concentration time course with the target goal AUC 24 range of 400 - 600 mg/L/hr.
[2022-06-01 21:36] LABS: MANUAL DIFF FLAG NO
[2022-06-01 21:37] LABS: Basophils Percent Auto 0.3 % (0-2); Eosinophils Percent Auto 0.2 % (0-4); Hematocrit 28.3 % (37.0-47.0); Hemoglobin 7.9 g/dl (12.0-16.0); Imm Gran Abs Auto 0.16 X10*3/uL (0.00-0.03); Lymphocytes Absolute Auto 1.2 X10*3/uL (1.2-4.9); Lymphocytes Percent Auto 7.6 % (20-40); Mean Corpuscular HGB Conc 27.9 g/dl (31.0-35.0); Mean Corpuscular Hemoglobin 19.2 pg (27.0-33.0); Mean Corpuscular Volume 68.7 fL (80.0-98.0); Mean Platelet Volume 9.3 fL (9.4-12.3); Monocytes Absolute Auto 0.7 X10*3/uL (0.1-1.2); Monocytes Percent Auto 4.6 % (2-11); Neutrophils Absolute Auto 13.3 x10*3/uL (2.0-8.3); Neutrophils Percent Auto 86.3 % (45-73); Platelet Count 276 X10*3/uL (160-400); Red Blood Count 4.12 X10*6/uL (4.20-5.50); Red Cell Distribution Width 19.5 % (11.0-16.0); White Blood Count 15.4 X10*3/uL (4.8-10.8)
[2022-06-01] MEDS: 0.9 % Sodium Chloride 1,000 ML 100 ML IVCONT (21:44)
[2022-06-01 21:50] LABS: ~Lactic Acid-LAB USE ONLY 5.6 mmol/L (0.5-2.0)
[2022-06-01 21:52] LABS: Alanine Aminotransferase 58 U/L (0-31); Albumin Level 3.3 g/dL (3.5-5.0); Alkaline Phosphatase 117 U/L (39-117); Anion Gap 16 (12-20); Aspartate Amino Transferase 56 U/L (5-31); Bilirubin Total 0.5 mg/dL (0.0-1.0); Blood Urea Nitrogen 13 mg/dL (9-16); Calcium 8.2 mg/dL (8.4-10.2); Carbon Dioxide 29 mmol/L (22-29); Chloride 93 mmol/L (96-108); Creatinine Clr Calc Pharmacy 77.9; Estimated Glomerular Filt Rate > 60; Glucose Random 216 mg/dL (60-115); Potassium 4.6 mmol/L (3.3-5.1); Sodium 133 mmol/L (135-145); Total Protein 6.5 g/dL (6.5-8.0)
--- NOTE | 2022-06-01 22:38 | P.HPCC_ITS ---
History of Present Illness Date of Service: 06/01/22 Attending physician on admission: Jaswinder Thompson Chief Complaint: She was found unresponsive This is a 76-year-old female who is morbidly obese, ISAAC, has a history of hypercapnic/hypoxemic respiratory failure of to be due to CHF who has required BiPAP as well as intubation, most recently she was admitted here at the end of this past month (04/2022), hypertension, hyperlipidemia, anemia, GERD, COPD on home O2 at 2 L nasal cannula, restless legs syndrome, diabetes, who has been admitted to this hospital several times to COPD exacerbations, influenza a and who is also known to be a ongoing smoker. Today the patient was seen emergency room after being brought by EMS who was called for the patient was found unresponsive by family members about 10 minutes prior to their arrival, up on scene by EMS the patient had agonal breathing but did have a pulse, patient was ventilated and at the time her heart rate had been in the 30s with a blood pressure in the 80s systolic, 1 mg of atropine and shortly after the patient had gone into cardiac arrest, CPR had been started and received 1 mg of epinephrine after about a minute and half ROSC ?was obtained, a Suhas airway had been placed and the patient was intubated in the emergency room and a central line was placed.? Patient was placed on propofol and a single dose of Versed was given for sedation, 2 L of IV fluid as and a dose of Zosyn was given, her lactic acid had been elevated and was thought to be secondary to her cardiac arrest. The overall workup revealed a white count 15.1, H&H of 8.5 and 31.9, platelets 318, MCV 68.7, sodium 130, potassium 5.1, chloride 91, carbon dioxide 22, BUN 11, creatinine 0.87, blood glucose 383, electrolytes and renal function were normal. Her lactic acid was elevated at 10.6 now at 3.7, troponin 9.5, BNP 139, albumin 3.3. PH 7.3, pCO2 34, PO2 103, HC03 17, O2 98%, base excess-7.7 while on a ventilator. At this point the patient will be transferred to ICU for further management. ? ROS:? UNABLE TO OBTAIN PATIENT INTUBATED ? Past Medical History:? As above Past Surgical History:? None per records. ? Family history:? Unknown ? Social History: ?Patient is known to be an ongoing smoker, she is disable, ? CODE STATUS:? Full code ? Allergies:? No known drug allergies ? Home Medications:? see [facility] Rec INITIAL SEPSIS EXAM DONE AT 19:35 VS: ?BP 124/42 , heart rate 74??? , respirations , ?97% on mechanical ventilati on, temperature 98.7 ? VENT SETTINGS : AC 24; 400; 5; 40% ? General:? Sedated on a ventilator ? Skin:? Dry, thin on the lower extremities with 1+ pitting edema of the bilater al legs up to mid tibia.? Left intraosseous line in place. ? ? HEENT:? Head is normocephalic, atraumatic, pupils pinpointed and nonreactive.? Neck is supple, no JVD or lymphadenopathy, no masses. R CVL ? Cardiac:? Clear S1-S2, no murmurs rubs or gallops. ? Pulmonary:? Diminished lung sounds bilaterally with rhonchorous sounds at the left base, no crackles or rales, no wheezing. ? ? Abdomen:? Protuberant, no bowel sounds in all 4 quadrants.? Somewhat hard and distended, tympanic.? No ecchymosis of the flanks or in the periumbilical area. Jovel in place with yellow urine. ? Musculoskeletal:? No bony abnormalities, on passive range of motion at the major joints there is no cogwheeling or crepitus, no calf asymmetry or edema of the legs.? ? Neurologic:? As above otherwise unable to assess ? Vascular:? 2+ pulses upper and lower extremities distally. Less than 2nd capillary refill at the finger and toes bilaterally. SIGNIFICANT LABORATORY DATA:? ABOVE REVIEW OF IMAGES: CHEST X-RAY IMPRESSION: First chest x-ray demonstrates endotracheal tube projecting over the right mainstem bronchus and complete atelectasis of the left lung. ? Second chest x-ray demonstrates endotracheal tube 2 cm above the power and patchy areas of atelectasis or airspace disease in the left lung and bronchial wall thickening and small area of atelectasis or airspace disease in the right upper lobe. Nasogastric tube tip not seen. ? EKG REVIEW: ?To my view, sinus rhythm 73 beats per minute.? No ST elevations, no ST depressions, there is T-wave inversions in lead V1 and aVL.? QTC 438.? No comparison. ASSESSMENT AND PLAN: 1. STATUS POST CARDIAC ARREST 2. ACUTE SEPSIS 3. NOSOCOMIAL PNEUMONIA 4. HYPOALBUMINEMIA 5. HYPO OSMOLAR HYPOVOLEMIC HYPONATREMIA 6. UNCONTROLLED DIABETES TYPE 2 7. METABOLIC ACIDOSIS AND LACTIC ACIDOSIS likely due to METFORMIN INTAKE, but worsened by cardiac arrest an underlying infection 8. HYPERPHOSPHATEMIA WITH THE MARYCRUZ 9. REACTIVE TROPONIN ABNORMALITY PLAN OF CARE: 1. Patient will be admitted to the ICU, the target is normal temperature but we will not called the patient.? She does have Jovel catheter and will monitor I's and O's, continue with ventilation support. 2. To me the patient is clearly septic, she does have a white count, bandemia, adventitious lung sounds and a abnormal x-ray likely representing a nosocomial pneumonia, she did receive Zosyn in the ER, will give her vancomycin, order sputum culture and Gram stain. 3. We will help support her blood pressure with albumin salt administration, continue with sedation if necessary use pressors. ?I will make sure the patient gets a total of 3 L of fluids based on her body weight. 4. Insulin sliding scale and replete electrolytes as needed. 5. To further evaluate the possibility of her cardiac arrest I will order a CT angiogram of the chest to rule out pulmonary embolism and further define a suspicion for pneumonia, given low lack of bowel sounds and hardness of at a CT of the abdomen and pelvis will be ordered along with a. 6. Laboratories to be repeated admitted tonight and then tomorrow. ?I will remove the left tibial intraosseous line. 7. So far have been able to contact anybody from her contacts or family members. GI PROPHYLAXIS: ?IV ppi DVT PROPHYLAXIS: ?Heparin subQ q.8 hours ? Critical care time used for critical evaluation of this patient, diagnosis, treatment and coordination of care, review her records and documentation TOTAL CRITICAL CARE TIME 90 MIN ? Patient's care was discussed in detail with Dr. Thompson.? He is aware of all the above as well as the plan of care for this patient. ? [facility] Past Medical History Medical History Anemia CHF (congestive heart failure) COPD (chronic obstructive pulmonary disease) Diabetes HTN (hypertension) Social History Social History Household Members: Unknown / Unable to assess Housing: Unknown / Unable to assess Unable to assess alcohol history related to: Unable to respond and Unknown Patient Tobacco Use Status: Tobacco use Unknown Advance Directives: Yes Advance Directives on File: Yes Advance Directives Date on File: 05/15/22 service: No Current occupational status: disabled Meds Allergies Allergy/AdvReac Type Severity Reaction Status Date / Time codeine Allergy Unknown Verified 05/12/22 12:14 naproxen Allergy Unknown Verified 05/12/22 12:15 Active Medications: Current Medications Heparin Sodium (Porcine) (Heparin Sodium,Porcine 5,000 Unit/Ml Vial) 5,000 unit SUBCUT Q8H MAGGIE Last Admin: 06/01/22 21:00 Dose: 5,000 unit Propofol (Diprivan) 1,000 mg in 100 mls @ 0 mls/hr IVCONT .Q0M MAGGIE; Protocol Last Admin: 06/01/22 21:02 Dose: 40 mcg/kg/min, 24.43 mls/hr Sodium Chloride (Ns) 1,000 mls @ 100 mls/hr IVCONT .Q10H MAGGIE Last Admin: 06/01/22 21:44 Dose: 100 mls/hr Piperacillin Sod/Tazobactam (Sod 3.375 gm/ Sodium Chloride) 50 mls @ 100 mls/hr IV Q6H MAGGIE Vancomycin HCl () 520 mls @ 260 mls/hr IV ONCE ONE Stop: 06/01/22 22:59 Last Admin: 06/01/22 21:00 Dose: 260 mls/hr Norepinephrine Bitartrate (Levophed) 8 mg in 250 mls @ 0 mls/hr IVCONT .Q0M MAGGIE; Protocol Fentanyl (Sublimaze/Ns) 1,000 mcg in 100 mls @ 0 mls/hr IVCONT .Q0M MAGGIE; Protocol Vancomycin HCl 1,250 mg/ (Sodium Chloride) 250 mls @ 166.667 mls/hr IV Q24H MAGGIE Sodium Chloride (Ns) 2,000 mls @ 999 mls/hr IVCONT .Q2H1M MAGGIE Stop: 06/02/22 00:00 Naloxone HCl (Naloxone Hcl 0.4 Mg/Ml Vial) 0.2 mg IVPUSH Q2M PRN PRN Reason: Excessive sedation or RR < 8 Pantoprazole Sodium (Pantoprazole Sodium 40 Mg/10 Ml Vial) 40 mg IVPUSH DAILY@0630 [facility] Pharmacy Consult (Consult Rx Perform Med Rec) 1 each MISCELLANE ONCE PRN PRN Reason: Consult order Pharmacy Consult (Consult Rx Vancomycin Dosing) 1 each MISCELLANE DAILY PRN PRN Reason: Consult order Pharmacy Consult (Consult Rx Perform Med Rec) 1 each MISCELLANE ONCE PRN PRN Reason: Consult order Home Medications Medication Instructions Recorded Confirmed Last Taken Type albuterol sulfate 90 mcg/actuation 1 inh inhalation Q4-6H PRN Wheezing 05/12/22 06/01/22 Unknown History breath activated powder inhaler,sensor budesonide-formoterol HFA 160 2 puff inhalation BID 05/12/22 06/01/22 06/01/22 History mcg-4.5 mcg/actuation aerosol inhaler (Symbicort) carisoprodol 350 mg tablet (Soma) 350 mg PO QID 05/12/22 06/01/22 06/01/22 History carvedilol 6.25 mg tablet 6.25 mg PO BID 05/12/22 06/01/22 06/01/22 History citalopram 20 mg tablet 30 mg PO DAILY 05/12/22 06/01/22 06/01/22 History clonazepam 1 mg tablet 1 mg PO BEDTIME 05/12/22 06/01/22 05/31/22 History clonidine HCl 0.1 mg tablet 0.1 mg PO BEDTIME 05/12/22 06/01/22 05/31/22 History diltiazem HCl 360 mg 360 mg PO DAILY 05/12/22 06/01/22 06/01/22 History capsule,extended release 24 hr diphenhydramine HCl 25 mg tablet 25 mg PO BEDTIME 05/12/22 06/01/22 05/31/22 History insulin glargine 100 unit/mL (3 65 unit subcut DAILY@1700 05/12/22 06/01/22 05/31/22 History mL) subcutaneous pen (Basaglar KwikPen U-100 Insulin) irbesartan 300 mg tablet 300 mg PO DAILY 05/12/22 06/01/22 06/01/22 History metformin 500 mg tablet,extended 1,000 mg PO BIDAC 05/12/22 06/01/22 06/01/22 History release 24 hr mirtazapine 15 mg tablet 15 mg PO BEDTIME 05/12/22 06/01/22 05/31/22 History omeprazole 20 mg capsule,delayed 20 mg PO DAILY 05/12/22 06/01/22 06/01/22 History release ramelteon 8 mg tablet 8 mg PO BEDTIME 05/12/22 06/01/22 05/31/22 History Physical Exam Vital Signs: Vital Signs: Last Vital Signs Temp 99.5 F 06/01/22 21:14 Pulse 73 06/01/22 21:14 Resp 24 H 06/01/22 21:14 BP 114/41 L 06/01/22 21:14 Pulse Ox 97 06/01/22 21:14 O2 Del Method 06/01/22 21:14 FiO2 40 06/01/22 21:14 BMI result Body Mass Index 37.3 Results Labs CBC and Chem 7: 06/01/22 21:32 06/01/22 21:32 Labs: Laboratory Results - last 24 hr 06/01/22 06/01/22 06/01/22 16:32 16:33 16:33 MCV 70.9 L MCH 18.9 L MCHC 26.6 L RDW 19.6 H Plt Count 318 MPV 9.2 L Immature Gran % (Auto) Cancelled Neut % (Auto) Cancelled Lymph % (Auto) Cancelled Boyd % (Auto) Cancelled Eos % (Auto) Cancelled Baso % (Auto) Cancelled Lymph # (Auto) Cancelled Boyd # (Auto) Cancelled Eos # (Auto) Cancelled Baso # (Auto) Cancelled Abs Immat Gran (auto) Cancelled Absolute Neuts (auto) Cancelled Absolute Nucleated RBC 0.030 H Nucleated RBC % (auto) 0.2 Neutrophils % (Manual) 80 H Band Neutrophils % 6 H Lymphocytes % (Manual) 6 L Monocytes % (Manual) 4 Metamyelocytes % 1 Myelocytes % 3 Abs Neuts (Manual) 13.0 H Lymphocytes # (Manual) 0.9 L Monocytes # (Manual) 0.6 Metamyelocytes # 0.2 Myelocytes # 0.5 Platelet Estimate NORMAL Large Platelets PRESENT Giant Platelets PRESENT Plt Morphology Comment NOTED RBC Morphology NOTED Hypochromasia 2+ (15-30) Microcytosis 2+ (15-30) PT 11.2 INR 1.0 VBG pH 7.30 L VBG pCO2 34 VBG pO2 103 VBG HCO3 17 L VBG O2 Saturation 98.0 VBG Base Excess -7.7 Anion Gap Estim Creat Clear Calc Estimated GFR POC Glucose Random Glucose Lactic Acid Lactic Acid F/U @ 2Hr Lactic Acid F/U @ 4Hr Calcium Phosphorus Magnesium Total Bilirubin AST ALT Alkaline Phosphatase Troponin I High Sens B-Natriuretic Peptide Total Protein Albumin Procalcitonin Urine Color Urine Appearance Urine pH Ur Specific [place] Urine Protein Urine Glucose (UA) Urine Ketones Urine Blood Urine Nitrite Ur Leukocyte Esterase Urine RBC Urine WBC Ur Squamous Epith Cells Amorphous Sediment Urine Bacteria COVID-19 (KIM) COVID-19 Clin Com 06/01/22 06/01/22 06/01/22 16:33 16:33 16:33 MCV MCH MCHC RDW Plt Count MPV Immature Gran % (Auto) Neut % (Auto) Lymph % (Auto) Boyd % (Auto) Eos % (Auto) Baso % (Auto) Lymph # (Auto) Boyd # (Auto) Eos # (Auto) Baso # (Auto) Abs Immat Gran (auto) Absolute Neuts (auto) Absolute Nucleated RBC Nucleated RBC % (auto) Neutrophils % (Manual) Band Neutrophils % Lymphocytes % (Manual) Monocytes % (Manual) Metamyelocytes % Myelocytes % Abs Neuts (Manual) Lymphocytes # (Manual) Monocytes # (Manual) Metamyelocytes # Myelocytes # Platelet Estimate Large Platelets Giant Platelets Plt Morphology Comment RBC Morphology Hypochromasia Microcytosis PT INR VBG pH VBG pCO2 VBG pO2 VBG HCO3 VBG O2 Saturation VBG Base Excess Anion Gap Estim Creat Clear Calc Estimated GFR POC Glucose Random Glucose Lactic Acid 10.6 H* Lactic Acid F/U @ 2Hr Lactic Acid F/U @ 4Hr Calcium Phosphorus Magnesium Total Bilirubin AST ALT Alkaline Phosphatase Troponin I High Sens 9.5 D B-Natriuretic Peptide 139 H Total Protein Albumin Procalcitonin Urine Color Urine Appearance Urine pH Ur Specific [place] Urine Protein Urine Glucose (UA) Urine Ketones Urine Blood Urine Nitrite Ur Leukocyte Esterase Urine RBC Urine WBC Ur Squamous Epith Cells Amorphous Sediment Urine Bacteria COVID-19 (KIM) Negative COVID-19 Clin Com See Note 06/01/22 06/01/22 06/01/22 16:33 16:34 16:37 MCV MCH MCHC RDW Plt Count MPV Immature Gran % (Auto) Neut % (Auto) Lymph % (Auto) Boyd % (Auto) Eos % (Auto) Baso % (Auto) Lymph # (Auto) Boyd # (Auto) Eos # (Auto) Baso # (Auto) Abs Immat Gran (auto) Absolute Neuts (auto) Absolute Nucleated RBC Nucleated RBC % (auto) Neutrophils % (Manual) Band Neutrophils % Lymphocytes % (Manual) Monocytes % (Manual) Metamyelocytes % Myelocytes % Abs Neuts (Manual) Lymphocytes # (Manual) Monocytes # (Manual) Metamyelocytes # Myelocytes # Platelet Estimate Large Platelets Giant Platelets Plt Morphology Comment RBC Morphology Hypochromasia Microcytosis PT INR VBG pH 7.30 L VBG pCO2 34 VBG pO2 103 VBG HCO3 17 L VBG O2 Saturation 98.0 VBG Base Excess -7.7 Anion Gap 22 H Estim Creat Clear Calc 67.1 Estimated GFR > 60 POC Glucose Random Glucose 383 H* Lactic Acid Lactic Acid F/U @ 2Hr Lactic Acid F/U @ 4Hr Calcium 8.3 L Phosphorus 5.7 H Magnesium 2.4 Total Bilirubin 0.3 AST 85 H ALT 58 H Alkaline Phosphatase 143 H D Troponin I High Sens B-Natriuretic Peptide Total Protein 7.1 Albumin 3.6 Procalcitonin < 0.02 Urine Color Urine Appearance Urine pH Ur Specific [place] Urine Protein Urine Glucose (UA) Urine Ketones Urine Blood Urine Nitrite Ur Leukocyte Esterase Urine RBC Urine WBC Ur Squamous Epith Cells Amorphous Sediment Urine Bacteria COVID-19 (KIM) COVID-19 Clin [facility] 06/01/22 06/01/22 06/01/22 17:40 19:13 19:50 MCV MCH MCHC RDW Plt Count MPV Immature Gran % (Auto) Neut % (Auto) Lymph % (Auto) Boyd % (Auto) Eos % (Auto) Baso % (Auto) Lymph # (Auto) Boyd # (Auto) Eos # (Auto) Baso # (Auto) Abs Immat Gran (auto) Absolute Neuts (auto) Absolute Nucleated RBC Nucleated RBC % (auto) Neutrophils % (Manual) Band Neutrophils % Lymphocytes % (Manual) Monocytes % (Manual) Metamyelocytes % Myelocytes % Abs Neuts (Manual) Lymphocytes # (Manual) Monocytes # (Manual) Metamyelocytes # Myelocytes # Platelet Estimate Large Platelets Giant Platelets Plt Morphology Comment RBC Morphology Hypochromasia Microcytosis PT INR VBG pH VBG pCO2 VBG pO2 VBG HCO3 VBG O2 Saturation VBG Base Excess Anion Gap Estim Creat Clear Calc Estimated GFR POC Glucose 218 H Random Glucose Lactic Acid Lactic Acid F/U @ 2Hr 3.7 H* Lactic Acid F/U @ 4Hr Calcium Phosphorus Magnesium Total Bilirubin AST ALT Alkaline Phosphatase Troponin I High Sens B-Natriuretic Peptide Total Protein Albumin Procalcitonin Urine Color YELLOW Urine Appearance HAZY Urine pH 6.5 Ur Specific [place] 1.025 Urine Protein 2+ H Urine Glucose (UA) >=1000 H Urine Ketones NEG Urine Blood 1+ H Urine Nitrite NEG Ur Leukocyte Esterase NEG Urine RBC 10-14 H Urine WBC 0-2 Ur Squamous Epith Cells TRACE Amorphous Sediment TRACE Urine Bacteria TRACE COVID-19 (KIM) COVID-19 Clin Com 06/01/22 06/01/22 06/01/22 20:20 21:32 21:32 MCV 68.7 L MCH 19.2 L MCHC 27.9 L RDW 19.5 H Plt Count 276 MPV 9.3 L Immature Gran % (Auto) 1.0 H Neut % (Auto) 86.3 H Lymph % (Auto) 7.6 L Boyd % (Auto) 4.6 Eos % (Auto) 0.2 Baso % (Auto) 0.3 Lymph # (Auto) 1.2 Boyd # (Auto) 0.7 Eos # (Auto) 0.0 Baso # (Auto) 0.0 Abs Immat Gran (auto) 0.16 H Absolute Neuts (auto) 13.3 H Absolute Nucleated RBC 0.000 Nucleated RBC % (auto) 0.0 Neutrophils % (Manual) Band Neutrophils % Lymphocytes % (Manual) Monocytes % (Manual) Metamyelocytes % Myelocytes % Abs Neuts (Manual) Lymphocytes # (Manual) Monocytes # (Manual) Metamyelocytes # Myelocytes # Platelet Estimate Large Platelets Giant Platelets Plt Morphology Comment RBC Morphology Hypochromasia Microcytosis PT INR VBG pH VBG pCO2 VBG pO2 VBG HCO3 VBG O2 Saturation VBG Base Excess Anion Gap 16 Estim Creat Clear Calc 77.9 Estimated GFR > 60 POC Glucose Random Glucose 216 H Lactic Acid Lactic Acid F/U @ 2Hr Lactic Acid F/U @ 4Hr Calcium 8.2 L Phosphorus Magnesium Total Bilirubin 0.5 AST 56 H ALT 58 H Alkaline Phosphatase 117 Troponin I High Sens 43.6 H D B-Natriuretic Peptide Total Protein 6.5 Albumin 3.3 L Procalcitonin Urine Color Urine Appearance Urine pH Ur Specific [place] Urine Protein Urine Glucose (UA) Urine Ketones Urine Blood Urine Nitrite Ur Leukocyte Esterase Urine RBC Urine WBC Ur Squamous Epith Cells Amorphous Sediment Urine Bacteria COVID-19 (KIM) COVID-19 Clin Com 06/01/22 21:32 MCV MCH MCHC RDW Plt Count MPV Immature Gran % (Auto) Neut % (Auto) Lymph % (Auto) Boyd % (Auto) Eos % (Auto) Baso % (Auto) Lymph # (Auto) Boyd # (Auto) Eos # (Auto) Baso # (Auto) Abs Immat Gran (auto) Absolute Neuts (auto) Absolute Nucleated RBC Nucleated RBC % (auto) Neutrophils % (Manual) Band Neutrophils % Lymphocytes % (Manual) Monocytes % (Manual) Metamyelocytes % Myelocytes % Abs Neuts (Manual) Lymphocytes # (Manual) Monocytes # (Manual) Metamyelocytes # Myelocytes # Platelet Estimate Large Platelets Giant Platelets Plt Morphology Comment RBC Morphology Hypochromasia Microcytosis PT INR VBG pH VBG pCO2 VBG pO2 VBG HCO3 VBG O2 Saturation VBG Base Excess Anion Gap Estim Creat Clear Calc Estimated GFR POC Glucose Random Glucose Lactic Acid Lactic Acid F/U @ 2Hr Lactic Acid F/U @ 4Hr 5.6 H* Calcium Phosphorus Magnesium Total Bilirubin AST ALT Alkaline Phosphatase Troponin I High Sens B-Natriuretic Peptide Total Protein Albumin Procalcitonin Urine Color Urine Appearance Urine pH Ur Specific [place] Urine Protein Urine Glucose (UA) Urine Ketones Urine Blood Urine Nitrite Ur Leukocyte Esterase Urine RBC Urine WBC Ur Squamous Epith Cells Amorphous Sediment Urine Bacteria COVID-19 (KIM) COVID-19 Clin Com Imaging Radiologist's Impressions: Impressions Chest X-Ray 06/01/22 16:25 IMPRESSION: First chest x-ray demonstrates endotracheal tube projecting over the right mainstem bronchus and complete atelectasis of the left lung. Second chest x-ray demonstrates endotracheal tube 2 cm above the power and patchy areas of atelectasis or airspace disease in the left lung and bronchial wall thickening and small area of atelectasis or airspace disease in the right upper lobe. Nasogastric tube tip not seen. Chest X-Ray 06/01/22 18:25 IMPRESSION: 1. Right IJ central venous catheter tip projects over the distal SVC. No pneumothorax. 2. Slightly low-lying endotracheal tube tip terminating approximately 2 cm above the power. 3. Persistent hazy and patchy airspace opacities in the left lung and right lung apex.
[2022-06-01] MEDS: iohexoL 350 MG/ML 100 ML INFUS..BTL IV (23:17)
[2022-06-02] VITALS (37 sets, daily range): BP systolic 95–172; BP diastolic 38–107; PULSE 66–115; RESP 14–28; TEMP 31.4–38.6; O2SAT 91–99; BMI 43.9
--- NOTE | 2022-06-02 | ECG_ITS ---
Test Reason : resporety arrest Blood Pressure : / mmHG Vent. Rate : 117 BPM Atrial Rate : 117 BPM P-R Int : 162 ms QRS Dur : 086 ms QT Int : 440 ms P-R-T Axes : 079 003 028 degrees QTc Int : 613 ms Poor data quality Sinus tachycardia Left atrial enlargement Left ventricular hypertrophy ( Mauro product ) ST & T wave abnormality, consider inferior ischemia Prolonged QT Abnormal ECG When compared to the previous EKG of Poor data quality in current ECG precludes serial comparison Vent. rate has increased Referred By: Tera Ryan Electronically Signed By:JUANY SANCHEZ MD
--- NOTE | 2022-06-02 | ECG_ITS ---
Test Reason : cp Blood Pressure : / mmHG Vent. Rate : 075 BPM Atrial Rate : 075 BPM P-R Int : 150 ms QRS Dur : 090 ms QT Int : 428 ms P-R-T Axes : 010 047 -37 degrees QTc Int : 477 ms Normal sinus rhythm Possible Inferior infarct , age undetermined Prolonged QT T-wave inversion in Inferior leads Abnormal ECG When compared with ECG of 01-JUN-2022 19:02, Borderline criteria for Inferior infarct are now Present T wave inversion now evident in Inferior leads T wave inversion no longer evident in Lateral leads Referred By: Jaswinder Thompson Electronically Signed By:JUANY SANCHEZ MD
[2022-06-02] MEDS: propofoL 1,000 MG/100 ML VIAL 30.54 MG IVCONT (00:03)
[2022-06-02] MEDS: Piperacillin Sodium/Tazobactam 3.375 GM in 0.9 % Sodium Chloride 50 ML IV ×3 (00:32→09:56)
[2022-06-02 00:41] LABS: Glucose, Whole Blood 124 mg/dL (60-115)
[2022-06-02] MEDS: Heparin Sodium,Porcine 5,000 UNIT/ML VIAL 5000 UNIT SUBCUT ×3 (04:04→18:10)
[2022-06-02] MEDS: propofoL 1,000 MG/100 ML VIAL 18.32 MG IVCONT (04:05)
[2022-06-02 04:22] LABS: Glucose, Whole Blood 112 mg/dL (60-115)
[2022-06-02] MEDS: Acetaminophen 325 MG TABLET 650 MG PO (04:48)
[2022-06-02] MEDS: Pantoprazole Sodium 40 MG/10 ML VIAL IVPUSH (04:49)
[2022-06-02 05:42] LABS: MANUAL DIFF FLAG NO
[2022-06-02 05:43] LABS: Venous Blood Gas Refer to POC result
[2022-06-02 05:44] LABS: VBG Base Excess 5.9 mmol/L; VBG HCO3 29 mmol/L (22-26); VBG pCO2 38 mmHg; VBG pH 7.49 (7.32-7.43); VBG pO2 40 mmHg
[2022-06-02 05:46] LABS: Basophils Percent Auto 0.3 % (0-2); Eosinophils Percent Auto 0.3 % (0-4); Hematocrit 25.6 % (37.0-47.0); Hemoglobin 7.1 g/dl (12.0-16.0); Imm Gran Pct Auto 0.9 % (0.0-0.4); Lymphocytes Absolute Auto 0.8 X10*3/uL (1.2-4.9); Lymphocytes Percent Auto 7.1 % (20-40); Mean Corpuscular HGB Conc 27.7 g/dl (31.0-35.0); Mean Corpuscular Hemoglobin 18.6 pg (27.0-33.0); Mean Platelet Volume 8.7 fL (9.4-12.3); Monocytes Absolute Auto 0.5 X10*3/uL (0.1-1.2); Monocytes Percent Auto 4.1 % (2-11); Neutrophils Percent Auto 87.3 % (45-73); Platelet Count 248 X10*3/uL (160-400); Red Blood Count 3.82 X10*6/uL (4.20-5.50); Red Cell Distribution Width 20.1 % (11.0-16.0); White Blood Count 11.4 X10*3/uL (4.8-10.8)
[2022-06-02 05:57] LABS: Lactic Acid 1.1 mmol/L (0.5-2.0)
[2022-06-02 06:05] LABS: Alanine Aminotransferase 43 U/L (0-31); Albumin Level 2.9 g/dL (3.5-5.0); Alkaline Phosphatase 87 U/L (39-117); Anion Gap 12 (12-20); Aspartate Amino Transferase 25 U/L (5-31); Bilirubin Total 0.4 mg/dL (0.0-1.0); Blood Urea Nitrogen 11 mg/dL (9-16); Calcium 7.5 mg/dL (8.4-10.2); Carbon Dioxide 29 mmol/L (22-29); Chloride 97 mmol/L (96-108); Creatinine Clr Calc Pharmacy 92.7; Estimated Glomerular Filt Rate > 60; Glucose Random 141 mg/dL (60-115); Potassium 3.8 mmol/L (3.3-5.1); Sodium 134 mmol/L (135-145); Total Protein 5.6 g/dL (6.5-8.0)
[2022-06-02 06:10] LABS: Troponin-I High Sensitivity 30.8 ng/L (<3.5-17.0)
--- NOTE | 2022-06-02 06:31 | PC.NURSE ---
Pt admitted to ICU at approx 2330 from ED. Tmax 100.6 core. Per PA- target temp 98.7, given tylenol x1 and packed with ice with no effect. NSR on tele with TWI- repeat ekg done, PA aware of results. Pt sedated on propofol, RASS -3, agitated with care at times. NSR on tele, HR 70s. BP WNL. +1 BLE edema. ETT #7.5, 21 cm at lip. On AC settings- 20/400/5/35%. Sputum sample sent. OGT and bustamante placed. All lines/tubes confirmed by pCXR. UOP approx 50 ml/hr. Skin intact.
--- NOTE | 2022-06-02 06:59 | HO.SEPSISX_ITS ---
Sepsis Bolus Exclusion Sepsis Bolus Exclusion This patient met severe sepsis criteria due to the following condition(s):: Lact ate>=4mmol/L In my clinical judgement the administration of 30 ml/kg of crystalloid would be detrimental to this patient due to the patient's following conditions:: Concern for fluid overload and Other Replace the 30 mls/kg with (*zero amount not acceptable): *Note: One of the mora must be documented Crystalloids amount given in mls: (rate must be at least 150cc/hr): 3,000
--- NOTE | 2022-06-02 07:00 | CA_ITS ---
Transthoracic Echocardiogram Patient (Last, First, Middle): Abby Ford, Gender: Female Date of : 1945 Age: 76 Procedure Date: 06/02/2022 Procedure Type: Transthoracic Echocardiogram Location: ICU Height: 165.1 cm Weight: 101.61 kg BSA: 2.08 m2 Heart Rate: 84 bpm BP: 130 / 48 mmHg [employer]: DEBRA Referring MD: Tera GIORDANO Dump Operator: Aristides Preciado MD Symptoms: post Cardiac Arrest Study Quality: Technically Difficult/BSA/Vented/Contrast ECG Rhythm: Sinus Conclusions: - 1. Technically very difficult study despite use of contrast agent 2. On apical views LV systolic function appears mildly depressed with LVEF of 45-50% with impaired relaxation filling pattern 3. Limited visualization of cardiac valves cardiac valvular Doppler within normal limits 4. RV systolic pressure cannot be accurately estimated with RV systolic pressure measured to be 39 mmHg plus RA pressures Findings Procedure Information Contrast agent, definity, is being given per protocol without apparent complications. Left Ventricle Normal left ventricular cavity size. There is normal left ventricular wall thickness. The left ventricular systolic function is mildly decreased. The visually estimated ejection fraction is between 45-50%. Regional wall motion abnormalities can not be excluded due to suboptimal endocardial definition. Spectral Doppler is indicative of an impaired relaxation filling pattern. Right Ventricle The right ventricle was not well visualized. Atria The left atrium was not well visualized. Interatrial shunt cannot be excluded. The right atrium was not well visualized. Aortic Valve The aortic valve was not well visualized. There is no aortic valve stenosis. There is no aortic valve regurgitation. Mitral Valve The mitral valve was not well visualized. There is no mitral valve regurgitation. Pulmonic Valve The pulmonic valve was not well visualized. Tricuspid Valve The tricuspid valve was not well visualized. There is mild tricuspid valve regurgitation. RV systolic pressure cannot be accurately calculated given that are pressures cannot be estimated on this study as patient is on positive-pressure ventilation. RV systolic pressure is 39 mmHg plus RA pressure and probably are elevated Great Vessels The aorta was not well visualized. The pulmonary artery was not well visualized. Venous The inferior vena cava is dilated and does not collapse with inspiration. Pericardium/Pleural The pericardium was not well visualized. Measurements 2D Linear Measurements LVOT Diam: 2.00 3.0+(-)1.3 cm 2D Systolic Function EF 4C: 51.00 >55% EF 2C: 50.90 >55% EF BiP: 48.50 >55% Mitral Valve MV Pk E: 0.81 MV PK A: 1.15 MV Decel Time: 173.00 E/A: 0.70 E'Lateral: 5.00 E'Medial: 4.46 E/E' Med: 18.30 E/E' Lat: 16.30 PHT: 51.00 MVA PHT: 4.31 Decel Hendricks: 4.72 Aortic Valve AoV Pk Jose L: 1.88 AoV Mn Jose L: 1.31 AoV VTI: 0.36 AoV Pk Grad: 14.00 Aov Mn Grad: 8.00 JARVIS Cont.VTI: 1.78 LVOT LVOT Pk Jose L: 1.00 LVOT Mn Jose L: 0.71 LVOT VTI: 0.20 LVOT Pk Grad: 4.00 LVOT Mn Grad: 2.00 LVOT Diam: 2.00 LVOT Area: 3.14 Diastolic Function MV Pk E: 0.81 MV Pk A: 1.15 E/A: 0.70 E'Medial: 4.46 E/E' Med: 18.30 E' Laterial: 5.00 E/E' Lat: 16.30 Right Ventricle TAPSE (mm): 16.80 TVS' Jose L: 9.10 Tricuspid Valve TR Pk Jose L: 3.14 TR Pk Grad: 39.00 Updated in Other Vendor System with Status of Final Aristides Preciado MD electronically signed on 06/02/2022 11:59:51 AM with status of Final
[2022-06-02] MEDS: Metoprolol Tartrate 12.5 MG HALFTAB PO (09:55)
[2022-06-02] MEDS: Chlorhexidine Gluc Oral Rinse 15 ML MOUTHWASH BUCCAL ×3 (09:55→21:49)
[2022-06-02] MEDS: Aspirin 81 MG TAB.CHEW PO (09:55)
[2022-06-02] MEDS: fentaNYL citrate/PF 100 MCG/2 ML VIAL IVPUSH (10:10)
--- NOTE | 2022-06-02 10:21 | P.PNCC_ITS ---
Subjective Subjective Date of Service: 06/02/22 Interval History: Mrs. Ford was admitted to ICU last night after out of hospital cardiorespiratory arrest. The patient is well known to me from her prior admission to this ICU with acute respiratory failure on May 12.? She is a 76 yo female with PMhx of obesity, COPD on 2L home oxygen, CHF on Aldactone, Coreg and valsartan, HTN, DM on Lantus and metformin, anemia, GERD, SHARON, and restless leg syndrome. Records from [facility] indicate that she was hospitalized there for COVID infection 11/25-, and for subsequent pulmon embolism 12/15-, for which she was started on Eliquis.? She was also admitted [facility] from 02/13- for COPD exac requiring BiPAP, and 02/24-07/2022 for influenza A requiring BiPAP.? The records indicate that she was an active smoker, On May 11, the patient was intubated at home by paramedics bec of obtundation and hypoxemia.? There was no circulatory or respiratory arrest at that time.? She was BIBA and was awake in the ED.? She was admitted to the ICU.? Workup suggested CHF, and she was diuresed.? The patient was extubated to BiPAP shortly after arrival to the ICU.? She was discharged to the floor the next day. ECHOCARDIOGRAM on May 12 showed:? LV function was normal, no RWMAs noted.? EF 60%.? Moderate LVH with impaired relaxation filling pattern.? Normal RV size and contractility.? Mild .? RVSP normal.? IVC was dilated w minimal insp collapse. She was discharged home on May 16 and advised to have a sleep study. HISTORY OF PRESENT ILLNESS: EMS was called to the house because of respiratory distress.? According to the family, the patient had been in her usual state of health 10 minutes prior. ?On arrival at the scene, the patient had agonal breathing, and did have a pulse.? Initial heart rate 30s, blood pressure 80s.? Atropine was given followed by cardiac arrest.? CPR was started, 1 mg epinephrine given, and the patient had RO SC after about 1-1/2 minutes.? At some point, a Suhas airway was inserted.? The patient was BIBA to the ED. The patient was immediately intubated on arrival to the ED. ?She was n ormotensive and afebrile. ?WBC was 15, Hb 8.5, chemistries OK, trop 9, BNP 139, lactate was 10.? EKG showed T-wave inversion in leads I and aVL, unchanged from previous tracing of May 12. The patient was given fluids and antibiotics.? Central line was placed.? The patient was moving around and therefore given propofol and Versed.? I advised restricting fluids, given her history of heart failure.? The patient was admitted to the ICU. Patient seemed to be interactive.? She was put on propofol for agitation. ?CTPA showed a small area of consolidation in the left lower lobe.? The main pulmonary artery looks normal sized.? Heart size looks normal; RV may be top-normal.? No pulmonary emboli.? The patient was started on broad-spectrum antibiotics with vanco and Zosyn for presumed LLL pneumonia.? She was volume resuscitated and her lactate cleared. This morning, we turned the propofol off.? After about half an hour, the patient was wildly agitated in bed, moving all fours with strength. ?She had some partial eye opening movements, but was 100% non interactive.? Breathing became chaotic.? Breathing improved after a bolus of fentanyl, but we had to start her back on the propofol to control her agitation.? HR 103, BP 134/51 back on the propofol, on no pressors.? On AC 20/400/35/+5, RR 20, Ve 8L, PIP 36cm, ETCO2 47, Sat 92%.? CVBG this morning 7.49/38/+5.? Tmax 100.8?.? No jugular venous distention at 30 degrees.? Chest is clear to auscultation with a very faint expiratory wheeze, with normal expiratory phase.? Faint heart tones, I heard no murmur or gallops.? Abdomen is obese and benign.? She has about 1+ peripheral and central edema (which is less than she had at her last admission). LABORATORY DATA: As below.? Notably, WBC down to 11, Hb down to 7.1 after vol resusc, BUN/creatinine 11/0.6, albumin 2.9. MICROBIOLOGY:? Blood cultures negative so far.? Sputum Gram stain showed 3+WBC with 2+ mixed phyllis. IMPRESSION: 1. Underlying COPD.? No gross evidence for COPD exacerbation. 2. Underlying tobacco abuse.? She?s gotta stop smoking, which is further dangerous bec of her home oxygen. 3. Underlying chronic hypoxemic and hypercapnic resp failure (high serum bicarb suggests CO2 retention; she was not previously on diuretics). 4. Underlying diastolic heart failure.? No evidence of acute heart failure this admission.? I note that her Med Rec doesn?t include the aldactone she was on at the last admission.? Nor is she on any diuretic. I?ll restart her ARB and Coreg. 5. H/o PE, for which she was previously on Eliquis at the last admission, but I do not see that on her Med Rec now.? Her daughter said she is no longer taking it, but I don?t know why. 6. Cardioresp arrest.? Unclear etiology.? By history of the family, it was sudden.? But no evidence of acute MD or PE.? No significant metabolic alkalosis to suggest CO2 narcosis.? Maybe aspiration, for unclear reason.? Needs an echo.? I don?t think she needs aspirin or metoprolol. 7. Coma.? Likely anoxic encephalopathy, but not severe, she looks like she is on the verge of waking up.? Continue TTM (targeted temperature management). 8. Acute resp failure.? 2? above.? She does have edema, with normal renal indices.? Might very well benefit from diuresis.? Start low dose Lasix.? Start bronchodilators. 9. ID:? I don?t think she?s septic, and I?m not convinced she needs abx.? If she has a real pneumonia (which I doubt), it?s small.? We?ll continue the Zosyn for 3-5 days.? No need for vanco (ie. I don?t think she has a Staph infection). 10. Lactic acidosis:? 2? cardiac arrest and hypoperfusion, not sepsis. 11. HTN.? Continue her home meds. 12. DM.? On SS insulin. 13. SHARON.? Hold citalopram for now. 14. Anemia.? She has a h/o anemia which I believe is followed at [facility].? Takes iron at home. Critical care time (includ full chart rev), mult exams at the bedside: 75+ min Critical Care Time (minutes): 75 Physical Exam Vital Signs: Vital Signs: Last Vital Signs Temp 100.6 F H 06/02/22 08:00 Pulse 89 06/02/22 09:00 Resp 20 06/02/22 09:00 BP 154/51 H 06/02/22 09:00 Pulse Ox 94 06/02/22 09:00 O2 Del Method 06/02/22 09:00 FiO2 35 06/02/22 09:00 BMI result Body Mass Index 37.3 Objective Data Labs CBC & Chem 7: 06/02/22 05:30 06/02/22 05:30 Labs: Laboratory Results - last 24 hr 06/01/22 06/01/22 06/01/22 16:32 16:33 16:33 WBC 15.1 H RBC 4.50 Hgb 8.5 L Hct 31.9 L MCV 70.9 L MCH 18.9 L MCHC 26.6 L RDW 19.6 H Plt Count 318 MPV 9.2 L Immature Gran % (Auto) Cancelled Neut % (Auto) Cancelled Lymph % (Auto) Cancelled Bibb % (Auto) Cancelled Eos % (Auto) Cancelled Baso % (Auto) Cancelled Lymph # (Auto) Cancelled Bibb # (Auto) Cancelled Eos # (Auto) Cancelled Baso # (Auto) Cancelled Abs Immat Gran (auto) Cancelled Absolute Neuts (auto) Cancelled Absolute Nucleated RBC 0.030 H Nucleated RBC % (auto) 0.2 Neutrophils % (Manual) 80 H Band Neutrophils % 6 H Lymphocytes % (Manual) 6 L Monocytes % (Manual) 4 Metamyelocytes % 1 Myelocytes % 3 Abs Neuts (Manual) 13.0 H Lymphocytes # (Manual) 0.9 L Monocytes # (Manual) 0.6 Metamyelocytes # 0.2 Myelocytes # 0.5 Platelet Estimate NORMAL Large Platelets PRESENT Giant Platelets PRESENT Plt Morphology Comment NOTED RBC Morphology NOTED Hypochromasia 2+ (15-30) Microcytosis 2+ (15-30) PT 11.2 INR 1.0 VBG pH 7.30 L VBG pCO2 34 VBG pO2 103 VBG HCO3 17 L VBG O2 Saturation 98.0 VBG Base Excess -7.7 Sodium Potassium Chloride Carbon Dioxide Anion Gap BUN Creatinine Estim Creat Clear Calc Estimated GFR POC Glucose Random Glucose Lactic Acid Lactic Acid F/U @ 2Hr Lactic Acid F/U @ 4Hr Calcium Phosphorus Magnesium Total Bilirubin AST ALT Alkaline Phosphatase Troponin I High Sens B-Natriuretic Peptide Total Protein Albumin Procalcitonin Urine Color Urine Appearance Urine pH Ur Specific White Urine Protein Urine Glucose (UA) Urine Ketones Urine Blood Urine Nitrite Ur Leukocyte Esterase Urine RBC Urine WBC Ur Squamous Epith Cells Amorphous Sediment Urine Bacteria COVID-19 (KIM) COVID-19 [place] 06/01/22 06/01/22 06/01/22 16:33 16:33 16:33 WBC RBC Hgb Hct MCV MCH MCHC RDW Plt Count MPV Immature Gran % (Auto) Neut % (Auto) Lymph % (Auto) Bibb % (Auto) Eos % (Auto) Baso % (Auto) Lymph # (Auto) Bibb # (Auto) Eos # (Auto) Baso # (Auto) Abs Immat Gran (auto) Absolute Neuts (auto) Absolute Nucleated RBC Nucleated RBC % (auto) Neutrophils % (Manual) Band Neutrophils % Lymphocytes % (Manual) Monocytes % (Manual) Metamyelocytes % Myelocytes % Abs Neuts (Manual) Lymphocytes # (Manual) Monocytes # (Manual) Metamyelocytes # Myelocytes # Platelet Estimate Large Platelets Giant Platelets Plt Morphology Comment RBC Morphology Hypochromasia Microcytosis PT INR VBG pH VBG pCO2 VBG pO2 VBG HCO3 VBG O2 Saturation VBG Base Excess Sodium Potassium Chloride Carbon Dioxide Anion Gap BUN Creatinine Estim Creat Clear Calc Estimated GFR POC Glucose Random Glucose Lactic Acid 10.6 H* Lactic Acid F/U @ 2Hr Lactic Acid F/U @ 4Hr Calcium Phosphorus Magnesium Total Bilirubin AST ALT Alkaline Phosphatase Troponin I High Sens 9.5 D B-Natriuretic Peptide 139 H Total Protein Albumin Procalcitonin Urine Color Urine Appearance Urine pH Ur Specific White Urine Protein Urine Glucose (UA) Urine Ketones Urine Blood Urine Nitrite Ur Leukocyte Esterase Urine RBC Urine WBC Ur Squamous Epith Cells Amorphous Sediment Urine Bacteria COVID-19 (KIM) Negative COVID-19 [employer] Com See Note 06/01/22 06/01/22 06/01/22 16:33 16:34 16:37 WBC RBC Hgb Hct MCV MCH MCHC RDW Plt Count MPV Immature Gran % (Auto) Neut % (Auto) Lymph % (Auto) Bibb % (Auto) Eos % (Auto) Baso % (Auto) Lymph # (Auto) Bibb # (Auto) Eos # (Auto) Baso # (Auto) Abs Immat Gran (auto) Absolute Neuts (auto) Absolute Nucleated RBC Nucleated RBC % (auto) Neutrophils % (Manual) Band Neutrophils % Lymphocytes % (Manual) Monocytes % (Manual) Metamyelocytes % Myelocytes % Abs Neuts (Manual) Lymphocytes # (Manual) Monocytes # (Manual) Metamyelocytes # Myelocytes # Platelet Estimate Large Platelets Giant Platelets Plt Morphology Comment RBC Morphology Hypochromasia Microcytosis PT INR VBG pH 7.30 L VBG pCO2 34 VBG pO2 103 VBG HCO3 17 L VBG O2 Saturation 98.0 VBG Base Excess -7.7 Sodium 130 L Potassium 5.1 D Chloride 91 L Carbon Dioxide 22 Anion Gap 22 H BUN 11 Creatinine 0.87 Estim Creat Clear Calc 67.1 Estimated GFR > 60 POC Glucose Random Glucose 383 H* Lactic Acid Lactic Acid F/U @ 2Hr Lactic Acid F/U @ 4Hr Calcium 8.3 L Phosphorus 5.7 H Magnesium 2.4 Total Bilirubin 0.3 AST 85 H ALT 58 H Alkaline Phosphatase 143 H D Troponin I High Sens B-Natriuretic Peptide Total Protein 7.1 Albumin 3.6 Procalcitonin < 0.02 Urine Color Urine Appearance Urine pH Ur Specific White Urine Protein Urine Glucose (UA) Urine Ketones Urine Blood Urine Nitrite Ur Leukocyte Esterase Urine RBC Urine WBC Ur Squamous Epith Cells Amorphous Sediment Urine Bacteria COVID-19 (KIM) COVID-19 Clin Com 06/01/22 06/01/22 06/01/22 17:40 19:13 19:50 WBC RBC Hgb Hct MCV MCH MCHC RDW Plt Count MPV Immature Gran % (Auto) Neut % (Auto) Lymph % (Auto) Bibb % (Auto) Eos % (Auto) Baso % (Auto) Lymph # (Auto) Bibb # (Auto) Eos # (Auto) Baso # (Auto) Abs Immat Gran (auto) Absolute Neuts (auto) Absolute Nucleated RBC Nucleated RBC % (auto) Neutrophils % (Manual) Band Neutrophils % Lymphocytes % (Manual) Monocytes % (Manual) Metamyelocytes % Myelocytes % Abs Neuts (Manual) Lymphocytes # (Manual) Monocytes # (Manual) Metamyelocytes # Myelocytes # Platelet Estimate Large Platelets Giant Platelets Plt Morphology Comment RBC Morphology Hypochromasia Microcytosis PT INR VBG pH VBG pCO2 VBG pO2 VBG HCO3 VBG O2 Saturation VBG Base Excess Sodium Potassium Chloride Carbon Dioxide Anion Gap BUN Creatinine Estim Creat Clear Calc Estimated GFR POC Glucose 218 H Random Glucose Lactic Acid Lactic Acid F/U @ 2Hr 3.7 H* Lactic Acid F/U @ 4Hr Calcium Phosphorus Magnesium Total Bilirubin AST ALT Alkaline Phosphatase Troponin I High Sens B-Natriuretic Peptide Total Protein Albumin Procalcitonin Urine Color YELLOW Urine Appearance HAZY Urine pH 6.5 Ur Specific White 1.025 Urine Protein 2+ H Urine Glucose (UA) >=1000 H Urine Ketones NEG Urine Blood 1+ H Urine Nitrite NEG Ur Leukocyte Esterase NEG Urine RBC 10-14 H Urine WBC 0-2 Ur Squamous Epith Cells TRACE Amorphous Sediment TRACE Urine Bacteria TRACE COVID-19 (KIM) COVID-19 Clin Com 06/01/22 06/01/22 06/01/22 20:20 21:32 21:32 WBC 15.4 H RBC 4.12 L Hgb 7.9 L Hct 28.3 L MCV 68.7 L MCH 19.2 L MCHC 27.9 L RDW 19.5 H Plt Count 276 MPV 9.3 L Immature Gran % (Auto) 1.0 H Neut % (Auto) 86.3 H Lymph % (Auto) 7.6 L Bibb % (Auto) 4.6 Eos % (Auto) 0.2 Baso % (Auto) 0.3 Lymph # (Auto) 1.2 Bibb # (Auto) 0.7 Eos # (Auto) 0.0 Baso # (Auto) 0.0 Abs Immat Gran (auto) 0.16 H Absolute Neuts (auto) 13.3 H Absolute Nucleated RBC 0.000 Nucleated RBC % (auto) 0.0 Neutrophils % (Manual) Band Neutrophils % Lymphocytes % (Manual) Monocytes % (Manual) Metamyelocytes % Myelocytes % Abs Neuts (Manual) Lymphocytes # (Manual) Monocytes # (Manual) Metamyelocytes # Myelocytes # Platelet Estimate Large Platelets Giant Platelets Plt Morphology Comment RBC Morphology Hypochromasia Microcytosis PT INR VBG pH VBG pCO2 VBG pO2 VBG HCO3 VBG O2 Saturation VBG Base Excess Sodium 133 L Potassium 4.6 Chloride 93 L Carbon Dioxide 29 Anion Gap 16 BUN 13 Creatinine 0.75 Estim Creat Clear Calc 77.9 Estimated GFR > 60 POC Glucose Random Glucose 216 H Lactic Acid Lactic Acid F/U @ 2Hr Lactic Acid F/U @ 4Hr Calcium 8.2 L Phosphorus Magnesium Total Bilirubin 0.5 AST 56 H ALT 58 H Alkaline Phosphatase 117 Troponin I High Sens 43.6 H D B-Natriuretic Peptide Total Protein 6.5 Albumin 3.3 L Procalcitonin Urine Color Urine Appearance Urine pH Ur Specific White Urine Protein Urine Glucose (UA) Urine Ketones Urine Blood Urine Nitrite Ur Leukocyte Esterase Urine RBC Urine WBC Ur Squamous Epith Cells Amorphous Sediment Urine Bacteria COVID-19 (KIM) COVID-19 SMS [employer] Com 06/01/22 06/02/22 06/02/22 21:32 00:37 04:18 WBC RBC Hgb Hct MCV MCH MCHC RDW Plt Count MPV Immature Gran % (Auto) Neut % (Auto) Lymph % (Auto) Bibb % (Auto) Eos % (Auto) Baso % (Auto) Lymph # (Auto) Bibb # (Auto) Eos # (Auto) Baso # (Auto) Abs Immat Gran (auto) Absolute Neuts (auto) Absolute Nucleated RBC Nucleated RBC % (auto) Neutrophils % (Manual) Band Neutrophils % Lymphocytes % (Manual) Monocytes % (Manual) Metamyelocytes % Myelocytes % Abs Neuts (Manual) Lymphocytes # (Manual) Monocytes # (Manual) Metamyelocytes # Myelocytes # Platelet Estimate Large Platelets Giant Platelets Plt Morphology Comment RBC Morphology Hypochromasia Microcytosis PT INR VBG pH VBG pCO2 VBG pO2 VBG HCO3 VBG O2 Saturation VBG Base Excess Sodium Potassium Chloride Carbon Dioxide Anion Gap BUN Creatinine Estim Creat Clear Calc Estimated GFR POC Glucose 124 H 112 Random Glucose Lactic Acid Lactic Acid F/U @ 2Hr Lactic Acid F/U @ 4Hr 5.6 H* Calcium Phosphorus Magnesium Total Bilirubin AST ALT Alkaline Phosphatase Troponin I High Sens B-Natriuretic Peptide Total Protein Albumin Procalcitonin Urine Color Urine Appearance Urine pH Ur Specific White Urine Protein Urine Glucose (UA) Urine Ketones Urine Blood Urine Nitrite Ur Leukocyte Esterase Urine RBC Urine WBC Ur Squamous Epith Cells Amorphous Sediment Urine Bacteria COVID-19 (KIM) COVID-19 SMS [employer] 06/02/22 06/02/22 06/02/22 05:30 05:30 05:30 WBC 11.4 H RBC 3.82 L Hgb 7.1 L Hct 25.6 L MCV 67.0 L MCH 18.6 L MCHC 27.7 L RDW 20.1 H Plt Count 248 MPV 8.7 L Immature Gran % (Auto) 0.9 H Neut % (Auto) 87.3 H Lymph % (Auto) 7.1 L Bibb % (Auto) 4.1 Eos % (Auto) 0.3 Baso % (Auto) 0.3 Lymph # (Auto) 0.8 L Bibb # (Auto) 0.5 Eos # (Auto) 0.0 Baso # (Auto) 0.0 Abs Immat Gran (auto) 0.10 H Absolute Neuts (auto) 10.0 H Absolute Nucleated RBC 0.000 Nucleated RBC % (auto) 0.0 Neutrophils % (Manual) Band Neutrophils % Lymphocytes % (Manual) Monocytes % (Manual) Metamyelocytes % Myelocytes % Abs Neuts (Manual) Lymphocytes # (Manual) Monocytes # (Manual) Metamyelocytes # Myelocytes # Platelet Estimate Large Platelets Giant Platelets Plt Morphology Comment RBC Morphology Hypochromasia Microcytosis PT INR VBG pH VBG pCO2 VBG pO2 VBG HCO3 VBG O2 Saturation VBG Base Excess Sodium 134 L Potassium 3.8 Chloride 97 Carbon Dioxide 29 Anion Gap 12 BUN 11 Creatinine 0.63 Estim Creat Clear Calc 92.7 Estimated GFR > 60 POC Glucose Random Glucose 141 H Lactic Acid 1.1 Lactic Acid F/U @ 2Hr Lactic Acid F/U @ 4Hr Calcium 7.5 L D Phosphorus Magnesium Total Bilirubin 0.4 AST 25 D ALT 43 H Alkaline Phosphatase 87 D Troponin I High Sens B-Natriuretic Peptide Total Protein 5.6 L Albumin 2.9 L Procalcitonin Urine Color Urine Appearance Urine pH Ur Specific White Urine Protein Urine Glucose (UA) Urine Ketones Urine Blood Urine Nitrite Ur Leukocyte Esterase Urine RBC Urine WBC Ur Squamous Epith Cells Amorphous Sediment Urine Bacteria COVID-19 (KIM) COVID-19 Clin Com 06/02/22 06/02/22 05:30 05:39 WBC RBC Hgb Hct MCV MCH MCHC RDW Plt Count MPV Immature Gran % (Auto) Neut % (Auto) Lymph % (Auto) Bibb % (Auto) Eos % (Auto) Baso % (Auto) Lymph # (Auto) Bibb # (Auto) Eos # (Auto) Baso # (Auto) Abs Immat Gran (auto) Absolute Neuts (auto) Absolute Nucleated RBC Nucleated RBC % (auto) Neutrophils % (Manual) Band Neutrophils % Lymphocytes % (Manual) Monocytes % (Manual) Metamyelocytes % Myelocytes % Abs Neuts (Manual) Lymphocytes # (Manual) Monocytes # (Manual) Metamyelocytes # Myelocytes # Platelet Estimate Large Platelets Giant Platelets Plt Morphology Comment RBC Morphology Hypochromasia Microcytosis PT INR VBG pH 7.49 H VBG pCO2 38 VBG pO2 40 VBG HCO3 29 H VBG O2 Saturation 66.0 VBG Base Excess 5.9 Sodium Potassium Chloride Carbon Dioxide Anion Gap BUN Creatinine Estim Creat Clear Calc Estimated GFR POC Glucose Random Glucose Lactic Acid Lactic Acid F/U @ 2Hr Lactic Acid F/U @ 4Hr Calcium Phosphorus Magnesium Total Bilirubin AST ALT Alkaline Phosphatase Troponin I High Sens 30.8 H B-Natriuretic Peptide Total Protein Albumin Procalcitonin Urine Color Urine Appearance Urine pH Ur Specific White Urine Protein Urine Glucose (UA) Urine Ketones Urine Blood Urine Nitrite Ur Leukocyte Esterase Urine RBC Urine WBC Ur Squamous Epith Cells Amorphous Sediment Urine Bacteria COVID-19 (KIM) COVID-19 Clin Com Microbiology Microbiology Results: Microbiology 06/02/22 01:56 Sputum - Suctioned Gram Stain - Final Quality Stroke Does the patient have a stroke diagnosis?: No VTE Prior VTE?: No VTE Risk Level:: Medical - moderate - high VTE Device Contraindication: N/A - Device Ordered VTE Drug Contraindication: N/A - Med Ordered Critical Care Time Critical Care Time (minutes): 90
--- NOTE | 2022-06-02 10:28 | HE.PHANOTE ---
Pharmacy Note - Vancomycin/Antibiotic Follow-Up Discussed antibiotics during ICU Rounds. Provider will review CT scan in context with current antibiotic regimen and re-evaluate for choice of antibiotic regimen. Current regimen of pip/tazo 3.375 g IV q6h and vancomycin 1.25 g IV q24h with a random level currently scheduled for 06/03 @ 1900. Will continue to monitor. ~Ludivina Lema, CinthiaD, BCPS, BCCCP x [phone]
[2022-06-02] MEDS: propofoL 1,000 MG/100 ML VIAL 21.38 MG IVCONT ×3 (10:29→18:13)
[2022-06-02 10:42] LABS: Appearance Urine CLEAR; Color Urine YELLOW; Glucose Urine UA NEG (NEG); Leukocyte Esterase Urine NEG (NEG); Nitrite Urine NEG (NEG); Urine Blood NEG (NEG); Urine Ketones NEG (NEG); Urine Protein TRACE MG/DL (NEG-TRACE)
[2022-06-02 10:57] LABS: Squamous Epithelial Cell Urine 1+ /LPF
[2022-06-02 10:58] LABS: WBC Urine 0-2 /HPF (0-4)
[2022-06-02] MEDS: Albuterol/Iprat 2.5/0.5MG 3 ML AMPUL.NEB INHALE ×3 (11:41→19:36)
[2022-06-02] MEDS: Furosemide 20 MG/2 ML VIAL IVPUSH (12:50)
[2022-06-02] MEDS: Acetaminophen Oral Liquid 650 MG/20.3 ML SOLUTION G-TUBE (12:50)
[2022-06-02] MEDS: Valsartan 160 MG TABLET PO (13:11)
[2022-06-02] MEDS: carvediloL 6.25 MG TABLET PO ×2 (13:12→21:49)
[2022-06-02 13:23] LABS: Glucose, Whole Blood 148 mg/dL (60-115)
--- NOTE | 2022-06-02 15:39 | MHC.CM.PN ---
Pt intubated in ICU and not able to participate in CM assessment: Call placed to pt's HCP/Dtr Paige - no answer: message left requesting call back. Pt has a HCP on file and has a previous visit hx here. Will await callback to complete the assessment and formulate a d/c plan. Of note, ICU MD states pt has had >4 INPT admissions this year and he has concerns re: pt's recovery and disease progressions. CM to follow on 06/03
[2022-06-02] MEDS: Piperacillin Sodium/Tazobactam 4.5 GM in 0.9 % Sodium Chloride 100 ML IV ×2 (16:06→21:59)
[2022-06-02 18:08] LABS: Glucose, Whole Blood 191 mg/dL (60-115)
[2022-06-02] MEDS: Insulin Lispro 100 UNIT/ML 3 ML VIAL SUBCUT (18:14)
[2022-06-02 19:19] LABS: Glucose, Whole Blood 187 mg/dL (60-115)
[2022-06-02] MEDS: propofoL 1,000 MG/100 ML VIAL 24.43 MG IVCONT (22:16)
[2022-06-02 23:37] LABS: Glucose, Whole Blood 232 mg/dL (60-115)
[2022-06-03] VITALS (33 sets, daily range): BP systolic 126–170; BP diastolic 40–67; PULSE 68–109; RESP 10–24; TEMP 31.4–37.7; O2SAT 89–1000
[2022-06-03] MEDS: Insulin Lispro 100 UNIT/ML 3 ML VIAL SUBCUT ×5 (00:19→23:57)
[2022-06-03] MEDS: Albuterol/Iprat 2.5/0.5MG 3 ML AMPUL.NEB INHALE ×7 (00:30→23:16)
[2022-06-03] MEDS: propofoL 1,000 MG/100 ML VIAL 30.54 MG IVCONT ×3 (00:37→06:19)
[2022-06-03] MEDS: Heparin Sodium,Porcine 5,000 UNIT/ML VIAL 5000 UNIT SUBCUT ×3 (04:05→19:19)
[2022-06-03] MEDS: Piperacillin Sodium/Tazobactam 4.5 GM in 0.9 % Sodium Chloride 100 ML IV ×4 (04:06→22:02)
[2022-06-03 05:23] LABS: VBG Base Excess 11.1 mmol/L; VBG HCO3 35 mmol/L (22-26); VBG pCO2 44 mmHg; VBG pO2 40 mmHg
[2022-06-03 05:52] LABS: Hematocrit 26.3 % (37.0-47.0); Hemoglobin 7.4 g/dl (12.0-16.0); Mean Corpuscular HGB Conc 28.1 g/dl (31.0-35.0); Mean Corpuscular Volume 67.6 fL (80.0-98.0); Mean Platelet Volume 10.1 fL (9.4-12.3); Platelet Count 272 X10*3/uL (160-400); Red Blood Count 3.89 X10*6/uL (4.20-5.50); Red Cell Distribution Width 20.3 % (11.0-16.0); White Blood Count 14.7 X10*3/uL (4.8-10.8)
[2022-06-03 06:10] LABS: Creatinine Clr Calc Pharmacy 87.1; Estimated Glomerular Filt Rate > 60
[2022-06-03 06:15] LABS: Albumin Level 2.8 g/dL (3.5-5.0); Anion Gap 10 (12-20); Blood Urea Nitrogen 9 mg/dL (9-16); Calcium 7.7 mg/dL (8.4-10.2); Carbon Dioxide 30 mmol/L (22-29); Chloride 95 mmol/L (96-108); Creatinine Clr Calc Pharmacy 87.1; Estimated Glomerular Filt Rate > 60; Glucose Random 295 mg/dL (60-115); Magnesium 1.7 mg/dL (1.6-2.6); Phosphorus 2.8 mg/dL (2.7-4.5); Potassium 3.8 mmol/L (3.3-5.1); Sodium 131 mmol/L (135-145); Venous Blood Gas Refer to POC result
[2022-06-03 07:10] LABS: Glucose, Whole Blood 324 mg/dL (60-115)
[2022-06-03] MEDS: carvediloL 6.25 MG TABLET PO ×2 (08:40→20:03)
[2022-06-03] MEDS: Valsartan 160 MG TABLET PO (08:40)
[2022-06-03] MEDS: Chlorhexidine Gluc Oral Rinse 15 ML MOUTHWASH BUCCAL ×3 (08:40→20:03)
[2022-06-03] MEDS: fentaNYL citrate/PF 100 MCG/2 ML VIAL 50 MCG IVPUSH (09:21)
[2022-06-03] MEDS: propofoL 1,000 MG/100 ML VIAL 21.38 MG IVCONT (10:14)
--- NOTE | 2022-06-03 10:17 | MHC.CLN ---
F/U PT IS CURRENTLY INTUBATED AND SEDATED RECOMMEND DECREASING PROMOTE TO MAX GOAL RATE 35ML/HR AND D/C 240ML FREE WATER FLUSHES Q 8 HRS TO PROVIDE 840KCALS (1646KCALS TOTAL WITH SEDATION; 23KCALS/KG), 53G PROTEIN (.74G/KG), 705ML TOTAL WATER FROM FORMULA CONTINUE TO MONITOR TOLERANCE, RESIDUALS AND LYTES
[2022-06-03] MEDS: Nystatin Powder 15 GM BOTTLE 1 APPL TOPICAL ×3 (10:18→20:03)
[2022-06-03] MEDS: methylPREDNISolone Sod Succ 40 MG/ML VIAL IVPUSH ×3 (10:23→21:06)
[2022-06-03] MEDS: fentaNYL citrate/NS 1,000 MCG/100 ML PLAST..BAG 5 MCG IVCONT (10:25)
--- NOTE | 2022-06-03 10:39 | P.PNCC_ITS ---
Subjective Subjective Date of Service: 06/03/22 Interval History: Mrs. Ford was admitted to ICU last night June 01, after out of hospital cardiorespiratory arrest. The patient is well known to me from her prior admission to this ICU with acute respiratory failure on May 12.? She is a 76 yo female with PMhx of obesity, COPD on 2L home oxygen, CHF on Aldactone, Coreg and valsartan, HTN, DM on Lantus and metformin, anemia, GERD, SHARON, and restless leg syndrome. According to the patient?s daughter, for years she has needed help with ADLs, including dressing and bathing.? She does go to the bathroom by herself.? She walks with a walker and a cane.? She was living by herself in an apartment until this past November.? She went to visit her daughter Kassy ([phone]) for the holiday, and needed some much help that she never left, she just stayed with Paige in their house in [place].? The daughter, Kassy Gutierrez is the healthcare proxy.? Another daughter, Christi Holland, is the second closest but is not listed on the health care proxy. Records from [facility] indicate that she was hospitalized there for COVID infection 11/25-.? She was never intubated, but prior to that hospitalization, she had had DNR status which she reversed during that hospitalization.? She was then hospitalized 12/15- for pulmonary embolism, for which she was started on Eliquis.? From there she was discharged to rehab facility. ?She was readmitted [facility] from 02/13- for COPD exac requiring BiPAP, and 02/24-07/2022 for influenza A requiring BiPAP.? The records indicate that she was an active smoker. On May 11, the patient was intubated at home by paramedics bec of obtundation and hypoxemia.? There was no circulatory or respiratory arrest at that time.? She was BIBA and was awake in the ED.? She was admitted to the ICU.? Workup suggested CHF, and she was diuresed.? The patient was extubated to BiPAP shortly after arrival to the ICU.? She was discharged to the floor the next day. ECHOCARDIOGRAM on May 12 showed:? LV function was normal, no RWMAs noted.? EF 60%.? Moderate LVH with impaired relaxation filling pattern.? Normal RV size and contractility.? Mild .? RVSP normal.? IVC was dilated w minimal insp collapse. She was discharged home on May 16 and advised to have a sleep study. HISTORY OF PRESENT ILLNESS: Since being home, she?s been sleeping in a chair.? She can?t lie down in a bed, because she has too much shortness of breath.? She told her daughter that she breathes better with the CPAP mask, which allows her to lie in bed, but they have not been able to get one for her until she has a sleep study. On the morning of June 01, the patient was feeling a little tired.? In the early afternoon, she had increasing shortness of breath and the daughter went up on her oxygen from her usual 2L to 3 L, and then to 4 L.? She was getting even more short of breath so the daughter went to call the ambulance.? Shortly thereafter, the patient passed out.? The daughter's started CPR and EMS arrived very soon thereafter.? On arrival at the scene, the patient had agonal breathing, and did have a pulse.? Initial heart rate 30s, blood pressure 80s.? Atropine was given followed by cardiac arrest.? CPR was started, 1 mg epinephrine given, and the patient had ROSC after about 1-1/2 minutes.? At some point, a Suhas airway was inserted.? The patient was BIBA to the ED. The patient was immediately intubated on arrival to the ED.? She was normotensive and afebrile.? WBC was 15, Hb 8.5, chemistries OK, trop 9, BNP 139, lactate was 10.? EKG showed T-wave inversion in leads I and aVL, unchanged from previous tracing of May 12. The patient was given fluids and antibiotics.? Central line was placed.? The patient was moving around and therefore given propofol and Versed.? I advised restricting fluids, given her history of heart failure.? The patient was put on propofol for agitation.? She was admitted to the ICU. CTPA showed a small area of consolidation in the left lower lobe.? The main pulmonary artery looks normal sized.? Heart size looks normal; RV may be top- normal.? No pulmonary emboli.? The patient was started on broad-spectrum antibiotics with vanco and Zosyn for presumed LLL pneumonia.? She was volume resuscitated and her lactate cleared. Yesterday morning, with the propofol off, the patient was very agitated in bed, moving all 4 with strength, had some partial eye opening movement but was 100% non interactive.? We had to turn the propofol back on.? On a sedation holiday again this morning, the patient had the same response, with marked agitation and movement of all 4, but no eye opening.? PERRL, about 5 mm, but still 100% non interactive. ?We had to turn the propofol back on again because of chaotic breathing and desaturation.? HR 83, BP 147/54.? On AC 14/400/40/+5, RR 15, Ve 6L, PIP 24cm, ETCO2 48, Sat 93%.? CVBG this morning 7.50/44/+11.? Tmax 101.5? last nite; she was put on a cooling blanket.? No jugular venous distention at 30 degrees. ?She had some wheezing this morning and we put her on steroids; chest is now clear to auscultation, with normal expiratory phase.? Regular rate and rhythm, normal S1 and S2, I heard no murmur or gallops.? Abdomen is obese and benign.? She has about 1+ peripheral and central edema (which is less than she had at her last admission). LABORATORY DATA: As below.? Notably, WBC up to 14, Hb 7.4, BUN/creatinine 9/0.6 despite diuresis yesterday, albumin 2.8, POCs > 230 on the tube feeds. MICROBIOLOGY:? Blood cultures negative so far.? Sputum Gram stain showed 3+WBC with 2+ mixed phyllis. ECHOCARDIOGRAM yesterday by [facility]:? Technically difficult.? Showed perhaps mildly depressed LVEF, 45-50%, with impaired relaxation filling pattern.? New n otable valvular Doppler findings.? IVC was dilated with no inspiratory collapse. IMPRESSION: 1. Underlying COPD. 2. Underlying tobacco abuse.? One way or another, she will not be smoking anymore. 3. Underlying chronic hypoxemic and hypercapnic resp failure. 4. Underlying diastolic heart failure.? No evidence of acute heart failure this admission.? I note that her Med Rec doesn?t include the aldactone she was on at the last admission.? Nor is she on any diuretic. I?ll restart her ARB and Coreg. 5. H/o PE, for which she was previously on Eliquis at the last admission, but I do not see that on her Med Rec now.? Her daughter said she is no longer taking it, but I don?t know why. 6. Cardioresp arrest.? Unclear etiology.? By history, it sounds like it may have been COPD exacerbation.? No evidence of acute SC or PE.? No evidence of acute CHF.? No significant metabolic alkalosis to suggest CO2 narcosis.? Could also have been aspiration, for unclear reason.. 7. Coma.? Likely anoxic encephalopathy, but not severe, she looks like she is on the verge of waking up, although her MOLD CARRIER status is basically the same as yesterday.? Continue TTM (targeted temperature management). 8. Acute resp failure.? 2? above.? She does have edema, with normal renal indices.? IVC was dilated. ?I started her on bid Lasix.? I?m also giving her a day of steroids. 9. ID:? I don?t think she?s septic, and I?m not convinced she needs abx but she is febrile, w a mild leukocytosis.? If she has a real pneumonia, it?s small.? We?ll continue the Zosyn for 5 days.? No need for vanco (ie. I don?t think she has a Staph infection). 10. Lactic acidosis:? 2? cardiac arrest and hypoperfusion, not sepsis. 11. Metabolic alkalosis.? Likely secondary to diuresis.? Started Diamox. 12. HTN.? Continue her home meds. 13. DM.? On SS insulin.? She is now frankly hyperglycemic after starting the tube feeds.? I added Lantus 20 units daily. 14. SHARON.? Hold citalopram for now. 15. Anemia.? She has a h/o anemia which I believe is followed at [facility].? Takes iron at home. 16. Nutrition.? On promote. Spoke with the patient's daughter Kassy and her other daughter Christi Holland today at length.? Got some additional history, as noted above.? We talked about their mother's condition now, and a little bit about prognosis and what the future holds.? We?ll talk more about her neurological status after 72 hours.? We have a family conference scheduled for tomorrow at 16:00.? I also spoke at length with Ana Cristina Samuels, the leather case finisher, and Ana Cristina spoke with the family at some length.? We?ll all be meeting tomorrow. Critical Care Time (minutes): 90 Physical Exam Vital Signs: Vital Signs: Last Vital Signs Temp 98.3 F 06/03/22 08:00 Pulse 87 06/03/22 10:25 Resp 14 06/03/22 10:25 BP 130/45 L 06/03/22 10:25 Pulse Ox 100 06/03/22 10:25 O2 Del Method 06/03/22 10:00 O2 Flow Rate 35 06/02/22 21:00 FiO2 35 06/03/22 10:00 BMI result Body Mass Index 37.3 Objective Data Labs CBC & Chem 7: 06/04/22 04:57 06/04/22 04:57 Labs: Laboratory Results - last 24 hr 06/01/22 06/02/22 06/02/22 15:58 10:25 13:20 WBC RBC Hgb Hct MCV MCH MCHC RDW Plt Count MPV Absolute Nucleated RBC Nucleated RBC % (auto) VBG pH VBG pCO2 VBG pO2 VBG HCO3 VBG O2 Saturation VBG Base Excess Sodium Potassium Chloride Carbon Dioxide Anion Gap BUN Creatinine Estim Creat Clear Calc Estimated GFR POC Glucose 324 H 148 H Random Glucose Calcium Phosphorus Magnesium Albumin Urine Color YELLOW Urine Appearance CLEAR Urine pH 7.0 Ur Specific [place] 1.010 Urine Protein TRACE Urine Glucose (UA) NEG Urine Ketones NEG Urine Blood NEG Urine Nitrite NEG Ur Leukocyte Esterase NEG Urine RBC 1-4 Urine WBC 0-2 Ur Squamous Epith Cells 1+ Urine Bacteria NONE 06/02/22 06/02/22 06/02/22 18:03 19:15 23:34 WBC RBC Hgb Hct MCV MCH MCHC RDW Plt Count MPV Absolute Nucleated RBC Nucleated RBC % (auto) VBG pH VBG pCO2 VBG pO2 VBG HCO3 VBG O2 Saturation VBG Base Excess Sodium Potassium Chloride Carbon Dioxide Anion Gap BUN Creatinine Estim Creat Clear Calc Estimated GFR POC Glucose 191 H 187 H 232 H Random Glucose Calcium Phosphorus Magnesium Albumin Urine Color Urine Appearance Urine pH Ur Specific [place] Urine Protein Urine Glucose (UA) Urine Ketones Urine Blood Urine Nitrite Ur Leukocyte Esterase Urine RBC Urine WBC Ur Squamous Epith Cells Urine Bacteria 06/03/22 06/03/22 06/03/22 05:12 05:12 05:12 WBC 14.7 H RBC 3.89 L Hgb 7.4 L Hct 26.3 L MCV 67.6 L MCH 19.0 L MCHC 28.1 L RDW 20.3 H Plt Count 272 MPV 10.1 Absolute Nucleated RBC 0.000 Nucleated RBC % (auto) 0.0 VBG pH VBG pCO2 VBG pO2 VBG HCO3 VBG O2 Saturation VBG Base Excess Sodium 131 L Potassium 3.8 Chloride 95 L Carbon Dioxide 30 H Anion Gap 10 L BUN 9 Creatinine 0.67 0.67 Estim Creat Clear Calc 87.1 87.1 Estimated GFR > 60 > 60 POC Glucose Random Glucose 295 H Calcium 7.7 L Phosphorus 2.8 Magnesium 1.7 Albumin 2.8 L Urine Color Urine Appearance Urine pH Ur Specific [place] Urine Protein Urine Glucose (UA) Urine Ketones Urine Blood Urine Nitrite Ur Leukocyte Esterase Urine RBC Urine WBC Ur Squamous Epith Cells Urine Bacteria 06/03/22 05:19 WBC RBC Hgb Hct MCV MCH MCHC RDW Plt Count MPV Absolute Nucleated RBC Nucleated RBC % (auto) VBG pH 7.50 H VBG pCO2 44 VBG pO2 40 VBG HCO3 35 H VBG O2 Saturation 62.0 VBG Base Excess 11.1 Sodium Potassium Chloride Carbon Dioxide Anion Gap BUN Creatinine Estim Creat Clear Calc Estimated GFR POC Glucose Random Glucose Calcium Phosphorus Magnesium Albumin Urine Color Urine Appearance Urine pH Ur Specific [place] Urine Protein Urine Glucose (UA) Urine Ketones Urine Blood Urine Nitrite Ur Leukocyte Esterase Urine RBC Urine WBC Ur Squamous Epith Cells Urine Bacteria Microbiology Microbiology Results: Microbiology 06/02/22 01:56 Sputum - Suctioned Gram Stain - Final 06/02/22 01:56 Sputum - Suctioned Sputum Culture - Preliminary Culture in progress. 06/01/22 16:44 Blood - Venous Blood Culture - Preliminary No growth after 24 hours. 06/01/22 16:33 Blood - Venous Blood Culture - Preliminary No growth after 24 hours. Quality Stroke Does the patient have a stroke diagnosis?: No VTE Prior VTE?: No VTE Risk Level:: Medical - moderate - high VTE Device Contraindication: N/A - Device Ordered VTE Drug Contraindication: N/A - Med Ordered Critical Care Time Critical Care Time (minutes): 90
[2022-06-03 11:45] LABS: Glucose, Whole Blood 276 mg/dL (60-115)
--- NOTE | 2022-06-03 11:59 | P.CDIC_ITS ---
CDI Concurrent Query Documentation Clarification: PHYSICIAN'S DOCUMENTATION REQUEST Date of Query: 06/03/22 1200 Patient Name: Abby Ford Admit Date: 06/01/22 Dear Doctor, A review of the medical record indicates additional documentation may be needed. Please review below and update the documentation accordingly. Clinical Indicators: Risk Factors/Clinical Indicators/Treatments H&P: 06/01 - Plan - Uncontrolled Diabetes Type 2 poc glucose 324 H Insulin Please clarify the following regarding Diabetes Mellitus (DM): Specifics to Diabetes Type 2: * Hyperglycemia * Hypoglycemia * No complications of DM * Other complication ? please specify * Unable to determine Use of terms such as suspected, likely, concern for, or probable (associated with a specific diagnosis that is being evaluated, monitored, or treated as if it exists) are acceptable and can be coded in the inpatient setting, when documented at the time of discharge. Thank you, Argelia Ruiz [facility], CDIS Extension: [phone] Please use your independent medical judgment in providing your response. THIS QUERY IS PART OF THE PERMANENT MEDICAL RECORD Provider Response: Other Other Diagnosis: DM
[2022-06-03] MEDS: Furosemide 40 MG/4 ML SOLUTION OG-TUBE ×2 (12:26→20:03)
[2022-06-03] MEDS: propofoL 1,000 MG/100 ML VIAL 18.32 MG IVCONT ×3 (14:39→23:56)
--- NOTE | 2022-06-03 14:46 | MHC.CM.PN ---
Met with dtrs Christi and HCP Paige to discuss d/c planning needs. Pt intubated and unable to participate in care discussion. Pt had been at home with family support and [facility] skilled RN / ABSTRACT CHECKER services. Pt has been in [facility] and other hospitals since 10/2021 declining each visit. She uses a walker, cane and requires assistance with ADL's. Family would like [facility]. [facility]. [facility]. Referrals made. IMM in chart, Vax x 3: HCP in chart, PCP Misti Rossi NP (spelling could be off) CM to follow for medical improvement/STR transfer
[2022-06-03 17:58] LABS: Glucose, Whole Blood 345 mg/dL (60-115)
[2022-06-03] MEDS: Insulin Glargine,Hum.rec.anlog 100 UNIT/ML 10 ML VIAL 20 UNIT SUBCUT (20:03)
[2022-06-03] MEDS: acetaZOLAMIDE 250 MG TABLET 500 MG G-TUBE (20:03)
[2022-06-03 20:04] LABS: Glucose, Whole Blood 328 mg/dL (60-115)
[2022-06-03 23:56] LABS: Glucose, Whole Blood 339 mg/dL (60-115)
[2022-06-04] VITALS (38 sets, daily range): BP systolic 116–178; BP diastolic 44–97; PULSE 59–103; RESP 10–21; TEMP 34.2–37.9; O2SAT 92–963; BMI 38.7
[2022-06-04] MEDS: fentaNYL citrate/NS 1,000 MCG/100 ML PLAST..BAG 5 MCG IVCONT (01:33)
[2022-06-04] MEDS: Acetaminophen Oral Liquid 650 MG/20.3 ML SOLUTION G-TUBE ×2 (01:34→14:39)
[2022-06-04] MEDS: methylPREDNISolone Sod Succ 40 MG/ML VIAL IVPUSH ×2 (03:24→16:00)
[2022-06-04] MEDS: Heparin Sodium,Porcine 5,000 UNIT/ML VIAL 5000 UNIT SUBCUT ×3 (03:24→18:16)
[2022-06-04] MEDS: propofoL 1,000 MG/100 ML VIAL 18.32 MG IVCONT ×2 (03:29→08:32)
[2022-06-04] MEDS: Albuterol/Iprat 2.5/0.5MG 3 ML AMPUL.NEB INHALE ×5 (04:57→20:01)
[2022-06-04 05:07] LABS: VBG Base Excess 9.3 mmol/L; VBG HCO3 35 mmol/L (22-26); VBG pCO2 57 mmHg; VBG pH 7.39 (7.32-7.43); VBG pO2 52 mmHg
[2022-06-04 05:18] LABS: Glucose, Whole Blood 367 mg/dL (60-115)
[2022-06-04] MEDS: Insulin Lispro 100 UNIT/ML 3 ML VIAL SUBCUT ×3 (05:21→18:16)
[2022-06-04] MEDS: Piperacillin Sodium/Tazobactam 4.5 GM in 0.9 % Sodium Chloride 100 ML IV ×4 (05:21→22:24)
[2022-06-04 05:33] LABS: Hematocrit 24.5 % (37.0-47.0); Mean Corpuscular HGB Conc 27.3 g/dl (31.0-35.0); Mean Corpuscular Hemoglobin 18.9 pg (27.0-33.0); Mean Platelet Volume 9.4 fL (9.4-12.3); Platelet Count 213 X10*3/uL (160-400); Red Blood Count 3.55 X10*6/uL (4.20-5.50); Red Cell Distribution Width 20.1 % (11.0-16.0); White Blood Count 14.2 X10*3/uL (4.8-10.8)
[2022-06-04 05:38] LABS: Hemoglobin 6.7 g/dl (12.0-16.0)
[2022-06-04 05:52] LABS: Creatinine Clr Calc Pharmacy 80.4; Estimated Glomerular Filt Rate > 60
[2022-06-04 05:53] LABS: Venous Blood Gas Refer to POC result
[2022-06-04 05:55] LABS: Albumin Level 2.9 g/dL (3.5-5.0); Anion Gap 12 (12-20); Blood Urea Nitrogen 14 mg/dL (9-16); Calcium 7.6 mg/dL (8.4-10.2); Carbon Dioxide 28 mmol/L (22-29); Chloride 93 mmol/L (96-108); Creatinine Clr Calc Pharmacy 79.3; Estimated Glomerular Filt Rate > 60; Glucose Random 382 mg/dL (60-115); Phosphorus 3.7 mg/dL (2.7-4.5); Potassium 4.2 mmol/L (3.3-5.1); Sodium 129 mmol/L (135-145)
[2022-06-04] MEDS: Insulin Glargine,Hum.rec.anlog 100 UNIT/ML 10 ML VIAL 10 UNIT SUBCUT (06:08)
[2022-06-04] MEDS: carvediloL 6.25 MG TABLET PO ×2 (08:32→20:26)
[2022-06-04] MEDS: Valsartan 160 MG TABLET PO (08:32)
[2022-06-04] MEDS: Furosemide 40 MG/4 ML SOLUTION OG-TUBE (08:32)
[2022-06-04] MEDS: acetaZOLAMIDE 250 MG TABLET 500 MG G-TUBE ×2 (08:32→20:26)
[2022-06-04] MEDS: Chlorhexidine Gluc Oral Rinse 15 ML MOUTHWASH BUCCAL ×3 (08:32→20:26)
[2022-06-04] MEDS: Nystatin Powder 15 GM BOTTLE 1 APPL TOPICAL ×3 (08:34→20:26)
[2022-06-04] MEDS: dexmedeTOMIDidine HCL/NS 400 MCG/100 ML INFUS..BTL 6.59 MCG IVCONT (10:51)
[2022-06-04 12:12] LABS: Glucose, Whole Blood 364 mg/dL (60-115)
--- NOTE | 2022-06-04 15:32 | P.PNCC_ITS ---
Subjective Subjective Date of Service: 06/04/22 Interval History: Mrs. Ford was admitted to ICU June 01 after [id number] cardiorespiratory arrest. The patient is well known to me from her prior admission to this ICU with acute respiratory failure on May 12.? She is a 76 yo female with PMhx of obesity, COPD on 2L home oxygen, CHF on Aldactone, Coreg and valsartan, HTN, DM on Lantus and metformin, anemia, GERD, SHARON, and restless leg syndrome. According to the patient?s daughter, for years she has needed help with ADLs, including dressing and bathing.? She does go to the bathroom by herself.? She walks with a walker and a cane.? She was living by herself in an apartment until this past November.? She went to visit her daughter Kassy ([phone]) for the holiday, and needed some much help that she never left, she just stayed with Paige in their house in [place].? The daughter, Kassy Gutierrez is the healthcare proxy.? Another daughter, Christi Holland, is the second closest but is not listed on the health care proxy. Records from [facility] indicate that she was hospitalized there for COVID infection 11/25-.? She was never intubated, but prior to that hospitalization, she had had DNR status which she reversed during that hospitalization.? She was then hospitalized 12/15- for pulmonary embolism, for which she was started on Eliquis.? From there she was discharged to rehab facility.? She was readmitted [facility] from 02/13- for COPD exac requiring BiPAP, and 02/24-07/2022 for influenza A requiring BiPAP.? The records indicate that she was an active smoker. On May 11, the patient was intubated at home by paramedics bec of obtundation and hypoxemia.? There was no circulatory or respiratory arrest at that time.? She was BIBA and was awake in the ED.? She was admitted to the ICU.? Workup suggested CHF, and she was diuresed.? The patient was extubated to BiPAP shortly after arrival to the ICU.? She was discharged to the floor the next day. ECHOCARDIOGRAM on May 12 showed:? LV function was normal, no RWMAs noted.? EF 60%.? Moderate LVH with impaired relaxation filling pattern.? Normal RV size and contractility.? Mild .? RVSP normal.? IVC was dilated w minimal insp collapse. She was discharged home on May 16 and advised to have a sleep study. HISTORY OF PRESENT ILLNESS: Since being home, she?s been sleeping in a chair.? She can?t lie down in a bed, because she has too much shortness of breath.? She told her daughter that she breathes better with the CPAP mask, which allows her to lie in bed, but they have not been able to get one for her until she has a sleep study. On the morning of June 01, the patient was feeling a little tired.? In the early afternoon, she had increasing shortness of breath and the daughter went up on her oxygen from her usual 2L to 3 L, and then to 4 L.? She was getting even more short of breath so the daughter went to call the ambulance.? Shortly thereafter, the patient passed out.? The daughter's started CPR and EMS arrived very soon thereafter.? On arrival at the scene, the patient had agonal breathing, and did have a pulse.? Initial heart rate 30s, blood pressure 80s.? Atropine was given followed by cardiac arrest.? CPR was started, 1 mg epinephrine given, and the patient had ROSC after about 1-1/2 minutes.? At some point, a Suhas airway was inserted.? The patient was BIBA to the ED. The patient was immediately intubated on arrival to the ED.? She was normotensive and afebrile.? WBC was 15, Hb 8.5, chemistries OK, trop 9, BNP 139, lactate was 10.? EKG showed T-wave inversion in leads I and aVL, unchanged from previous tracing of May 12. The patient was given fluids and antibiotics.? Central line was placed.? The pat ient was moving around and therefore given propofol and Versed.? I advised restricting fluids, given her history of heart failure.? The patient was put on propofol for agitation.? She was admitted to the ICU. CTPA showed a small area of consolidation in the left lower lobe.? The main pulmonary artery looks normal sized.? Heart size looks normal.? No pulmonary emboli.? The patient was started on broad-spectrum antibiotics for presumed LLL pneumonia.? She was volume resuscitated and her lactate cleared. Upon sedation holidays with the propofol off each of the last 2 days, the patient was very agitated in bed, moving all 4 with strength, had some partial eye opening movement but was 100% non interactive.? We had to turn the propofol back on because of chaotic respiratory pattern.? On a sedation holiday again this morning, the patient had the same response, with marked agitation and movement of all 4, but an occasional partial eye opening to vigorous stimulation.? PERRL, about 5 mm.? Instead of turned propofol back on, we started her on Precedex.? She?s reasonably comfortable on that, and breathes best on pressure support ventilation.? After about 4 hours on low-dose Precedex, she?s still 100% non interactive.? HR 70, BP 164/76.? On PSV 12/35/+5, RR is 17, Vt 470cc, Ve 7.4L, PIP 18cm, ETCO2 47, Sat 96%.? CVBG this morning on AC mode w r ate of 10, with propofol and fentanyl infusions, showed 7.39/57/+9 (on Diamox).? Tmax 100.2 overnite.? No jugular venous distention at 30 degrees. ?Chest is CTA, with normal expiratory phase.? Regular rate and rhythm, normal S1 and S2, I heard no murmur or gallops.? Abdomen is obese and benign.? She has about 1+ peripheral and central edema (which is less than she had at her last admission). I&O.? Net positive 5L.? On Lasix 40 mg po bid. LABORATORY DATA: As below.? Notably, WBC steady, Hb down to 6.7, waiting for a stool guiac.? Sodium down to 129, BUN/creatinine 14/0.7, albumin 2.9, POCs > 300 on the tube feeds. MICROBIOLOGY:? Blood cultures negative so far.? Sputum Gram stain showed 3+WBC with 2+ mixed phyllis. ECHOCARDIOGRAM yesterday by the techs:? Technically difficult.? Showed perhaps mildly depressed LVEF, 45-50%, with impaired relaxation filling pattern.? New notable valvular Doppler findings.? IVC was dilated with no inspiratory collapse. IMPRESSION: 1. Underlying severe COPD, was on home oxygen. 2. Marked underlying debilitation and frailty. 3. Underlying tobacco abuse. ?She won?t be smoking anymore. 4. Underlying chronic hypoxemic and hypercapnic resp failure. 5. Underlying diastolic heart failure.? No evidence of acute heart failure this admission.? I note that her Med Rec doesn?t include the aldactone she was on at the last admission.? Nor is she on any diuretic. I restarted her ARB and Coreg. 5. H/o PE, for which she was previously on Eliquis at the last admission, but I do not see that on her Med Rec now.? Her daughter said she is no longer taking it, but I don?t know why. 6. Cardioresp arrest.? Unclear etiology.? By history, it sounds like her breathing just got worse over the day.? Could have been COPD exacerbation or CHF, but no gross evidence of either.? No evidence of acute VT or PE.? No significant metabolic alkalosis to suggest CO2 narcosis.? Could also have been aspiration, for unclear reason. 7. Coma.? Likely anoxic encephalopathy, but not severe, she looks like she is on the verge of waking up, although her [employer] status is basically the same as last two days -- ie no improvement since the arrest. 8. Acute resp failure.? 2? above.? She does have systemic edema, with normal renal indices, and now she?s positive 5L.? IVC was dilated.? Upped her Lasix to 40 mg bid. 9. ID:? I don?t think she?s septic, and I?m not convinced she needs abx but she had low grade fever, w mild leukocytosis.? If she has a real pneumonia, it?s small.? Plan 5 days of Zosyn.? No need for vanco (ie. I don?t think she has a Staph infection). 10. Lactic acidosis:? 2? cardiac arrest and hypoperfusion, not sepsis. 11. Metabolic alkalosis.? Secondary to diuresis.? Started Diamox. 12. HTN.? Continue her home meds.? Can still add her diltiazem if necessary. 13. DM.? On SS insulin.? She is now frankly hyperglycemic after starting the tube feeds.? I added Lantus, and upped the dose to 35 units qhs. 14. SHARON.? Hold citalopram for now. 15. Anemia.? She has a h/o anemia which I believe is followed at [facility].? Takes iron at home.? We?ll transfuse as necessary. 16. Nutrition.? On promote. Spoke with the patient's daughter Kassy and her other daughter Christi Holland yesterday at length.? Got some additional history, as noted above.? We talked about their mother's condition now, and a little bit about prognosis and what the future holds.? We?ll talk more about her neurological status later today.? Have a family conference scheduled for 16:00. ADDENDUM:? I met with the patient's two daughters and their husbands at the bedside.? We discussed the patient's condition, her prognosis, and options for continuing care.? The patient's daughter Kassy asked me about a transfer to [facility], because that?s where all the patient's physicians are.? I told her that we would be happy to do that, but she would have to find an accepting physician there for me to refer the patient to when I call the transfer line.? I also told her that it was my understanding that she would have to pay for the ambulance ride.? They will look into that. For now, the plan is to continue what we?ve been doing.? We?ll assess her with the daily wake-up.? Given that today is , we?ll re-evaluate the situation on Wednesday. Critical care time:? 110+ min Critical Care Time (minutes): 110 Physical Exam Vital Signs: Vital Signs: Last Vital Signs Temp 98.6 F 06/04/22 15:00 Pulse 71 06/04/22 15:17 Resp 14 06/04/22 15:17 BP 164/75 H 06/04/22 15:00 Pulse Ox 96 06/04/22 15:00 O2 Del Method 06/04/22 15:00 O2 Flow Rate 35 06/02/22 21:00 FiO2 35 06/04/22 15:19 BMI result Body Mass Index 38.7 Objective Data Labs CBC & Chem 7: 06/05/22 05:25 06/05/22 05:25 Labs: Laboratory Results - last 24 hr 06/03/22 06/03/22 06/03/22 17:55 20:02 23:52 WBC RBC Hgb Hct MCV MCH MCHC RDW Plt Count MPV Absolute Nucleated RBC Nucleated RBC % (auto) VBG pH VBG pCO2 VBG pO2 VBG HCO3 VBG O2 Saturation VBG Base Excess Sodium Potassium Chloride Carbon Dioxide Anion Gap BUN Creatinine Estim Creat Clear Calc Estimated GFR POC Glucose 345 H 328 H 339 H Random Glucose Calcium Phosphorus Magnesium Albumin Blood Type Antibody Screen Crossmatch 06/04/22 06/04/22 06/04/22 04:57 04:57 04:57 WBC 14.2 H RBC 3.55 L Hgb 6.7 L* Hct 24.5 L MCV 69.0 L MCH 18.9 L MCHC 27.3 L RDW 20.1 H Plt Count 213 MPV 9.4 Absolute Nucleated RBC 0.000 Nucleated RBC % (auto) 0.0 VBG pH VBG pCO2 VBG pO2 VBG HCO3 VBG O2 Saturation VBG Base Excess Sodium 129 L Potassium 4.2 Chloride 93 L Carbon Dioxide 28 Anion Gap 12 BUN 14 D Creatinine 0.74 0.75 Estim Creat Clear Calc 80.4 79.3 Estimated GFR > 60 > 60 POC Glucose Random Glucose 382 H* Calcium 7.6 L Phosphorus 3.7 Magnesium 2.0 Albumin 2.9 L Blood Type Antibody Screen Crossmatch 06/04/22 06/04/22 06/04/22 05:01 05:15 05:55 WBC RBC Hgb Hct MCV MCH MCHC RDW Plt Count MPV Absolute Nucleated RBC Nucleated RBC % (auto) VBG pH 7.39 VBG pCO2 57 VBG pO2 52 VBG HCO3 35 H VBG O2 Saturation 81.0 VBG Base Excess 9.3 Sodium Potassium Chloride Carbon Dioxide Anion Gap BUN Creatinine Estim Creat Clear Calc Estimated GFR POC Glucose 367 H* Random Glucose Calcium Phosphorus Magnesium Albumin Blood Type B Positive Antibody Screen NEGATIVE Crossmatch See Detail 06/04/22 12:05 WBC RBC Hgb Hct MCV MCH MCHC RDW Plt Count MPV Absolute Nucleated RBC Nucleated RBC % (auto) VBG pH VBG pCO2 VBG pO2 VBG HCO3 VBG O2 Saturation VBG Base Excess Sodium Potassium Chloride Carbon Dioxide Anion Gap BUN Creatinine Estim Creat Clear Calc Estimated GFR POC Glucose 364 H* Random Glucose Calcium Phosphorus Magnesium Albumin Blood Type Antibody Screen Crossmatch Microbiology Microbiology Results: Microbiology 06/02/22 01:56 Sputum - Suctioned Gram Stain - Final 06/02/22 01:56 Sputum - Suctioned Sputum Culture - Final 06/01/22 16:44 Blood - Venous Blood Culture - Preliminary No growth after 48 hours. 06/01/22 16:33 Blood - Venous Blood Culture - Preliminary No growth after 48 hours. Quality Stroke Does the patient have a stroke diagnosis?: No VTE Prior VTE?: No VTE Risk Level:: Medical - moderate - high VTE Device Contraindication: N/A - Device Ordered VTE Drug Contraindication: N/A - Med Ordered Critical Care Time Critical Care Time (minutes): 120
[2022-06-04 17:59] LABS: Glucose, Whole Blood 323 mg/dL (60-115)
--- NOTE | 2022-06-04 18:07 | PC.NURSE ---
Six rings removed from patient's fingers. Rings placed in denture container labeled with patient sticker and placed in top drawer.
[2022-06-04] MEDS: dexmedeTOMIDidine HCL/NS 400 MCG/100 ML INFUS..BTL 5.28 MCG IVCONT ×2 (18:22→19:50)
[2022-06-04] MEDS: Furosemide 40 MG/4 ML VIAL IVPUSH (20:25)
[2022-06-04] MEDS: Insulin Glargine,Hum.rec.anlog 100 UNIT/ML 10 ML VIAL 35 UNIT SUBCUT (21:18)
[2022-06-04 23:55] LABS: Glucose, Whole Blood 400 mg/dL (60-115)
[2022-06-04 23:55] LABS: Glucose, Whole Blood 396 mg/dL (60-115)
[2022-06-05] VITALS (38 sets, daily range): BP systolic 143–215; BP diastolic 42–90; PULSE 70–103; RESP 14–34; TEMP 34.9–39; O2SAT 89–99; BMI 38.7
[2022-06-05] MEDS: methylPREDNISolone Sod Succ 40 MG/ML VIAL IVPUSH ×2 (00:08→08:45)
[2022-06-05] MEDS: Insulin Lispro 100 UNIT/ML 3 ML VIAL SUBCUT ×3 (00:08→12:48)
[2022-06-05] MEDS: Insulin Glargine,Hum.rec.anlog 100 UNIT/ML 10 ML VIAL 10 UNIT SUBCUT (00:23)
[2022-06-05] MEDS: Albuterol/Iprat 2.5/0.5MG 3 ML AMPUL.NEB INHALE ×6 (00:30→20:10)
[2022-06-05] MEDS: fentaNYL citrate/PF 100 MCG/2 ML VIAL IVPUSH ×4 (03:36→21:09)
[2022-06-05] MEDS: dexmedeTOMIDidine HCL/NS 400 MCG/100 ML INFUS..BTL 26.38 MCG IVCONT (04:09)
[2022-06-05] MEDS: Rocuronium Bromide 50 MG/5 ML VIAL IVPUSH (04:25)
[2022-06-05 05:37] LABS: VBG Base Excess 5.3 mmol/L; VBG HCO3 29 mmol/L (22-26); VBG pCO2 39 mmHg; VBG pH 7.47 (7.32-7.43); VBG pO2 53 mmHg
[2022-06-05 05:50] LABS: MANUAL DIFF FLAG NO
[2022-06-05 05:54] LABS: Basophils Percent Auto 0.2 % (0-2); Eosinophils Percent Auto 0.1 % (0-4); Hematocrit 28.1 % (37.0-47.0); Imm Gran Pct Auto 1.8 % (0.0-0.4); Lymphocytes Absolute Auto 0.9 X10*3/uL (1.2-4.9); Lymphocytes Percent Auto 5.1 % (20-40); Mean Corpuscular HGB Conc 28.5 g/dl (31.0-35.0); Mean Corpuscular Hemoglobin 19.8 pg (27.0-33.0); Mean Corpuscular Volume 69.4 fL (80.0-98.0); Mean Platelet Volume 9.3 fL (9.4-12.3); Monocytes Absolute Auto 0.7 X10*3/uL (0.1-1.2); Monocytes Percent Auto 4.1 % (2-11); NRBC Pct Auto 0.2 /100WBC (0.0-0.2); Neutrophils Absolute Auto 14.9 x10*3/uL (2.0-8.3); Neutrophils Percent Auto 88.7 % (45-73); Platelet Count 232 X10*3/uL (160-400); Red Blood Count 4.05 X10*6/uL (4.20-5.50); White Blood Count 16.8 X10*3/uL (4.8-10.8)
[2022-06-05] MEDS: Piperacillin Sodium/Tazobactam 4.5 GM in 0.9 % Sodium Chloride 100 ML IV ×4 (06:09→23:28)
[2022-06-05 06:14] LABS: Glucose, Whole Blood 308 mg/dL (60-115)
[2022-06-05 06:19] LABS: Creatinine Clr Calc Pharmacy 76.2; Estimated Glomerular Filt Rate > 60
[2022-06-05 06:28] LABS: Alanine Aminotransferase 19 U/L (0-31); Albumin Level 3.1 g/dL (3.5-5.0); Alkaline Phosphatase 88 U/L (39-117); Anion Gap 14 (12-20); Aspartate Amino Transferase 10 U/L (5-31); Bilirubin Total 0.6 mg/dL (0.0-1.0); Blood Urea Nitrogen 24 mg/dL (9-16); Carbon Dioxide 27 mmol/L (22-29); Chloride 94 mmol/L (96-108); Creatinine Clr Calc Pharmacy 73.4; Estimated Glomerular Filt Rate > 60; Glucose Random 387 mg/dL (60-115); Potassium 3.7 mmol/L (3.3-5.1); Sodium 131 mmol/L (135-145); Total Protein 6.4 g/dL (6.5-8.0)
[2022-06-05] MEDS: dexmedeTOMIDidine HCL/NS 400 MCG/100 ML INFUS..BTL 39.56 MCG IVCONT ×2 (07:30→10:16)
[2022-06-05 08:40] LABS: Venous Blood Gas Refer to POC result
[2022-06-05] MEDS: Furosemide 40 MG/4 ML VIAL IVPUSH (08:45)
[2022-06-05] MEDS: Ferrous Sulfate 324 MG TABLET.DR PO (08:46)
[2022-06-05] MEDS: Valsartan 160 MG TABLET PO (08:46)
[2022-06-05] MEDS: Chlorhexidine Gluc Oral Rinse 15 ML MOUTHWASH BUCCAL ×3 (08:46→21:10)
[2022-06-05] MEDS: acetaZOLAMIDE 250 MG TABLET 500 MG G-TUBE ×2 (08:46→21:10)
[2022-06-05] MEDS: carvediloL 6.25 MG TABLET PO ×2 (08:46→21:10)
[2022-06-05] MEDS: Nystatin Powder 15 GM BOTTLE 1 APPL TOPICAL ×3 (08:50→21:10)
[2022-06-05] MEDS: Acetaminophen Oral Liquid 650 MG/20.3 ML SOLUTION G-TUBE ×2 (09:11→15:13)
--- NOTE | 2022-06-05 09:48 | MHC.CLN ---
F/U PT REMAINS INTUBATED AND SEDATED PT RECEIVING PROMOTE AT MAX GOAL RATE 50ML/HR PROVIDES 1200KCALS (1683KCALS TOTAL WITH SEDATION; 23KCALS/KG), 75G PROTEIN (1.0G/KG), 1007ML TOTAL WATER FROM FORMULA DISCUSSED AT ROUNDS; NSG NOTED HIGH RESIDUALS-MD TO START REGLAN. TF ON HOLD FOR 2 HOURS PER ORDERS CONTINUE TO MONITOR TOLERANCE, RESIDUALS AND LYTES
[2022-06-05 10:02] LABS: Appearance Urine CLEAR; Glucose Urine UA NEG (NEG); Leukocyte Esterase Urine NEG (NEG); Nitrite Urine NEG (NEG); Specific Gravity - Urine 1.015 (1.005-1.025); Urine Blood 3+ (NEG); Urine Ketones NEG (NEG); Urine Protein NEG (NEG-TRACE)
[2022-06-05 10:03] LABS: Color Urine COLORLESS
[2022-06-05 10:08] LABS: WBC Urine 0 /HPF (0-4)
[2022-06-05] MEDS: Metoclopramide HCl 10 MG/2 ML VIAL IVPUSH ×3 (10:17→21:09)
--- NOTE | 2022-06-05 10:34 | PM.CCPN ---
Subjective Subjective Date of Service: 06/05/22 Interval History: Mrs. Ford was admitted to ICU June 01 after [id number] cardiorespiratory arrest. The patient is well known to me from her prior admission to this ICU with acute respiratory failure on May 12.? She is a 76 yo female with PMhx of obesity, COPD on 2L home oxygen, CHF on Aldactone, Coreg and valsartan, HTN, DM on Lantus and metformin, anemia, GERD, SHARON, and restless leg syndrome. According to the patient?s daughter, for years she has needed help with ADLs, including dressing and bathing.? She does go to the bathroom by herself.? She walks with a walker and a cane.? She was living by herself in an apartment until this past November.? She went to visit her daughter Kassy ([phone]) for the holiday, and needed some much help that she never left, she just stayed with Paige in their house in [place].? The daughter, Kassy Gutierrez is the healthcare proxy.? Another daughter, Christi Holland, is the second closest but is not listed on the health care proxy. [place] [facility] [place] for COVID infection 11/25-.? She was never intubated, but prior to that hospitalization, she had had DNR status which she reversed during that hospitalization.? She was then hospitalized 12/15- for pulmonary embolism, for which she was started on Eliquis.? From there she was discharged to rehab facility.? She was read[place] [facility] [place] 02[place]- for COPD exac requiring BiPAP, and 02/24-07/2022 for influenza A requiring BiPAP.? The records indicate that she was an active smoker. On May 11, the patient was intubated at home by paramedics bec of obtundation and hypoxemia.? There was no circulatory or respiratory arrest at that time.? She was BIBA and was awake in the ED.? She was admitted to the ICU.? Workup suggested CHF, and she was diuresed.? The patient was extubated to BiPAP shortly after arrival to the ICU.? She was discharged to the floor the next day. ECHOCARDIOGRAM on May 12 showed:? LV function was normal, no RWMAs noted.? EF 60%.? Moderate LVH with impaired relaxation filling pattern.? Normal RV size and contractility.? Mild .? RVSP normal.? IVC was dilated w minimal insp collapse. She was discharged home on May 16 and advised to have a sleep study. HISTORY OF PRESENT ILLNESS: Since being home, she?s been sleeping in a chair.? She can?t lie down in a bed, because she has too much shortness of breath.? She told her daughter that she breathes better with the CPAP mask, which allows her to lie in bed, but they have not been able to get one for her until she has a sleep study. On the morning of June 01, the patient was feeling a little tired.? In the early afternoon, she had increasing shortness of breath and the daughter went up on her oxygen from her usual 2L to 3 L, and then to 4 L.? She was getting even more short of breath so the daughter went to call the ambulance.? Shortly thereafter, the patient passed out.? The daughter's started CPR and EMS arrived very soon thereafter.? On arrival at the scene, the patient had agonal breathing, and did have a pulse.? Initial heart rate 30s, blood pressure 80s.? Atropine was given followed by cardiac arrest.? CPR was started, 1 mg epinephrine given, and the patient had ROSC after about 1-1/2 minutes.? At some point, a Suhas airway was inserted.? The patient was BIBA to the ED. The patient was immediately intubated on arrival to the ED.? She was normotensive and afebrile.? WBC was 15, Hb 8.5, chemistries OK, trop 9, BNP 139, lactate was 10.? EKG showed T-wave inversion in leads I and aVL, unchanged from previous tracing of May 12. The patient was given fluids and antibiotics.? Central line was placed.? The patient was moving around and therefore given propofol and Versed.? I advised restricting fluids, given her history of heart failure.? The patient was put on propofol for agitation.? She was admitted to the ICU. CTPA showed a small area of consolidation in the left lower lobe.? The main pulmonary artery looks normal sized.? Heart size looks normal.? No pulmonary emboli.? The patient was started on broad-spectrum antibiotics for presumed LLL pneumonia.? She was volume resuscitated and her lactate cleared. Upon sedation holidays with the propofol off, the patient was very agitated in bed, moving all 4 with strength, had some partial eye opening movement but was 100% non interactive.? We had to turn the propofol back on because of chaotic respiratory pattern.? On June 03, we switched her to Precedex.? On sedation holiday, it takes longer for her to start moving around, and she doesn?t move around that much, but still no eye opening, 100% noninteractive.? PERRL, about 5 mm.? Off the Precedex, HR 73, BP 163/52.? On PSV 15/30/+5, RR is 25, Vt 420cc, Ve 10L, PIP 20cm, ETCO2 32, Sat 93%.? CVBG this morning 7.47/39/+5 (on Diamox).? Tmax 101.7 this morning.? No jugular venous distention at 30 degrees. ?Chest is CTA, with normal expiratory phase.? Regular rate and rhythm, normal S1 and S2, I heard no murmur or gallops.? Abdomen is obese and benign.? She has about 1+ central edema; all her pretibial edema is resolved (which is much less than she had at her last admission). I&O.? Net positive 1.8L.? On Lasix 40 mg IV bid. LABORATORY DATA: As below.? Notably, WBC up slightly to 16, Hb up to 8.0 w diuresis, waiting for a stool guiac.? Sodium up to 131 w diuresis, BUN/creatinine up to 24/0.8 (from 14/0.7), albumin 3.1, POCs > 300 on the tube feeds. MICROBIOLOGY:? Last blood and sputum cultures and u/a were negative. ECHOCARDIOGRAM 06/[facility]:? Technically difficult.? Showed perhaps mildly depressed LVEF, 45-50%, with impaired relaxation filling pattern.? New notable valvular Doppler findings.? IVC was dilated with no inspiratory collapse. IMPRESSION: 1. Underlying severe COPD, was on home oxygen. 2. Marked underlying debilitation and frailty. 3. Underlying tobacco abuse.? She won?t be smoking anymore. 4. Underlying chronic hypoxemic and hypercapnic resp failure. 5. Underlying diastolic heart failure.? No evidence of acute heart failure this admission.? I note that her Med Rec doesn?t include the aldactone she was on at the last admission.? Nor was she on any diuretic. I restarted her ARB and Coreg. 6. H/o PE, for which she was previously on Eliquis at the last admission, but I do not see that on her Med Rec now.? Her daughter said she is no longer taking it, but I don?t know why. 7. Cardiorespiratory arrest.? Unclear etiology.? By history, it sounds like her breathing just got worse over the day.? Could have been COPD exacerbation or CHF, but no gross evidence of either.? No evidence of acute KS or PE.? No significant metabolic alkalosis to suggest CO2 narcosis.? Could also have been aspiration, for unclear reason. 8. Coma.? 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 9. Acute resp failure.? 2? above.? No evidence that she needs specific treatment for COPD exacerbation (ie. steroids or abx).? As far as heart failure goes, we?ve been diuresing her, now she?s reached the limit, with her renal ratio rising.? I?ll cut the Lasix back to 40 mg po daily. 10. ID:? New temperature today.? No worsening in her oxygenation (in fact it?s better).? We?ve sent cultures.? Lactic acid is 2.0? Not hypotensive (just the opposite) or tachycardic or tachypneic.? So I don?t think she?s septic, and I?m not convinced she needs abx, but she had low grade fever post arrest, w mild leukocytosis, so she?s on a 5 day course of Zosyn, which will finish 06/07.? Have not added vancomycin. 11. Lactic acidosis:? 2? cardiac arrest and hypoperfusion, not sepsis. 12. Metabolic alkalosis.? Secondary to diuresis.? Starteded Diamox. 13. Hyponatremia.? Diuresis should take care of it. 14. HTN.? Continuing her home meds.? Added her diltiazem and clonidine this morning. 15. DM.? On SS insulin.? She is now frankly hyperglycemic after starting the tube feeds.? I?m upping the Lantus dose and changing it to bid. 16. SHARON.? Hold citalopram for now. 17. Anemia.? She has a h/o anemia which I believe is followed at [facility].? Takes iron at home.? We?ll transfuse as necessary.? And we?re giving her iron. 18. Laxation.? No stool yet.? Started lactulose. 19. Nutrition.? On promote. I met with the patient's two daughters and their husbands at the bedside yesterday.? We discussed the patient's condition, her prognosis, and options for continuing care.? The patient's daughter Kassy asked me about a transfer to [facility], because that?s where all the patient's physicians are.? I told her that we would be happy to do that, but she would have to find an accepting physician there for me to refer the patient to when I call the transfer line.? I also told her that it was my understanding that she would have to pay for the ambulance ride.? They will look into that. For now, the plan is to continue what we?ve been doing.? We?ll minimize sedation (just enough to allow adequate ventilation and oxygenation) and assess her with a daily wake-up.? Given that today is Wednesday, we?ll re-evaluate the situation on Wednesday. Critical Care Time (minutes): 70 Physical Exam Vital Signs: Vital Signs: Last Vital Signs Temp 101.7 F H 06/05/22 10:00 Pulse 70 06/05/22 10:00 Resp 22 H 06/05/22 10:00 BP 190/71 H 06/05/22 10:00 Pulse Ox 96 06/05/22 10:00 O2 Del Method 06/05/22 10:00 O2 Flow Rate 35 06/02/22 21:00 FiO2 40 06/05/22 10:00 BMI result Body Mass Index 38.7 Objective Data Labs CBC & Chem 7: 06/05/22 05:25 06/05/22 05:25 Labs: Laboratory Results - last 24 hr 06/04/22 06/04/22 06/04/22 12:05 17:56 23:48 WBC RBC Hgb Hct MCV MCH MCHC RDW Plt Count MPV Immature Gran % (Auto) Neut % (Auto) Lymph % (Auto) [place] % (Auto) Eos % (Auto) Baso % (Auto) Lymph # (Auto) [place] # (Auto) Eos # (Auto) Baso # (Auto) Abs Immat Gran (auto) Absolute Neuts (auto) Absolute Nucleated RBC Nucleated RBC % (auto) VBG pH VBG pCO2 VBG pO2 VBG HCO3 VBG O2 Saturation VBG Base Excess Sodium Potassium Chloride Carbon Dioxide Anion Gap BUN Creatinine Estim Creat Clear Calc Estimated GFR POC Glucose 364 H* 323 H 400 H* Random Glucose Calcium Total Bilirubin AST ALT Alkaline Phosphatase Total Protein Albumin Urine Color Urine Appearance Urine pH Ur Specific [place] Urine Protein Urine Glucose (UA) Urine Ketones Urine Blood Urine Nitrite Ur Leukocyte Esterase Urine RBC Urine WBC Ur Squamous Epith Cells Urine Bacteria 06/04/22 06/05/22 06/05/22 23:51 05:25 05:25 WBC 16.8 H RBC 4.05 L Hgb 8.0 L Hct 28.1 L MCV 69.4 L MCH 19.8 L MCHC 28.5 L RDW 21.0 H Plt Count 232 MPV 9.3 L Immature Gran % (Auto) 1.8 H Neut % (Auto) 88.7 H Lymph % (Auto) 5.1 L [place] % (Auto) 4.1 Eos % (Auto) 0.1 Baso % (Auto) 0.2 Lymph # (Auto) 0.9 L [place] # (Auto) 0.7 Eos # (Auto) 0.0 Baso # (Auto) 0.0 Abs Immat Gran (auto) 0.30 H Absolute Neuts (auto) 14.9 H Absolute Nucleated RBC 0.040 H Nucleated RBC % (auto) 0.2 VBG pH VBG pCO2 VBG pO2 VBG HCO3 VBG O2 Saturation VBG Base Excess Sodium Potassium Chloride Carbon Dioxide Anion Gap BUN Creatinine 0.78 Estim Creat Clear Calc 76.2 Estimated GFR > 60 POC Glucose 396 H* Random Glucose Calcium Total Bilirubin AST ALT Alkaline Phosphatase Total Protein Albumin Urine Color Urine Appearance Urine pH Ur Specific [place] Urine Protein Urine Glucose (UA) Urine Ketones Urine Blood Urine Nitrite Ur Leukocyte Esterase Urine RBC Urine WBC Ur Squamous Epith Cells Urine Bacteria 06/05/22 06/05/22 06/05/22 05:25 05:31 06:10 WBC RBC Hgb Hct MCV MCH MCHC RDW Plt Count MPV Immature Gran % (Auto) Neut % (Auto) Lymph % (Auto) [place] % (Auto) Eos % (Auto) Baso % (Auto) Lymph # (Auto) [place] # (Auto) Eos # (Auto) Baso # (Auto) Abs Immat Gran (auto) Absolute Neuts (auto) Absolute Nucleated RBC Nucleated RBC % (auto) VBG pH 7.47 H VBG pCO2 39 VBG pO2 53 VBG HCO3 29 H VBG O2 Saturation 85.0 VBG Base Excess 5.3 Sodium 131 L Potassium 3.7 Chloride 94 L Carbon Dioxide 27 Anion Gap 14 BUN 24 H D Creatinine 0.81 Estim Creat Clear Calc 73.4 Estimated GFR > 60 POC Glucose 308 H Random Glucose 387 H* Calcium 8.0 L Total Bilirubin 0.6 AST 10 D ALT 19 Alkaline Phosphatase 88 Total Protein 6.4 L Albumin 3.1 L Urine Color Urine Appearance Urine pH Ur Specific [place] Urine Protein Urine Glucose (UA) Urine Ketones Urine Blood Urine Nitrite Ur Leukocyte Esterase Urine RBC Urine WBC Ur Squamous Epith Cells Urine Bacteria 06/05/22 09:49 WBC RBC Hgb Hct MCV MCH MCHC RDW Plt Count MPV Immature Gran % (Auto) Neut % (Auto) Lymph % (Auto) [place] % (Auto) Eos % (Auto) Baso % (Auto) Lymph # (Auto) [place] # (Auto) Eos # (Auto) Baso # (Auto) Abs Immat Gran (auto) Absolute Neuts (auto) Absolute Nucleated RBC Nucleated RBC % (auto) VBG pH VBG pCO2 VBG pO2 VBG HCO3 VBG O2 Saturation VBG Base Excess Sodium Potassium Chloride Carbon Dioxide Anion Gap BUN Creatinine Estim Creat Clear Calc Estimated GFR POC Glucose Random Glucose Calcium Total Bilirubin AST ALT Alkaline Phosphatase Total Protein Albumin Urine Color COLORLESS Urine Appearance CLEAR Urine pH 7.0 Ur Specific [place] 1.015 Urine Protein NEG Urine Glucose (UA) NEG Urine Ketones NEG Urine Blood 3+ H Urine Nitrite NEG Ur Leukocyte Esterase NEG Urine RBC 15-29 H Urine WBC 0 Ur Squamous Epith Cells NONE Urine Bacteria NONE Microbiology Microbiology Results: Microbiology 06/02/22 01:56 Sputum - Suctioned Gram Stain - Final 06/02/22 01:56 Sputum - Suctioned Sputum Culture - Final 06/01/22 16:44 Blood - Venous Blood Culture - Preliminary No growth after 48 hours. 06/01/22 16:33 Blood - Venous Blood Culture - Preliminary No growth after 48 hours. Quality Stroke Does the patient have a stroke diagnosis?: No VTE Prior VTE?: No VTE Risk Level:: Medical - moderate - high VTE Device Contraindication: N/A - Device Ordered VTE Drug Contraindication: N/A - Med Ordered Critical Care Time Critical Care Time (minutes): 60
[2022-06-05] MEDS: dilTIAZem HCL 60 MG TABLET 120 MG G-TUBE ×2 (11:03→16:35)
--- NOTE | 2022-06-05 11:34 | ECG_ITS ---
Test Reason : r/o mi Blood Pressure : / mmHG Vent. Rate : 076 BPM Atrial Rate : 076 BPM P-R Int : 160 ms QRS Dur : 094 ms QT Int : 408 ms P-R-T Axes : 057 030 075 degrees QTc Int : 459 ms Normal sinus rhythm Normal ECG When compared with ECG of 02-JUN-2022 04:10, Borderline criteria for Inferior infarct are no longer Present T wave inversion no longer evident in Inferior leads Referred By: Jaswinder Thompson Electronically Signed By:JUANY SANCHEZ MD
--- NOTE | 2022-06-05 11:43 | MHC.CM.PN ---
Patient remains in ICU, Case Management to continue to follow.
[2022-06-05 11:58] LABS: Glucose, Whole Blood 389 mg/dL (60-115)
[2022-06-05] MEDS: Lactulose 20 GM/30 ML SOLUTION 40 GM G-TUBE (15:08)
--- NOTE | 2022-06-05 16:21 | HE.PHANOTE ---
Vanco 2 gm x1, then vanco 1500 mg q24h x1, MD will re-evaluate after 48 hrs
--- NOTE | 2022-06-05 16:56 | PC.NURSE ---
Precedex 1.5 mcg/kg/min stopped at [address] Thompson. Patient began opening eyes to voice and becoming grossly agitated/restless around 1500. Patient became tachypneic with RR 31, Hypertensive with systolic BP in the 190s, and frequently desatting to the mid 80s. Precedex was restarted at 1600 at 0.4 mcg/kg/min. PRN dose of fentanyl 100 mcg IVP was given at 1400 for WOB. Patient currently on 0.6 mcg/kg/min Precedex with decreased tachypnea and agitation. ETT noted to be 21 at the lip. Upon intubation 06/01, ETT was 23cm at the lip, MD ordered advance of ETT to 24 cm. Respiratory was notified and RT repositioned ETT to 24 at the lip. 0900 gastric residual >250 mL. Per order, tube feeds held for 2 hours, gastric residual 0 at 1100, tube feed restarted at 50 ml/hr per MD. Patient started on diltiazem and clonadine per MD in response to hypertension. 1200 POC 389. MD notified and 20 units of lispro given Verbal Order per MD. Patient has no charted BM during admission. Reglan started Q6 IVP four doses. Lactulose PO PRN Q8 started, to be given Q8 until patient has a bowel movement. Patient core temperature at 0800 101.7. Patient given PRN PO tylenol with no effectiveness. Patient given second PRN tylenol this afternoon, temp continued to rise to Tmax 102.6, now trended down. MD notified of temperature, ice . Blood cultures drawn and pending. Two dose of Vancomycin ordered while blood culture results are pending.
[2022-06-05 18:04] LABS: Glucose, Whole Blood 343 mg/dL (60-115)
[2022-06-05] MEDS: Insulin Regular/NS 100 UNIT/100 ML PLAST..BAG 8 UNIT IVCONT (18:37)
[2022-06-05 20:19] LABS: Glucose, Whole Blood 311 mg/dL (60-115)
[2022-06-05] MEDS: cloNIDine HCL 0.1 MG TABLET G-TUBE (21:09)
[2022-06-05] MEDS: dexmedeTOMIDidine HCL/NS 400 MCG/100 ML INFUS..BTL 15.83 MCG IVCONT (21:10)
[2022-06-05 22:18] LABS: Glucose, Whole Blood 243 mg/dL (60-115)
[2022-06-05 23:53] LABS: Glucose, Whole Blood 218 mg/dL (60-115)
[2022-06-06] VITALS (37 sets, daily range): BP systolic 114–220; BP diastolic 43–82; PULSE 67–97; RESP 15–28; TEMP 35–39.6; O2SAT 92–97; BMI 36.6
[2022-06-06] MEDS: Acetaminophen Oral Liquid 650 MG/20.3 ML SOLUTION G-TUBE ×2 (00:01→10:38)
[2022-06-06] MEDS: dilTIAZem HCL 60 MG TABLET 120 MG G-TUBE ×3 (00:10→17:16)
[2022-06-06] MEDS: Albuterol/Iprat 2.5/0.5MG 3 ML AMPUL.NEB INHALE ×6 (00:28→20:44)
[2022-06-06 01:54] LABS: Glucose, Whole Blood 187 mg/dL (60-115)
[2022-06-06 04:15] LABS: Glucose, Whole Blood 199 mg/dL (60-115)
[2022-06-06] MEDS: dexmedeTOMIDidine HCL/NS 400 MCG/100 ML INFUS..BTL 13.19 MCG IVCONT (04:16)
[2022-06-06] MEDS: Metoclopramide HCl 10 MG/2 ML VIAL IVPUSH (04:59)
[2022-06-06] MEDS: Piperacillin Sodium/Tazobactam 4.5 GM in 0.9 % Sodium Chloride 100 ML IV ×2 (04:59→10:27)
[2022-06-06 05:27] LABS: VBG HCO3 26 mmol/L (22-26); VBG pCO2 41 mmHg; VBG pH 7.41 (7.32-7.43); VBG pO2 51 mmHg
[2022-06-06 05:28] LABS: Venous Blood Gas Refer to POC result
[2022-06-06 05:30] LABS: Hematocrit 27.6 % (37.0-47.0); Hemoglobin 7.9 g/dl (12.0-16.0); Mean Corpuscular HGB Conc 28.6 g/dl (31.0-35.0); Mean Corpuscular Hemoglobin 19.6 pg (27.0-33.0); Mean Corpuscular Volume 68.3 fL (80.0-98.0); Mean Platelet Volume 9.3 fL (9.4-12.3); NRBC Pct Auto 0.2 /100WBC (0.0-0.2); Platelet Count 238 X10*3/uL (160-400); Red Blood Count 4.04 X10*6/uL (4.20-5.50); Red Cell Distribution Width 21.2 % (11.0-16.0); White Blood Count 15.2 X10*3/uL (4.8-10.8)
[2022-06-06 05:46] LABS: Lactic Acid 1.1 mmol/L (0.5-2.0)
[2022-06-06 05:48] LABS: Anion Gap 11 (12-20); Blood Urea Nitrogen 22 mg/dL (9-16); Calcium 8.2 mg/dL (8.4-10.2); Carbon Dioxide 25 mmol/L (22-29); Chloride 97 mmol/L (96-108); Creatinine Clr Calc Pharmacy 75.3; Creatinine Clr Calc Pharmacy 76.2; Estimated Glomerular Filt Rate > 60; Glucose Random 192 mg/dL (60-115); Phosphorus 2.6 mg/dL (2.7-4.5); Potassium 3.4 mmol/L (3.3-5.1); Sodium 130 mmol/L (135-145)
[2022-06-06 06:19] LABS: Glucose, Whole Blood 204 mg/dL (60-115)
[2022-06-06] MEDS: fentaNYL citrate/PF 100 MCG/2 ML VIAL IVPUSH ×2 (07:21)
[2022-06-06 08:31] LABS: Glucose, Whole Blood 167 mg/dL (60-115)
[2022-06-06] MEDS: Furosemide 40 MG TABLET PO (08:56)
[2022-06-06] MEDS: Ferrous Sulfate 324 MG TABLET.DR PO (08:56)
[2022-06-06] MEDS: Valsartan 160 MG TABLET PO (08:57)
[2022-06-06] MEDS: acetaZOLAMIDE 250 MG TABLET 500 MG G-TUBE (08:57)
[2022-06-06] MEDS: carvediloL 6.25 MG TABLET PO ×2 (08:57→20:12)
[2022-06-06] MEDS: Chlorhexidine Gluc Oral Rinse 15 ML MOUTHWASH BUCCAL ×3 (09:02→20:12)
[2022-06-06] MEDS: Nystatin Powder 15 GM BOTTLE 1 APPL TOPICAL ×3 (09:02→20:14)
[2022-06-06] MEDS: Insulin Regular/NS 100 UNIT/100 ML PLAST..BAG IVCONT (09:03)
[2022-06-06 10:18] LABS: Glucose, Whole Blood 193 mg/dL (60-115)
[2022-06-06] MEDS: hydrALAZINE HCl 20 MG/ML VIAL IVPUSH (10:33)
[2022-06-06] MEDS: propofoL 1,000 MG/100 ML VIAL 6.11 MG IVCONT (10:43)
[2022-06-06 12:04] LABS: Glucose, Whole Blood 235 mg/dL (60-115)
[2022-06-06 15:10] LABS: Glucose, Whole Blood 207 mg/dL (60-115)
--- NOTE | 2022-06-06 16:35 | P.PNCC_ITS ---
Subjective Subjective Date of Service: 06/06/22 Interval History: Mrs. Ford was admitted to ICU June 01 after [id number] cardiorespiratory arrest. The patient is well known to me from her prior admission to this ICU with acute respiratory failure on May 12.? She is a 76 yo female with PMhx of obesity, COPD on 2L home oxygen, CHF on Aldactone, Coreg and valsartan, HTN, DM on Lantus and metformin, anemia, GERD, SHARON, and restless leg syndrome. According to the patient?s daughter, for years she has needed help with ADLs, including dressing and bathing.? She does go to the bathroom by herself.? She walks with a walker and a cane.? She was living by herself in an apartment until this past November.? She went to visit her daughter Kassy ([phone]) for the holiday, and needed some much help that she never left, she just stayed with Paige in their house in [place].? The daughter, Kassy Gutierrez is the healthc are proxy.? Another daughter, Christi Holland, is the second closest but is not listed on the health care proxy. [place] [facility] [place] infection [place]-.? She was never intubated, but prior to that hospitalization, she had had DNR status which she reversed during that hospitalization.? She was then hospitalized 12/15- for pulmonary embolism, for which she was started on Eliquis.? From there she was discharged to rehab facility.? She was [place] [facility] [place] for COPD exac requiring BiPAP, and 02/24-07/2022 for influenza A requiring BiPAP.? The records indicate that she was an active smoker. On May 11, the patient was intubated at home by paramedics bec of obtundation and hypoxemia.? There was no circulatory or respiratory arrest at that time.? She was BIBA and was awake in the ED.? She was admitted to the ICU.? Workup suggested CHF, and she was diuresed.? The patient was extubated to BiPAP shortly after arrival to the ICU.? She was discharged to the floor the next day. ECHOCARDIOGRAM on May 12 showed:? LV function was normal, no RWMAs noted.? EF 60%.? Moderate LVH with impaired relaxation filling pattern.? Normal RV size and contractility.? Mild .? RVSP normal.? IVC was dilated w minimal insp collapse. She was discharged home on May 16 and advised to have a sleep study. HISTORY OF PRESENT ILLNESS: Since being home, she?s been sleeping in a chair.? She can?t lie down in a bed, because she has too much shortness of breath.? She told her daughter that she breathes better with the CPAP mask, which allows her to lie in bed, but they have not been able to get one for her until she has a sleep study. On the morning of June 01, the patient was feeling a little tired.? In the early afternoon, she had increasing shortness of breath and the daughter went up on her oxygen from her usual 2L to 3 L, and then to 4 L.? She was getting even more short of breath so the daughter went to call the ambulance.? Shortly thereafter, the patient passed out.? The daughter's started CPR and EMS arrived very soon thereafter.? On arrival at the scene, the patient had agonal breathing, and did have a pulse.? Initial heart rate 30s, blood pressure 80s.? Atropine was given followed by cardiac arrest.? CPR was started, 1 mg epinephrine given, and the patient had ROSC after about 1-1/2 minutes.? At some point, a Suhas airway was inserted.? The patient was BIBA to the ED. The patient was immediately intubated on arrival to the ED.? She was normoten sive and afebrile.? WBC was 15, Hb 8.5, chemistries OK, trop 9, BNP 139, lactate was 10.? EKG showed T-wave inversion in leads I and aVL, unchanged from previous tracing of May 12. The patient was given fluids and antibiotics.? Central line was placed.? The patient was moving around and therefore given propofol and Versed.? I advised restricting fluids, given her history of heart failure.? The patient was put on propofol for agitation.? She was admitted to the ICU. CTPA showed a small area of consolidation in the left lower lobe.? The main pulmonary artery looks normal sized.? Heart size looks normal.? No pulmonary emboli.? The patient was started on broad-spectrum antibiotics for presumed LLL pneumonia.? She was volume resuscitated and her lactate cleared. Upon sedation holidays with the propofol off, the patient was very agitated in bed, moving all 4 with strength, had some partial eye opening movement but was 100% non interactive.? We had to turn the propofol back on because of chaotic respiratory pattern.? On June 03, we switched her to Precedex.? On sedation holiday, she doesn?t move around that much, but still no eye opening, still 100% noninteractive. On sedation holiday today, moves around and breathing becomes chaotic.? Opens her eyes about long-term with stimulation,but still 100% noninteractive.? PERRL, about 5 mm.? On the Precedex this morning, her BP was up into the 210s, so we turned that off and put her back on propofol 10ug.? HR now 88, 168/50, on Coreg, clonidine, diltiazem, and valsartan.? On PSV 15/30/+5, RR is 21, Vt 380cc, Ve 9L, PIP 21cm, ETCO2 32mm, Sat 95%.? CVBG this morning 7.41/41/+2 (on Diamox).? Tmax 103.3 this morning; she was pancultured yesterday.? No jugular venous distention at 30 degrees. ?Chest is CTA, with normal expiratory phase.? Regular rate and rhythm, normal S1 and S2, I heard no murmur or gallops.? Abdomen is obese and benign.? She has about 1+ central edema; all her pretibial edema is resolved. I&O.? Net negative 950cc x 24hrs.? Overall net neg 879cc. LABORATORY DATA: ?Below.? Notably, WBC down slightly to 16.? Sodium 130 w diuresis, BUN/creatinine steady, K 3.4, phos 2.6, POCs about 200. MICROBIOLOGY:? Sputum GS today no organisms.? BCs yesterday no growth.? U/A yesterday 0 WBCs. ANTIBIOTICS:? Started empric Zosyn on 06/02.? Started empiric vancomycin yesterday when she spiked temp to 103?. ECHOCARDIOGRAM 06/02 by the [facility]:? Technically difficult.? Showed perhaps mildly depressed LVEF, 45-50%, with impaired relaxation filling pattern.? New notable valvular Doppler findings.? IVC was dilated with no inspiratory collapse. IMPRESSION: 1. Underlying severe COPD, was on home oxygen. 2. Marked underlying debilitation and frailty. 3. Underlying tobacco abuse. 4. Underlying chronic hypoxemic and hypercapnic resp failure. 5. Underlying diastolic heart failure.? No evidence of acute heart failure this admission.? I note that her Med Rec doesn?t include the aldactone she was on at the last admission.? Nor was she on any diuretic. I restarted her ARB and Coreg. 6. Hx of PE, for which she was previously on Eliquis at the last admission, but I do not see that on her Med Rec now.? Her daughter said she is no longer taking it, but I don?t know why. 7. Cardiorespiratory arrest.? Unclear etiology.? By history, it sounds like her breathing just got worse over the day.? Could have been COPD exacerbation or CHF, but there?s no gross evidence of either, and if anything, the edema she had on this admission was less than she had in April.? No evidence of acute TN or PE.? No significant metabolic alkalosis to suggest CO2 narcosis.? Could also have been aspiration, for unclear reasons. 8. Coma.? Anoxic encephalopathy.? She looks like she is on the verge of waking up, but her cortical fxn hasn?t improved at all since the arrest.? I?ll send her for a head CT today, ordered an EEG for Wednesday. 9. Acute resp failure.? 2? above.? No evidence that she needs specific treatment for COPD exacerbation (ie. steroids or abx).? As far as heart failure goes, we?ve been diuresing her, she?s probably reached the limit, with her renal ratio rising.? At this time, Lasix 40 mg po daily looks like the right dose for her. 10. ID:? New temperature yesterday.? No worsening in her oxygenation (in fact it?s better).? Sputum GS is negative.? BCs negative so far.? UA was negative.? Lactic acid is 2.0 and 1.1.? Not hypotensive (just the opposite) or tachycardic or tachypneic.? So no other evidence of infection.? I?ll stop her Abx. 11. Lactic acidosis:? Was 2? cardiac arrest and hypoperfusion, not sepsis.? Resolved. 12. Metabolic alkalosis.? Secondary to diuresis.? Started Diamox.? D/C today. 13. Hyponatremia. ?Continuing diuresis. 14. HTN.? Continuing her home meds.? Added her diltiazem and clonidine yesterday.? I think it was the Precedex driving her BP this morning. 15. DM.? Was poorly contolled on SS insulin, had to start her on a drip. 16. SHARON.? Hold citalopram for now. 17. Anemia.? She has a h/o anemia which I believe is followed at [facility].? Takes iron at home.? We?ll transfuse as necessary.? And we?re giving her iron. 18. Laxation.? No stool yet.? On lactulose. 19. Hypokalemia.? Repleted enterally. 20. Hypophosphatemia. ?Repleted enterally. 21. Nutrition.? On Promote. I met with the patient's two daughters and their husbands at the bedside on 06/04.? We discussed the patient's condition, her prognosis, and options for continuing care.? The patient's daughter Kassy asked me about a transfer to [facility], because that?s where all the patient's physicians are.? I told her that we would be happy to do that, but she would have to find an accepting p hysician there for me to refer the patient to when I call the transfer line.? I also told her that it was my understanding that she would have to pay for the ambulance ride.? They will look into that. For now, the plan is to continue what we?ve been doing.? We?ll minimize sedation (just enough to allow adequate ventilation and oxygenation) and assess her with a daily wake-up.? Today is Wednesday, we?ll re-evaluate the situation w the family on Wednesday. Critical Care Time (minutes): 60 Physical Exam Vital Signs: Vital Signs: Last Vital Signs Temp 101.3 F H 06/06/22 16:00 Pulse 93 06/06/22 16:00 Resp 22 H 06/06/22 16:00 BP 183/63 H 06/06/22 16:00 Pulse Ox 94 06/06/22 16:00 O2 Del Method 06/06/22 16:00 O2 Flow Rate 35 06/02/22 21:00 FiO2 30 06/06/22 16:00 BMI result Body Mass Index 36.6 Objective Data Labs CBC & Chem 7: 06/06/22 05:10 06/06/22 05:10 Labs: Laboratory Results - last 24 hr 06/05/22 06/05/22 06/05/22 18:00 20:14 22:14 WBC RBC Hgb Hct MCV MCH MCHC RDW Plt Count MPV Absolute Nucleated RBC Nucleated RBC % (auto) VBG pH VBG pCO2 VBG pO2 VBG HCO3 VBG O2 Saturation VBG Base Excess Sodium Potassium Chloride Carbon Dioxide Anion Gap BUN Creatinine Estim Creat Clear Calc Estimated GFR POC Glucose 343 H 311 H 243 H Random Glucose Lactic Acid Calcium Phosphorus Magnesium 06/05/22 06/06/22 06/06/22 23:47 01:48 04:02 WBC RBC Hgb Hct MCV MCH MCHC RDW Plt Count MPV Absolute Nucleated RBC Nucleated RBC % (auto) VBG pH VBG pCO2 VBG pO2 VBG HCO3 VBG O2 Saturation VBG Base Excess Sodium Potassium Chloride Carbon Dioxide Anion Gap BUN Creatinine Estim Creat Clear Calc Estimated GFR POC Glucose 218 H 187 H 199 H Random Glucose Lactic Acid Calcium Phosphorus Magnesium 06/06/22 06/06/22 06/06/22 05:10 05:10 05:10 WBC 15.2 H RBC 4.04 L Hgb 7.9 L Hct 27.6 L MCV 68.3 L MCH 19.6 L MCHC 28.6 L RDW 21.2 H Plt Count 238 MPV 9.3 L Absolute Nucleated RBC 0.030 H Nucleated RBC % (auto) 0.2 VBG pH VBG pCO2 VBG pO2 VBG HCO3 VBG O2 Saturation VBG Base Excess Sodium 130 L Potassium 3.4 Chloride 97 Carbon Dioxide 25 Anion Gap 11 L BUN 22 H Creatinine 0.78 0.79 Estim Creat Clear Calc 76.2 75.3 Estimated GFR > 60 > 60 POC Glucose Random Glucose 192 H Lactic Acid Calcium 8.2 L Phosphorus 2.6 L Magnesium 2.0 06/06/22 06/06/22 06/06/22 05:10 05:23 06:12 WBC RBC Hgb Hct MCV MCH MCHC RDW Plt Count MPV Absolute Nucleated RBC Nucleated RBC % (auto) VBG pH 7.41 VBG pCO2 41 VBG pO2 51 VBG HCO3 26 VBG O2 Saturation 80.0 VBG Base Excess 2.0 Sodium Potassium Chloride Carbon Dioxide Anion Gap BUN Creatinine Estim Creat Clear Calc Estimated GFR POC Glucose 204 H Random Glucose Lactic Acid 1.1 Calcium Phosphorus Magnesium 06/06/22 06/06/22 06/06/22 08:28 10:14 12:01 WBC RBC Hgb Hct MCV MCH MCHC RDW Plt Count MPV Absolute Nucleated RBC Nucleated RBC % (auto) VBG pH VBG pCO2 VBG pO2 VBG HCO3 VBG O2 Saturation VBG Base Excess Sodium Potassium Chloride Carbon Dioxide Anion Gap BUN Creatinine Estim Creat Clear Calc Estimated GFR POC Glucose 167 H 193 H 235 H Random Glucose Lactic Acid Calcium Phosphorus Magnesium 06/06/22 15:07 WBC RBC Hgb Hct MCV MCH MCHC RDW Plt Count MPV Absolute Nucleated RBC Nucleated RBC % (auto) VBG pH VBG pCO2 VBG pO2 VBG HCO3 VBG O2 Saturation VBG Base Excess Sodium Potassium Chloride Carbon Dioxide Anion Gap BUN Creatinine Estim Creat Clear Calc Estimated GFR POC Glucose 207 H Random Glucose Lactic Acid Calcium Phosphorus Magnesium Microbiology Microbiology Results: Microbiology 06/05/22 11:03 Blood - Venous Blood Culture - Preliminary No growth after 24 hours. 06/05/22 10:33 Blood - Venous Blood Culture - Preliminary No growth after 24 hours. 06/06/22 03:43 Sputum - Suctioned Gram Stain - Final 06/02/22 01:56 Sputum - Suctioned Gram Stain - Final 06/02/22 01:56 Sputum - Suctioned Sputum Culture - Final 06/01/22 16:44 Blood - Venous Blood Culture - Preliminary No growth after 48 hours. 06/01/22 16:33 Blood - Venous Blood Culture - Preliminary No growth after 48 hours. Quality Stroke Does the patient have a stroke diagnosis?: No VTE Prior VTE?: No VTE Risk Level:: Medical - moderate - high VTE Device Contraindication: N/A - Device Ordered VTE Drug Contraindication: N/A - Med Ordered Critical Care Time Critical Care Time (minutes): 60
[2022-06-06] MEDS: Lactulose 20 GM/30 ML SOLUTION 40 GM G-TUBE (17:16)
[2022-06-06] MEDS: Sodium,Potassium Phosphates POWD.PACK 2 PACKET PO ×2 (17:16→20:12)
[2022-06-06 18:06] LABS: Glucose, Whole Blood 215 mg/dL (60-115)
--- NOTE | 2022-06-06 18:38 | PC.NURSE ---
SBP > 200 - MD notified. Per MD DC Precedex - gtt turned off at 0928. Hydralazine 20 mg IVP given per MD. Propofol gtt started per MD at 10 mcg/kg/min started at 1043, PT opens eyes but does not follow commands, positive cough and gag. TMAX 103.3 - PRN Tylenol administered with some effect. Current temp 100.6 Insulin gtt titrated per MD - see EMAR. PT brought to Head CT. PT daughter informed on update.
[2022-06-06] MEDS: cloNIDine HCL 0.1 MG TABLET G-TUBE (20:13)
[2022-06-06] MEDS: fentaNYL citrate/PF 100 MCG/2 ML VIAL 50 MCG IVPUSH (20:16)
[2022-06-06 21:39] LABS: Glucose, Whole Blood 211 mg/dL (60-115)
[2022-06-06] MEDS: propofoL 1,000 MG/100 ML VIAL 12.22 MG IVCONT (21:54)
[2022-06-07] VITALS (35 sets, daily range): BP systolic 143–188; BP diastolic 45–69; PULSE 61–82; RESP 14–27; TEMP 34.8–38.1; O2SAT 92–98
[2022-06-07 00:19] LABS: Glucose, Whole Blood 201 mg/dL (60-115)
[2022-06-07] MEDS: Albuterol/Iprat 2.5/0.5MG 3 ML AMPUL.NEB INHALE ×6 (00:43→19:32)
[2022-06-07] MEDS: dilTIAZem HCL 60 MG TABLET 120 MG G-TUBE ×3 (02:12→17:07)
[2022-06-07 02:16] LABS: Glucose, Whole Blood 205 mg/dL (60-115)
[2022-06-07] MEDS: Insulin Regular/NS 100 UNIT/100 ML PLAST..BAG 6 UNIT IVCONT (02:54)
[2022-06-07 04:06] LABS: Glucose, Whole Blood 195 mg/dL (60-115)
[2022-06-07 05:11] LABS: VBG Base Excess 3.3 mmol/L; VBG HCO3 27 mmol/L (22-26); VBG pCO2 41 mmHg; VBG pH 7.43 (7.32-7.43); VBG pO2 49 mmHg
[2022-06-07] MEDS: propofoL 1,000 MG/100 ML VIAL 12.22 MG IVCONT (05:17)
[2022-06-07 05:39] LABS: Hematocrit 28.1 % (37.0-47.0); Hemoglobin 8.1 g/dl (12.0-16.0); Mean Corpuscular HGB Conc 28.8 g/dl (31.0-35.0); Mean Corpuscular Hemoglobin 19.6 pg (27.0-33.0); Mean Corpuscular Volume 67.9 fL (80.0-98.0); Mean Platelet Volume 9.4 fL (9.4-12.3); Platelet Count 261 X10*3/uL (160-400); Red Blood Count 4.14 X10*6/uL (4.20-5.50); Red Cell Distribution Width 21.9 % (11.0-16.0); White Blood Count 14.7 X10*3/uL (4.8-10.8)
[2022-06-07 05:50] LABS: Venous Blood Gas Refer to POC result
[2022-06-07 05:57] LABS: Anion Gap 12 (12-20); Blood Urea Nitrogen 23 mg/dL (9-16); Calcium 8.2 mg/dL (8.4-10.2); Carbon Dioxide 25 mmol/L (22-29); Chloride 96 mmol/L (96-108); Estimated Glomerular Filt Rate > 60; Glucose Random 212 mg/dL (60-115); Magnesium 2.1 mg/dL (1.6-2.6); Phosphorus 3.8 mg/dL (2.7-4.5); Sodium 130 mmol/L (135-145)
[2022-06-07 06:05] LABS: Glucose, Whole Blood 203 mg/dL (60-115)
[2022-06-07] MEDS: Furosemide 40 MG TABLET PO (08:06)
[2022-06-07] MEDS: Chlorhexidine Gluc Oral Rinse 15 ML MOUTHWASH BUCCAL ×3 (08:06→20:17)
[2022-06-07] MEDS: Ferrous Sulfate 324 MG TABLET.DR PO (08:06)
[2022-06-07] MEDS: carvediloL 6.25 MG TABLET PO (08:07)
[2022-06-07 08:16] LABS: Glucose, Whole Blood 180 mg/dL (60-115)
[2022-06-07 10:12] LABS: Glucose, Whole Blood 179 mg/dL (60-115)
[2022-06-07] MEDS: Nystatin Powder 15 GM BOTTLE 1 APPL TOPICAL ×3 (10:44→20:17)
[2022-06-07 11:51] LABS: Glucose, Whole Blood 166 mg/dL (60-115)
[2022-06-07] MEDS: Valsartan 160 MG TABLET PO (12:03)
[2022-06-07 14:00] LABS: Glucose, Whole Blood 174 mg/dL (60-115)
[2022-06-07] MEDS: propofoL 1,000 MG/100 ML VIAL 6.11 MG IVCONT (14:04)
[2022-06-07] MEDS: Insulin Regular/NS 100 UNIT/100 ML PLAST..BAG 7 UNIT IVCONT (15:33)
[2022-06-07] MEDS: fentaNYL citrate/PF 100 MCG/2 ML VIAL IVPUSH (17:09)
[2022-06-07 18:10] LABS: Glucose, Whole Blood 169 mg/dL (60-115)
[2022-06-07 18:10] LABS: Glucose, Whole Blood 173 mg/dL (60-115)
--- NOTE | 2022-06-07 19:24 | P.PNCC_ITS ---
Subjective Subjective Date of Service: 06/07/22 Interval History: Mrs. Ford was admitted to ICU June 01 after [id number] cardiorespiratory arrest. The patient is well known to me from her prior admission to this ICU with acute respiratory failure on May 12.? She is a 76 yo female with PMhx of obesity, COPD on 2L home oxygen, CHF on Aldactone, Coreg and valsartan, HTN, DM on Lantus and metformin, anemia, GERD, SHARON, and restless leg syndrome. According to the patient?s daughter, for years she has needed help with ADLs, including dressing and bathing.? She does go to the bathroom by herself.? She walks with a walker and a cane.? She was living by herself in an apartment until this past November.? She went to visit her daughter Kassy ([phone]) for the holiday, and needed some much help that she never left, she just stayed with Paige in their house in [place].? The daughter, Kassy Gutierrez is the healthc are proxy.? Another daughter, Christi Holland, is the second closest but is not listed on the health care proxy. Records from [facility] indicate that she was hospitalized there for COVID infection 11/25-.? She was never intubated, but prior to that hospitalization, she had had DNR status which she reversed during that hospitalization.? She was then hospitalized 12/15- for pulmonary embolism, for which she was started on Eliquis.? From there she was discharged to rehab facility.? She was readmitted [facility] from 02/13- for COPD exac requiring BiPAP, and 02/24-07/2022 for influenza A requiring BiPAP.? The records indicate that she was an active smoker. On May 11, the patient was intubated at home by paramedics bec of obtundation and hypoxemia.? There was no circulatory or respiratory arrest at that time.? She was BIBA and was awake in the ED.? She was admitted to the ICU.? Workup suggested CHF, and she was diuresed.? The patient was extubated to BiPAP shortly after arrival to the ICU.? She was discharged to the floor the next day. ECHOCARDIOGRAM on May 12 showed:? LV function was normal, no RWMAs noted.? EF 60%.? Moderate LVH with impaired relaxation filling pattern.? Normal RV size and contractility.? Mild .? RVSP normal.? IVC was dilated w minimal insp collapse. She was discharged home on May 16 and advised to have a sleep study. HISTORY OF PRESENT ILLNESS: Since being home, she?s been sleeping in a chair.? She can?t lie down in a bed, because she has too much shortness of breath.? She told her daughter that she breathes better with the CPAP mask, which allows her to lie in bed, but they have not been able to get one for her until she has a sleep study. On the morning of June 01, the patient was feeling a little tired.? In the early afternoon, she had increasing shortness of breath and the daughter went up on her oxygen from her usual 2L to 3 L, and then to 4 L.? She was getting even more short of breath so the daughter went to call the ambulance.? Shortly thereafter, the patient passed out.? The daughter's started CPR and EMS arrived very soon thereafter.? On arrival at the scene, the patient had agonal breathing, and did have a pulse.? Initial heart rate 30s, blood pressure 80s.? Atropine was given followed by cardiac arrest.? CPR was started, 1 mg epinephrine given, and the patient had ROSC after about 1-1/2 minutes.? At some point, a Suhsa airway was inserted.? The patient was BIBA to the ED. The patient was immediately intubated on arrival to the ED.? She was normoten sive and afebrile.? WBC was 15, Hb 8.5, chemistries OK, trop 9, BNP 139, lactate was 10.? EKG showed T-wave inversion in leads I and aVL, unchanged from previous tracing of May 12. The patient was given fluids and antibiotics.? Central line was placed.? The patient was moving around and therefore given propofol and Versed.? I advised restricting fluids, given her history of heart failure.? The patient was put on propofol for agitation.? She was admitted to the ICU. CTPA showed a small area of consolidation in the left lower lobe.? The main pulmonary artery looks normal sized.? Heart size looks normal.? No pulmonary emboli.? The patient was started on broad-spectrum antibiotics for presumed LLL pneumonia.? She was volume resuscitated and her lactate cleared. Upon sedation holidays with the propofol off, the patient was very agitated in bed, moving all 4 with strength, had some partial eye opening movement but was 100% non interactive.? We had to turn the propofol back on because of chaotic respiratory pattern.? On June 03, we switched her to Precedex.? On sedation holiday, she doesn?t move around that much, but still no eye opening, still 100% noninteractive.? Yesterday on the Precedex, her BP jeff into the 200s, so we d/c?d that and put her back on propofol 10ug. On sedation holiday today, moves around and breathing becomes chaotic.? Still 100% noninteractive.? PERRL, about 6 mm.? HR now 80, 185/63, on Coreg, clonidine, diltiazem, and valsartan.? On PSV 15//+5, RR is 19, Vt 380cc, Ve 7.1L, PIP 21cm, ETCO2 38mm, Sat 95%.? CVBG this morning 7.43/41/+3 (Diamox d/c?d yesterday).? Tmax 100.6 this morning; she was pancultured on 06/05.? No jugular venous distention at 30 degrees. ?Chest has moderate exp wheeze, with mildly prolonged expiratory phase.? Regular rate and rhythm, normal S1 and S2, I heard no murmur or gallops.? Abdomen is obese and benign.? She has about 1+ central edema; all her pretibial edema is resolved. I&O:? Negative 2481cc x 24hrs on Lasix po QD.? Overall net neg 770cc. LABORATORY DATA: ?Below.? Notably, WBC down slightly to 14.? Sodium steady 130 w diuresis, BUN/creatinine steady 23/0.7, K 3.0, POCs about 200. MICROBIOLOGY:? Sputum GS yesterday no organisms.? BCs 06/05 one set out of two growing GPC in clusters at 38 hours.? U/A 06/05 0 WBCs. ANTIBIOTICS:? Started empric Zosyn on 06/02.? Gave empiric vancomycin on 06/05 when she spiked temp to 103?. Stopped all abx last night when cultures were negative. HEAD CT 06/06:? No acute stroke.? Evidence of prior infarcts noted. ECHOCARDIOGRAM 06/02 by [facility]:? Technically difficult.? Showed perhaps mildly depressed LVEF, 45-50%, with impaired relaxation filling pattern.? New notable valvular Doppler findings.? IVC was dilated with no inspiratory collapse. IMPRESSION: 1. Underlying severe COPD, was on home oxygen. 2. Underlying marked debilitation and frailty. 3. Underlying tobacco abuse. 4. Underlying chronic hypoxemic and hypercapnic resp failure. 5. Underlying diastolic heart failure.? No evidence of acute heart failure this admission.? I note that her Med Rec doesn?t include the aldactone she was on at the last admission.? Nor was she on any diuretic. I restarted her ARB and Coreg. 6. Hx of PE, for which she was previously on Eliquis at the last admission, but I do not see that on her Med Rec now.? Her daughter said she is no longer taking it, but I don?t know why. 7. Cardiorespiratory arrest.? Unclear etiology.? By history, it sounds like her breathing just got worse over the day.? Could have been COPD exacerbation or C HF, but there was no gross evidence of either at admission, and if anything, the edema she had on this admission was less than she had in April.? No evidence of acute HI or PE.? No significant metabolic alkalosis to suggest CO2 narcosis.? Could also have been aspiration, for unclear reasons. 8. Coma.? Anoxic encephalopathy.? She looks like she?s on the verge of waking up, but it hasn?t happened yet, her cortical fxn hasn?t improved at all since initial evaluation after the arrest.? CT shows no acute infarct.? EEG is ordered for tomorrow.? Family should expect a discussion tomorrow about where we go from here.? See below. 9. Acute resp failure.? 2? above.? Wheezing today.? Continue nebs.? I?ll give her 24 hrs of steroids.? As far as heart failure goes, we?ve been diuresing her, and she has much less edema than she had last hospitalization.? She?s probably reached the limit of diuresis, with her renal ratio rising.? At this time, Lasix 40 mg po daily looks like the right dose for her. 10. ID:? New temperature on 06/05.? No worsening in her oxygenation (in fact it?s better).? Sputum GS is negative.? One set of BCs positive, probably a contaminant.? UA was negative.? Lactic acid was negative. ?Not hypotensive (just the opposite) or tachycardic or tachypneic.? So no evidence of infection.? I stopped her Abx.? I?ll redraw BCs tomorrow morning. 11. Metabolic alkalosis.? Secondary to diuresis.? Resolved w Diamox. 12. Hyponatremia.? Continuing diuresis, shouldn?t get any worse. 13. HTN.? Continuing her home meds.? I?ll increase her Coreg to 25mg bid. 14. DM.? Was poorly controlled on SS insulin, had to start her on a drip. 16. SHARON.? Hold citalopram for now. 17. Anemia.? She has a h/o anemia which I believe is followed at [facility].? Takes iron at home.? We?ll just transfuse as necessary.? And we?re giving her iron.? Check hemoccult. 18. Laxation.? Had an explosive brown BM yesterday. 19. Hypokalemia.? Repleted enterally. 20. Nutrition.? On . I met with the patient's two daughters and their husbands at the bedside on 06/04.? We discussed the patient's condition, her prognosis, and options for continuing care.? The patient's daughter Kassy asked me about a transfer to [facility], because that?s where all the patient's physicians are.? I told her that we would be happy to do that, but she would have to find an accepting physician there for me to refer the patient to when I call the transfer line.? I also told her that it was my understanding that she would have to pay for the ambulance ride.? They will look into that. For now, the plan is to continue what we?ve been doing.? We?ll minimize sedation (just enough to allow adequate ventilation and oxygenation) and assess her with a daily wake-up.? I discussed w the family that we would reevaluate the situation on Wednesday (tomorrow). Critical Care Time (minutes): 60 Physical Exam Vital Signs: Vital Signs: Last Vital Signs Temp 100 F 06/07/22 19:03 Pulse 81 06/07/22 19:03 Resp 21 H 06/07/22 19:03 BP 185/63 H 06/07/22 19:03 Pulse Ox 95 06/07/22 19:03 O2 Del Method 06/07/22 19:03 O2 Flow Rate 35 06/02/22 21:00 FiO2 30 06/07/22 19:03 BMI result Body Mass Index 36.6 Objective Data Labs CBC & Chem 7: 06/07/22 05:05 06/07/22 05:05 Labs: Laboratory Results - last 24 hr 06/06/22 06/07/22 06/07/22 21:36 00:15 02:13 WBC RBC Hgb Hct MCV MCH MCHC RDW Plt Count MPV Absolute Nucleated RBC Nucleated RBC % (auto) VBG pH VBG pCO2 VBG pO2 VBG HCO3 VBG O2 Saturation VBG Base Excess Sodium Potassium Chloride Carbon Dioxide Anion Gap BUN Creatinine Estim Creat Clear Calc Estimated GFR POC Glucose 211 H 201 H 205 H Random Glucose Calcium Phosphorus Magnesium Albumin 06/07/22 06/07/22 06/07/22 03:55 05:05 05:05 WBC 14.7 H RBC 4.14 L Hgb 8.1 L Hct 28.1 L MCV 67.9 L MCH 19.6 L MCHC 28.8 L RDW 21.9 H Plt Count 261 MPV 9.4 Absolute Nucleated RBC 0.000 Nucleated RBC % (auto) 0.0 VBG pH VBG pCO2 VBG pO2 VBG HCO3 VBG O2 Saturation VBG Base Excess Sodium 130 L Potassium 3.0 L Chloride 96 Carbon Dioxide 25 Anion Gap 12 BUN 23 H Creatinine 0.76 Estim Creat Clear Calc 76.0 Estimated GFR > 60 POC Glucose 195 H Random Glucose 212 H Calcium 8.2 L Phosphorus 3.8 Magnesium 2.1 Albumin 3.0 L 06/07/22 06/07/22 06/07/22 05:06 06:01 07:57 WBC RBC Hgb Hct MCV MCH MCHC RDW Plt Count MPV Absolute Nucleated RBC Nucleated RBC % (auto) VBG pH 7.43 VBG pCO2 41 VBG pO2 49 VBG HCO3 27 H VBG O2 Saturation 79.0 VBG Base Excess 3.3 Sodium Potassium Chloride Carbon Dioxide Anion Gap BUN Creatinine Estim Creat Clear Calc Estimated GFR POC Glucose 203 H 180 H Random Glucose Calcium Phosphorus Magnesium Albumin 06/07/22 06/07/22 06/07/22 10:09 11:43 13:56 WBC RBC Hgb Hct MCV MCH MCHC RDW Plt Count MPV Absolute Nucleated RBC Nucleated RBC % (auto) VBG pH VBG pCO2 VBG pO2 VBG HCO3 VBG O2 Saturation VBG Base Excess Sodium Potassium Chloride Carbon Dioxide Anion Gap BUN Creatinine Estim Creat Clear Calc Estimated GFR POC Glucose 179 H 166 H 174 H Random Glucose Calcium Phosphorus Magnesium Albumin 06/07/22 06/07/22 16:18 18:07 WBC RBC Hgb Hct MCV MCH MCHC RDW Plt Count MPV Absolute Nucleated RBC Nucleated RBC % (auto) VBG pH VBG pCO2 VBG pO2 VBG HCO3 VBG O2 Saturation VBG Base Excess Sodium Potassium Chloride Carbon Dioxide Anion Gap BUN Creatinine Estim Creat Clear Calc Estimated GFR POC Glucose 169 H 173 H Random Glucose Calcium Phosphorus Magnesium Albumin Microbiology Microbiology Results: Microbiology 06/05/22 10:33 Blood - Venous Blood Culture - Preliminary No growth after 48 hours. 06/05/22 11:03 Blood - Venous Blood Culture - Preliminary Prelim: GPC Gram Stain only 06/06/22 03:43 Sputum - Suctioned Gram Stain - Final 06/06/22 03:43 Sputum - Suctioned Sputum Culture - Preliminary Normal so far. 06/01/22 16:44 Blood - Venous Blood Culture - Final No growth after 5 days. 06/01/22 16:33 Blood - Venous Blood Culture - Final No growth after 5 days. 06/02/22 01:56 Sputum - Suctioned Gram Stain - Final 06/02/22 01:56 Sputum - Suctioned Sputum Culture - Final Quality Stroke Does the patient have a stroke diagnosis?: No VTE Prior VTE?: No VTE Risk Level:: Medical - moderate - high VTE Device Contraindication: N/A - Device Ordered VTE Drug Contraindication: N/A - Med Ordered Critical Care Time Critical Care Time (minutes): 60
[2022-06-07 19:59] LABS: Glucose, Whole Blood 159 mg/dL (60-115)
[2022-06-07] MEDS: methylPREDNISolone Sod Succ 40 MG/ML VIAL IVPUSH (20:16)
[2022-06-07] MEDS: Potassium Chloride Packet 20 MEQ PACKET 40 MEQ PO (20:16)
[2022-06-07] MEDS: cloNIDine HCL 0.1 MG TABLET G-TUBE (20:17)
[2022-06-07] MEDS: carvediloL 25 MG TABLET PO (20:17)
[2022-06-07 23:41] LABS: Glucose, Whole Blood 166 mg/dL (60-115)
[2022-06-08] VITALS (36 sets, daily range): BP systolic 141–202; BP diastolic 48–101; PULSE 66–94; RESP 12–26; TEMP 35–37.9; O2SAT 90–96; BMI 34.9
--- NOTE | 2022-06-08 | EEG_ITS ---
This is a 16-channel EEG with an EKG lead. The patient is reported intubated and off sedation. Background EEG rhythm is mixed theta, delta, medium amplitude with no obvious asymmetry or paroxysmal tendency. No definite sharp waves or spikes are noted. Hyperventilation and photic stimulation were not performed. Cardiac lead did not reveal any significant abnormality. IMPRESSION: Moderate generalized slowing with no evidence of seizure disorder. MD CISCO Nelson/NAILA / [phone]
[2022-06-08] MEDS: Potassium Chloride Packet 20 MEQ PACKET 40 MEQ PO (00:10)
[2022-06-08] MEDS: propofoL 1,000 MG/100 ML VIAL 9.16 MG IVCONT ×2 (00:20→06:31)
[2022-06-08 00:54] LABS: OBS1 POSITIVE (NEGATIVE)
[2022-06-08 00:55] LABS: OBS Int Ctl Valid YES
[2022-06-08] MEDS: methylPREDNISolone Sod Succ 40 MG/ML VIAL IVPUSH ×3 (01:35→15:48)
[2022-06-08] MEDS: dilTIAZem HCL 60 MG TABLET 120 MG G-TUBE (01:35)
[2022-06-08 04:16] LABS: Glucose, Whole Blood 228 mg/dL (60-115)
[2022-06-08 05:09] LABS: VBG Base Excess 3.2 mmol/L; VBG HCO3 27 mmol/L (22-26); VBG pCO2 39 mmHg; VBG pH 7.45 (7.32-7.43); VBG pO2 71 mmHg
[2022-06-08] MEDS: Albuterol/Iprat 2.5/0.5MG 3 ML AMPUL.NEB INHALE ×6 (05:14→23:38)
[2022-06-08] MEDS: Insulin Regular/NS 100 UNIT/100 ML PLAST..BAG 10 UNIT IVCONT (05:29)
[2022-06-08 05:41] LABS: Basophils Percent Auto 0.1 % (0-2); Eosinophils Percent Auto 0.1 % (0-4); Imm Gran Abs Auto 0.21 X10*3/uL (0.00-0.03); Imm Gran Pct Auto 1.2 % (0.0-0.4); Lymphocytes Absolute Auto 0.6 X10*3/uL (1.2-4.9); Lymphocytes Percent Auto 3.5 % (20-40); MANUAL DIFF FLAG SCAN; Mean Corpuscular Hemoglobin 19.7 pg (27.0-33.0); Mean Corpuscular Volume 67.7 fL (80.0-98.0); Mean Platelet Volume 9.7 fL (9.4-12.3); Monocytes Absolute Auto 0.3 X10*3/uL (0.1-1.2); Monocytes Percent Auto 1.4 % (2-11); NRBC Pct Auto 0.1 /100WBC (0.0-0.2); Neutrophils Percent Auto 93.7 % (45-73); Platelet Count 296 X10*3/uL (160-400); Red Blood Count 4.58 X10*6/uL (4.20-5.50); Red Cell Distribution Width 22.5 % (11.0-16.0); SCAN SMEAR FLAG 1; White Blood Count 18.2 X10*3/uL (4.8-10.8)
[2022-06-08 06:04] LABS: Glucose, Whole Blood 241 mg/dL (60-115)
[2022-06-08 06:04] LABS: Anion Gap 13 (12-20); Blood Urea Nitrogen 21 mg/dL (9-16); Calcium 8.5 mg/dL (8.4-10.2); Carbon Dioxide 25 mmol/L (22-29); Chloride 99 mmol/L (96-108); Creatinine Clr Calc Pharmacy 85.3; Estimated Glomerular Filt Rate > 60; Glucose Random 245 mg/dL (60-115); Magnesium 2.1 mg/dL (1.6-2.6); Phosphorus 3.3 mg/dL (2.7-4.5); Potassium 4.6 mmol/L (3.3-5.1); Sodium 132 mmol/L (135-145)
[2022-06-08 06:07] LABS: SLIDE REVIEW VERIFIED
[2022-06-08 08:04] LABS: Glucose, Whole Blood 202 mg/dL (60-115)
[2022-06-08 08:42] LABS: Venous Blood Gas Refer to POC result
[2022-06-08] MEDS: Furosemide 40 MG TABLET PO (08:46)
[2022-06-08] MEDS: Chlorhexidine Gluc Oral Rinse 15 ML MOUTHWASH BUCCAL ×3 (08:46→20:05)
[2022-06-08] MEDS: carvediloL 25 MG TABLET PO ×2 (08:46→20:05)
[2022-06-08] MEDS: Ferrous Sulfate 324 MG TABLET.DR PO (08:47)
[2022-06-08] MEDS: Valsartan 160 MG TABLET PO (08:47)
[2022-06-08] MEDS: Nystatin Powder 15 GM BOTTLE 1 APPL TOPICAL ×3 (08:47→20:08)
[2022-06-08 09:03] LABS: Glucose, Whole Blood 219 mg/dL (60-115)
--- NOTE | 2022-06-08 09:36 | MHC.CLN ---
F/U PT REMAINS INTUBATED PT RECEIVING PROMOTE AT MAX GOAL RATE 50ML/HR PROVIDES 1200KCALS (1683KCALS TOTAL WITH SEDATION; 23KCALS/KG), 75G PROTEIN (1.0G/KG), 1007ML TOTAL WATER FROM FORMULA RECOMMEND SWITCHING TF FORMULA TO MEET FULL KCAL NEEDS WITH LESS FREE WATER R/T SERUM NA LEVELS RECOMMEND OSMOLITE 1.5 AT MAX GOAL RATE 45ML/HR TO PROVIDE 1620KCALS (23KCALS/KG BASED ON CMW), 67.6G PROTEIN (.95G/KG), 823ML FREE WATER FROM FORMULA CONTINUE TO MONITOR TOLERANCE, RESIDUALS AND LYTES
[2022-06-08 10:02] LABS: Glucose, Whole Blood 200 mg/dL (60-115)
[2022-06-08 10:56] LABS: Glucose, Whole Blood 161 mg/dL (60-115)
[2022-06-08] MEDS: Insulin Regular/NS 100 UNIT/100 ML PLAST..BAG IVCONT (11:38)
[2022-06-08 12:09] LABS: Glucose, Whole Blood 153 mg/dL (60-115)
--- NOTE | 2022-06-08 12:26 | P.PNCC_ITS ---
Subjective Subjective Date of Service: 06/08/22 Interval History: 76-year-old female presented with progressive dyspnea culminating in loss of consciousness with 1st acute hypoxic respiratory failure and became pulseless requiring a brief CPR before return of Rosc Intubated since with persistent encephalopathy is currently undergoing another sedation holiday off propofol since this morning and awakening but no appropriate cognitive behavior as yet and remains on pressure support and m aintaining herself Bedside echo again indicating preserved 55% LV ejection fraction with normal RV size and function and no primary valve or pericardial disease Critical Care Time (minutes): 60 Physical Exam Vital Signs: Vital Signs: Last Vital Signs Temp 98.6 F 06/08/22 12:00 Pulse 79 06/08/22 12:00 Resp 20 06/08/22 12:00 BP 191/61 H 06/08/22 12:00 Pulse Ox 94 06/08/22 12:00 O2 Del Method 06/08/22 12:00 O2 Flow Rate 35 06/02/22 21:00 FiO2 30 06/08/22 12:00 BMI result Body Mass Index 34.9 Off sedation awakening and moving all 4 extremities but no cognitive function demonstrated as yet Diminished breath sounds bilaterally no significant respiratory effort and no accessory muscle use and no adventitious sounds and on pressure support maintaining 400 cc tidal volume Negative head CT and awaiting EEG Bedside echo demonstrating normal LV and RV systolic function Intact scan Abdomen benign tolerating feedings Objective Data Labs CBC & Chem 7: 06/08/22 05:00 06/08/22 05:00 Labs: Laboratory Results - last 24 hr 06/07/22 06/07/22 06/07/22 13:56 16:18 18:07 WBC RBC Hgb Hct MCV MCH MCHC RDW Plt Count MPV Immature Gran % (Auto) Neut % (Auto) Lymph % (Auto) [place] % (Auto) Eos % (Auto) Baso % (Auto) Lymph # (Auto) [place] # (Auto) Eos # (Auto) Baso # (Auto) Abs Immat Gran (auto) Absolute Neuts (auto) Absolute Nucleated RBC Nucleated RBC % (auto) Smear Tech's Comments VBG pH VBG pCO2 VBG pO2 VBG HCO3 VBG O2 Saturation VBG Base Excess Sodium Potassium Chloride Carbon Dioxide Anion Gap BUN Creatinine Estim Creat Clear Calc Estimated GFR POC Glucose 174 H 169 H 173 H Random Glucose Calcium Phosphorus Magnesium Stool Occult Blood 0706/07/22 06/08/22 19:56 23:37 00:03 WBC RBC Hgb Hct MCV MCH MCHC RDW Plt Count MPV Immature Gran % (Auto) Neut % (Auto) Lymph % (Auto) [place] % (Auto) Eos % (Auto) Baso % (Auto) Lymph # (Auto) [place] # (Auto) Eos # (Auto) Baso # (Auto) Abs Immat Gran (auto) Absolute Neuts (auto) Absolute Nucleated RBC Nucleated RBC % (auto) Smear Tech's Comments VBG pH VBG pCO2 VBG pO2 VBG HCO3 VBG O2 Saturation VBG Base Excess Sodium Potassium Chloride Carbon Dioxide Anion Gap BUN Creatinine Estim Creat Clear Calc Estimated GFR POC Glucose 159 H 166 H Random Glucose Calcium Phosphorus Magnesium Stool Occult Blood POSITIVE 06/08/22 06/08/22 06/08/22 04:10 05:00 05:00 WBC 18.2 H RBC 4.58 Hgb 9.0 L Hct 31.0 L MCV 67.7 L MCH 19.7 L MCHC 29.0 L RDW 22.5 H Plt Count 296 MPV 9.7 Immature Gran % (Auto) 1.2 H Neut % (Auto) 93.7 H Lymph % (Auto) 3.5 L [place] % (Auto) 1.4 L Eos % (Auto) 0.1 Baso % (Auto) 0.1 Lymph # (Auto) 0.6 L [place] # (Auto) 0.3 Eos # (Auto) 0.0 Baso # (Auto) 0.0 Abs Immat Gran (auto) 0.21 H Absolute Neuts (auto) 17.0 H Absolute Nucleated RBC 0.020 H Nucleated RBC % (auto) 0.1 Smear Tech's Comments VERIFIED VBG pH VBG pCO2 VBG pO2 VBG HCO3 VBG O2 Saturation VBG Base Excess Sodium 132 L Potassium 4.6 D Chloride 99 Carbon Dioxide 25 Anion Gap 13 BUN 21 H Creatinine 0.66 Estim Creat Clear Calc 85.3 Estimated GFR > 60 POC Glucose 228 H Random Glucose 245 H Calcium 8.5 Phosphorus 3.3 Magnesium 2.1 Stool Occult Blood 06/08/22 06/08/22 06/08/22 05:05 05:59 08:01 WBC RBC Hgb Hct MCV MCH MCHC RDW Plt Count MPV Immature Gran % (Auto) Neut % (Auto) Lymph % (Auto) [place] % (Auto) Eos % (Auto) Baso % (Auto) Lymph # (Auto) [place] # (Auto) Eos # (Auto) Baso # (Auto) Abs Immat Gran (auto) Absolute Neuts (auto) Absolute Nucleated RBC Nucleated RBC % (auto) Smear Tech's Comments VBG pH 7.45 H VBG pCO2 39 VBG pO2 71 VBG HCO3 27 H VBG O2 Saturation 93.0 VBG Base Excess 3.2 Sodium Potassium Chloride Carbon Dioxide Anion Gap BUN Creatinine Estim Creat Clear Calc Estimated GFR POC Glucose 241 H 202 H Random Glucose Calcium Phosphorus Magnesium Stool Occult Blood 06/08/22 06/08/22 06/08/22 08:59 09:59 10:53 WBC RBC Hgb Hct MCV MCH MCHC RDW Plt Count MPV Immature Gran % (Auto) Neut % (Auto) Lymph % (Auto) [place] % (Auto) Eos % (Auto) Baso % (Auto) Lymph # (Auto) [place] # (Auto) Eos # (Auto) Baso # (Auto) Abs Immat Gran (auto) Absolute Neuts (auto) Absolute Nucleated RBC Nucleated RBC % (auto) Smear Tech's Comments VBG pH VBG pCO2 VBG pO2 VBG HCO3 VBG O2 Saturation VBG Base Excess Sodium Potassium Chloride Carbon Dioxide Anion Gap BUN Creatinine Estim Creat Clear Calc Estimated GFR POC Glucose 219 H 200 H 161 H Random Glucose Calcium Phosphorus Magnesium Stool Occult Blood 06/08/22 12:06 WBC RBC Hgb Hct MCV MCH MCHC RDW Plt Count MPV Immature Gran % (Auto) Neut % (Auto) Lymph % (Auto) [place] % (Auto) Eos % (Auto) Baso % (Auto) Lymph # (Auto) [place] # (Auto) Eos # (Auto) Baso # (Auto) Abs Immat Gran (auto) Absolute Neuts (auto) Absolute Nucleated RBC Nucleated RBC % (auto) Smear Tech's Comments VBG pH VBG pCO2 VBG pO2 VBG HCO3 VBG O2 Saturation VBG Base Excess Sodium Potassium Chloride Carbon Dioxide Anion Gap BUN Creatinine Estim Creat Clear Calc Estimated GFR POC Glucose 153 H Random Glucose Calcium Phosphorus Magnesium Stool Occult Blood Microbiology Microbiology Results: Microbiology 06/05/22 11:03 Blood - Venous Blood Culture - Final Coag negative Staphylococcus 06/06/22 03:43 Sputum - Suctioned Gram Stain - Final 06/06/22 03:43 Sputum - Suctioned Sputum Culture - Final 06/05/22 10:33 Blood - Venous Blood Culture - Preliminary No growth after 48 hours. 06/01/22 16:44 Blood - Venous Blood Culture - Final No growth after 5 days. 06/01/22 16:33 Blood - Venous Blood Culture - Final No growth after 5 days. 06/02/22 01:56 Sputum - Suctioned Gram Stain - Final 06/02/22 01:56 Sputum - Suctioned Sputum Culture - Final Progress Note: A&P Assessment and plan (1) Cardiac arrest: Status: Acute (2) Pneumonia: Status: Acute (3) Acute hyperglycemia: Status: Acute (4) Hypoventilation syndrome: Status: Acute (5) ISAAC and COPD overlap syndrome: Status: Acute (6) Anemia: Status: Acute (7) COPD with acute exacerbation: Status: Acute (8) Respiratory failure: Status: Acute (9) Anoxic encephalopathy: Status: Acute Plan Will try to keep her off continuous sedation and use p.r.n. medicine for agitation and maintain pressure support on the ventilator until such time as she can demonstrate cognitive function as we await EEG Quality Stroke Does the patient have a stroke diagnosis?: No VTE Prior VTE?: No VTE Risk Level:: Medical - moderate - high VTE Device Contraindication: N/A - Device Ordered VTE Drug Contraindication: N/A - Med Ordered
[2022-06-08] MEDS: cloNIDine 0.2 MG PATCH.TDWK TRANSDERMA (12:39)
[2022-06-08 13:17] LABS: Glucose, Whole Blood 159 mg/dL (60-115)
[2022-06-08 15:18] LABS: Glucose, Whole Blood 176 mg/dL (60-115)
[2022-06-08 16:58] LABS: Glucose, Whole Blood 174 mg/dL (60-115)
[2022-06-08] MEDS: niCARdipine HCL 25 MG in 0.9 % Sodium Chloride 250 ML 26 MG IVCONT (18:43)
[2022-06-08 19:06] LABS: Glucose, Whole Blood 171 mg/dL (60-115)
[2022-06-08] MEDS: LORazepam 2 MG/ML VIAL 0.5 MG IVPUSH (19:44)
[2022-06-08 20:05] LABS: Glucose, Whole Blood 174 mg/dL (60-115)
[2022-06-08 22:00] LABS: Glucose, Whole Blood 188 mg/dL (60-115)
[2022-06-08] MEDS: fentaNYL citrate/PF 100 MCG/2 ML VIAL 50 MCG IVPUSH (23:08)
[2022-06-08] MEDS: niCARdipine HCL 25 MG in 0.9 % Sodium Chloride 250 ML 78 MG IVCONT (23:37)
[2022-06-09] VITALS (37 sets, daily range): BP systolic 108–176; BP diastolic 35–81; PULSE 69–90; RESP 14–29; TEMP 34–38.2; O2SAT 92–97; BMI 33.6
[2022-06-09 00:05] LABS: Glucose, Whole Blood 216 mg/dL (60-115)
[2022-06-09] MEDS: Insulin Regular/NS 100 UNIT/100 ML PLAST..BAG 7 UNIT IVCONT (01:43)
[2022-06-09] MEDS: fentaNYL citrate/PF 100 MCG/2 ML VIAL 50 MCG IVPUSH (01:58)
[2022-06-09 02:09] LABS: Glucose, Whole Blood 201 mg/dL (60-115)
[2022-06-09] MEDS: niCARdipine HCL 25 MG in 0.9 % Sodium Chloride 250 ML 78 MG IVCONT ×4 (03:24→13:12)
[2022-06-09 04:09] LABS: Glucose, Whole Blood 157 mg/dL (60-115)
--- NOTE | 2022-06-09 04:24 | PC.NURSE ---
PT MAINTAINED ON PRESSURE SUPPORT VENT SETTINGS. PROPOFOL OFF SINCE 0800 ON 06/08. SBP UP TO 170'S AND CARDENE GTT TITRATED UP TO 7.5 MG/HR WITH GOOD EFFECT. AT START OF THIS SHIFT, PT WAS TACHYPNEIC AND RECEIVED ONE DOSE OF ATIVAN 0.5 MG IV PER LAY PA-C WITH GOOD EFFECT BUT ON AND OFF DURING THIS SHIFT HAS HAD TACHYPNEA WITH RESP RATE UP TO 30'S AND ALSO DIAPHORESIS. RECEIVED 2 DOSES OF FENTANYL 50 MCG IVP WITH GOOD EFFECT. LAY PA-C AT BEDSIDE. PT DESATS TO 80'S WITH INTERVENTIONS/REPOS BUT RECOVERS QUICKLY. TOLERATING TUBE FEEDS ORDERED. REMAINS ON INSULIN DRIP. SEE INSULIN FLOW SHEET FOR DETAILS BUT POC HAS BEEN 160-220 SINCE 1900. VITAL SIGNS STABLE. MONITOR: NSR, 70-80, NO ECTOPY. U/O IS GOOD.
[2022-06-09] MEDS: Albuterol/Iprat 2.5/0.5MG 3 ML AMPUL.NEB INHALE ×5 (04:42→21:16)
[2022-06-09 05:22] LABS: VBG HCO3 33 mmol/L (22-26); VBG pCO2 44 mmHg; VBG pH 7.48 (7.32-7.43); VBG pO2 52 mmHg
[2022-06-09] MEDS: LORazepam 2 MG/ML VIAL 0.5 MG IVPUSH (05:47)
[2022-06-09 05:49] LABS: Basophils Percent Auto 0.1 % (0-2); Eosinophils Percent Auto 0.2 % (0-4); Hematocrit 30.9 % (37.0-47.0); Hemoglobin 8.8 g/dl (12.0-16.0); Imm Gran Abs Auto 0.27 X10*3/uL (0.00-0.03); Imm Gran Pct Auto 1.4 % (0.0-0.4); Lymphocytes Absolute Auto 1.8 X10*3/uL (1.2-4.9); Lymphocytes Percent Auto 9.6 % (20-40); MANUAL DIFF FLAG SCAN; Mean Corpuscular HGB Conc 28.5 g/dl (31.0-35.0); Mean Corpuscular Hemoglobin 19.4 pg (27.0-33.0); Mean Corpuscular Volume 68.2 fL (80.0-98.0); Mean Platelet Volume 9.7 fL (9.4-12.3); Monocytes Absolute Auto 1.6 X10*3/uL (0.1-1.2); Monocytes Percent Auto 8.8 % (2-11); Neutrophils Percent Auto 79.9 % (45-73); Platelet Count 371 X10*3/uL (160-400); Red Blood Count 4.53 X10*6/uL (4.20-5.50); Red Cell Distribution Width 23.3 % (11.0-16.0); SCAN SMEAR FLAG 1; White Blood Count 18.7 X10*3/uL (4.8-10.8)
[2022-06-09 05:55] LABS: SLIDE REVIEW VERIFIED
[2022-06-09 06:03] LABS: Glucose, Whole Blood 156 mg/dL (60-115)
[2022-06-09 06:12] LABS: Alanine Aminotransferase 20 U/L (0-31); Albumin Level 3.6 g/dL (3.5-5.0); Alkaline Phosphatase 84 U/L (39-117); Anion Gap 12 (12-20); Aspartate Amino Transferase 12 U/L (5-31); Bilirubin Direct 0.3 mg/dL (0.0-0.5); Bilirubin Total 0.5 mg/dL (0.0-1.0); Blood Urea Nitrogen 20 mg/dL (9-16); Calcium 8.3 mg/dL (8.4-10.2); Carbon Dioxide 31 mmol/L (22-29); Chloride 97 mmol/L (96-108); Estimated Glomerular Filt Rate > 60; Glucose Random 158 mg/dL (60-115); Magnesium 2.1 mg/dL (1.6-2.6); Phosphorus 2.7 mg/dL (2.7-4.5); Potassium 3.6 mmol/L (3.3-5.1); Sodium 136 mmol/L (135-145); Total Protein 7.1 g/dL (6.5-8.0)
[2022-06-09 06:17] LABS: B Type Natriuretic Peptide 538 pg/mL (<100)
[2022-06-09 06:57] LABS: Venous Blood Gas Refer to POC result
[2022-06-09] MEDS: Nystatin Powder 15 GM BOTTLE 1 APPL TOPICAL ×3 (07:29→20:04)
[2022-06-09] MEDS: Chlorhexidine Gluc Oral Rinse 15 ML MOUTHWASH BUCCAL ×3 (07:30→20:01)
[2022-06-09] MEDS: Valsartan 160 MG TABLET PO (07:30)
[2022-06-09] MEDS: Furosemide 40 MG TABLET PO (07:30)
[2022-06-09] MEDS: carvediloL 25 MG TABLET PO ×2 (07:30→20:04)
[2022-06-09] MEDS: Ferrous Sulfate 324 MG TABLET.DR PO (07:30)
[2022-06-09 08:09] LABS: Glucose, Whole Blood 154 mg/dL (60-115)
--- NOTE | 2022-06-09 08:56 | MHC.CM.PN ---
Pt remains intubated in ICU: sedation off to assist with assessment of neuro / cognitive fx return: EEG showed slowing unrelated to seizure activity: Pt has been referred to STR assuming she can vent wean. If not, MD and family will need to review goals of care including ? peg/trach and LTAC placement. CM to follow
[2022-06-09 10:09] LABS: Glucose, Whole Blood 137 mg/dL (60-115)
[2022-06-09 12:27] LABS: Glucose, Whole Blood 178 mg/dL (60-115)
[2022-06-09 14:13] LABS: Glucose, Whole Blood 196 mg/dL (60-115)
[2022-06-09] MEDS: methylPREDNISolone Sod Succ 40 MG/ML VIAL IVPUSH ×2 (14:23→20:01)
[2022-06-09] MEDS: Insulin Regular/NS 100 UNIT/100 ML PLAST..BAG 6 UNIT IVCONT (15:16)
[2022-06-09 16:22] LABS: Glucose, Whole Blood 217 mg/dL (60-115)
--- NOTE | 2022-06-09 16:28 | P.PNCC_ITS ---
Subjective Subjective Date of Service: 06/09/22 Interval History: 76-year-old female with progressive dyspnea known COPD status post brief CPR rapidly restoring [place] with a witnessed loss of consciousness where she was clearly pulseless and apneic and clearly has an EEG consistent with encephalopathy probably anoxic and has been off sedation now for a while and not awakening significantly with cognitive function but remain synchronous with the ventilator on pressure support of 20/5 with with good tidal volumes good end- tidal CO2 and only on an FiO2 of 30% with a less than 10 L minute ventilation so all toe doing well Diuresing very nicely and my most recent bedside echo showed a 55% global left ventricular ejection fraction without wall motion abnormality Critical Care Time (minutes): 45 Physical Exam Vital Signs: Vital Signs: Last Vital Signs Temp 100.2 F 06/09/22 16:03 Pulse 79 06/09/22 16:03 Resp 17 06/09/22 16:03 BP 153/45 H 06/09/22 16:03 Pulse Ox 95 06/09/22 16:03 O2 Del Method 06/09/22 16:03 O2 Flow Rate 35 06/02/22 21:00 FiO2 30 06/09/22 16:03 BMI result Body Mass Index 33.6 She clearly hears and does attempt to open eyes when called we have not sedated all day but last night she received a dose of IV Ativan Bedside echo consistent with good LV function Began to develop some tachypnea with been evidence of diaphragmatic effort for expiration consistent with some air trapping and we started on bronchodilator therapy as well as an empiric steroid [place] [id number] I still have no documentation of lung infection and is no apparent infiltrate on chest x-ray Abdomen soft with no again a megaly Objective Data Labs CBC & Chem 7: 06/09/22 05:15 06/09/22 05:15 Labs: Laboratory Results - last 24 hr 06/08/22 06/08/22 06/08/22 16:55 19:00 20:01 WBC RBC Hgb Hct MCV MCH MCHC RDW Plt Count MPV Immature Gran % (Auto) Neut % (Auto) Lymph % (Auto) [place] % (Auto) Eos % (Auto) Baso % (Auto) Lymph # (Auto) [place] # (Auto) Eos # (Auto) Baso # (Auto) Abs Immat Gran (auto) Absolute Neuts (auto) Absolute Nucleated RBC Nucleated RBC % (auto) Smear Tech's Comments VBG pH VBG pCO2 VBG pO2 VBG HCO3 VBG O2 Saturation VBG Base Excess Sodium Potassium Chloride Carbon Dioxide Anion Gap BUN Creatinine Estim Creat Clear Calc Estimated GFR POC Glucose 174 H 171 H 174 H Random Glucose Calcium Phosphorus Magnesium Total Bilirubin Direct Bilirubin AST ALT Alkaline Phosphatase B-Natriuretic Peptide Total Protein Albumin 06/08/22 06/09/22 06/09/22 21:56 00:01 02:05 WBC RBC Hgb Hct MCV MCH MCHC RDW Plt Count MPV Immature Gran % (Auto) Neut % (Auto) Lymph % (Auto) [place] % (Auto) Eos % (Auto) Baso % (Auto) Lymph # (Auto) [place] # (Auto) Eos # (Auto) Baso # (Auto) Abs Immat Gran (auto) Absolute Neuts (auto) Absolute Nucleated RBC Nucleated RBC % (auto) Smear Tech's Comments VBG pH VBG pCO2 VBG pO2 VBG HCO3 VBG O2 Saturation VBG Base Excess Sodium Potassium Chloride Carbon Dioxide Anion Gap BUN Creatinine Estim Creat Clear Calc Estimated GFR POC Glucose 188 H 216 H 201 H Random Glucose Calcium Phosphorus Magnesium Total Bilirubin Direct Bilirubin AST ALT Alkaline Phosphatase B-Natriuretic Peptide Total Protein Albumin 06/09/22 06/09/22 06/09/22 04:06 05:15 05:15 WBC 18.7 H RBC 4.53 Hgb 8.8 L Hct 30.9 L MCV 68.2 L MCH 19.4 L MCHC 28.5 L RDW 23.3 H Plt Count 371 D MPV 9.7 Immature Gran % (Auto) 1.4 H Neut % (Auto) 79.9 H Lymph % (Auto) 9.6 L [place] % (Auto) 8.8 Eos % (Auto) 0.2 Baso % (Auto) 0.1 Lymph # (Auto) 1.8 [place] # (Auto) 1.6 H Eos # (Auto) 0.0 Baso # (Auto) 0.0 Abs Immat Gran (auto) 0.27 H Absolute Neuts (auto) 15.0 H Absolute Nucleated RBC 0.000 Nucleated RBC % (auto) 0.0 Smear Tech's Comments VERIFIED VBG pH VBG pCO2 VBG pO2 VBG HCO3 VBG O2 Saturation VBG Base Excess Sodium 136 Potassium 3.6 D Chloride 97 Carbon Dioxide 31 H Anion Gap 12 BUN 20 H Creatinine 0.62 Estim Creat Clear Calc 89.0 Estimated GFR > 60 POC Glucose 157 H Random Glucose 158 H Calcium 8.3 L Phosphorus 2.7 Magnesium 2.1 Total Bilirubin 0.5 Direct Bilirubin 0.3 AST 12 ALT 20 Alkaline Phosphatase 84 B-Natriuretic Peptide Total Protein 7.1 Albumin 3.6 06/09/22 06/09/22 06/09/22 05:15 05:18 06:00 WBC RBC Hgb Hct MCV MCH MCHC RDW Plt Count MPV Immature Gran % (Auto) Neut % (Auto) Lymph % (Auto) [place] % (Auto) Eos % (Auto) Baso % (Auto) Lymph # (Auto) [place] # (Auto) Eos # (Auto) Baso # (Auto) Abs Immat Gran (auto) Absolute Neuts (auto) Absolute Nucleated RBC Nucleated RBC % (auto) Smear Tech's Comments VBG pH 7.48 H VBG pCO2 44 VBG pO2 52 VBG HCO3 33 H VBG O2 Saturation 80.0 VBG Base Excess 9.0 Sodium Potassium Chloride Carbon Dioxide Anion Gap BUN Creatinine Estim Creat Clear Calc Estimated GFR POC Glucose 156 H Random Glucose Calcium Phosphorus Magnesium Total Bilirubin Direct Bilirubin AST ALT Alkaline Phosphatase B-Natriuretic Peptide 538 H Total Protein Albumin 06/09/22 06/09/22 06/09/22 08:03 10:02 12:10 WBC RBC Hgb Hct MCV MCH MCHC RDW Plt Count MPV Immature Gran % (Auto) Neut % (Auto) Lymph % (Auto) [place] % (Auto) Eos % (Auto) Baso % (Auto) Lymph # (Auto) [place] # (Auto) Eos # (Auto) Baso # (Auto) Abs Immat Gran (auto) Absolute Neuts (auto) Absolute Nucleated RBC Nucleated RBC % (auto) Smear Tech's Comments VBG pH VBG pCO2 VBG pO2 VBG HCO3 VBG O2 Saturation VBG Base Excess Sodium Potassium Chloride Carbon Dioxide Anion Gap BUN Creatinine Estim Creat Clear Calc Estimated GFR POC Glucose 154 H 137 H 178 H Random Glucose Calcium Phosphorus Magnesium Total Bilirubin Direct Bilirubin AST ALT Alkaline Phosphatase B-Natriuretic Peptide Total Protein Albumin 06/09/22 06/09/22 14:09 16:17 WBC RBC Hgb Hct MCV MCH MCHC RDW Plt Count MPV Immature Gran % (Auto) Neut % (Auto) Lymph % (Auto) [place] % (Auto) Eos % (Auto) Baso % (Auto) Lymph # (Auto) [place] # (Auto) Eos # (Auto) Baso # (Auto) Abs Immat Gran (auto) Absolute Neuts (auto) Absolute Nucleated RBC Nucleated RBC % (auto) Smear Tech's Comments VBG pH VBG pCO2 VBG pO2 VBG HCO3 VBG O2 Saturation VBG Base Excess Sodium Potassium Chloride Carbon Dioxide Anion Gap BUN Creatinine Estim Creat Clear Calc Estimated GFR POC Glucose 196 H 217 H Random Glucose Calcium Phosphorus Magnesium Total Bilirubin Direct Bilirubin AST ALT Alkaline Phosphatase B-Natriuretic Peptide Total Protein Albumin Microbiology Microbiology Results: Microbiology 06/09/22 07:17 Sputum - Suctioned Gram Stain - Preliminary 06/08/22 05:00 Blood - Venous Blood Culture - Preliminary No growth after 24 hours. 06/08/22 05:00 Blood - Venous Blood Culture - Preliminary No growth after 24 hours. 06/05/22 11:03 Blood - Venous Blood Culture - Final Coag negative Staphylococcus 06/06/22 03:43 Sputum - Suctioned Gram Stain - Final 06/06/22 03:43 Sputum - Suctioned Sputum Culture - Final 06/05/22 10:33 Blood - Venous Blood Culture - Preliminary No growth after 48 hours. 06/01/22 16:44 Blood - Venous Blood Culture - Final No growth after 5 days. 06/01/22 16:33 Blood - Venous Blood Culture - Final No growth after 5 days. 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
[2022-06-09] MEDS: niCARdipine HCL 25 MG in 0.9 % Sodium Chloride 250 ML 52 MG IVCONT ×2 (17:54→23:50)
[2022-06-09 18:04] LABS: Glucose, Whole Blood 228 mg/dL (60-115)
[2022-06-09 19:06] LABS: Glucose, Whole Blood 249 mg/dL (60-115)
[2022-06-09 20:40] LABS: Glucose, Whole Blood 232 mg/dL (60-115)
[2022-06-09 22:02] LABS: Glucose, Whole Blood 229 mg/dL (60-115)
[2022-06-09] MEDS: diazePAM 10 MG/2 ML CARTRIDGE IVPUSH (23:08)
[2022-06-09 23:46] LABS: Glucose, Whole Blood 243 mg/dL (60-115)
[2022-06-10] VITALS (43 sets, daily range): BP systolic 107–177; BP diastolic 44–85; PULSE 64–91; RESP 14–32; TEMP 34–38.2; O2SAT 90–100; BMI 33.9
[2022-06-10 01:10] LABS: Glucose, Whole Blood 255 mg/dL (60-115)
[2022-06-10 02:09] LABS: Glucose, Whole Blood 241 mg/dL (60-115)
[2022-06-10] MEDS: methylPREDNISolone Sod Succ 40 MG/ML VIAL IVPUSH ×4 (02:17→19:54)
[2022-06-10] MEDS: Insulin Regular/NS 100 UNIT/100 ML PLAST..BAG 10 UNIT IVCONT (03:20)
[2022-06-10 03:21] LABS: Glucose, Whole Blood 238 mg/dL (60-115)
[2022-06-10] MEDS: niCARdipine HCL 25 MG in 0.9 % Sodium Chloride 250 ML 62.4 MG IVCONT ×5 (04:14→22:33)
[2022-06-10 04:15] LABS: Glucose, Whole Blood 244 mg/dL (60-115)
[2022-06-10 05:10] LABS: Glucose, Whole Blood 244 mg/dL (60-115)
[2022-06-10 05:37] LABS: VBG Base Excess 8.8 mmol/L; VBG HCO3 32 mmol/L (22-26); VBG pCO2 39 mmHg; VBG pH 7.52 (7.32-7.43); VBG pO2 54 mmHg
[2022-06-10 05:51] LABS: Basophils Percent Auto 0.1 % (0-2); Hematocrit 29.6 % (37.0-47.0); Hemoglobin 8.6 g/dl (12.0-16.0); Imm Gran Abs Auto 0.17 X10*3/uL (0.00-0.03); Imm Gran Pct Auto 1.4 % (0.0-0.4); Lymphocytes Absolute Auto 0.5 X10*3/uL (1.2-4.9); Lymphocytes Percent Auto 4.2 % (20-40); MANUAL DIFF FLAG SCAN; Mean Corpuscular HGB Conc 29.1 g/dl (31.0-35.0); Mean Corpuscular Volume 68.8 fL (80.0-98.0); Monocytes Absolute Auto 0.4 X10*3/uL (0.1-1.2); Monocytes Percent Auto 3.4 % (2-11); Neutrophils Absolute Auto 10.9 x10*3/uL (2.0-8.3); Neutrophils Percent Auto 90.9 % (45-73); Platelet Count 349 X10*3/uL (160-400); Red Cell Distribution Width 23.1 % (11.0-16.0); SCAN SMEAR FLAG 1; White Blood Count 11.9 X10*3/uL (4.8-10.8)
[2022-06-10 05:53] LABS: Venous Blood Gas Refer to POC result
[2022-06-10 06:04] LABS: Glucose, Whole Blood 237 mg/dL (60-115)
[2022-06-10 06:08] LABS: SLIDE REVIEW VERIFIED
[2022-06-10 06:11] LABS: Alanine Aminotransferase 18 U/L (0-31); Albumin Level 3.3 g/dL (3.5-5.0); Alkaline Phosphatase 84 U/L (39-117); Anion Gap 10 (12-20); Aspartate Amino Transferase 11 U/L (5-31); B Type Natriuretic Peptide 299 pg/mL (<100); Bilirubin Direct 0.3 mg/dL (0.0-0.5); Bilirubin Total 0.5 mg/dL (0.0-1.0); Blood Urea Nitrogen 24 mg/dL (9-16); Calcium 8.3 mg/dL (8.4-10.2); Carbon Dioxide 30 mmol/L (22-29); Chloride 100 mmol/L (96-108); Creatinine Clr Calc Pharmacy 85.3; Estimated Glomerular Filt Rate > 60; Glucose Random 264 mg/dL (60-115); Magnesium 2.4 mg/dL (1.6-2.6); Phosphorus 2.8 mg/dL (2.7-4.5); Potassium 4.1 mmol/L (3.3-5.1); Sodium 136 mmol/L (135-145); Total Protein 6.6 g/dL (6.5-8.0)
[2022-06-10 07:09] LABS: Glucose, Whole Blood 248 mg/dL (60-115)
[2022-06-10] MEDS: Ampicillin Sodium/Sulbactam Na 3 GM in 0.9 % Sodium Chloride 100 ML IV ×3 (07:39→19:53)
[2022-06-10] MEDS: Ferrous Sulfate 324 MG TABLET.DR PO (07:39)
[2022-06-10] MEDS: Chlorhexidine Gluc Oral Rinse 15 ML MOUTHWASH BUCCAL ×4 (07:39→23:12)
[2022-06-10] MEDS: carvediloL 25 MG TABLET PO ×2 (07:40→19:55)
[2022-06-10] MEDS: Furosemide 40 MG TABLET PO (07:40)
[2022-06-10] MEDS: Nystatin Powder 15 GM BOTTLE 1 APPL TOPICAL ×3 (07:40→23:12)
[2022-06-10] MEDS: Valsartan 160 MG TABLET PO (07:40)
[2022-06-10 08:07] LABS: Glucose, Whole Blood 243 mg/dL (60-115)
[2022-06-10] MEDS: Albuterol/Iprat 2.5/0.5MG 3 ML AMPUL.NEB INHALE ×4 (08:28→20:52)
--- NOTE | 2022-06-10 08:51 | MHC.CLN ---
F/U PT REMAINS INTUBATED PT RECEIVING OSMOLITE 1.5 AT MAX GOAL RATE 45ML/HR PROVIDES 1620KCALS (23KCALS/KG BASED ON CMW), 67.6G PROTEIN (.95G/KG), 823ML FREE WATER FROM FORMULA CONTINUE TO MONITOR TOLERANCE, RESIDUALS AND LYTES
--- NOTE | 2022-06-10 08:55 | P.PNCC_ITS ---
Subjective Subjective Date of Service: 06/10/22 Interval History: 76-year-old type 2 diabetic with COPD and obstructive sleep apnea noted to become progressively more hypoxic at home with FiO2 being increased by family and then noted to be unresponsive no palpable pulse family initiated CPR and CPR effort after EMS arrived spanned about 1 and half to 2 minutes and [place] was reached turned and the patient brought to the emergency room and since which time sedated and intubated but now she is more than 48 hours since the propofol was removed remains without cognitive function within encephalopathic EEG pattern no evidence of epileptic activity still has intact cranial nerve function but simply remains encephalopathic I have seems spontaneous movement of right upper and right lower extremity not so much on the left side is a little bit more posturing especially with left upper extremity Still running low-grade temperature sputum with mixed phyllis but the looks like predominance of Gram-positive cocci significant polys and although the [place] [id number] there is definitely a left shift and her last urinalysis did not reveal a source of infection and blood cultures have thus far been negative so the question was whether not a might be now that she may and that she is more than 8 days intubated a nosocomial infectious issue so we are initiating Unasyn add to cover at least the adeno dispute him and if need be in the course of the next 24 hours will repeat the end of a CT scan of chest abdomen is soft and tolerating food and liver functions are essentially normal so vital CT abdomen as a as a source but most importantly from the standpoint of prognosis which looks increasingly g she still it is not demonstrating cognitive function Critical Care Time (minutes): 45 Physical Exam Vital Signs: Vital Signs: Last Vital Signs Temp 100.8 F H 06/10/22 08:00 Pulse 71 06/10/22 08:51 Resp 20 06/10/22 08:29 BP 148/53 H 06/10/22 08:51 Pulse Ox 97 06/10/22 08:00 O2 Del Method 06/10/22 08:00 O2 Flow Rate 35 06/02/22 21:00 FiO2 30 06/10/22 08:36 BMI result Body Mass Index 33.9 Bedside echo indicating preserved LV and RV function Last chest x-ray no evidence of infiltrate Abdomen soft with no again a megaly Skin without breakdown Objective Data Labs CBC & Chem 7: 06/10/22 05:15 06/10/22 05:15 Labs: Laboratory Results - last 24 hr 06/09/22 06/09/22 06/09/22 10:02 12:10 14:09 WBC RBC Hgb Hct MCV MCH MCHC RDW Plt Count MPV Immature Gran % (Auto) Neut % (Auto) Lymph % (Auto) [place] % (Auto) Eos % (Auto) Baso % (Auto) Lymph # (Auto) [place] # (Auto) Eos # (Auto) Baso # (Auto) Abs Immat Gran (auto) Absolute Neuts (auto) Absolute Nucleated RBC Nucleated RBC % (auto) Smear Tech's Comments VBG pH VBG pCO2 VBG pO2 VBG HCO3 VBG O2 Saturation VBG Base Excess Sodium Potassium Chloride Carbon Dioxide Anion Gap BUN Creatinine Estim Creat Clear Calc Estimated GFR POC Glucose 137 H 178 H 196 H Random Glucose Calcium Phosphorus Magnesium Total Bilirubin Direct Bilirubin AST ALT Alkaline Phosphatase B-Natriuretic Peptide Total Protein Albumin 06/09/22 06/09/22 06/09/22 16:17 18:01 19:00 WBC RBC Hgb Hct MCV MCH MCHC RDW Plt Count MPV Immature Gran % (Auto) Neut % (Auto) Lymph % (Auto) [place] % (Auto) Eos % (Auto) Baso % (Auto) Lymph # (Auto) [place] # (Auto) Eos # (Auto) Baso # (Auto) Abs Immat Gran (auto) Absolute Neuts (auto) Absolute Nucleated RBC Nucleated RBC % (auto) Smear Tech's Comments VBG pH VBG pCO2 VBG pO2 VBG HCO3 VBG O2 Saturation VBG Base Excess Sodium Potassium Chloride Carbon Dioxide Anion Gap BUN Creatinine Estim Creat Clear Calc Estimated GFR POC Glucose 217 H 228 H 249 H Random Glucose Calcium Phosphorus Magnesium Total Bilirubin Direct Bilirubin AST ALT Alkaline Phosphatase B-Natriuretic Peptide Total Protein Albumin 06/09/22 06/09/22 06/09/22 20:08 21:59 23:43 WBC RBC Hgb Hct MCV MCH MCHC RDW Plt Count MPV Immature Gran % (Auto) Neut % (Auto) Lymph % (Auto) [place] % (Auto) Eos % (Auto) Baso % (Auto) Lymph # (Auto) [place] # (Auto) Eos # (Auto) Baso # (Auto) Abs Immat Gran (auto) Absolute Neuts (auto) Absolute Nucleated RBC Nucleated RBC % (auto) Smear Tech's Comments VBG pH VBG pCO2 VBG pO2 VBG HCO3 VBG O2 Saturation VBG Base Excess Sodium Potassium Chloride Carbon Dioxide Anion Gap BUN Creatinine Estim Creat Clear Calc Estimated GFR POC Glucose 232 H 229 H 243 H Random Glucose Calcium Phosphorus Magnesium Total Bilirubin Direct Bilirubin AST ALT Alkaline Phosphatase B-Natriuretic Peptide Total Protein Albumin 06/10/22 06/10/22 06/10/22 01:05 02:05 03:17 WBC RBC Hgb Hct MCV MCH MCHC RDW Plt Count MPV Immature Gran % (Auto) Neut % (Auto) Lymph % (Auto) [place] % (Auto) Eos % (Auto) Baso % (Auto) Lymph # (Auto) [place] # (Auto) Eos # (Auto) Baso # (Auto) Abs Immat Gran (auto) Absolute Neuts (auto) Absolute Nucleated RBC Nucleated RBC % (auto) Smear Tech's Comments VBG pH VBG pCO2 VBG pO2 VBG HCO3 VBG O2 Saturation VBG Base Excess Sodium Potassium Chloride Carbon Dioxide Anion Gap BUN Creatinine Estim Creat Clear Calc Estimated GFR POC Glucose 255 H 241 H 238 H Random Glucose Calcium Phosphorus Magnesium Total Bilirubin Direct Bilirubin AST ALT Alkaline Phosphatase B-Natriuretic Peptide Total Protein Albumin 06/10/22 06/10/22 06/10/22 04:10 05:06 05:15 WBC 11.9 H RBC 4.30 Hgb 8.6 L Hct 29.6 L MCV 68.8 L MCH 20.0 L MCHC 29.1 L RDW 23.1 H Plt Count 349 MPV 10.0 Immature Gran % (Auto) 1.4 H Neut % (Auto) 90.9 H Lymph % (Auto) 4.2 L [place] % (Auto) 3.4 Eos % (Auto) 0.0 Baso % (Auto) 0.1 Lymph # (Auto) 0.5 L [place] # (Auto) 0.4 Eos # (Auto) 0.0 Baso # (Auto) 0.0 Abs Immat Gran (auto) 0.17 H Absolute Neuts (auto) 10.9 H Absolute Nucleated RBC 0.000 Nucleated RBC % (auto) 0.0 Smear Tech's Comments VERIFIED VBG pH VBG pCO2 VBG pO2 VBG HCO3 VBG O2 Saturation VBG Base Excess Sodium Potassium Chloride Carbon Dioxide Anion Gap BUN Creatinine Estim Creat Clear Calc Estimated GFR POC Glucose 244 H 244 H Random Glucose Calcium Phosphorus Magnesium Total Bilirubin Direct Bilirubin AST ALT Alkaline Phosphatase B-Natriuretic Peptide Total Protein Albumin 06/10/22 06/10/22 06/10/22 05:15 05:15 05:30 WBC RBC Hgb Hct MCV MCH MCHC RDW Plt Count MPV Immature Gran % (Auto) Neut % (Auto) Lymph % (Auto) [place] % (Auto) Eos % (Auto) Baso % (Auto) Lymph # (Auto) [place] # (Auto) Eos # (Auto) Baso # (Auto) Abs Immat Gran (auto) Absolute Neuts (auto) Absolute Nucleated RBC Nucleated RBC % (auto) Smear Tech's Comments VBG pH 7.52 H VBG pCO2 39 VBG pO2 54 VBG HCO3 32 H VBG O2 Saturation 84.0 VBG Base Excess 8.8 Sodium 136 Potassium 4.1 Chloride 100 Carbon Dioxide 30 H Anion Gap 10 L BUN 24 H Creatinine 0.65 Estim Creat Clear Calc 85.3 Estimated GFR > 60 POC Glucose Random Glucose 264 H Calcium 8.3 L Phosphorus 2.8 Magnesium 2.4 Total Bilirubin 0.5 Direct Bilirubin 0.3 AST 11 ALT 18 Alkaline Phosphatase 84 B-Natriuretic Peptide 299 H Total Protein 6.6 Albumin 3.3 L 06/10/22 06/10/22 06/10/22 06:00 07:03 08:04 WBC RBC Hgb Hct MCV MCH MCHC RDW Plt Count MPV Immature Gran % (Auto) Neut % (Auto) Lymph % (Auto) [place] % (Auto) Eos % (Auto) Baso % (Auto) Lymph # (Auto) [place] # (Auto) Eos # (Auto) Baso # (Auto) Abs Immat Gran (auto) Absolute Neuts (auto) Absolute Nucleated RBC Nucleated RBC % (auto) Smear Tech's Comments VBG pH VBG pCO2 VBG pO2 VBG HCO3 VBG O2 Saturation VBG Base Excess Sodium Potassium Chloride Carbon Dioxide Anion Gap BUN Creatinine Estim Creat Clear Calc Estimated GFR POC Glucose 237 H 248 H 243 H Random Glucose Calcium Phosphorus Magnesium Total Bilirubin Direct Bilirubin AST ALT Alkaline Phosphatase B-Natriuretic Peptide Total Protein Albumin Microbiology Microbiology Results: Microbiology 06/09/22 07:17 Sputum - Suctioned Gram Stain - Preliminary 06/09/22 07:17 Sputum - Suctioned Sputum Culture - Preliminary Culture in progress. 06/08/22 05:00 Blood - Venous Blood Culture - Preliminary No growth after 48 hours. 06/08/22 05:00 Blood - Venous Blood Culture - Preliminary No growth after 48 hours. 06/05/22 11:03 Blood - Venous Blood Culture - Final Coag negative Staphylococcus 06/06/22 03:43 Sputum - Suctioned Gram Stain - Final 06/06/22 03:43 Sputum - Suctioned Sputum Culture - Final 06/05/22 10:33 Blood - Venous Blood Culture - Preliminary No growth after 48 hours. 06/01/22 16:44 Blood - Venous Blood Culture - Final No growth after 5 days. 06/01/22 16:33 Blood - Venous Blood Culture - Final No growth after 5 days. 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
[2022-06-10 09:09] LABS: Glucose, Whole Blood 233 mg/dL (60-115)
[2022-06-10 10:03] LABS: Glucose, Whole Blood 241 mg/dL (60-115)
--- NOTE | 2022-06-10 10:19 | MHC.CM.PN ---
Pt continues on ventilatory support - 30 % FiO2 but without any neuro response. Per MD, pt is approaching the 2 week vented marker when decisions about COMMUNITY ADMINISTRATOR vs peg/trach will need to be made. MD to discuss w/family and will discuss change of code status to DNR given her poor prognosis for any neurological recovery. CM to await MD / family conference for discuss about LTAC vs STR vs COMMUNITY ADMINISTRATOR.
[2022-06-10 11:25] LABS: Glucose, Whole Blood 238 mg/dL (60-115)
[2022-06-10 12:05] LABS: Glucose, Whole Blood 219 mg/dL (60-115)
[2022-06-10] MEDS: Insulin Regular/NS 100 UNIT/100 ML PLAST..BAG 12 UNIT IVCONT ×2 (12:19→20:00)
[2022-06-10 13:21] LABS: Glucose, Whole Blood 198 mg/dL (60-115)
[2022-06-10 14:14] LABS: Glucose, Whole Blood 200 mg/dL (60-115)
[2022-06-10 15:11] LABS: Glucose, Whole Blood 205 mg/dL (60-115)
[2022-06-10 16:08] LABS: Glucose, Whole Blood 205 mg/dL (60-115)
[2022-06-10 18:10] LABS: Glucose, Whole Blood 193 mg/dL (60-115)
[2022-06-10 20:10] LABS: Glucose, Whole Blood 201 mg/dL (60-115)
[2022-06-10 22:07] LABS: Glucose, Whole Blood 196 mg/dL (60-115)
[2022-06-11] VITALS (31 sets, daily range): BP systolic 136–171; BP diastolic 45–68; PULSE 62–81; RESP 8–33; TEMP 34.7–38.5; O2SAT 92–100; BMI 34.9
[2022-06-11 00:06] LABS: Glucose, Whole Blood 168 mg/dL (60-115)
[2022-06-11] MEDS: diazePAM 10 MG/2 ML CARTRIDGE 5 MG IVPUSH (00:42)
[2022-06-11] MEDS: Ampicillin Sodium/Sulbactam Na 3 GM in 0.9 % Sodium Chloride 100 ML IV ×4 (00:55→17:58)
[2022-06-11] MEDS: methylPREDNISolone Sod Succ 40 MG/ML VIAL IVPUSH ×4 (00:55→17:57)
[2022-06-11 02:08] LABS: Glucose, Whole Blood 148 mg/dL (60-115)
[2022-06-11] MEDS: Insulin Regular/NS 100 UNIT/100 ML PLAST..BAG 12 UNIT IVCONT (02:44)
[2022-06-11 03:01] LABS: Glucose, Whole Blood 156 mg/dL (60-115)
[2022-06-11] MEDS: niCARdipine HCL 25 MG in 0.9 % Sodium Chloride 250 ML 62.4 MG IVCONT ×4 (03:35→15:38)
[2022-06-11 05:05] LABS: Glucose, Whole Blood 158 mg/dL (60-115)
[2022-06-11 05:28] LABS: VBG Base Excess 10.5 mmol/L; VBG HCO3 33 mmol/L (22-26); VBG pCO2 39 mmHg; VBG pH 7.54 (7.32-7.43); VBG pO2 51 mmHg
[2022-06-11 05:31] LABS: Venous Blood Gas Refer to POC result
[2022-06-11 05:36] LABS: MANUAL DIFF FLAG NO
[2022-06-11 05:40] LABS: Basophils Percent Auto 0.1 % (0-2); Hematocrit 30.4 % (37.0-47.0); Hemoglobin 8.8 g/dl (12.0-16.0); Imm Gran Abs Auto 0.12 X10*3/uL (0.00-0.03); Lymphocytes Absolute Auto 0.7 X10*3/uL (1.2-4.9); Lymphocytes Percent Auto 5.6 % (20-40); Mean Corpuscular HGB Conc 28.9 g/dl (31.0-35.0); Mean Corpuscular Hemoglobin 20.3 pg (27.0-33.0); Mean Platelet Volume 9.6 fL (9.4-12.3); Monocytes Absolute Auto 0.6 X10*3/uL (0.1-1.2); Monocytes Percent Auto 5.2 % (2-11); Neutrophils Absolute Auto 10.9 x10*3/uL (2.0-8.3); Neutrophils Percent Auto 88.1 % (45-73); Platelet Count 299 X10*3/uL (160-400); Red Blood Count 4.34 X10*6/uL (4.20-5.50); Red Cell Distribution Width 23.4 % (11.0-16.0); White Blood Count 12.4 X10*3/uL (4.8-10.8)
[2022-06-11 06:02] LABS: Alanine Aminotransferase 26 U/L (0-31); Alkaline Phosphatase 75 U/L (39-117); Anion Gap 9 (12-20); Aspartate Amino Transferase 21 U/L (5-31); Bilirubin Direct 0.3 mg/dL (0.0-0.5); Bilirubin Total 0.5 mg/dL (0.0-1.0); Blood Urea Nitrogen 23 mg/dL (9-16); Calcium 7.5 mg/dL (8.4-10.2); Carbon Dioxide 28 mmol/L (22-29); Chloride 106 mmol/L (96-108); Creatinine Clr Calc Pharmacy 100.8; Estimated Glomerular Filt Rate > 60; Glucose Random 161 mg/dL (60-115); Magnesium 2.7 mg/dL (1.6-2.6); Phosphorus 2.5 mg/dL (2.7-4.5); Potassium 3.2 mmol/L (3.3-5.1); Sodium 140 mmol/L (135-145); Total Protein 5.9 g/dL (6.5-8.0)
[2022-06-11 06:04] LABS: B Type Natriuretic Peptide 272 pg/mL (<100)
[2022-06-11 06:47] LABS: Glucose, Whole Blood 164 mg/dL (60-115)
[2022-06-11 07:06] LABS: Glucose, Whole Blood 168 mg/dL (60-115)
[2022-06-11] MEDS: Potassium Chloride Packet 20 MEQ PACKET 40 MEQ PO (07:26)
[2022-06-11] MEDS: Nystatin Powder 15 GM BOTTLE 1 APPL TOPICAL ×3 (07:55→20:36)
[2022-06-11] MEDS: Ferrous Sulfate 324 MG TABLET.DR PO (07:58)
[2022-06-11] MEDS: Valsartan 160 MG TABLET PO (07:58)
[2022-06-11] MEDS: Furosemide 40 MG TABLET PO (07:58)
[2022-06-11] MEDS: carvediloL 25 MG TABLET PO ×2 (07:59→20:36)
[2022-06-11] MEDS: Chlorhexidine Gluc Oral Rinse 15 ML MOUTHWASH BUCCAL ×3 (07:59→20:36)
[2022-06-11 08:00] LABS: Glucose, Whole Blood 169 mg/dL (60-115)
[2022-06-11] MEDS: Albuterol/Iprat 2.5/0.5MG 3 ML AMPUL.NEB INHALE ×4 (08:06→20:15)
--- NOTE | 2022-06-11 08:58 | PM.CCPN ---
Subjective Subjective Date of Service: 06/11/22 Interval History: 76-year-old female moderately obese with underlying COPD who has had exacerbations in recent weeks and was in the hospital a month earlier following respiratory arrest this time was becoming progressively hypoxic and having her FiO2 titrated up and and then all of a sudden within minutes witnessed loss of consciousness initially pulse was present when EMS arrived ventilating the patient there was a brief loss of the pulse with 1-1/2 minutes of CPR to restore her [place] and intubated in the emergency room and right now we are 72 hours since discontinuation of propofol and her eyes are open for the 1st time staring but with some demonstration of understanding and following commands at least on a limited basis which is significant improvement over 1 day ago Low-grade temperature persists but possibly beginning to wane with stable white count and no left shift just mild hypokalemia but metabolically otherwise normal minimally positive intake to output ratio and remains only on FiO2 of 30% with 6-1/2 L minute ventilatory requirement so at this point we get ever closer to potential ventilator weaning trial but we still await improvement in cognitive function Critical Care Time (minutes): 45 Physical Exam Vital Signs: Vital Signs: Last Vital Signs Temp 99.7 F 06/11/22 08:00 Pulse 77 06/11/22 08:00 Resp 23 H 06/11/22 08:00 BP 168/55 H 06/11/22 08:00 Pulse Ox 97 06/11/22 08:00 O2 Del Method 06/11/22 08:00 O2 Flow Rate 35 06/02/22 21:00 FiO2 30 06/11/22 08:07 BMI result Body Mass Index 34.9 I open and some demonstrated understanding of spoken word but very compromised cognitive functions still No sedation and remains synchronous with the ventilator on aggressive pressure support at 20/5 FiO2 remains at 30% and minutes ventilatory requirements minimal at 6.5 liters/minute Skin intact Bedside echo with preserved LV function with 55% ejection fraction Lungs without diaphragmatic effort and no adventitious sounds Abdomen no organomegaly soft nontender tolerating feedings Objective Data Labs CBC & Chem 7: 06/11/22 05:20 06/11/22 05:20 Labs: Laboratory Results - last 24 hr 06/10/22 06/10/22 06/10/22 09:04 10:00 11:06 WBC RBC Hgb Hct MCV MCH MCHC RDW Plt Count MPV Immature Gran % (Auto) Neut % (Auto) Lymph % (Auto) [place] % (Auto) Eos % (Auto) Baso % (Auto) Lymph # (Auto) [place] # (Auto) Eos # (Auto) Baso # (Auto) Abs Immat Gran (auto) Absolute Neuts (auto) Absolute Nucleated RBC Nucleated RBC % (auto) VBG pH VBG pCO2 VBG pO2 VBG HCO3 VBG O2 Saturation VBG Base Excess Sodium Potassium Chloride Carbon Dioxide Anion Gap BUN Creatinine Estim Creat Clear Calc Estimated GFR POC Glucose 233 H 241 H 238 H Random Glucose Calcium Phosphorus Magnesium Total Bilirubin Direct Bilirubin AST ALT Alkaline Phosphatase B-Natriuretic Peptide Total Protein Albumin 06/10/22 06/10/22 06/10/22 11:59 13:18 14:10 WBC RBC Hgb Hct MCV MCH MCHC RDW Plt Count MPV Immature Gran % (Auto) Neut % (Auto) Lymph % (Auto) [place] % (Auto) Eos % (Auto) Baso % (Auto) Lymph # (Auto) [place] # (Auto) Eos # (Auto) Baso # (Auto) Abs Immat Gran (auto) Absolute Neuts (auto) Absolute Nucleated RBC Nucleated RBC % (auto) VBG pH VBG pCO2 VBG pO2 VBG HCO3 VBG O2 Saturation VBG Base Excess Sodium Potassium Chloride Carbon Dioxide Anion Gap BUN Creatinine Estim Creat Clear Calc Estimated GFR POC Glucose 219 H 198 H 200 H Random Glucose Calcium Phosphorus Magnesium Total Bilirubin Direct Bilirubin AST ALT Alkaline Phosphatase B-Natriuretic Peptide Total Protein Albumin 06/10/22 06/10/22 06/10/22 15:04 16:04 18:06 WBC RBC Hgb Hct MCV MCH MCHC RDW Plt Count MPV Immature Gran % (Auto) Neut % (Auto) Lymph % (Auto) [place] % (Auto) Eos % (Auto) Baso % (Auto) Lymph # (Auto) [place] # (Auto) Eos # (Auto) Baso # (Auto) Abs Immat Gran (auto) Absolute Neuts (auto) Absolute Nucleated RBC Nucleated RBC % (auto) VBG pH VBG pCO2 VBG pO2 VBG HCO3 VBG O2 Saturation VBG Base Excess Sodium Potassium Chloride Carbon Dioxide Anion Gap BUN Creatinine Estim Creat Clear Calc Estimated GFR POC Glucose 205 H 205 H 193 H Random Glucose Calcium Phosphorus Magnesium Total Bilirubin Direct Bilirubin AST ALT Alkaline Phosphatase B-Natriuretic Peptide Total Protein Albumin 06/10/22 06/10/2222 20:06 22:03 00:02 WBC RBC Hgb Hct MCV MCH MCHC RDW Plt Count MPV Immature Gran % (Auto) Neut % (Auto) Lymph % (Auto) [place] % (Auto) Eos % (Auto) Baso % (Auto) Lymph # (Auto) [place] # (Auto) Eos # (Auto) Baso # (Auto) Abs Immat Gran (auto) Absolute Neuts (auto) Absolute Nucleated RBC Nucleated RBC % (auto) VBG pH VBG pCO2 VBG pO2 VBG HCO3 VBG O2 Saturation VBG Base Excess Sodium Potassium Chloride Carbon Dioxide Anion Gap BUN Creatinine Estim Creat Clear Calc Estimated GFR POC Glucose 201 H 196 H 168 H Random Glucose Calcium Phosphorus Magnesium Total Bilirubin Direct Bilirubin AST ALT Alkaline Phosphatase B-Natriuretic Peptide Total Protein Albumin 06/11/22 06/11/22 06/11/22 02:03 02:53 04:04 WBC RBC Hgb Hct MCV MCH MCHC RDW Plt Count MPV Immature Gran % (Auto) Neut % (Auto) Lymph % (Auto) [place] % (Auto) Eos % (Auto) Baso % (Auto) Lymph # (Auto) [place] # (Auto) Eos # (Auto) Baso # (Auto) Abs Immat Gran (auto) Absolute Neuts (auto) Absolute Nucleated RBC Nucleated RBC % (auto) VBG pH VBG pCO2 VBG pO2 VBG HCO3 VBG O2 Saturation VBG Base Excess Sodium Potassium Chloride Carbon Dioxide Anion Gap BUN Creatinine Estim Creat Clear Calc Estimated GFR POC Glucose 148 H 156 H 158 H Random Glucose Calcium Phosphorus Magnesium Total Bilirubin Direct Bilirubin AST ALT Alkaline Phosphatase B-Natriuretic Peptide Total Protein Albumin 06/11/22 06/11/22 06/11/22 05:20 05:20 05:20 WBC 12.4 H RBC 4.34 Hgb 8.8 L Hct 30.4 L MCV 70.0 L MCH 20.3 L MCHC 28.9 L RDW 23.4 H Plt Count 299 MPV 9.6 Immature Gran % (Auto) 1.0 H Neut % (Auto) 88.1 H Lymph % (Auto) 5.6 L [place] % (Auto) 5.2 Eos % (Auto) 0.0 Baso % (Auto) 0.1 Lymph # (Auto) 0.7 L [place] # (Auto) 0.6 Eos # (Auto) 0.0 Baso # (Auto) 0.0 Abs Immat Gran (auto) 0.12 H Absolute Neuts (auto) 10.9 H Absolute Nucleated RBC 0.000 Nucleated RBC % (auto) 0.0 VBG pH VBG pCO2 VBG pO2 VBG HCO3 VBG O2 Saturation VBG Base Excess Sodium 140 Potassium 3.2 L D Chloride 106 Carbon Dioxide 28 Anion Gap 9 L BUN 23 H Creatinine 0.55 Estim Creat Clear Calc 100.8 Estimated GFR > 60 POC Glucose Random Glucose 161 H Calcium 7.5 L D Phosphorus 2.5 L Magnesium 2.7 H Total Bilirubin 0.5 Direct Bilirubin 0.3 AST 21 D ALT 26 Alkaline Phosphatase 75 B-Natriuretic Peptide 272 H Total Protein 5.9 L Albumin 3.0 L 06/11/22 06/11/22 06/11/22 05:23 06:22 07:01 WBC RBC Hgb Hct MCV MCH MCHC RDW Plt Count MPV Immature Gran % (Auto) Neut % (Auto) Lymph % (Auto) [place] % (Auto) Eos % (Auto) Baso % (Auto) Lymph # (Auto) [place] # (Auto) Eos # (Auto) Baso # (Auto) Abs Immat Gran (auto) Absolute Neuts (auto) Absolute Nucleated RBC Nucleated RBC % (auto) VBG pH 7.54 H VBG pCO2 39 VBG pO2 51 VBG HCO3 33 H VBG O2 Saturation 82.0 VBG Base Excess 10.5 Sodium Potassium Chloride Carbon Dioxide Anion Gap BUN Creatinine Estim Creat Clear Calc Estimated GFR POC Glucose 164 H 168 H Random Glucose Calcium Phosphorus Magnesium Total Bilirubin Direct Bilirubin AST ALT Alkaline Phosphatase B-Natriuretic Peptide Total Protein Albumin 06/11/22 07:56 WBC RBC Hgb Hct MCV MCH MCHC RDW Plt Count MPV Immature Gran % (Auto) Neut % (Auto) Lymph % (Auto) [place] % (Auto) Eos % (Auto) Baso % (Auto) Lymph # (Auto) [place] # (Auto) Eos # (Auto) Baso # (Auto) Abs Immat Gran (auto) Absolute Neuts (auto) Absolute Nucleated RBC Nucleated RBC % (auto) VBG pH VBG pCO2 VBG pO2 VBG HCO3 VBG O2 Saturation VBG Base Excess Sodium Potassium Chloride Carbon Dioxide Anion Gap BUN Creatinine Estim Creat Clear Calc Estimated GFR POC Glucose 169 H Random Glucose Calcium Phosphorus Magnesium Total Bilirubin Direct Bilirubin AST ALT Alkaline Phosphatase B-Natriuretic Peptide Total Protein Albumin Microbiology Microbiology Results: Microbiology 06/09/22 07:17 Sputum - Suctioned Gram Stain - Final 06/09/22 07:17 Sputum - Suctioned Sputum Culture - Preliminary Culture in progress. 06/05/22 10:33 Blood - Venous Blood Culture - Final No growth after 5 days. 06/08/22 05:00 Blood - Venous Blood Culture - Preliminary No growth after 48 hours. 06/08/22 05:00 Blood - Venous Blood Culture - Preliminary No growth after 48 hours. 06/05/22 11:03 Blood - Venous Blood Culture - Final Coag negative Staphylococcus 06/06/22 03:43 Sputum - Suctioned Gram Stain - Final 06/06/22 03:43 Sputum - Suctioned Sputum Culture - Final 06/01/22 16:44 Blood - Venous Blood Culture - Final No growth after 5 days. 06/01/22 16:33 Blood - Venous Blood Culture - Final No growth after 5 days. 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
[2022-06-11 09:05] LABS: Glucose, Whole Blood 159 mg/dL (60-115)
[2022-06-11 10:17] LABS: Glucose, Whole Blood 167 mg/dL (60-115)
[2022-06-11] MEDS: Insulin Regular/NS 100 UNIT/100 ML PLAST..BAG 13 UNIT IVCONT (10:29)
[2022-06-11 11:05] LABS: Glucose, Whole Blood 174 mg/dL (60-115)
[2022-06-11 12:07] LABS: Glucose, Whole Blood 179 mg/dL (60-115)
[2022-06-11 13:02] LABS: Glucose, Whole Blood 171 mg/dL (60-115)
[2022-06-11 14:07] LABS: Glucose, Whole Blood 180 mg/dL (60-115)
[2022-06-11 15:05] LABS: Glucose, Whole Blood 172 mg/dL (60-115)
[2022-06-11 16:05] LABS: Glucose, Whole Blood 158 mg/dL (60-115)
[2022-06-11 17:09] LABS: Glucose, Whole Blood 171 mg/dL (60-115)
[2022-06-11] MEDS: Insulin Regular/NS 100 UNIT/100 ML PLAST..BAG 14 UNIT IVCONT (17:58)
[2022-06-11 18:05] LABS: Glucose, Whole Blood 159 mg/dL (60-115)
--- NOTE | 2022-06-11 18:40 | PC.NURSE ---
TMAX 101.3 REMAINS ON NICARDIPINE GTT - SEE EMAR. TITRATING INSULIN GTT PER PROTOCOL. SEDATION REMAINS OFF- OPENS EYE TO SOUND AND STIMULI, DOES NOT TRACK. WITH DENTAL AIDE ABLE TO WIGGLE TOES AND FINGERS. UNABLE TO NOD YES OR NO TO QUESTIONS. TOLERATING PS 20/5 ON 30%. TOLERATING TUBE FEEDS WITH NO RESIDUAL. LONG WNL. NO BM. BATHED, Q2HR REPO, PREVALON SYSTEM, PILLOWS, WEDGES AND TURNING BED UTILIZED.
[2022-06-11 19:02] LABS: Glucose, Whole Blood 158 mg/dL (60-115)
[2022-06-11 20:05] LABS: Glucose, Whole Blood 156 mg/dL (60-115)
[2022-06-11 21:01] LABS: Glucose, Whole Blood 147 mg/dL (60-115)
[2022-06-11 22:15] LABS: Glucose, Whole Blood 125 mg/dL (60-115)
[2022-06-12] VITALS (35 sets, daily range): BP systolic 142–186; BP diastolic 40–63; PULSE 62–78; RESP 12–26; TEMP 22.7–38.5; O2SAT 93–96
[2022-06-12 00:01] LABS: Glucose, Whole Blood 131 mg/dL (60-115)
[2022-06-12] MEDS: Ampicillin Sodium/Sulbactam Na 3 GM in 0.9 % Sodium Chloride 100 ML IV ×2 (00:59→06:07)
[2022-06-12] MEDS: methylPREDNISolone Sod Succ 40 MG/ML VIAL IVPUSH (01:00)
[2022-06-12] MEDS: Insulin Regular/NS 100 UNIT/100 ML PLAST..BAG 12 UNIT IVCONT (01:00)
[2022-06-12 02:11] LABS: Glucose, Whole Blood 152 mg/dL (60-115)
[2022-06-12 04:11] LABS: Glucose, Whole Blood 136 mg/dL (60-115)
[2022-06-12] MEDS: niCARdipine HCL 25 MG in 0.9 % Sodium Chloride 250 ML 52 MG IVCONT ×4 (04:45→20:52)
[2022-06-12 05:19] LABS: MANUAL DIFF FLAG NO
[2022-06-12 05:21] LABS: VBG Base Excess 11.7 mmol/L; VBG HCO3 34 mmol/L (22-26); VBG pCO2 36 mmHg; VBG pH 7.58 (7.32-7.43); VBG pO2 40 mmHg
[2022-06-12 05:28] LABS: Basophils Percent Auto 0.1 % (0-2); Hematocrit 29.7 % (37.0-47.0); Hemoglobin 8.5 g/dl (12.0-16.0); Imm Gran Pct Auto 0.9 % (0.0-0.4); Lymphocytes Absolute Auto 0.7 X10*3/uL (1.2-4.9); Mean Corpuscular HGB Conc 28.6 g/dl (31.0-35.0); Mean Corpuscular Volume 69.7 fL (80.0-98.0); Mean Platelet Volume 9.3 fL (9.4-12.3); Monocytes Absolute Auto 0.5 X10*3/uL (0.1-1.2); Monocytes Percent Auto 4.7 % (2-11); Neutrophils Absolute Auto 9.7 x10*3/uL (2.0-8.3); Neutrophils Percent Auto 88.3 % (45-73); Platelet Count 273 X10*3/uL (160-400); Red Blood Count 4.26 X10*6/uL (4.20-5.50); Red Cell Distribution Width 23.6 % (11.0-16.0)
[2022-06-12 05:37] LABS: Venous Blood Gas Refer to POC result
[2022-06-12 05:45] LABS: Alanine Aminotransferase 33 U/L (0-31); Albumin Level 3.3 g/dL (3.5-5.0); Alkaline Phosphatase 77 U/L (39-117); Anion Gap 13 (12-20); Aspartate Amino Transferase 15 U/L (5-31); Bilirubin Direct 0.3 mg/dL (0.0-0.5); Bilirubin Total 0.5 mg/dL (0.0-1.0); Blood Urea Nitrogen 32 mg/dL (9-16); Calcium 8.2 mg/dL (8.4-10.2); Carbon Dioxide 29 mmol/L (22-29); Chloride 103 mmol/L (96-108); Creatinine Clr Calc Pharmacy 81.5; Estimated Glomerular Filt Rate > 60; Glucose Random 134 mg/dL (60-115); Magnesium 2.7 mg/dL (1.6-2.6); Phosphorus 3.8 mg/dL (2.7-4.5); Potassium 3.9 mmol/L (3.3-5.1); Sodium 141 mmol/L (135-145); Total Protein 6.3 g/dL (6.5-8.0)
[2022-06-12 05:47] LABS: B Type Natriuretic Peptide 261 pg/mL (<100)
[2022-06-12 07:14] LABS: Appearance Urine HAZY; Color Urine YELLOW; Glucose Urine UA NEG (NEG); Leukocyte Esterase Urine NEG (NEG); Nitrite Urine NEG (NEG); PH 7.5 (5.0-8.0); Specific Gravity - Urine 1.015 (1.005-1.025); Urine Blood NEG (NEG); Urine Ketones NEG (NEG); Urine Protein NEG (NEG-TRACE)
[2022-06-12 07:24] LABS: Procalcitonin < 0.02 ng/mL
[2022-06-12 07:35] LABS: Squamous Epithelial Cell Urine 1+ /LPF
[2022-06-12 07:36] LABS: RBC Urine 0-2 /HPF (0); WBC Urine 0 /HPF (0-4)
[2022-06-12 08:03] LABS: Glucose, Whole Blood 118 mg/dL (60-115)
[2022-06-12] MEDS: Albuterol/Iprat 2.5/0.5MG 3 ML AMPUL.NEB INHALE ×4 (08:03→19:33)
--- NOTE | 2022-06-12 08:25 | MHC.CM.PN ---
Addendum entered by Ana Cristina Samuels 06/12/22 16:21: Goals of care meeting with family: Family would like to continue all current care and reassess on Wednesday. They are prepared to make decisions including ? peg/trach or BLOOD SPLATTER ANALYST. They request a army helicopter pilot who speaks using a [place] dialect and using simple words as pt is illiterate and has a 2nd grade education only. Pt's son, Rom will be visiting this weekend and can be reached at [phone]. Paige pt's dtr/HCP is away on vacation next week by reachable by phone. CM to follow Original Note: Pt continues on minimal ventilatory support: 21% but has poor cognitive response. Has been off sedation: MD to have goals of care discussion with family after which CM will approach family for referrals/options.
--- NOTE | 2022-06-12 08:51 | MHC.CLN ---
F/U PT REMAINS INTUBATED PT RECEIVING OSMOLITE 1.5 AT MAX GOAL RATE 45ML/HR PROVIDES 1620KCALS (23KCALS/KG BASED ON CMW), 67.6G PROTEIN (.95G/KG), 823ML FREE WATER FROM FORMULA NOTED SERUM NA SLOWLY RISING 06/09 Na 136, 06/11 Na 140, 06/12 Na 141 RECOMMEND ADDING 120ML Q 8HRS FREE WATER FLUSHES (1183ML TOTAL WATER FROM FORMULA AND FLUSHES) CONTINUE TO MONITOR TOLERANCE, RESIDUALS AND LYTES
[2022-06-12 10:18] LABS: Glucose, Whole Blood 174 mg/dL (60-115)
[2022-06-12] MEDS: Lactulose 20 GM/30 ML SOLUTION 30 GM OG-TUBE ×2 (10:20→20:53)
[2022-06-12] MEDS: predniSONE 20 MG TABLET 40 MG PO (10:20)
[2022-06-12] MEDS: Ferrous Sulfate 324 MG TABLET.DR PO (10:20)
[2022-06-12] MEDS: Chlorhexidine Gluc Oral Rinse 15 ML MOUTHWASH BUCCAL ×3 (10:20→20:53)
[2022-06-12] MEDS: Furosemide 40 MG TABLET PO (10:21)
[2022-06-12] MEDS: Valsartan 160 MG TABLET PO (10:21)
[2022-06-12] MEDS: carvediloL 25 MG TABLET PO ×2 (10:21→22:47)
[2022-06-12] MEDS: Nystatin Powder 15 GM BOTTLE 1 APPL TOPICAL ×3 (10:21→20:54)
[2022-06-12] MEDS: Insulin Regular/NS 100 UNIT/100 ML PLAST..BAG 6 UNIT IVCONT ×2 (10:22→22:49)
[2022-06-12 12:25] LABS: Glucose, Whole Blood 211 mg/dL (60-115)
[2022-06-12 13:46] LABS: CDiff Gene PCR NEGATIVE (Negative)
[2022-06-12 14:07] LABS: Glucose, Whole Blood 210 mg/dL (60-115)
[2022-06-12] MEDS: rifAXIMin 550 MG TABLET PO (14:20)
[2022-06-12] MEDS: levETIRAcetam in NaCl (iso-os) 500 MG/100 ML PIGGYBACK 400 MG IV (14:20)
--- NOTE | 2022-06-12 16:02 | P.PNCC_ITS ---
Subjective Subjective Date of Service: 06/12/22 Interval History: 76-year-old moderately obese female with COPD and obstructive sleep apnea presents with a hypoxic respiratory failure during which time there was a loss of consciousness that was witnessed noted to be pulseless brief CPR a restoring [place] and has been intubated now for a 11 days still running low-grade fever small loculated pleural effusion left lung all other organs repaired and she is C diff negative and considering the possibility of drug fever the clavulanic acid was discontinued antibiotics were changed and there is a CVP in for that entire time that were going to do a tip culture on and had a long family conf erence that was set up with all members including healthcare proxy explaining the know that what we see now is the patient awakening and still very very questionable in terms of cognitive function so looking to gauge her progress sedated time but Wednesday will be 2 weeks of intubation and the potential need for tracheostomy and PEG tube is there and I explained the nature of that to them in the long-term prospects with that should they go that road Critical Care Time (minutes): 45 Physical Exam Vital Signs: Vital Signs: Last Vital Signs Temp 100.8 F H 06/12/22 15:00 Pulse 71 06/12/22 15:49 Resp 20 06/12/22 15:49 BP 150/40 H 06/12/22 15:00 Pulse Ox 94 06/12/22 15:00 O2 Del Method 06/12/22 15:00 O2 Flow Rate 35 06/02/22 21:00 FiO2 21 06/12/22 15:42 BMI result Body Mass Index 34.9 She is awake and does have intermittent focal twitching of that left upper extremity which I believe is a partial epilepsy and I am going to initiate Keppra and see if it fails to recover but she will remain off all sedation Stable on the ventilator with low minutes ventilatory requirements FiO2 is essentially room air and generating 450-500 cc tidal volume on pressure support of 20/5 Cardiovascular class 1 by bedside echo Skin intact Objective Data Labs CBC & Chem 7: 06/12/22 05:12 06/12/22 05:12 Labs: Laboratory Results - last 24 hr 06/11/22 06/11/22 06/11/22 16:01 17:03 18:01 WBC RBC Hgb Hct MCV MCH MCHC RDW Plt Count MPV Immature Gran % (Auto) Neut % (Auto) Lymph % (Auto) [place] % (Auto) Eos % (Auto) Baso % (Auto) Lymph # (Auto) [place] # (Auto) Eos # (Auto) Baso # (Auto) Abs Immat Gran (auto) Absolute Neuts (auto) Absolute Nucleated RBC Nucleated RBC % (auto) VBG pH VBG pCO2 VBG pO2 VBG HCO3 VBG O2 Saturation VBG Base Excess Sodium Potassium Chloride Carbon Dioxide Anion Gap BUN Creatinine Estim Creat Clear Calc Estimated GFR POC Glucose 158 H 171 H 159 H Random Glucose Calcium Phosphorus Magnesium Total Bilirubin Direct Bilirubin AST ALT Alkaline Phosphatase B-Natriuretic Peptide Total Protein Albumin Procalcitonin Urine Color Urine Appearance Urine pH Ur Specific [place] Urine Protein Urine Glucose (UA) Urine Ketones Urine Blood Urine Nitrite Ur Leukocyte Esterase Urine RBC Urine WBC Ur Squamous Epith Cells Urine Bacteria Urine Yeast C. difficile Tox B Gene 06/11/22 06/11/22 06/11/22 18:58 20:01 20:58 WBC RBC Hgb Hct MCV MCH MCHC RDW Plt Count MPV Immature Gran % (Auto) Neut % (Auto) Lymph % (Auto) [place] % (Auto) Eos % (Auto) Baso % (Auto) Lymph # (Auto) [place] # (Auto) Eos # (Auto) Baso # (Auto) Abs Immat Gran (auto) Absolute Neuts (auto) Absolute Nucleated RBC Nucleated RBC % (auto) VBG pH VBG pCO2 VBG pO2 VBG HCO3 VBG O2 Saturation VBG Base Excess Sodium Potassium Chloride Carbon Dioxide Anion Gap BUN Creatinine Estim Creat Clear Calc Estimated GFR POC Glucose 158 H 156 H 147 H Random Glucose Calcium Phosphorus Magnesium Total Bilirubin Direct Bilirubin AST ALT Alkaline Phosphatase B-Natriuretic Peptide Total Protein Albumin Procalcitonin Urine Color Urine Appearance Urine pH Ur Specific [place] Urine Protein Urine Glucose (UA) Urine Ketones Urine Blood Urine Nitrite Ur Leukocyte Esterase Urine RBC Urine WBC Ur Squamous Epith Cells Urine Bacteria Urine Yeast C. difficile Tox B Gene 06/11/22 06/11/22 06/12/22 22:11 23:57 02:06 WBC RBC Hgb Hct MCV MCH MCHC RDW Plt Count MPV Immature Gran % (Auto) Neut % (Auto) Lymph % (Auto) [place] % (Auto) Eos % (Auto) Baso % (Auto) Lymph # (Auto) [place] # (Auto) Eos # (Auto) Baso # (Auto) Abs Immat Gran (auto) Absolute Neuts (auto) Absolute Nucleated RBC Nucleated RBC % (auto) VBG pH VBG pCO2 VBG pO2 VBG HCO3 VBG O2 Saturation VBG Base Excess Sodium Potassium Chloride Carbon Dioxide Anion Gap BUN Creatinine Estim Creat Clear Calc Estimated GFR POC Glucose 125 H 131 H 152 H Random Glucose Calcium Phosphorus Magnesium Total Bilirubin Direct Bilirubin AST ALT Alkaline Phosphatase B-Natriuretic Peptide Total Protein Albumin Procalcitonin Urine Color Urine Appearance Urine pH Ur Specific [place] Urine Protein Urine Glucose (UA) Urine Ketones Urine Blood Urine Nitrite Ur Leukocyte Esterase Urine RBC Urine WBC Ur Squamous Epith Cells Urine Bacteria Urine Yeast C. difficile Tox B Gene 06/12/22 06/12/22 06/12/22 04:06 05:12 05:12 WBC 11.0 H RBC 4.26 Hgb 8.5 L Hct 29.7 L MCV 69.7 L MCH 20.0 L MCHC 28.6 L RDW 23.6 H Plt Count 273 MPV 9.3 L Immature Gran % (Auto) 0.9 H Neut % (Auto) 88.3 H Lymph % (Auto) 6.0 L [place] % (Auto) 4.7 Eos % (Auto) 0.0 Baso % (Auto) 0.1 Lymph # (Auto) 0.7 L [place] # (Auto) 0.5 Eos # (Auto) 0.0 Baso # (Auto) 0.0 Abs Immat Gran (auto) 0.10 H Absolute Neuts (auto) 9.7 H Absolute Nucleated RBC 0.000 Nucleated RBC % (auto) 0.0 VBG pH VBG pCO2 VBG pO2 VBG HCO3 VBG O2 Saturation VBG Base Excess Sodium 141 Potassium 3.9 D Chloride 103 Carbon Dioxide 29 Anion Gap 13 BUN 32 H Creatinine 0.69 Estim Creat Clear Calc 81.5 Estimated GFR > 60 POC Glucose 136 H Random Glucose 134 H Calcium 8.2 L D Phosphorus 3.8 Magnesium 2.7 H Total Bilirubin 0.5 Direct Bilirubin 0.3 AST 15 ALT 33 H Alkaline Phosphatase 77 B-Natriuretic Peptide Total Protein 6.3 L Albumin 3.3 L Procalcitonin Urine Color Urine Appearance Urine pH Ur Specific [place] Urine Protein Urine Glucose (UA) Urine Ketones Urine Blood Urine Nitrite Ur Leukocyte Esterase Urine RBC Urine WBC Ur Squamous Epith Cells Urine Bacteria Urine Yeast C. difficile Tox B Gene 06/12/22 06/12/22 06/12/22 05:12 05:17 06:42 WBC RBC Hgb Hct MCV MCH MCHC RDW Plt Count MPV Immature Gran % (Auto) Neut % (Auto) Lymph % (Auto) [place] % (Auto) Eos % (Auto) Baso % (Auto) Lymph # (Auto) [place] # (Auto) Eos # (Auto) Baso # (Auto) Abs Immat Gran (auto) Absolute Neuts (auto) Absolute Nucleated RBC Nucleated RBC % (auto) VBG pH 7.58 H VBG pCO2 36 VBG pO2 40 VBG HCO3 34 H VBG O2 Saturation 67.0 VBG Base Excess 11.7 Sodium Potassium Chloride Carbon Dioxide Anion Gap BUN Creatinine Estim Creat Clear Calc Estimated GFR POC Glucose Random Glucose Calcium Phosphorus Magnesium Total Bilirubin Direct Bilirubin AST ALT Alkaline Phosphatase B-Natriuretic Peptide 261 H Total Protein Albumin Procalcitonin < 0.02 Urine Color Urine Appearance Urine pH Ur Specific [place] Urine Protein Urine Glucose (UA) Urine Ketones Urine Blood Urine Nitrite Ur Leukocyte Esterase Urine RBC Urine WBC Ur Squamous Epith Cells Urine Bacteria Urine Yeast C. difficile Tox B Gene 06/12/22 06/12/22 06/12/22 06:56 07:51 10:08 WBC RBC Hgb Hct MCV MCH MCHC RDW Plt Count MPV Immature Gran % (Auto) Neut % (Auto) Lymph % (Auto) [place] % (Auto) Eos % (Auto) Baso % (Auto) Lymph # (Auto) [place] # (Auto) Eos # (Auto) Baso # (Auto) Abs Immat Gran (auto) Absolute Neuts (auto) Absolute Nucleated RBC Nucleated RBC % (auto) VBG pH VBG pCO2 VBG pO2 VBG HCO3 VBG O2 Saturation VBG Base Excess Sodium Potassium Chloride Carbon Dioxide Anion Gap BUN Creatinine Estim Creat Clear Calc Estimated GFR POC Glucose 118 H 174 H Random Glucose Calcium Phosphorus Magnesium Total Bilirubin Direct Bilirubin AST ALT Alkaline Phosphatase B-Natriuretic Peptide Total Protein Albumin Procalcitonin Urine Color YELLOW Urine Appearance HAZY Urine pH 7.5 Ur Specific [place] 1.015 Urine Protein NEG Urine Glucose (UA) NEG Urine Ketones NEG Urine Blood NEG Urine Nitrite NEG Ur Leukocyte Esterase NEG Urine RBC 0-2 Urine WBC 0 Ur Squamous Epith Cells 1+ Urine Bacteria NONE Urine Yeast 1+ C. difficile Tox B Gene 06/12/22 06/12/22 06/12/22 12:12 12:22 14:03 WBC RBC Hgb Hct MCV MCH MCHC RDW Plt Count MPV Immature Gran % (Auto) Neut % (Auto) Lymph % (Auto) [place] % (Auto) Eos % (Auto) Baso % (Auto) Lymph # (Auto) [place] # (Auto) Eos # (Auto) Baso # (Auto) Abs Immat Gran (auto) Absolute Neuts (auto) Absolute Nucleated RBC Nucleated RBC % (auto) VBG pH VBG pCO2 VBG pO2 VBG HCO3 VBG O2 Saturation VBG Base Excess Sodium Potassium Chloride Carbon Dioxide Anion Gap BUN Creatinine Estim Creat Clear Calc Estimated GFR POC Glucose 211 H 210 H Random Glucose Calcium Phosphorus Magnesium Total Bilirubin Direct Bilirubin AST ALT Alkaline Phosphatase B-Natriuretic Peptide Total Protein Albumin Procalcitonin Urine Color Urine Appearance Urine pH Ur Specific [place] Urine Protein Urine Glucose (UA) Urine Ketones Urine Blood Urine Nitrite Ur Leukocyte Esterase Urine RBC Urine WBC Ur Squamous Epith Cells Urine Bacteria Urine Yeast C. difficile Tox B Gene NEGATIVE Microbiology Microbiology Results: Microbiology 06/09/22 07:17 Sputum - Suctioned Gram Stain - Final 06/09/22 07:17 Sputum - Suctioned Sputum Culture - Final 06/12/22 06:56 Sputum - Suctioned Gram Stain - Final 06/05/22 10:33 Blood - Venous Blood Culture - Final No growth after 5 days. 06/08/22 05:00 Blood - Venous Blood Culture - Preliminary No growth after 48 hours. 06/08/22 05:00 Blood - Venous Blood Culture - Preliminary No growth after 48 hours. 06/05/22 11:03 Blood - Venous Blood Culture - Final Coag negative Staphylococcus 06/06/22 03:43 Sputum - Suctioned Gram Stain - Final 06/06/22 03:43 Sputum - Suctioned Sputum Culture - Final 06/01/22 16:44 Blood - Venous Blood Culture - Final No growth after 5 days. 06/01/22 16:33 Blood - Venous Blood Culture - Final No growth after 5 days. 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
[2022-06-12 16:16] LABS: Glucose, Whole Blood 193 mg/dL (60-115)
--- NOTE | 2022-06-12 17:36 | PC.NURSE ---
TMAX 101.3 SPUTUM AND URINE SAMPLE COLLECTED ORDERED. CT FOR HEAD, ABD AND PELVIS COMPLETED. CONSTIPATION NOTED ON IMAGING REPORT - LACTULOSE ADMINISTERED WITH POSITIVE EFFECT. STOOL SAMPLE COLLECTED ORDERED. PERIPHERAL IVS X 2 OBTAINED AND RIJ TLC REMOVED PER MD. CATHETER TIP COLLECTED ORDERED. FAMILY MEETING HELD WITH . SEE CASE MANAGEMENT NOTE.
[2022-06-12 17:59] LABS: Glucose, Whole Blood 173 mg/dL (60-115)
[2022-06-12 19:50] LABS: Glucose, Whole Blood 172 mg/dL (60-115)
[2022-06-12 22:00] LABS: Glucose, Whole Blood 152 mg/dL (60-115)
[2022-06-13] VITALS (33 sets, daily range): BP systolic 131–175; BP diastolic 46–81; PULSE 60–73; RESP 15–25; TEMP 31.5–37.8; O2SAT 90–97; BMI 34.7
[2022-06-13 00:03] LABS: Glucose, Whole Blood 153 mg/dL (60-115)
[2022-06-13 02:04] LABS: Glucose, Whole Blood 163 mg/dL (60-115)
[2022-06-13] MEDS: niCARdipine HCL 25 MG in 0.9 % Sodium Chloride 250 ML 52 MG IVCONT ×2 (02:21→06:23)
[2022-06-13] MEDS: levETIRAcetam in NaCl (iso-os) 500 MG/100 ML PIGGYBACK 400 MG IV ×2 (02:23→14:36)
[2022-06-13 04:01] LABS: Glucose, Whole Blood 152 mg/dL (60-115)
[2022-06-13 05:46] LABS: VBG Base Excess 11.3 mmol/L; VBG HCO3 34 mmol/L (22-26); VBG pCO2 40 mmHg; VBG pH 7.54 (7.32-7.43); VBG pO2 46 mmHg; Venous Blood Gas Refer to POC result
[2022-06-13 05:59] LABS: MANUAL DIFF FLAG NO
[2022-06-13 06:02] LABS: Basophils Percent Auto 0.1 % (0-2); Eosinophils Absolute Auto 0.1 X10*3/uL (0.0-0.4); Eosinophils Percent Auto 0.4 % (0-4); Hematocrit 30.4 % (37.0-47.0); Hemoglobin 8.7 g/dl (12.0-16.0); Imm Gran Abs Auto 0.08 X10*3/uL (0.00-0.03); Imm Gran Pct Auto 0.6 % (0.0-0.4); Lymphocytes Absolute Auto 2.1 X10*3/uL (1.2-4.9); Lymphocytes Percent Auto 15.4 % (20-40); Mean Corpuscular HGB Conc 28.6 g/dl (31.0-35.0); Mean Corpuscular Hemoglobin 20.4 pg (27.0-33.0); Mean Corpuscular Volume 71.2 fL (80.0-98.0); Mean Platelet Volume 9.4 fL (9.4-12.3); Monocytes Absolute Auto 0.9 X10*3/uL (0.1-1.2); Monocytes Percent Auto 6.9 % (2-11); Neutrophils Absolute Auto 10.3 x10*3/uL (2.0-8.3); Neutrophils Percent Auto 76.6 % (45-73); Platelet Count 281 X10*3/uL (160-400); Red Blood Count 4.27 X10*6/uL (4.20-5.50); Red Cell Distribution Width 23.1 % (11.0-16.0); White Blood Count 13.4 X10*3/uL (4.8-10.8)
[2022-06-13 06:06] LABS: Glucose, Whole Blood 157 mg/dL (60-115)
[2022-06-13 06:17] LABS: Alanine Aminotransferase 32 U/L (0-31); Albumin Level 3.1 g/dL (3.5-5.0); Alkaline Phosphatase 79 U/L (39-117); Anion Gap 13 (12-20); Aspartate Amino Transferase 14 U/L (5-31); Bilirubin Direct 0.3 mg/dL (0.0-0.5); Bilirubin Total 0.5 mg/dL (0.0-1.0); Blood Urea Nitrogen 24 mg/dL (9-16); Calcium 7.9 mg/dL (8.4-10.2); Carbon Dioxide 28 mmol/L (22-29); Chloride 100 mmol/L (96-108); Creatinine Clr Calc Pharmacy 93.6; Estimated Glomerular Filt Rate > 60; Glucose Random 143 mg/dL (60-115); Magnesium 2.3 mg/dL (1.6-2.6); Phosphorus 3.4 mg/dL (2.7-4.5); Potassium 3.5 mmol/L (3.3-5.1); Sodium 137 mmol/L (135-145)
[2022-06-13 06:21] LABS: B Type Natriuretic Peptide 203 pg/mL (<100)
[2022-06-13 08:21] LABS: Glucose, Whole Blood 108 mg/dL (60-115)
[2022-06-13] MEDS: Albuterol/Iprat 2.5/0.5MG 3 ML AMPUL.NEB INHALE ×4 (08:47→19:01)
[2022-06-13] MEDS: Valsartan 160 MG TABLET PO (09:33)
[2022-06-13] MEDS: Ferrous Sulfate 324 MG TABLET.DR PO (09:33)
[2022-06-13] MEDS: predniSONE 20 MG TABLET 40 MG PO (09:33)
[2022-06-13] MEDS: Furosemide 40 MG TABLET PO (09:33)
[2022-06-13] MEDS: carvediloL 25 MG TABLET PO ×2 (09:33→21:14)
[2022-06-13] MEDS: Nystatin Powder 15 GM BOTTLE 1 APPL TOPICAL ×3 (09:33→21:15)
[2022-06-13 10:06] LABS: Glucose, Whole Blood 152 mg/dL (60-115)
[2022-06-13] MEDS: niCARdipine HCL 25 MG in 0.9 % Sodium Chloride 250 ML 26 MG IVCONT (11:31)
[2022-06-13 12:02] LABS: Glucose, Whole Blood 225 mg/dL (60-115)
--- NOTE | 2022-06-13 13:27 | P.PNCC_ITS ---
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 It also appears that her low-grade temperature is gradually diminishing Her hypertension is controlled but still requiring a nicardipine drip Critical Care Time (minutes): 45 Physical Exam Vital Signs: Vital Signs: Last Vital Signs Temp 99.3 F 06/13/22 13:00 Pulse 70 06/13/22 13:00 Resp 25 H 06/13/22 13:00 BP 164/61 H 06/13/22 13:00 Pulse Ox 92 06/13/22 13:00 O2 Del Method 06/13/22 13:00 O2 Flow Rate 35 06/02/22 21:00 FiO2 21 06/13/22 13:00 BMI result Body Mass Index 34.7 Remains sleeping but is responsive to loud stimulation but still no eye contact Bedside echo documenting class 1 LV function Lungs are without adventitious sounds Abdomen soft no organomegaly and tolerating feedings Skin remains intact Objective Data Labs CBC & Chem 7: 06/13/22 05:33 06/13/22 05:33 Labs: Laboratory Results - last 24 hr 06/12/22 06/12/22 06/12/22 12:12 14:03 16:12 WBC RBC Hgb Hct MCV MCH MCHC RDW Plt Count MPV Immature Gran % (Auto) Neut % (Auto) Lymph % (Auto) [place] % (Auto) Eos % (Auto) Baso % (Auto) Lymph # (Auto) [place] # (Auto) Eos # (Auto) Baso # (Auto) Abs Immat Gran (auto) Absolute Neuts (auto) Absolute Nucleated RBC Nucleated RBC % (auto) VBG pH VBG pCO2 VBG pO2 VBG HCO3 VBG O2 Saturation VBG Base Excess Sodium Potassium Chloride Carbon Dioxide Anion Gap BUN Creatinine Estim Creat Clear Calc Estimated GFR POC Glucose 210 H 193 H Random Glucose Calcium Phosphorus Magnesium Total Bilirubin Direct Bilirubin AST ALT Alkaline Phosphatase B-Natriuretic Peptide Total Protein Albumin C. difficile Tox B Gene NEGATIVE 06/12/22 06/12/22 06/12/22 17:56 19:47 21:56 WBC RBC Hgb Hct MCV MCH MCHC RDW Plt Count MPV Immature Gran % (Auto) Neut % (Auto) Lymph % (Auto) [place] % (Auto) Eos % (Auto) Baso % (Auto) Lymph # (Auto) [place] # (Auto) Eos # (Auto) Baso # (Auto) Abs Immat Gran (auto) Absolute Neuts (auto) Absolute Nucleated RBC Nucleated RBC % (auto) VBG pH VBG pCO2 VBG pO2 VBG HCO3 VBG O2 Saturation VBG Base Excess Sodium Potassium Chloride Carbon Dioxide Anion Gap BUN Creatinine Estim Creat Clear Calc Estimated GFR POC Glucose 173 H 172 H 152 H Random Glucose Calcium Phosphorus Magnesium Total Bilirubin Direct Bilirubin AST ALT Alkaline Phosphatase B-Natriuretic Peptide Total Protein Albumin C. difficile Tox B Gene 06/12/22 06/13/22 06/13/22 23:59 02:00 03:57 WBC RBC Hgb Hct MCV MCH MCHC RDW Plt Count MPV Immature Gran % (Auto) Neut % (Auto) Lymph % (Auto) [place] % (Auto) Eos % (Auto) Baso % (Auto) Lymph # (Auto) [place] # (Auto) Eos # (Auto) Baso # (Auto) Abs Immat Gran (auto) Absolute Neuts (auto) Absolute Nucleated RBC Nucleated RBC % (auto) VBG pH VBG pCO2 VBG pO2 VBG HCO3 VBG O2 Saturation VBG Base Excess Sodium Potassium Chloride Carbon Dioxide Anion Gap BUN Creatinine Estim Creat Clear Calc Estimated GFR POC Glucose 153 H 163 H 152 H Random Glucose Calcium Phosphorus Magnesium Total Bilirubin Direct Bilirubin AST ALT Alkaline Phosphatase B-Natriuretic Peptide Total Protein Albumin C. difficile Tox B Gene 06/13/22 06/13/22 06/13/22 05:33 05:33 05:33 WBC 13.4 H RBC 4.27 Hgb 8.7 L Hct 30.4 L MCV 71.2 L MCH 20.4 L MCHC 28.6 L RDW 23.1 H Plt Count 281 MPV 9.4 Immature Gran % (Auto) 0.6 H Neut % (Auto) 76.6 H Lymph % (Auto) 15.4 L [place] % (Auto) 6.9 Eos % (Auto) 0.4 Baso % (Auto) 0.1 Lymph # (Auto) 2.1 [place] # (Auto) 0.9 Eos # (Auto) 0.1 Baso # (Auto) 0.0 Abs Immat Gran (auto) 0.08 H Absolute Neuts (auto) 10.3 H Absolute Nucleated RBC 0.000 Nucleated RBC % (auto) 0.0 VBG pH VBG pCO2 VBG pO2 VBG HCO3 VBG O2 Saturation VBG Base Excess Sodium 137 Potassium 3.5 Chloride 100 Carbon Dioxide 28 Anion Gap 13 BUN 24 H Creatinine 0.60 Estim Creat Clear Calc 93.6 Estimated GFR > 60 POC Glucose Random Glucose 143 H Calcium 7.9 L Phosphorus 3.4 Magnesium 2.3 Total Bilirubin 0.5 Direct Bilirubin 0.3 AST 14 ALT 32 H Alkaline Phosphatase 79 B-Natriuretic Peptide 203 H Total Protein 6.0 L Albumin 3.1 L C. difficile Tox B Gene 06/13/22 06/13/22 06/13/22 05:40 06:03 08:17 WBC RBC Hgb Hct MCV MCH MCHC RDW Plt Count MPV Immature Gran % (Auto) Neut % (Auto) Lymph % (Auto) [place] % (Auto) Eos % (Auto) Baso % (Auto) Lymph # (Auto) [place] # (Auto) Eos # (Auto) Baso # (Auto) Abs Immat Gran (auto) Absolute Neuts (auto) Absolute Nucleated RBC Nucleated RBC % (auto) VBG pH 7.54 H VBG pCO2 40 VBG pO2 46 VBG HCO3 34 H VBG O2 Saturation 73.0 VBG Base Excess 11.3 Sodium Potassium Chloride Carbon Dioxide Anion Gap BUN Creatinine Estim Creat Clear Calc Estimated GFR POC Glucose 157 H 108 Random Glucose Calcium Phosphorus Magnesium Total Bilirubin Direct Bilirubin AST ALT Alkaline Phosphatase B-Natriuretic Peptide Total Protein Albumin C. difficile Tox B Gene 06/13/22 06/13/22 10:01 11:54 WBC RBC Hgb Hct MCV MCH MCHC RDW Plt Count MPV Immature Gran % (Auto) Neut % (Auto) Lymph % (Auto) [place] % (Auto) Eos % (Auto) Baso % (Auto) Lymph # (Auto) [place] # (Auto) Eos # (Auto) Baso # (Auto) Abs Immat Gran (auto) Absolute Neuts (auto) Absolute Nucleated RBC Nucleated RBC % (auto) VBG pH VBG pCO2 VBG pO2 VBG HCO3 VBG O2 Saturation VBG Base Excess Sodium Potassium Chloride Carbon Dioxide Anion Gap BUN Creatinine Estim Creat Clear Calc Estimated GFR POC Glucose 152 H 225 H Random Glucose Calcium Phosphorus Magnesium Total Bilirubin Direct Bilirubin AST ALT Alkaline Phosphatase B-Natriuretic Peptide Total Protein Albumin C. difficile Tox B Gene Microbiology Microbiology Results: Microbiology 06/12/22 16:15 Catheter Tip - Cvp Catheter Tip Culture - Preliminary Gram negative nathalie Gram positive cocci 06/12/22 06:56 Sputum - Suctioned Gram Stain - Final 06/12/22 06:56 Sputum - Suctioned Sputum Culture - Preliminary Gram negative nathalie 06/12/22 06:42 Blood - Venous Blood Culture - Preliminary No growth after 24 hours. 06/12/22 06:42 Blood - Venous Blood Culture - Preliminary No growth after 24 hours. 06/08/22 05:00 Blood - Venous Blood Culture - Final No growth after 5 days. 06/08/22 05:00 Blood - Venous Blood Culture - Final No growth after 5 days. 06/09/22 07:17 Sputum - Suctioned Gram Stain - Final 06/09/22 07:17 Sputum - Suctioned Sputum Culture - Final 06/05/22 10:33 Blood - Venous Blood Culture - Final No growth after 5 days. 06/05/22 11:03 Blood - Venous Blood Culture - Final Coag negative Staphylococcus 06/06/22 03:43 Sputum - Suctioned Gram Stain - Final 06/06/22 03:43 Sputum - Suctioned Sputum Culture - Final 06/01/22 16:44 Blood - Venous Blood Culture - Final No growth after 5 days. 06/01/22 16:33 Blood - Venous Blood Culture - Final No growth after 5 days. 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: No VTE Risk Level:: Medical - moderate - high VTE Device Contraindication: N/A - Device Ordered VTE Drug Contraindication: N/A - Med Ordered
[2022-06-13 14:08] LABS: Glucose, Whole Blood 310 mg/dL (60-115)
[2022-06-13] MEDS: Chlorhexidine Gluc Oral Rinse 15 ML MOUTHWASH BUCCAL ×2 (14:36→21:14)
[2022-06-13 15:05] LABS: Glucose, Whole Blood 298 mg/dL (60-115)
[2022-06-13 16:05] LABS: Glucose, Whole Blood 279 mg/dL (60-115)
[2022-06-13 17:13] LABS: Glucose, Whole Blood 240 mg/dL (60-115)
[2022-06-13 18:04] LABS: Glucose, Whole Blood 209 mg/dL (60-115)
[2022-06-13 19:37] LABS: Glucose, Whole Blood 197 mg/dL (60-115)
[2022-06-13 20:13] LABS: Glucose, Whole Blood 190 mg/dL (60-115)
[2022-06-13 21:06] LABS: Glucose, Whole Blood 166 mg/dL (60-115)
[2022-06-13] MEDS: Insulin Regular/NS 100 UNIT/100 ML PLAST..BAG 7 UNIT IVCONT (21:13)
[2022-06-13 22:05] LABS: Glucose, Whole Blood 154 mg/dL (60-115)
[2022-06-13 22:57] LABS: Glucose, Whole Blood 117 mg/dL (60-115)
[2022-06-13 23:56] LABS: Glucose, Whole Blood 116 mg/dL (60-115)
[2022-06-14] VITALS (36 sets, daily range): BP systolic 127–181; BP diastolic 43–76; PULSE 24–77; RESP 15–27; TEMP 34.7–37.6; O2SAT 90–99; BMI 32.5
[2022-06-14 02:10] LABS: Glucose, Whole Blood 137 mg/dL (60-115)
[2022-06-14] MEDS: levETIRAcetam in NaCl (iso-os) 500 MG/100 ML PIGGYBACK 400 MG IV ×2 (02:41→13:21)
[2022-06-14] MEDS: niCARdipine HCL 25 MG in 0.9 % Sodium Chloride 250 ML 26 MG IVCONT (03:57)
[2022-06-14 04:07] LABS: Glucose, Whole Blood 175 mg/dL (60-115)
[2022-06-14 05:00] LABS: VBG Base Excess 7.4 mmol/L; VBG HCO3 29 mmol/L (22-26); VBG pCO2 34 mmHg; VBG pH 7.55 (7.32-7.43); VBG pO2 57 mmHg
[2022-06-14 05:32] LABS: MANUAL DIFF FLAG NO
[2022-06-14 05:37] LABS: Basophils Percent Auto 0.1 % (0-2); Eosinophils Absolute Auto 0.2 X10*3/uL (0.0-0.4); Eosinophils Percent Auto 0.8 % (0-4); Hematocrit 32.6 % (37.0-47.0); Hemoglobin 9.4 g/dl (12.0-16.0); Imm Gran Abs Auto 0.13 X10*3/uL (0.00-0.03); Imm Gran Pct Auto 0.7 % (0.0-0.4); Lymphocytes Percent Auto 11.1 % (20-40); Mean Corpuscular HGB Conc 28.8 g/dl (31.0-35.0); Mean Corpuscular Volume 69.5 fL (80.0-98.0); Mean Platelet Volume 9.8 fL (9.4-12.3); Monocytes Absolute Auto 0.9 X10*3/uL (0.1-1.2); Monocytes Percent Auto 4.8 % (2-11); Neutrophils Percent Auto 82.5 % (45-73); Platelet Count 303 X10*3/uL (160-400); Red Blood Count 4.69 X10*6/uL (4.20-5.50); Red Cell Distribution Width 23.4 % (11.0-16.0); White Blood Count 18.2 X10*3/uL (4.8-10.8)
[2022-06-14 05:59] LABS: B Type Natriuretic Peptide 144 pg/mL (<100)
[2022-06-14 06:17] LABS: Alanine Aminotransferase 28 U/L (0-31); Alkaline Phosphatase 93 U/L (39-117); Anion Gap 13 (12-20); Aspartate Amino Transferase 9 U/L (5-31); Bilirubin Direct 0.3 mg/dL (0.0-0.5); Bilirubin Total 0.6 mg/dL (0.0-1.0); Blood Urea Nitrogen 28 mg/dL (9-16); Calcium 7.7 mg/dL (8.4-10.2); Carbon Dioxide 27 mmol/L (22-29); Chloride 98 mmol/L (96-108); Creatinine Clr Calc Pharmacy 84.8; Estimated Glomerular Filt Rate > 60; Glucose Random 201 mg/dL (60-115); Magnesium 2.3 mg/dL (1.6-2.6); Phosphorus 3.3 mg/dL (2.7-4.5); Potassium 3.5 mmol/L (3.3-5.1); Sodium 134 mmol/L (135-145); Total Protein 5.8 g/dL (6.5-8.0)
[2022-06-14 06:23] LABS: Venous Blood Gas Refer to POC result
[2022-06-14 07:17] LABS: Glucose, Whole Blood 216 mg/dL (60-115)
[2022-06-14] MEDS: Valsartan 160 MG TABLET PO (07:51)
[2022-06-14] MEDS: predniSONE 20 MG TABLET 40 MG PO (07:51)
[2022-06-14] MEDS: Chlorhexidine Gluc Oral Rinse 15 ML MOUTHWASH BUCCAL ×3 (07:51→21:02)
[2022-06-14] MEDS: Ferrous Sulfate 324 MG TABLET.DR PO (07:51)
[2022-06-14] MEDS: Furosemide 40 MG TABLET PO (07:52)
[2022-06-14] MEDS: carvediloL 25 MG TABLET PO ×2 (07:52→21:02)
[2022-06-14] MEDS: Nystatin Powder 15 GM BOTTLE 1 APPL TOPICAL ×3 (07:52→21:03)
[2022-06-14] MEDS: Albuterol/Iprat 2.5/0.5MG 3 ML AMPUL.NEB INHALE ×4 (07:55→20:11)
[2022-06-14 08:06] LABS: Glucose, Whole Blood 230 mg/dL (60-115)
[2022-06-14] MEDS: vancomycin HCL 1,000 MG, vancomycin HCL 750 MG in 0.9 % Sodium Chloride 500 ML 267.5 MG IV (08:29)
[2022-06-14 09:04] LABS: Glucose, Whole Blood 216 mg/dL (60-115)
--- NOTE | 2022-06-14 09:05 | P.PNCC_ITS ---
Subjective Subjective Date of Service: 06/14/22 Interval History: 76-year-old female now intubated for 13 days following a presentation of hypoxemic respiratory failure 2 witnessed loss of consciousness and noted to be pulseless with immediate CPR initiated by family and then 1-1/2 minutes of EMS participate ortega to restore [place] and very very slowly over the course of this entire week that she has been off sedation now 6 days she is now beginning to make increasing signs of cognitive function albeit slowly obeying commands of opening eyes and actually nodding with understanding to questions when spoken to in [place] but we noted when we remove central line and culture tip that she is growing a Gram-negative nathalie and Gram-positive coccus and in addition sputum is is finalized at Klebsiella pretty much sensitive to everything but penicillins so were switching to Levaquin daily to cover that and vancomycin to cover the Gram-positive coccus which is presumably a a a Staph organism and her temperatures at our are a little by little coming down and since we started Keppra that epilepsia partialis involving her left side has not reappeared may be all this contributing to restorationist of mental status but I explained to the family decisions about the trach if if they want to devote more time to her now that she is beginning to wake up needs to be made on day 14 which is tomorrow and she has been on pressure support most of the week so we might be able to wean the pressure support from 20/5 to 10/5 and in so doing if ever cognitive function is there me may not have even have to consider tracheostomy Critical Care Time (minutes): 45 Physical Exam Vital Signs: Vital Signs: Last Vital Signs Temp 99.0 F 06/14/22 09:00 Pulse 61 06/14/22 09:00 Resp 17 06/14/22 09:00 BP 134/43 L 06/14/22 09:00 Pulse Ox 94 06/14/22 09:00 O2 Del Method 06/14/22 09:00 O2 Flow Rate 35 06/02/22 21:00 FiO2 21 06/14/22 09:00 BMI result Body Mass Index 32.5 Vital stable cognitive function slowly 1 small step at a time restoring and fever is is finally diminishing Lungs clear no adventitious sounds LV function class 1 by echo Abdomen benign tolerating feedings Objective Data Labs CBC & Chem 7: 06/14/22 04:53 06/14/22 04:53 Labs: Laboratory Results - last 24 hr 06/13/22 06/13/22 06/13/22 10:01 11:54 14:03 WBC RBC Hgb Hct MCV MCH MCHC RDW Plt Count MPV Immature Gran % (Auto) Neut % (Auto) Lymph % (Auto) [place] % (Auto) Eos % (Auto) Baso % (Auto) Lymph # (Auto) [place] # (Auto) Eos # (Auto) Baso # (Auto) Abs Immat Gran (auto) Absolute Neuts (auto) Absolute Nucleated RBC Nucleated RBC % (auto) VBG pH VBG pCO2 VBG pO2 VBG HCO3 VBG O2 Saturation VBG Base Excess Sodium Potassium Chloride Carbon Dioxide Anion Gap BUN Creatinine Estim Creat Clear Calc Estimated GFR POC Glucose 152 H 225 H 310 H Random Glucose Calcium Phosphorus Magnesium Total Bilirubin Direct Bilirubin AST ALT Alkaline Phosphatase B-Natriuretic Peptide Total Protein Albumin 06/13/22 06/13/22 06/13/22 14:59 16:02 17:09 WBC RBC Hgb Hct MCV MCH MCHC RDW Plt Count MPV Immature Gran % (Auto) Neut % (Auto) Lymph % (Auto) [place] % (Auto) Eos % (Auto) Baso % (Auto) Lymph # (Auto) [place] # (Auto) Eos # (Auto) Baso # (Auto) Abs Immat Gran (auto) Absolute Neuts (auto) Absolute Nucleated RBC Nucleated RBC % (auto) VBG pH VBG pCO2 VBG pO2 VBG HCO3 VBG O2 Saturation VBG Base Excess Sodium Potassium Chloride Carbon Dioxide Anion Gap BUN Creatinine Estim Creat Clear Calc Estimated GFR POC Glucose 298 H 279 H 240 H Random Glucose Calcium Phosphorus Magnesium Total Bilirubin Direct Bilirubin AST ALT Alkaline Phosphatase B-Natriuretic Peptide Total Protein Albumin 06/13/22 06/13/22 06/13/22 18:00 19:33 20:09 WBC RBC Hgb Hct MCV MCH MCHC RDW Plt Count MPV Immature Gran % (Auto) Neut % (Auto) Lymph % (Auto) [place] % (Auto) Eos % (Auto) Baso % (Auto) Lymph # (Auto) [place] # (Auto) Eos # (Auto) Baso # (Auto) Abs Immat Gran (auto) Absolute Neuts (auto) Absolute Nucleated RBC Nucleated RBC % (auto) VBG pH VBG pCO2 VBG pO2 VBG HCO3 VBG O2 Saturation VBG Base Excess Sodium Potassium Chloride Carbon Dioxide Anion Gap BUN Creatinine Estim Creat Clear Calc Estimated GFR POC Glucose 209 H 197 H 190 H Random Glucose Calcium Phosphorus Magnesium Total Bilirubin Direct Bilirubin AST ALT Alkaline Phosphatase B-Natriuretic Peptide Total Protein Albumin 06/13/22 06/13/22 06/13/22 21:00 21:59 22:53 WBC RBC Hgb Hct MCV MCH MCHC RDW Plt Count MPV Immature Gran % (Auto) Neut % (Auto) Lymph % (Auto) [place] % (Auto) Eos % (Auto) Baso % (Auto) Lymph # (Auto) [place] # (Auto) Eos # (Auto) Baso # (Auto) Abs Immat Gran (auto) Absolute Neuts (auto) Absolute Nucleated RBC Nucleated RBC % (auto) VBG pH VBG pCO2 VBG pO2 VBG HCO3 VBG O2 Saturation VBG Base Excess Sodium Potassium Chloride Carbon Dioxide Anion Gap BUN Creatinine Estim Creat Clear Calc Estimated GFR POC Glucose 166 H 154 H 117 H Random Glucose Calcium Phosphorus Magnesium Total Bilirubin Direct Bilirubin AST ALT Alkaline Phosphatase B-Natriuretic Peptide Total Protein Albumin 06/13/22 06/14/22 06/14/22 23:53 02:05 04:03 WBC RBC Hgb Hct MCV MCH MCHC RDW Plt Count MPV Immature Gran % (Auto) Neut % (Auto) Lymph % (Auto) [place] % (Auto) Eos % (Auto) Baso % (Auto) Lymph # (Auto) [place] # (Auto) Eos # (Auto) Baso # (Auto) Abs Immat Gran (auto) Absolute Neuts (auto) Absolute Nucleated RBC Nucleated RBC % (auto) VBG pH VBG pCO2 VBG pO2 VBG HCO3 VBG O2 Saturation VBG Base Excess Sodium Potassium Chloride Carbon Dioxide Anion Gap BUN Creatinine Estim Creat Clear Calc Estimated GFR POC Glucose 116 H 137 H 175 H Random Glucose Calcium Phosphorus Magnesium Total Bilirubin Direct Bilirubin AST ALT Alkaline Phosphatase B-Natriuretic Peptide Total Protein Albumin 06/14/22 06/14/22 06/14/22 04:53 04:53 04:53 WBC 18.2 H RBC 4.69 Hgb 9.4 L Hct 32.6 L MCV 69.5 L MCH 20.0 L MCHC 28.8 L RDW 23.4 H Plt Count 303 MPV 9.8 Immature Gran % (Auto) 0.7 H Neut % (Auto) 82.5 H Lymph % (Auto) 11.1 L [place] % (Auto) 4.8 Eos % (Auto) 0.8 Baso % (Auto) 0.1 Lymph # (Auto) 2.0 [place] # (Auto) 0.9 Eos # (Auto) 0.2 Baso # (Auto) 0.0 Abs Immat Gran (auto) 0.13 H Absolute Neuts (auto) 15.0 H Absolute Nucleated RBC 0.000 Nucleated RBC % (auto) 0.0 VBG pH VBG pCO2 VBG pO2 VBG HCO3 VBG O2 Saturation VBG Base Excess Sodium 134 L Potassium 3.5 Chloride 98 Carbon Dioxide 27 Anion Gap 13 BUN 28 H Creatinine 0.64 Estim Creat Clear Calc 84.8 Estimated GFR > 60 POC Glucose Random Glucose 201 H Calcium 7.7 L Phosphorus 3.3 Magnesium 2.3 Total Bilirubin 0.6 Direct Bilirubin 0.3 AST 9 ALT 28 Alkaline Phosphatase 93 B-Natriuretic Peptide 144 H Total Protein 5.8 L Albumin 3.0 L 06/14/22 06/14/22 06/14/22 04:55 07:13 08:03 WBC RBC Hgb Hct MCV MCH MCHC RDW Plt Count MPV Immature Gran % (Auto) Neut % (Auto) Lymph % (Auto) [place] % (Auto) Eos % (Auto) Baso % (Auto) Lymph # (Auto) [place] # (Auto) Eos # (Auto) Baso # (Auto) Abs Immat Gran (auto) Absolute Neuts (auto) Absolute Nucleated RBC Nucleated RBC % (auto) VBG pH 7.55 H VBG pCO2 34 VBG pO2 57 VBG HCO3 29 H VBG O2 Saturation 87.0 VBG Base Excess 7.4 Sodium Potassium Chloride Carbon Dioxide Anion Gap BUN Creatinine Estim Creat Clear Calc Estimated GFR POC Glucose 216 H 230 H Random Glucose Calcium Phosphorus Magnesium Total Bilirubin Direct Bilirubin AST ALT Alkaline Phosphatase B-Natriuretic Peptide Total Protein Albumin 06/14/22 09:01 WBC RBC Hgb Hct MCV MCH MCHC RDW Plt Count MPV Immature Gran % (Auto) Neut % (Auto) Lymph % (Auto) [place] % (Auto) Eos % (Auto) Baso % (Auto) Lymph # (Auto) [place] # (Auto) Eos # (Auto) Baso # (Auto) Abs Immat Gran (auto) Absolute Neuts (auto) Absolute Nucleated RBC Nucleated RBC % (auto) VBG pH VBG pCO2 VBG pO2 VBG HCO3 VBG O2 Saturation VBG Base Excess Sodium Potassium Chloride Carbon Dioxide Anion Gap BUN Creatinine Estim Creat Clear Calc Estimated GFR POC Glucose 216 H Random Glucose Calcium Phosphorus Magnesium Total Bilirubin Direct Bilirubin AST ALT Alkaline Phosphatase B-Natriuretic Peptide Total Protein Albumin Microbiology Microbiology Results: Microbiology 06/12/22 06:42 Blood - Venous Blood Culture - Preliminary No growth after 48 hours. 06/12/22 06:42 Blood - Venous Blood Culture - Preliminary No growth after 48 hours. 06/12/22 06:56 Sputum - Suctioned Gram Stain - Final 06/12/22 06:56 Sputum - Suctioned Sputum Culture - Final Klebsiella pneumoniae 06/12/22 16:15 Catheter Tip - Cvp Catheter Tip Culture - Preliminary Gram negative nathalie Gram positive cocci 06/08/22 05:00 Blood - Venous Blood Culture - Final No growth after 5 days. 06/08/22 05:00 Blood - Venous Blood Culture - Final No growth after 5 days. 06/09/22 07:17 Sputum - Suctioned Gram Stain - Final 06/09/22 07:17 Sputum - Suctioned Sputum Culture - Final 06/05/22 10:33 Blood - Venous Blood Culture - Final No growth after 5 days. 06/05/22 11:03 Blood - Venous Blood Culture - Final Coag negative Staphylococcus 06/06/22 03:43 Sputum - Suctioned Gram Stain - Final 06/06/22 03:43 Sputum - Suctioned Sputum Culture - Final 06/01/22 16:44 Blood - Venous Blood Culture - Final No growth after 5 days. 06/01/22 16:33 Blood - Venous Blood Culture - Final No growth after 5 days. 06/02/22 01:56 Sputum - Suctioned Gram Stain - Final 06/02/22 01:56 Sputum - Suctioned Sputum Culture - Final Progress Note: A&P Assessment and plan (1) Nosocomial pneumonia: Status: Acute (2) Epilepsia partialis continua: Status: Acute (3) Anoxic encephalopathy: Status: Acute (4) Cardiac arrest: Status: Acute (5) Pneumonia: Status: Acute (6) Acute hyperglycemia: Status: Acute (7) Hypoventilation syndrome: Status: Acute (8) ISAAC and COPD overlap syndrome: Status: Acute (9) Anemia: Status: Acute (10) COPD with acute exacerbation: Status: Acute (11) Respiratory failure: Status: Acute Plan Maintain pressure support and I would say if she demonstrates some cognitive function tomorrow morning I would wean her to 10/5 on the pressure support and if tolerated with good tidal volume extubate I think we have made strides with antibiotics an and such for her nosocomial line sepsis and for what is amounting to a Gram-negative ordered Klebsiella pneumonia in this case Quality Stroke Does the patient have a stroke diagnosis?: No VTE Prior VTE?: No VTE Risk Level:: Medical - moderate - high VTE Device Contraindication: N/A - Device Ordered VTE Drug Contraindication: N/A - Med Ordered
[2022-06-14] MEDS: levoFLOXacin/D5W 500 MG/100 ML PIGGYBACK 100 MG IV (09:33)
[2022-06-14 10:07] LABS: Glucose, Whole Blood 226 mg/dL (60-115)
[2022-06-14] MEDS: niCARdipine HCL 25 MG in 0.9 % Sodium Chloride 250 ML 52 MG IVCONT ×3 (10:32→21:02)
[2022-06-14 11:08] LABS: Glucose, Whole Blood 193 mg/dL (60-115)
[2022-06-14 11:57] LABS: Glucose, Whole Blood 180 mg/dL (60-115)
[2022-06-14 14:07] LABS: Glucose, Whole Blood 261 mg/dL (60-115)
[2022-06-14 15:20] LABS: Glucose, Whole Blood 285 mg/dL (60-115)
[2022-06-14] MEDS: Insulin Regular/NS 100 UNIT/100 ML PLAST..BAG 8 UNIT IVCONT (16:02)
[2022-06-14 16:10] LABS: Glucose, Whole Blood 252 mg/dL (60-115)
[2022-06-14 17:07] LABS: Glucose, Whole Blood 246 mg/dL (60-115)
[2022-06-14 18:11] LABS: Glucose, Whole Blood 246 mg/dL (60-115)
[2022-06-14 20:06] LABS: Glucose, Whole Blood 190 mg/dL (60-115)
[2022-06-14] MEDS: Lactulose 20 GM/30 ML SOLUTION 30 GM OG-TUBE (21:02)
[2022-06-14 22:22] LABS: Glucose, Whole Blood 157 mg/dL (60-115)
[2022-06-14 23:42] LABS: Glucose, Whole Blood 135 mg/dL (60-115)
[2022-06-15] VITALS (31 sets, daily range): BP systolic 136–166; BP diastolic 48–63; PULSE 62–83; RESP 12–28; TEMP 34–37.6; O2SAT 88–97
[2022-06-15] MEDS: Insulin Regular/NS 100 UNIT/100 ML PLAST..BAG 8 UNIT IVCONT (01:36)
[2022-06-15] MEDS: levETIRAcetam in NaCl (iso-os) 500 MG/100 ML PIGGYBACK 400 MG IV ×2 (01:36→14:16)
[2022-06-15] MEDS: niCARdipine HCL 25 MG in 0.9 % Sodium Chloride 250 ML 52 MG IVCONT ×5 (01:36→20:35)
[2022-06-15 01:54] LABS: Glucose, Whole Blood 96 mg/dL (60-115)
[2022-06-15 04:24] LABS: Glucose, Whole Blood 109 mg/dL (60-115)
[2022-06-15 05:06] LABS: VBG Base Excess 6.7 mmol/L; VBG HCO3 28 mmol/L (22-26); VBG pCO2 29 mmHg; VBG pH 7.58 (7.32-7.43); VBG pO2 56 mmHg
[2022-06-15 05:16] LABS: MANUAL DIFF FLAG NO
[2022-06-15 05:19] LABS: Basophils Percent Auto 0.1 % (0-2); Eosinophils Absolute Auto 0.2 X10*3/uL (0.0-0.4); Eosinophils Percent Auto 1.1 % (0-4); Hematocrit 32.4 % (37.0-47.0); Hemoglobin 9.3 g/dl (12.0-16.0); Imm Gran Abs Auto 0.18 X10*3/uL (0.00-0.03); Lymphocytes Absolute Auto 1.9 X10*3/uL (1.2-4.9); Lymphocytes Percent Auto 10.5 % (20-40); Mean Corpuscular HGB Conc 28.7 g/dl (31.0-35.0); Mean Corpuscular Volume 69.8 fL (80.0-98.0); Mean Platelet Volume 9.6 fL (9.4-12.3); Monocytes Absolute Auto 0.8 X10*3/uL (0.1-1.2); Monocytes Percent Auto 4.2 % (2-11); Neutrophils Percent Auto 83.1 % (45-73); Platelet Count 265 X10*3/uL (160-400); Red Blood Count 4.64 X10*6/uL (4.20-5.50); Red Cell Distribution Width 23.8 % (11.0-16.0)
[2022-06-15 05:39] LABS: Alanine Aminotransferase 21 U/L (0-31); Alkaline Phosphatase 90 U/L (39-117); Anion Gap 12 (12-20); Aspartate Amino Transferase 9 U/L (5-31); Bilirubin Direct 0.3 mg/dL (0.0-0.5); Bilirubin Total 0.6 mg/dL (0.0-1.0); Blood Urea Nitrogen 19 mg/dL (9-16); Calcium 7.6 mg/dL (8.4-10.2); Carbon Dioxide 25 mmol/L (22-29); Chloride 101 mmol/L (96-108); Creatinine Clr Calc Pharmacy 100.6; Estimated Glomerular Filt Rate > 60; Glucose Random 116 mg/dL (60-115); Magnesium 2.2 mg/dL (1.6-2.6); Phosphorus 2.5 mg/dL (2.7-4.5); Potassium 3.3 mmol/L (3.3-5.1); Sodium 135 mmol/L (135-145); Total Protein 5.7 g/dL (6.5-8.0)
[2022-06-15 05:40] LABS: B Type Natriuretic Peptide 156 pg/mL (<100)
[2022-06-15 06:49] LABS: Venous Blood Gas Refer to POC result
[2022-06-15] MEDS: Albuterol/Iprat 2.5/0.5MG 3 ML AMPUL.NEB INHALE ×4 (07:30→19:42)
[2022-06-15 08:11] LABS: Glucose, Whole Blood 213 mg/dL (60-115)
[2022-06-15] MEDS: Furosemide 40 MG TABLET PO (08:14)
[2022-06-15] MEDS: carvediloL 25 MG TABLET PO ×2 (08:14→20:38)
[2022-06-15] MEDS: Ferrous Sulfate 324 MG TABLET.DR PO (08:14)
[2022-06-15] MEDS: Albumin Human 25 % 100 ML IV ×3 (08:15→20:35)
[2022-06-15] MEDS: Chlorhexidine Gluc Oral Rinse 15 ML MOUTHWASH BUCCAL ×3 (08:15→20:38)
[2022-06-15] MEDS: Valsartan 160 MG TABLET PO (08:15)
[2022-06-15] MEDS: Insulin Glargine,Hum.rec.anlog 100 UNIT/ML 10 ML VIAL 40 UNIT SUBCUT (08:26)
[2022-06-15] MEDS: Nystatin Powder 15 GM BOTTLE 1 APPL TOPICAL ×3 (08:31→20:38)
[2022-06-15] MEDS: Potassium Phosphate/NS 15 MMOL/250 ML PLAST..BAG 62.5 MMOL IV ×2 (09:34→14:22)
[2022-06-15] MEDS: levoFLOXacin/D5W 500 MG/100 ML PIGGYBACK 100 MG IV (09:43)
--- NOTE | 2022-06-15 10:17 | MHC.CLN ---
F/U PT REMAINS INTUBATED PT RECEIVING OSMOLITE 1.5 AT MAX GOAL RATE 45ML/HR WITH 120ML FREE WATER FLUSHES Q 8HRS PROVIDES 1620KCALS (23KCALS/KG BASED ON CMW), 67.6G PROTEIN (.95G/KG), 1183ML TOTAL WATER FROM FORMULA AND FLUSHES CONTINUE TO MONITOR TOLERANCE, RESIDUALS AND LYTES
--- NOTE | 2022-06-15 10:22 | MHC.CM.PN ---
Addendum entered by Mariluz Badillo 06/15/22 13:05: This functional tester typewriters spoke w/ Rom pt's son. Paige HCP and other sister are on vacation. He is going to [place] and get ahold of them for family meeting with care team 06/15 around 1/2PM. CM will contact Rom in AM to confirm coordination. Original Note: This functional tester typewriters placed call to Paige to schedule family meeting, left VM awaiting return call.
--- NOTE | 2022-06-15 10:25 | P.PNCC_ITS ---
Subjective Subjective Date of Service: 06/15/22 Interval History: 76-year-old lady with underlying obesity, ISAAC with chronic hypercapnia /hypoxemia, congestive heart failure, COPD on 2 L of O2, diabetes mellitus admitted on 06/01/2022 with out of hospital cardiac arrest with return of spo ntaneous circulation after several rounds of CPR. Patient was intubated in the emergency room and admitted to intensive care unit. Unfortunately, her hospital course is significant for persistent encephalopathy with minimal improvement over the last 14 days, even after controlling her partial seizures with Keppra. No events overnight. Critical Care Time (minutes): 45 Physical Exam Vital Signs: Vital Signs: Last Vital Signs Temp 99.1 F 06/15/22 10:00 Pulse 69 06/15/22 10:00 Resp 20 06/15/22 10:00 BP 163/54 H 06/15/22 10:00 Pulse Ox 91 L 06/15/22 10:00 O2 Del Method 06/15/22 10:00 O2 Flow Rate 35 06/02/22 21:00 FiO2 21 06/15/22 10:00 BMI result Body Mass Index 32.5 Const: General: no acute distress and other (minimal arousal with sedation vacation, intermittently follows basic comman) Eyes: Sclerae: sclerae normal EOM: EOMs intact bilaterally Neck: Neck: Yes no lymphadenopathy, Yes trachea midline and Yes supple Resp: Effort & Inspection: normal respiratory effort and no respiratory distress Auscultation: clear to auscultation bilaterally Cardio: Rate: regular rate Rhythm: regular rhythm Heart sounds: no gallops, no murmurs and no rubs GI: Palpation (GI): Soft to palpation and Other GI palpation findings present ( Nontender) Auscultation: normal bowel sounds Extrem: General: No clubbing, No cyanosis and Yes pedal edema ( trace bilateral) Objective Data Labs CBC & Chem 7: 06/15/22 05:01 06/15/22 05:01 Labs: Laboratory Results - last 24 hr 06/14/22 06/14/22 06/14/22 11:05 11:54 14:03 WBC RBC Hgb Hct MCV MCH MCHC RDW Plt Count MPV Immature Gran % (Auto) Neut % (Auto) Lymph % (Auto) Addison % (Auto) Eos % (Auto) Baso % (Auto) Lymph # (Auto) [place]ison # (Auto) Eos # (Auto) Baso # (Auto) Abs Immat Gran (auto) Absolute Neuts (auto) Absolute Nucleated RBC Nucleated RBC % (auto) VBG pH VBG pCO2 VBG pO2 VBG HCO3 VBG O2 Saturation VBG Base Excess Sodium Potassium Chloride Carbon Dioxide Anion Gap BUN Creatinine Estim Creat Clear Calc Estimated GFR POC Glucose 193 H 180 H 261 H Random Glucose Calcium Phosphorus Magnesium Total Bilirubin Direct Bilirubin AST ALT Alkaline Phosphatase B-Natriuretic Peptide Total Protein Albumin 06/14/22 06/14/22 06/14/22 15:16 16:06 17:04 WBC RBC Hgb Hct MCV MCH MCHC RDW Plt Count MPV Immature Gran % (Auto) Neut % (Auto) Lymph % (Auto) [place]ison % (Auto) Eos % (Auto) Baso % (Auto) Lymph # (Auto) [place]ison # (Auto) Eos # (Auto) Baso # (Auto) Abs Immat Gran (auto) Absolute Neuts (auto) Absolute Nucleated RBC Nucleated RBC % (auto) VBG pH VBG pCO2 VBG pO2 VBG HCO3 VBG O2 Saturation VBG Base Excess Sodium Potassium Chloride Carbon Dioxide Anion Gap BUN Creatinine Estim Creat Clear Calc Estimated GFR POC Glucose 285 H 252 H 246 H Random Glucose Calcium Phosphorus Magnesium Total Bilirubin Direct Bilirubin AST ALT Alkaline Phosphatase B-Natriuretic Peptide Total Protein Albumin 06/14/22 06/14/22 06/14/22 18:02 20:03 22:18 WBC RBC Hgb Hct MCV MCH MCHC RDW Plt Count MPV Immature Gran % (Auto) Neut % (Auto) Lymph % (Auto) [place]ison % (Auto) Eos % (Auto) Baso % (Auto) Lymph # (Auto) [place]ison # (Auto) Eos # (Auto) Baso # (Auto) Abs Immat Gran (auto) Absolute Neuts (auto) Absolute Nucleated RBC Nucleated RBC % (auto) VBG pH VBG pCO2 VBG pO2 VBG HCO3 VBG O2 Saturation VBG Base Excess Sodium Potassium Chloride Carbon Dioxide Anion Gap BUN Creatinine Estim Creat Clear Calc Estimated GFR POC Glucose 246 H 190 H 157 H Random Glucose Calcium Phosphorus Magnesium Total Bilirubin Direct Bilirubin AST ALT Alkaline Phosphatase B-Natriuretic Peptide Total Protein Albumin 06/14/22 06/15/22 06/15/22 23:36 01:49 04:20 WBC RBC Hgb Hct MCV MCH MCHC RDW Plt Count MPV Immature Gran % (Auto) Neut % (Auto) Lymph % (Auto) Addison % (Auto) Eos % (Auto) Baso % (Auto) Lymph # (Auto) [place]ison # (Auto) Eos # (Auto) Baso # (Auto) Abs Immat Gran (auto) Absolute Neuts (auto) Absolute Nucleated RBC Nucleated RBC % (auto) VBG pH VBG pCO2 VBG pO2 VBG HCO3 VBG O2 Saturation VBG Base Excess Sodium Potassium Chloride Carbon Dioxide Anion Gap BUN Creatinine Estim Creat Clear Calc Estimated GFR POC Glucose 135 H 96 109 Random Glucose Calcium Phosphorus Magnesium Total Bilirubin Direct Bilirubin AST ALT Alkaline Phosphatase B-Natriuretic Peptide Total Protein Albumin 06/15/22 06/15/22 06/15/22 05:01 05:01 05:01 WBC 18.0 H RBC 4.64 Hgb 9.3 L Hct 32.4 L MCV 69.8 L MCH 20.0 L MCHC 28.7 L RDW 23.8 H Plt Count 265 MPV 9.6 Immature Gran % (Auto) 1.0 H Neut % (Auto) 83.1 H Lymph % (Auto) 10.5 L Addison % (Auto) 4.2 Eos % (Auto) 1.1 Baso % (Auto) 0.1 Lymph # (Auto) 1.9 Addison # (Auto) 0.8 Eos # (Auto) 0.2 Baso # (Auto) 0.0 Abs Immat Gran (auto) 0.18 H Absolute Neuts (auto) 15.0 H Absolute Nucleated RBC 0.000 Nucleated RBC % (auto) 0.0 VBG pH VBG pCO2 VBG pO2 VBG HCO3 VBG O2 Saturation VBG Base Excess Sodium 135 Potassium 3.3 Chloride 101 Carbon Dioxide 25 Anion Gap 12 BUN 19 H Creatinine 0.54 Estim Creat Clear Calc 100.6 Estimated GFR > 60 POC Glucose Random Glucose 116 H Calcium 7.6 L Phosphorus 2.5 L Magnesium 2.2 Total Bilirubin 0.6 Direct Bilirubin 0.3 AST 9 ALT 21 Alkaline Phosphatase 90 B-Natriuretic Peptide 156 H Total Protein 5.7 L Albumin 3.0 L 06/15/22 06/15/22 05:01 08:08 WBC RBC Hgb Hct MCV MCH MCHC RDW Plt Count MPV Immature Gran % (Auto) Neut % (Auto) Lymph % (Auto) Addison % (Auto) Eos % (Auto) Baso % (Auto) Lymph # (Auto) [place]ison # (Auto) Eos # (Auto) Baso # (Auto) Abs Immat Gran (auto) Absolute Neuts (auto) Absolute Nucleated RBC Nucleated RBC % (auto) VBG pH 7.58 H VBG pCO2 29 VBG pO2 56 VBG HCO3 28 H VBG O2 Saturation 88.0 VBG Base Excess 6.7 Sodium Potassium Chloride Carbon Dioxide Anion Gap BUN Creatinine Estim Creat Clear Calc Estimated GFR POC Glucose 213 H Random Glucose Calcium Phosphorus Magnesium Total Bilirubin Direct Bilirubin AST ALT Alkaline Phosphatase B-Natriuretic Peptide Total Protein Albumin Microbiology Microbiology Results: Microbiology 06/12/22 16:15 Catheter Tip - Cvp Catheter Tip Culture - Final Klebsiella pneumoniae Staphylococcus epidermidis 06/12/22 06:42 Blood - Venous Blood Culture - Preliminary No growth after 48 hours. 06/12/22 06:42 Blood - Venous Blood Culture - Preliminary No growth after 48 hours. 06/12/22 06:56 Sputum - Suctioned Gram Stain - Final 06/12/22 06:56 Sputum - Suctioned Sputum Culture - Final Klebsiella pneumoniae 06/08/22 05:00 Blood - Venous Blood Culture - Final No growth after 5 days. 06/08/22 05:00 Blood - Venous Blood Culture - Final No growth after 5 days. 06/09/22 07:17 Sputum - Suctioned Gram Stain - Final 06/09/22 07:17 Sputum - Suctioned Sputum Culture - Final 06/05/22 10:33 Blood - Venous Blood Culture - Final No growth after 5 days. 06/05/22 11:03 Blood - Venous Blood Culture - Final Coag negative Staphylococcus 06/06/22 03:43 Sputum - Suctioned Gram Stain - Final 06/06/22 03:43 Sputum - Suctioned Sputum Culture - Final 06/01/22 16:44 Blood - Venous Blood Culture - Final No growth after 5 days. 06/01/22 16:33 Blood - Venous Blood Culture - Final No growth after 5 days. 06/02/22 01:56 Sputum - Suctioned Gram Stain - Final 06/02/22 01:56 Sputum - Suctioned Sputum Culture - Final Progress Note: A&P Assessment and plan (1) Anoxic encephalopathy: Status: Acute (2) Hypoventilation syndrome: Status: Acute (3) ISAAC and COPD overlap syndrome: Status: Acute (4) Diabetes: Status: Acute (5) Cardiac arrest: Status: Acute (6) Epilepsia partialis continua: Status: Acute (7) Chronic respiratory failure with hypoxia: Status: Acute (8) Failure to wean from mechanical ventilation: Status: Acute Plan Assessment: 76-year-old lady with obesity, ISAAC, obesity hyperventilation syndrome, chronic hypoxic/ hypercapnic respiratory failure, congestive heart failure admitted after an out of hospital cardiac arrest with returned spontaneous circulation after a brief CPR, however hospital course with complicated by persistent encephalopathy with minimal improvement. Plan: Neuro: Partial seizures controlled with Keppra. Continue current regimen. Persistent anoxic encephalopathy with minimal improvement, discussion of goals of care are ongoing with the family. Cardiac: out of hospital cardiac arrest status post returned spontaneous circulation, appears to be respiratory in nature. Follow-up 2D echo with mildly reduced EF. Pulmonary: Intubated after CPR. 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 Renal: No acute issues. Endo: No acute issues. Underlying diabetes mellitus. Will switch to Lantus from insulin drip. GI: No acute issues. ID: No acute issues Heme/Onc: No acute issues. Psych: No acute issues. Miscellaneous: No acute issues. Prophylaxis: heparin, ppi Diet: Tube feeds Critical care time spent: 45 minutes Quality Stroke Does the patient have a stroke diagnosis?: No VTE Prior VTE?: No VTE Risk Level:: Medical - moderate - high VTE Device Contraindication: N/A - Device Ordered VTE Drug Contraindication: N/A - Med Ordered
[2022-06-15] MEDS: cefTRIAXone sodium 1 GM in 0.9 % Sodium Chloride 50 ML IV (11:21)
[2022-06-15] MEDS: Heparin Sodium,Porcine 5,000 UNIT/ML VIAL 5000 UNIT SUBCUT ×2 (11:24→18:20)
[2022-06-15 14:09] LABS: Glucose, Whole Blood 300 mg/dL (60-115)
[2022-06-15] MEDS: Insulin Glargine,Hum.rec.anlog 100 UNIT/ML 10 ML VIAL 20 UNIT SUBCUT (14:25)
[2022-06-15] MEDS: Insulin Lispro 100 UNIT/ML 3 ML VIAL SUBCUT ×2 (14:48→20:38)
--- NOTE | 2022-06-15 18:37 | PC.NURSE ---
FAMILY UPDATED AND EDUCATION PROVIDED ON TRACH AND PEG. FAMILY MEETING UNABLE TO BE HELD TODAY - WILL CONTINUE DISCUSSIONS WITH FAMILY NEEDED.
[2022-06-15 20:27] LABS: Glucose, Whole Blood 273 mg/dL (60-115)
[2022-06-16] VITALS (34 sets, daily range): BP systolic 131–179; BP diastolic 44–72; PULSE 65–82; RESP 15–32; TEMP 33–37.9; O2SAT 90–100; BMI 32.9
[2022-06-16] MEDS: niCARdipine HCL 25 MG in 0.9 % Sodium Chloride 250 ML 41.6 MG IVCONT (01:30)
[2022-06-16] MEDS: levETIRAcetam in NaCl (iso-os) 500 MG/100 ML PIGGYBACK 400 MG IV ×2 (01:37→15:19)
[2022-06-16] MEDS: Albumin Human 25 % 100 ML IV (01:57)
[2022-06-16 02:31] LABS: Glucose, Whole Blood 248 mg/dL (60-115)
[2022-06-16] MEDS: Heparin Sodium,Porcine 5,000 UNIT/ML VIAL 5000 UNIT SUBCUT ×3 (02:36→18:36)
[2022-06-16] MEDS: Insulin Lispro 100 UNIT/ML 3 ML VIAL SUBCUT ×4 (02:36→20:24)
[2022-06-16 05:07] LABS: MANUAL DIFF FLAG NO
[2022-06-16 05:11] LABS: Basophils Percent Auto 0.1 % (0-2); Eosinophils Absolute Auto 0.2 X10*3/uL (0.0-0.4); Eosinophils Percent Auto 1.3 % (0-4); Hematocrit 27.9 % (37.0-47.0); Hemoglobin 8.2 g/dl (12.0-16.0); Imm Gran Pct Auto 0.8 % (0.0-0.4); Lymphocytes Absolute Auto 1.5 X10*3/uL (1.2-4.9); Lymphocytes Percent Auto 11.4 % (20-40); Mean Corpuscular HGB Conc 29.4 g/dl (31.0-35.0); Mean Corpuscular Hemoglobin 20.7 pg (27.0-33.0); Mean Corpuscular Volume 70.3 fL (80.0-98.0); Mean Platelet Volume 9.4 fL (9.4-12.3); Monocytes Absolute Auto 0.7 X10*3/uL (0.1-1.2); Monocytes Percent Auto 5.1 % (2-11); Neutrophils Absolute Auto 10.8 x10*3/uL (2.0-8.3); Neutrophils Percent Auto 81.3 % (45-73); Platelet Count 292 X10*3/uL (160-400); Red Blood Count 3.97 X10*6/uL (4.20-5.50); Red Cell Distribution Width 23.4 % (11.0-16.0); White Blood Count 13.3 X10*3/uL (4.8-10.8)
[2022-06-16 05:15] LABS: ABG Base Excess 3.9 mmol/L; ABG HCO3 25 mmol/L (22-26); ABG pCO2 29 mmHg (32-45); ABG pH 7.54 (7.35-7.45); ABG pO2 65 mmHg (83-108)
[2022-06-16 05:20] LABS: Venous Blood Gas Refer to POC result
[2022-06-16 05:35] LABS: Albumin Level 4.2 g/dL (3.5-5.0); Anion Gap 14 (12-20); Blood Urea Nitrogen 14 mg/dL (9-16); Calcium 8.4 mg/dL (8.4-10.2); Carbon Dioxide 24 mmol/L (22-29); Chloride 100 mmol/L (96-108); Creatinine Clr Calc Pharmacy 92.6; Estimated Glomerular Filt Rate > 60; Glucose Random 202 mg/dL (60-115); Magnesium 2.1 mg/dL (1.6-2.6); Phosphorus 2.2 mg/dL (2.7-4.5); Potassium 3.8 mmol/L (3.3-5.1); Sodium 134 mmol/L (135-145)
[2022-06-16] MEDS: niCARdipine HCL 25 MG in 0.9 % Sodium Chloride 250 ML 52 MG IVCONT (05:37)
[2022-06-16] MEDS: Chlorhexidine Gluc Oral Rinse 15 ML MOUTHWASH BUCCAL ×3 (07:48→20:25)
[2022-06-16] MEDS: Valsartan 160 MG TABLET PO (07:48)
[2022-06-16] MEDS: Furosemide 40 MG TABLET PO (07:49)
[2022-06-16] MEDS: Ferrous Sulfate 324 MG TABLET.DR PO (07:49)
[2022-06-16] MEDS: Potassium Phosphate/NS 15 MMOL/250 ML PLAST..BAG 62.5 MMOL IV (07:49)
[2022-06-16] MEDS: carvediloL 25 MG TABLET PO ×2 (07:49→20:25)
[2022-06-16] MEDS: Nystatin Powder 15 GM BOTTLE 1 APPL TOPICAL ×3 (07:49→20:27)
[2022-06-16 08:17] LABS: Glucose, Whole Blood 211 mg/dL (60-115)
[2022-06-16] MEDS: Albuterol/Iprat 2.5/0.5MG 3 ML AMPUL.NEB INHALE ×3 (08:29→15:58)
[2022-06-16] MEDS: niCARdipine HCL 25 MG in 0.9 % Sodium Chloride 250 ML 78 MG IVCONT ×5 (08:50→21:56)
[2022-06-16] MEDS: Insulin Glargine,Hum.rec.anlog 100 UNIT/ML 10 ML VIAL 60 UNIT SUBCUT (08:55)
--- NOTE | 2022-06-16 09:39 | MHC.CLN ---
F/U PT REMAINS INTUBATED PT RECEIVING OSMOLITE 1.5 AT MAX GOAL RATE 45ML/HR WITH 120ML FREE WATER FLUSHES Q 8HRS PROVIDES 1620KCALS (23KCALS/KG BASED ON CMW), 67.6G PROTEIN (.95G/KG), 1183ML TOTAL WATER FROM FORMULA AND FLUSHES NOTED SERUM NA RISING 134 TODAY RECOMMEND D/C 120ML FREE WATER FLUSHES Q 8 HRS CONTINUE TO MONITOR TOLERANCE, RESIDUALS AND LYTES
--- NOTE | 2022-06-16 10:14 | P.PNCC_ITS ---
Subjective Subjective Date of Service: 06/16/22 Interval History: 76-year-old lady with underlying obesity, ISAAC with chronic hypercapnia /hypoxemia, congestive heart failure, COPD on 2 L of O2, diabetes mellitus admitted on 06/01/2022 with out of hospital cardiac arrest with return of spon taneous circulation after several rounds of CPR. Patient was intubated in the emergency room and admitted to intensive care unit. Unfortunately, her hospital course is significant for persistent encephalopathy with minimal improvement over the last 14 days, even after controlling her partial seizures with Keppra. Family is considering goals of care at this time. No events overnight. Critical Care Time (minutes): 45 Physical Exam Vital Signs: Vital Signs: Last Vital Signs Temp 99.9 F 06/16/22 10:00 Pulse 68 06/16/22 10:00 Resp 18 06/16/22 10:00 BP 153/59 H 06/16/22 10:00 Pulse Ox 92 06/16/22 10:00 O2 Del Method 06/16/22 10:00 O2 Flow Rate 35 06/02/22 21:00 FiO2 21 06/16/22 10:00 BMI result Body Mass Index 32.9 Const: General: no acute distress and other ( Sedated on the vent) Eyes: Sclerae: sclerae normal EOM: EOMs intact bilaterally Neck: Neck: Yes no lymphadenopathy, Yes trachea midline and Yes supple Resp: Effort & Inspection: normal respiratory effort and no respiratory distress Auscultation: clear to auscultation bilaterally Cardio: Rate: regular rate Rhythm: regular rhythm Heart sounds: no gallops, no murmurs and no rubs GI: Palpation (GI): Soft to palpation and Other GI palpation findings present ( Nontender) Auscultation: normal bowel sounds Extrem: General: Yes no pedal edema, No clubbing and No cyanosis Objective Data Labs CBC & Chem 7: 06/16/22 05:02 06/16/22 05:02 Labs: Laboratory Results - last 24 hr 06/15/22 06/15/22 06/16/22 14:05 20:23 02:27 WBC RBC Hgb Hct MCV MCH MCHC RDW Plt Count MPV Immature Gran % (Auto) Neut % (Auto) Lymph % (Auto) [place] % (Auto) Eos % (Auto) Baso % (Auto) Lymph # (Auto) [place] # (Auto) Eos # (Auto) Baso # (Auto) Abs Immat Gran (auto) Absolute Neuts (auto) Absolute Nucleated RBC Nucleated RBC % (auto) O2 Saturation ABG pH at Pt Temp ABG pCO2 at Pt Temp ABG pO2 at Pt Temp ABG HCO3 ABG Base Excess (Actual) Sodium Potassium Chloride Carbon Dioxide Anion Gap BUN Creatinine Estim Creat Clear Calc Estimated GFR POC Glucose 300 H 273 H 248 H Random Glucose Calcium Phosphorus Magnesium Albumin 06/16/22 06/16/22 06/16/22 05:02 05:02 05:10 WBC 13.3 H RBC 3.97 L Hgb 8.2 L Hct 27.9 L MCV 70.3 L MCH 20.7 L MCHC 29.4 L RDW 23.4 H Plt Count 292 MPV 9.4 Immature Gran % (Auto) 0.8 H Neut % (Auto) 81.3 H Lymph % (Auto) 11.4 L Norman % (Auto) 5.1 Eos % (Auto) 1.3 Baso % (Auto) 0.1 Lymph # (Auto) 1.5 Norman # (Auto) 0.7 Eos # (Auto) 0.2 Baso # (Auto) 0.0 Abs Immat Gran (auto) 0.10 H Absolute Neuts (auto) 10.8 H Absolute Nucleated RBC 0.000 Nucleated RBC % (auto) 0.0 O2 Saturation 94.0 ABG pH at Pt Temp 7.54 H ABG pCO2 at Pt Temp 29 L ABG pO2 at Pt Temp 65 L ABG HCO3 25 ABG Base Excess (Actual) 3.9 Sodium 134 L Potassium 3.8 Chloride 100 Carbon Dioxide 24 Anion Gap 14 BUN 14 Creatinine 0.59 Estim Creat Clear Calc 92.6 Estimated GFR > 60 POC Glucose Random Glucose 202 H Calcium 8.4 D Phosphorus 2.2 L Magnesium 2.1 Albumin 4.2 D 06/16/22 08:13 WBC RBC Hgb Hct MCV MCH MCHC RDW Plt Count MPV Immature Gran % (Auto) Neut % (Auto) Lymph % (Auto) Norman % (Auto) Eos % (Auto) Baso % (Auto) Lymph # (Auto) [place] # (Auto) Eos # (Auto) Baso # (Auto) Abs Immat Gran (auto) Absolute Neuts (auto) Absolute Nucleated RBC Nucleated RBC % (auto) O2 Saturation ABG pH at Pt Temp ABG pCO2 at Pt Temp ABG pO2 at Pt Temp ABG HCO3 ABG Base Excess (Actual) Sodium Potassium Chloride Carbon Dioxide Anion Gap BUN Creatinine Estim Creat Clear Calc Estimated GFR POC Glucose 211 H Random Glucose Calcium Phosphorus Magnesium Albumin Microbiology Microbiology Results: Microbiology 06/12/22 16:15 Catheter Tip - Cvp Catheter Tip Culture - Final Klebsiella pneumoniae Staphylococcus epidermidis 06/12/22 06:42 Blood - Venous Blood Culture - Preliminary No growth after 48 hours. 06/12/22 06:42 Blood - Venous Blood Culture - Preliminary No growth after 48 hours. 06/12/22 06:56 Sputum - Suctioned Gram Stain - Final 06/12/22 06:56 Sputum - Suctioned Sputum Culture - Final Klebsiella pneumoniae 06/08/22 05:00 Blood - Venous Blood Culture - Final No growth after 5 days. 06/08/22 05:00 Blood - Venous Blood Culture - Final No growth after 5 days. 06/09/22 07:17 Sputum - Suctioned Gram Stain - Final 06/09/22 07:17 Sputum - Suctioned Sputum Culture - Final 06/05/22 10:33 Blood - Venous Blood Culture - Final No growth after 5 days. 06/05/22 11:03 Blood - Venous Blood Culture - Final Coag negative Staphylococcus 06/06/22 03:43 Sputum - Suctioned Gram Stain - Final 06/06/22 03:43 Sputum - Suctioned Sputum Culture - Final 06/01/22 16:44 Blood - Venous Blood Culture - Final No growth after 5 days. 06/01/22 16:33 Blood - Venous Blood Culture - Final No growth after 5 days. 06/02/22 01:56 Sputum - Suctioned Gram Stain - Final 06/02/22 01:56 Sputum - Suctioned Sputum Culture - Final Progress Note: A&P Assessment and plan (1) Failure to wean from mechanical ventilation: Status: Acute (2) Chronic respiratory failure with hypoxia: Status: Acute (3) Diabetes: Status: Acute (4) Anoxic encephalopathy: Status: Acute (5) Cardiac arrest: Status: Acute (6) ISAAC and COPD overlap syndrome: Status: Acute (7) CHF (congestive heart failure): Status: Acute Plan Assessment: 76-year-old lady with obesity, ISAAC, obesity hyperventilation syndrome, chronic hypoxic/ hypercapnic respiratory failure, congestive heart failure admitted after an out of hospital cardiac arrest with returned spontaneous circulation after a brief CPR, however hospital course with complicated by persistent encephalopathy with minimal improvement. Plan: Neuro: Partial seizures controlled with Keppra. Continue current regimen. Persistent anoxic encephalopathy with minimal improvement, discussion of goals of care are ongoing with the family. Cardiac: Out of hospital cardiac arrest status post returned spontaneous circulation, appears to be respiratory in nature. Follow-up 2D echo with mildly reduced EF. Pulmonary: Intubated after CPR. Weaning from the ventilatory support is limited by minimal improvement in mental status. Family is considering tracheo stomy.. Renal: No acute issues. Endo: No acute issues. Underlying diabetes mellitus. Will switch to Lantus from insulin drip. GI: No acute issues. ID: No acute issues Heme/Onc: No acute issues. Psych: No acute issues. Miscellaneous: No acute issues. Prophylaxis: heparin, ppi Diet: Tube feeds Critical care time spent: 45 minutes Quality Stroke Does the patient have a stroke diagnosis?: No VTE Prior VTE?: No VTE Risk Level:: Medical - moderate - high VTE Device Contraindication: N/A - Device Ordered VTE Drug Contraindication: N/A - Med Ordered
[2022-06-16] MEDS: cefTRIAXone sodium 1 GM in 0.9 % Sodium Chloride 50 ML IV (11:15)
--- NOTE | 2022-06-16 14:47 | MHC.CM.PN ---
Pt continues on ventilatory support without convincing signs of neurological function return. Family continues to support all care and are considering peg/trach placement. Plans are to reconvene the family either in person or by phone to discuss and decide on next level of care. Family aware of [facility] facility barriers should they opt for peg/trach: pt has Medicare and could transfer to an [facility] outside of [facility] should she get accepted. Will refer to [facility] in the meantime until more is known about goals of care.
[2022-06-16 15:18] LABS: Glucose, Whole Blood 230 mg/dL (60-115)
[2022-06-16 18:03] LABS: Glucose, Whole Blood 223 mg/dL (60-115)
--- NOTE | 2022-06-16 18:38 | PC.NURSE ---
FAMILY TO CALL TOMORROW MORNING 06/17/22 WITH DISCUSSION ON TO PROCEED WITH TRACH AND PEG OR NOT. MD AWARE.
[2022-06-16 20:14] LABS: Glucose, Whole Blood 227 mg/dL (60-115)
[2022-06-17] VITALS (29 sets, daily range): BP systolic 104–179; BP diastolic 45–77; PULSE 68–97; RESP 12–30; TEMP 34.8–38; O2SAT 87–100; BMI 32.3
[2022-06-17] MEDS: niCARdipine HCL 25 MG in 0.9 % Sodium Chloride 250 ML 78 MG IVCONT ×7 (01:02→21:56)
[2022-06-17] MEDS: levETIRAcetam in NaCl (iso-os) 500 MG/100 ML PIGGYBACK 400 MG IV ×2 (02:29→14:47)
[2022-06-17] MEDS: Insulin Lispro 100 UNIT/ML 3 ML VIAL SUBCUT ×4 (02:39→20:51)
[2022-06-17 02:40] LABS: Glucose, Whole Blood 245 mg/dL (60-115)
[2022-06-17] MEDS: Heparin Sodium,Porcine 5,000 UNIT/ML VIAL 5000 UNIT SUBCUT ×3 (02:41→20:37)
[2022-06-17 05:26] LABS: VBG Base Excess 4.6 mmol/L; VBG HCO3 26 mmol/L (22-26); VBG pCO2 28 mmHg; VBG pH 7.56 (7.32-7.43); VBG pO2 57 mmHg
[2022-06-17 05:38] LABS: MANUAL DIFF FLAG NO
[2022-06-17 05:39] LABS: Basophils Percent Auto 0.1 % (0-2); Eosinophils Absolute Auto 0.3 X10*3/uL (0.0-0.4); Eosinophils Percent Auto 1.8 % (0-4); Hematocrit 31.1 % (37.0-47.0); Hemoglobin 9.2 g/dl (12.0-16.0); Imm Gran Abs Auto 0.15 X10*3/uL (0.00-0.03); Lymphocytes Absolute Auto 1.4 X10*3/uL (1.2-4.9); Lymphocytes Percent Auto 9.7 % (20-40); Mean Corpuscular HGB Conc 29.6 g/dl (31.0-35.0); Mean Corpuscular Hemoglobin 20.8 pg (27.0-33.0); Mean Corpuscular Volume 70.4 fL (80.0-98.0); Mean Platelet Volume 9.7 fL (9.4-12.3); Monocytes Absolute Auto 0.8 X10*3/uL (0.1-1.2); Monocytes Percent Auto 5.3 % (2-11); Neutrophils Percent Auto 82.1 % (45-73); Platelet Count 267 X10*3/uL (160-400); Red Blood Count 4.42 X10*6/uL (4.20-5.50); Red Cell Distribution Width 24.5 % (11.0-16.0); White Blood Count 14.6 X10*3/uL (4.8-10.8)
[2022-06-17 06:06] LABS: Albumin Level 3.8 g/dL (3.5-5.0); Anion Gap 14 (12-20); Blood Urea Nitrogen 11 mg/dL (9-16); Calcium 8.2 mg/dL (8.4-10.2); Carbon Dioxide 22 mmol/L (22-29); Chloride 100 mmol/L (96-108); Creatinine Clr Calc Pharmacy 88.7; Estimated Glomerular Filt Rate > 60; Glucose Random 246 mg/dL (60-115); Magnesium 2.1 mg/dL (1.6-2.6); Phosphorus 2.4 mg/dL (2.7-4.5); Potassium 4.2 mmol/L (3.3-5.1); Sodium 132 mmol/L (135-145)
[2022-06-17 06:26] LABS: Venous Blood Gas Refer to POC result
[2022-06-17] MEDS: Sodium,Potassium Phosphates POWD.PACK 2 PACKET OG-TUBE (08:06)
[2022-06-17] MEDS: Valsartan 160 MG TABLET PO (08:07)
[2022-06-17] MEDS: carvediloL 25 MG TABLET PO ×2 (08:08→20:52)
[2022-06-17] MEDS: Furosemide 40 MG TABLET PO (08:08)
[2022-06-17] MEDS: Insulin Glargine,Hum.rec.anlog 100 UNIT/ML 10 ML VIAL 70 UNIT SUBCUT (08:09)
[2022-06-17] MEDS: Chlorhexidine Gluc Oral Rinse 15 ML MOUTHWASH BUCCAL ×3 (08:09→20:37)
[2022-06-17] MEDS: Ferrous Sulfate 324 MG TABLET.DR PO (08:09)
[2022-06-17] MEDS: Nystatin Powder 15 GM BOTTLE 1 APPL TOPICAL ×3 (08:10→20:52)
--- NOTE | 2022-06-17 10:05 | PM.CCPN ---
Subjective Subjective Date of Service: 06/17/22 Interval History: 76-year-old lady with underlying obesity, ISAAC with chronic hypercapnia /hypoxemia, congestive heart failure, COPD on 2 L of O2, diabetes mellitus admitted on 06/01/2022 with out of hospital cardiac arrest with return of spontaneous circulation after several rounds of CPR. Patient was intubated in the emergency room and admitted to intensive care unit. Unfortunately, her hospital course is significant for persistent encephalopathy with minimal improvement over the last 16 days, even after controlling her partial seizures with Keppra. Family is considering goals of care at this time. No events overnight. Critical Care Time (minutes): 45 Physical Exam Vital Signs: Vital Signs: Last Vital Signs Temp 99.3 F 06/17/22 09:00 Pulse 84 06/17/22 09:00 Resp 14 06/17/22 09:00 BP 175/63 H 06/17/22 09:00 Pulse Ox 87 L 06/17/22 09:00 O2 Del Method 06/17/22 09:00 O2 Flow Rate 35 06/02/22 21:00 FiO2 28 06/17/22 09:00 BMI result Body Mass Index 32.3 Const: General: no acute distress Eyes: Sclerae: sclerae normal EOM: EOMs intact bilaterally Neck: Neck: Yes no lymphadenopathy, Yes trachea midline and Yes supple Resp: Effort & Inspection: normal respiratory effort and no respiratory distress Auscultation: clear to auscultation bilaterally Cardio: Rate: regular rate Rhythm: regular rhythm Heart sounds: no gallops, no murmurs and no rubs GI: Palpation (GI): Soft to palpation and Other GI palpation findings present ( Nontender) Auscultation: normal bowel sounds Extrem: General: Yes no pedal edema, No clubbing and No cyanosis Objective Data Labs CBC & Chem 7: 06/17/22 05:16 06/17/22 05:16 Labs: Laboratory Results - last 24 hr 06/16/22 06/16/22 06/16/22 15:14 17:56 20:10 WBC RBC Hgb Hct MCV MCH MCHC RDW Plt Count MPV Immature Gran % (Auto) Neut % (Auto) Lymph % (Auto) [place] % (Auto) Eos % (Auto) Baso % (Auto) Lymph # (Auto) [place] # (Auto) Eos # (Auto) Baso # (Auto) Abs Immat Gran (auto) Absolute Neuts (auto) Absolute Nucleated RBC Nucleated RBC % (auto) VBG pH VBG pCO2 VBG pO2 VBG HCO3 VBG O2 Saturation VBG Base Excess Sodium Potassium Chloride Carbon Dioxide Anion Gap BUN Creatinine Estim Creat Clear Calc Estimated GFR POC Glucose 230 H 223 H 227 H Random Glucose Calcium Phosphorus Magnesium Albumin 06/17/22 06/17/22 06/17/22 02:36 05:16 05:16 WBC 14.6 H RBC 4.42 Hgb 9.2 L Hct 31.1 L MCV 70.4 L MCH 20.8 L MCHC 29.6 L RDW 24.5 H Plt Count 267 MPV 9.7 Immature Gran % (Auto) 1.0 H Neut % (Auto) 82.1 H Lymph % (Auto) 9.7 L [place] % (Auto) 5.3 Eos % (Auto) 1.8 Baso % (Auto) 0.1 Lymph # (Auto) 1.4 [place] # (Auto) 0.8 Eos # (Auto) 0.3 Baso # (Auto) 0.0 Abs Immat Gran (auto) 0.15 H Absolute Neuts (auto) 12.0 H Absolute Nucleated RBC 0.000 Nucleated RBC % (auto) 0.0 VBG pH VBG pCO2 VBG pO2 VBG HCO3 VBG O2 Saturation VBG Base Excess Sodium 132 L Potassium 4.2 Chloride 100 Carbon Dioxide 22 Anion Gap 14 BUN 11 Creatinine 0.61 Estim Creat Clear Calc 88.7 Estimated GFR > 60 POC Glucose 245 H Random Glucose 246 H Calcium 8.2 L Phosphorus 2.4 L Magnesium 2.1 Albumin 3.8 06/17/22 05:21 WBC RBC Hgb Hct MCV MCH MCHC RDW Plt Count MPV Immature Gran % (Auto) Neut % (Auto) Lymph % (Auto) [place] % (Auto) Eos % (Auto) Baso % (Auto) Lymph # (Auto) [place] # (Auto) Eos # (Auto) Baso # (Auto) Abs Immat Gran (auto) Absolute Neuts (auto) Absolute Nucleated RBC Nucleated RBC % (auto) VBG pH 7.56 H VBG pCO2 28 VBG pO2 57 VBG HCO3 26 VBG O2 Saturation 88.0 VBG Base Excess 4.6 Sodium Potassium Chloride Carbon Dioxide Anion Gap BUN Creatinine Estim Creat Clear Calc Estimated GFR POC Glucose Random Glucose Calcium Phosphorus Magnesium Albumin Microbiology Microbiology Results: Microbiology 06/12/22 06:42 Blood - Venous Blood Culture - Final No growth after 5 days. 06/12/22 06:42 Blood - Venous Blood Culture - Final No growth after 5 days. 06/12/22 16:15 Catheter Tip - Cvp Catheter Tip Culture - Final Klebsiella pneumoniae Staphylococcus epidermidis 06/12/22 06:56 Sputum - Suctioned Gram Stain - Final 06/12/22 06:56 Sputum - Suctioned Sputum Culture - Final Klebsiella pneumoniae 06/08/22 05:00 Blood - Venous Blood Culture - Final No growth after 5 days. 06/08/22 05:00 Blood - Venous Blood Culture - Final No growth after 5 days. 06/09/22 07:17 Sputum - Suctioned Gram Stain - Final 06/09/22 07:17 Sputum - Suctioned Sputum Culture - Final 06/05/22 10:33 Blood - Venous Blood Culture - Final No growth after 5 days. 06/05/22 11:03 Blood - Venous Blood Culture - Final Coag negative Staphylococcus 06/06/22 03:43 Sputum - Suctioned Gram Stain - Final 06/06/22 03:43 Sputum - Suctioned Sputum Culture - Final 06/01/22 16:44 Blood - Venous Blood Culture - Final No growth after 5 days. 06/01/22 16:33 Blood - Venous Blood Culture - Final No growth after 5 days. 06/02/22 01:56 Sputum - Suctioned Gram Stain - Final 06/02/22 01:56 Sputum - Suctioned Sputum Culture - Final Progress Note: A&P Assessment and plan (1) CHF (congestive heart failure): Status: Acute (2) Failure to wean from mechanical ventilation: Status: Acute (3) Diabetes: Status: Acute (4) Epilepsia partialis continua: Status: Acute (5) Anoxic encephalopathy: Status: Acute (6) Cardiac arrest: Status: Acute (7) ISAAC and COPD overlap syndrome: Status: Acute Plan Assessment: 76-year-old lady with obesity, ISAAC, obesity hyperventilation syndrome, chronic hypoxic/ hypercapnic respiratory failure, congestive heart failure admitted after an out of hospital cardiac arrest with returned spontaneous circulation after a brief CPR, however hospital course with complicated by persistent encephalopathy with minimal improvement. Plan: Neuro: Partial seizures controlled with Keppra. Continue current regimen. Persistent anoxic encephalopathy with minimal improvement, discussion of goals of care are ongoing with the family. Cardiac: Out of hospital cardiac arrest status post returned spontaneous circulation, appears to be respiratory in nature. Follow-up 2D echo with mildly reduced EF. Pulmonary: Intubated after CPR. Weaning from the ventilatory support is limited by minimal improvement in mental status. Family is considering tracheostomy. Renal: No acute issues. Endo: No acute issues. Underlying diabetes mellitus. Continue on subcutaneous insulin. GI: No acute issues. ID: No acute issues Heme/Onc: No acute issues. Psych: No acute issues. Miscellaneous: No acute issues. Prophylaxis: heparin, ppi Diet: Tube feeds Critical care time spent: 45 minutes Quality Stroke Does the patient have a stroke diagnosis?: No VTE Prior VTE?: No VTE Risk Level:: Medical - moderate - high VTE Device Contraindication: N/A - Device Ordered VTE Drug Contraindication: N/A - Med Ordered
[2022-06-17] MEDS: cefTRIAXone sodium 1 GM in 0.9 % Sodium Chloride 50 ML IV (11:16)
[2022-06-17 12:29] LABS: Glucose, Whole Blood 248 mg/dL (60-115)
[2022-06-17 18:03] LABS: Glucose, Whole Blood 246 mg/dL (60-115)
[2022-06-17 20:45] LABS: Glucose, Whole Blood 230 mg/dL (60-115)
[2022-06-18] VITALS (32 sets, daily range): BP systolic 93–170; BP diastolic 46–75; PULSE 60–85; RESP 13–40; TEMP 34.8–38.2; O2SAT 5–100; BMI 33.1
[2022-06-18] MEDS: niCARdipine HCL 25 MG in 0.9 % Sodium Chloride 250 ML 78 MG IVCONT ×6 (00:53→17:51)
[2022-06-18 02:10] LABS: Glucose, Whole Blood 239 mg/dL (60-115)
[2022-06-18] MEDS: Insulin Lispro 100 UNIT/ML 3 ML VIAL SUBCUT ×4 (02:12→22:43)
[2022-06-18] MEDS: Heparin Sodium,Porcine 5,000 UNIT/ML VIAL 5000 UNIT SUBCUT ×3 (02:13→17:51)
[2022-06-18] MEDS: levETIRAcetam in NaCl (iso-os) 500 MG/100 ML PIGGYBACK 400 MG IV (02:13)
[2022-06-18 05:21] LABS: VBG Base Excess 4.3 mmol/L; VBG HCO3 26 mmol/L (22-26); VBG pCO2 30 mmHg; VBG pH 7.54 (7.32-7.43); VBG pO2 59 mmHg
[2022-06-18 05:24] LABS: Basophils Percent Auto 0.1 % (0-2); Eosinophils Absolute Auto 0.3 X10*3/uL (0.0-0.4); Eosinophils Percent Auto 1.6 % (0-4); Hematocrit 32.4 % (37.0-47.0); Hemoglobin 9.5 g/dl (12.0-16.0); Imm Gran Abs Auto 0.11 X10*3/uL (0.00-0.03); Imm Gran Pct Auto 0.7 % (0.0-0.4); Lymphocytes Absolute Auto 1.3 X10*3/uL (1.2-4.9); Lymphocytes Percent Auto 8.7 % (20-40); MANUAL DIFF FLAG SCAN; Mean Corpuscular HGB Conc 29.3 g/dl (31.0-35.0); Mean Corpuscular Hemoglobin 20.6 pg (27.0-33.0); Mean Corpuscular Volume 70.3 fL (80.0-98.0); Mean Platelet Volume 9.7 fL (9.4-12.3); Monocytes Absolute Auto 0.8 X10*3/uL (0.1-1.2); Monocytes Percent Auto 5.1 % (2-11); Neutrophils Absolute Auto 12.9 x10*3/uL (2.0-8.3); Neutrophils Percent Auto 83.8 % (45-73); PLT CLUMP 1; Red Blood Count 4.61 X10*6/uL (4.20-5.50); Red Cell Distribution Width 24.9 % (11.0-16.0); SCAN SMEAR FLAG 1
[2022-06-18 05:26] LABS: White Blood Count 15.4 X10*3/uL (4.8-10.8)
[2022-06-18 05:29] LABS: Venous Blood Gas Refer to POC result
[2022-06-18 05:34] LABS: Albumin Level 3.7 g/dL (3.5-5.0); Anion Gap 14 (12-20); Blood Urea Nitrogen 13 mg/dL (9-16); Calcium 8.6 mg/dL (8.4-10.2); Carbon Dioxide 23 mmol/L (22-29); Chloride 99 mmol/L (96-108); Creatinine Clr Calc Pharmacy 92.8; Estimated Glomerular Filt Rate > 60; Glucose Random 250 mg/dL (60-115); Phosphorus 2.8 mg/dL (2.7-4.5); Sodium 132 mmol/L (135-145)
[2022-06-18 05:47] LABS: SLIDE REVIEW VERIFIED
[2022-06-18] MEDS: Insulin Glargine,Hum.rec.anlog 100 UNIT/ML 10 ML VIAL 70 UNIT SUBCUT (08:05)
[2022-06-18] MEDS: Furosemide 40 MG TABLET PO (08:06)
[2022-06-18] MEDS: carvediloL 25 MG TABLET PO (08:06)
[2022-06-18] MEDS: Nystatin Powder 15 GM BOTTLE 1 APPL TOPICAL ×3 (08:06→21:58)
[2022-06-18] MEDS: Chlorhexidine Gluc Oral Rinse 15 ML MOUTHWASH BUCCAL ×3 (08:06→22:42)
[2022-06-18] MEDS: Ferrous Sulfate 324 MG TABLET.DR PO (08:06)
[2022-06-18] MEDS: Valsartan 160 MG TABLET PO (08:06)
--- NOTE | 2022-06-18 08:21 | MHC.CLN ---
F/U PT REMAINS INTUBATED PT RECEIVING OSMOLITE 1.5 AT MAX GOAL RATE 45ML/HR PROVIDES 1620KCALS (23KCALS/KG BASED ON CMW), 67.6G PROTEIN (.95G/KG), 823ML TOTAL WATER FROM FORMULA NOTED SERUM NA REMAINS LOW TODAY RECOMMEND DECREASING OSMOLITE 1.5 AT MAX GOAL RATE 35 ML/HR AND ADD 30ML PROSOURCE Q DAY TO PROVIDE 1320KCALS (22KCALS/KG), 67G TOTAL PROTEIN (1.1G/KG), 640ML FREE WATER FROM FORMULA CONTINUE TO HOLD FREE WATER FLUSHES MONITOR TOLERANCE, RESIDUALS AND LYTES
[2022-06-18] MEDS: cefTRIAXone sodium 1 GM in 0.9 % Sodium Chloride 50 ML IV (10:34)
--- NOTE | 2022-06-18 10:35 | P.PNCC_ITS ---
Subjective Subjective Date of Service: 06/18/22 Interval History: 76-year-old lady with underlying obesity, ISAAC with chronic hypercapnia /hypoxemia, congestive heart failure, COPD on 2 L of O2, diabetes mellitus admitted on 06/01/2022 with out of hospital cardiac arrest with return of spon taneous circulation after several rounds of CPR. Patient was intubated in the emergency room and admitted to intensive care unit. Unfortunately, her hospital course is significant for persistent encephalopathy with minimal improvement over the last 16 days, even after controlling her partial seizures with Keppra. Family is considering goals of care at this time. No events overnight. Critical Care Time (minutes): 45 Physical Exam Vital Signs: Vital Signs: Last Vital Signs Temp 100 F 06/18/22 10:00 Pulse 74 06/18/22 10:00 Resp 26 H 06/18/22 10:00 BP 142/56 H 06/18/22 10:00 Pulse Ox 97 06/18/22 10:00 O2 Del Method 06/18/22 10:00 O2 Flow Rate 35 06/02/22 21:00 FiO2 28 06/18/22 10:00 BMI result Body Mass Index 33.1 Const: General: no acute distress and other ( not following commands, minimal arousal) Eyes: Sclerae: sclerae normal EOM: EOMs intact bilaterally Neck: Neck: Yes no lymphadenopathy, Yes trachea midline and Yes supple Resp: Effort & Inspection: normal respiratory effort and no respiratory distress Auscultation: clear to auscultation bilaterally Cardio: Rate: regular rate Rhythm: regular rhythm Heart sounds: no gallops, no murmurs and no rubs GI: Palpation (GI): Soft to palpation and Other GI palpation findings present ( Nontender) Auscultation: normal bowel sounds Extrem: General: Yes no pedal edema, No clubbing and No cyanosis Objective Data Labs CBC & Chem 7: 06/18/22 05:09 06/18/22 05:09 Labs: Laboratory Results - last 24 hr 06/17/22 06/17/22 06/17/22 12:25 18:00 20:41 WBC RBC Hgb Hct MCV MCH MCHC RDW Plt Count MPV Immature Gran % (Auto) Neut % (Auto) Lymph % (Auto) [place] % (Auto) Eos % (Auto) Baso % (Auto) Lymph # (Auto) [place] # (Auto) Eos # (Auto) Baso # (Auto) Abs Immat Gran (auto) Absolute Neuts (auto) Absolute Nucleated RBC Nucleated RBC % (auto) Smear Tech's Comments VBG pH VBG pCO2 VBG pO2 VBG HCO3 VBG O2 Saturation VBG Base Excess Sodium Potassium Chloride Carbon Dioxide Anion Gap BUN Creatinine Estim Creat Clear Calc Estimated GFR POC Glucose 248 H 246 H 230 H Random Glucose Calcium Phosphorus Magnesium Albumin 06/18/22 06/18/22 06/18/22 02:06 05:09 05:09 WBC 15.4 H RBC 4.61 Hgb 9.5 L Hct 32.4 L MCV 70.3 L MCH 20.6 L MCHC 29.3 L RDW 24.9 H Plt Count TNP MPV 9.7 Immature Gran % (Auto) 0.7 H Neut % (Auto) 83.8 H Lymph % (Auto) 8.7 L [place] % (Auto) 5.1 Eos % (Auto) 1.6 Baso % (Auto) 0.1 Lymph # (Auto) 1.3 [place] # (Auto) 0.8 Eos # (Auto) 0.3 Baso # (Auto) 0.0 Abs Immat Gran (auto) 0.11 H Absolute Neuts (auto) 12.9 H Absolute Nucleated RBC 0.000 Nucleated RBC % (auto) 0.0 Smear Tech's Comments VERIFIED VBG pH VBG pCO2 VBG pO2 VBG HCO3 VBG O2 Saturation VBG Base Excess Sodium 132 L Potassium 4.0 Chloride 99 Carbon Dioxide 23 Anion Gap 14 BUN 13 Creatinine 0.59 Estim Creat Clear Calc 92.8 Estimated GFR > 60 POC Glucose 239 H Random Glucose 250 H Calcium 8.6 Phosphorus 2.8 Magnesium 2.0 Albumin 3.7 06/18/22 05:13 WBC RBC Hgb Hct MCV MCH MCHC RDW Plt Count MPV Immature Gran % (Auto) Neut % (Auto) Lymph % (Auto) [place] % (Auto) Eos % (Auto) Baso % (Auto) Lymph # (Auto) [place] # (Auto) Eos # (Auto) Baso # (Auto) Abs Immat Gran (auto) Absolute Neuts (auto) Absolute Nucleated RBC Nucleated RBC % (auto) Smear Tech's Comments VBG pH 7.54 H VBG pCO2 30 VBG pO2 59 VBG HCO3 26 VBG O2 Saturation 90.0 VBG Base Excess 4.3 Sodium Potassium Chloride Carbon Dioxide Anion Gap BUN Creatinine Estim Creat Clear Calc Estimated GFR POC Glucose Random Glucose Calcium Phosphorus Magnesium Albumin Microbiology Microbiology Results: Microbiology 06/12/22 06:42 Blood - Venous Blood Culture - Final No growth after 5 days. 06/12/22 06:42 Blood - Venous Blood Culture - Final No growth after 5 days. 06/12/22 16:15 Catheter Tip - Cvp Catheter Tip Culture - Final Klebsiella pneumoniae Staphylococcus epidermidis 06/12/22 06:56 Sputum - Suctioned Gram Stain - Final 06/12/22 06:56 Sputum - Suctioned Sputum Culture - Final Klebsiella pneumoniae 06/08/22 05:00 Blood - Venous Blood Culture - Final No growth after 5 days. 06/08/22 05:00 Blood - Venous Blood Culture - Final No growth after 5 days. 06/09/22 07:17 Sputum - Suctioned Gram Stain - Final 06/09/22 07:17 Sputum - Suctioned Sputum Culture - Final 06/05/22 10:33 Blood - Venous Blood Culture - Final No growth after 5 days. 06/05/22 11:03 Blood - Venous Blood Culture - Final Coag negative Staphylococcus 06/06/22 03:43 Sputum - Suctioned Gram Stain - Final 06/06/22 03:43 Sputum - Suctioned Sputum Culture - Final 06/01/22 16:44 Blood - Venous Blood Culture - Final No growth after 5 days. 06/01/22 16:33 Blood - Venous Blood Culture - Final No growth after 5 days. 06/02/22 01:56 Sputum - Suctioned Gram Stain - Final 06/02/22 01:56 Sputum - Suctioned Sputum Culture - Final Progress Note: A&P Assessment and plan (1) CHF (congestive heart failure): Status: Acute (2) Failure to wean from mechanical ventilation: Status: Acute (3) Chronic respiratory failure with hypoxia: Status: Acute (4) Diabetes: Status: Acute (5) Anoxic encephalopathy: Status: Acute (6) Cardiac arrest: Status: Acute (7) ISAAC and COPD overlap syndrome: Status: Acute Plan Assessment: 76-year-old lady with obesity, ISAAC, obesity hyperventilation syndrome, chronic hypoxic/ hypercapnic respiratory failure, congestive heart failure admitted after an out of hospital cardiac arrest with returned spont aneous circulation after a brief CPR, however hospital course with complicated by persistent encephalopathy with minimal improvement. Plan: Neuro: Partial seizures controlled with Keppra. Continue current regimen. Persistent anoxic encephalopathy with minimal improvement, discussion of goals of care are ongoing with the family. Cardiac: Out of hospital cardiac arrest status post returned spontaneous circulation, appears to be respiratory in nature. Follow-up 2D echo with mildly reduced EF. Pulmonary: Intubated after CPR. Weaning from the ventilatory support is limited by minimal improvement in mental status. Family is considering tracheostomy. Renal: No acute issues. Endo: No acute issues. Underlying diabetes mellitus. Continue on subcutaneous insulin. GI: No acute issues. ID: No acute issues Heme/Onc: No acute issues. Psych: No acute issues. Miscellaneous: No acute issues. Prophylaxis: heparin, ppi Diet: Tube feeds Critical care time spent: 45 minutes Quality Stroke Does the patient have a stroke diagnosis?: No VTE Prior VTE?: No VTE Risk Level:: Medical - moderate - high VTE Device Contraindication: N/A - Device Ordered VTE Drug Contraindication: N/A - Med Ordered
[2022-06-18 12:14] LABS: Glucose, Whole Blood 280 mg/dL (60-115)
--- NOTE | 2022-06-18 15:38 | MHC.CM.PN ---
Pt continues in ICU on ventilatory support: Family remains conflicted on goals of care but are possibly considering trach/peg placement. MD to discuss again with family. Referral has been made to [facility] should family opt for continuation of care. CM to follow
[2022-06-18 17:49] LABS: Glucose, Whole Blood 220 mg/dL (60-115)
--- NOTE | 2022-06-18 18:13 | PC.NURSE ---
Patient remains fully off of sedation since 06/08. +cough and gag. No purposeful movement of extremities, extremities moderately rigid with tremulous movement in left upper and lower extremities. opens eyes but does not track. Keppra Q12 1415 dose unable to be administered due to inadequate IV access. IV unable to be obtained, multiple attempts made, MD aware.
--- NOTE | 2022-06-18 21:00 | PC.NURSE ---
Upon assessment at approx 2100- ETT noted to have migrated out to 19cm, not ventilating well, desaturating. BROADCAST DESIGNER/RT notified and to bedside. Pre-medicated with fentanyl 100 mcg IVP x1 d/t pt coughing/gagging/bucking vent. ETT exchanged over bougie by BROADCAST DESIGNER. During procedure, moderate amount of javier red blood coming from ETT. Lavaged with cold saline flushes per BROADCAST DESIGNER with good effect. Placement confirmed by pCXR. Switched to AC settings, and started on propofol gtt per emar. New IV access obtained.
[2022-06-18] MEDS: propofoL 1,000 MG/100 ML VIAL 16.25 MG IVCONT (21:52)
[2022-06-18] MEDS: fentaNYL citrate/PF 100 MCG/2 ML VIAL IVPUSH (21:52)
[2022-06-18] MEDS: Insulin Glargine,Hum.rec.anlog 100 UNIT/ML 10 ML VIAL 45 UNIT SUBCUT (22:43)
[2022-06-18 22:45] LABS: Glucose, Whole Blood 165 mg/dL (60-115)
[2022-06-19] VITALS (29 sets, daily range): BP systolic 113–180; BP diastolic 44–64; PULSE 68–77; RESP 14–25; TEMP 34.9–38.1; O2SAT 6–100; BMI 32.3
[2022-06-19] MEDS: Furosemide 40 MG/4 ML VIAL IVPUSH (00:59)
[2022-06-19] MEDS: levETIRAcetam in NaCl (iso-os) 500 MG/100 ML PIGGYBACK 400 MG IV ×2 (01:51→13:58)
[2022-06-19] MEDS: propofoL 1,000 MG/100 ML VIAL 10.84 MG IVCONT (03:37)
[2022-06-19 05:20] LABS: MANUAL DIFF FLAG NO
[2022-06-19 05:22] LABS: VBG Base Excess 5.1 mmol/L; VBG HCO3 27 mmol/L (22-26); VBG pCO2 34 mmHg; VBG pH 7.51 (7.32-7.43); VBG pO2 63 mmHg
[2022-06-19 05:22] LABS: Basophils Percent Auto 0.1 % (0-2); Eosinophils Absolute Auto 0.3 X10*3/uL (0.0-0.4); Hematocrit 31.3 % (37.0-47.0); Hemoglobin 9.2 g/dl (12.0-16.0); Imm Gran Abs Auto 0.08 X10*3/uL (0.00-0.03); Imm Gran Pct Auto 0.6 % (0.0-0.4); Lymphocytes Absolute Auto 1.8 X10*3/uL (1.2-4.9); Lymphocytes Percent Auto 14.2 % (20-40); Mean Corpuscular HGB Conc 29.4 g/dl (31.0-35.0); Mean Corpuscular Hemoglobin 20.7 pg (27.0-33.0); Mean Corpuscular Volume 70.3 fL (80.0-98.0); Mean Platelet Volume 9.5 fL (9.4-12.3); Monocytes Absolute Auto 0.8 X10*3/uL (0.1-1.2); Monocytes Percent Auto 6.5 % (2-11); Neutrophils Absolute Auto 9.5 x10*3/uL (2.0-8.3); Neutrophils Percent Auto 76.6 % (45-73); Platelet Count 271 X10*3/uL (160-400); Red Blood Count 4.45 X10*6/uL (4.20-5.50); Red Cell Distribution Width 25.2 % (11.0-16.0); White Blood Count 12.4 X10*3/uL (4.8-10.8)
[2022-06-19 05:52] LABS: Albumin Level 3.6 g/dL (3.5-5.0); Anion Gap 17 (12-20); Blood Urea Nitrogen 20 mg/dL (9-16); Calcium 8.5 mg/dL (8.4-10.2); Carbon Dioxide 24 mmol/L (22-29); Chloride 99 mmol/L (96-108); Creatinine Clr Calc Pharmacy 79.5; Estimated Glomerular Filt Rate > 60; Glucose Random 191 mg/dL (60-115); Phosphorus 4.2 mg/dL (2.7-4.5); Sodium 136 mmol/L (135-145)
[2022-06-19] MEDS: Insulin Lispro 100 UNIT/ML 3 ML VIAL SUBCUT ×4 (05:59→23:55)
[2022-06-19 06:17] LABS: Venous Blood Gas Refer to POC result
--- NOTE | 2022-06-19 07:57 | P.PNCC_ITS ---
Subjective Subjective Date of Service: 06/19/22 Interval History: 76-year-old lady with underlying obesity, ISAAC with chronic hypercapnia /hypoxemia, congestive heart failure, COPD on 2 L of O2, diabetes mellitus admitted on 06/01/2022 with out of hospital cardiac arrest with return of spon taneous circulation after several rounds of CPR. Patient was intubated in the emergency room and admitted to intensive care unit. Unfortunately, her hospital course is significant for persistent encephalopathy with minimal improvement over the course of hospitalization, even after controlling her partial seizures with Keppra. Family is considering goals of care at this time. Overnight with bleeding within in-line suctioning requiring ETT exchange over bougie. Critical Care Time (minutes): 45 Physical Exam Vital Signs: Vital Signs: Last Vital Signs Temp 100.4 F 06/19/22 07:00 Pulse 71 06/19/22 07:00 Resp 25 H 06/19/22 07:00 BP 122/45 L 06/19/22 07:00 Pulse Ox 93 06/19/22 07:00 O2 Del Method 06/19/22 07:00 O2 Flow Rate 2 06/18/22 21:00 FiO2 21 06/19/22 07:37 BMI result Body Mass Index 32.3 Const: General: no acute distress Eyes: Sclerae: sclerae normal EOM: EOMs intact bilaterally Neck: Neck: Yes no lymphadenopathy, Yes trachea midline and Yes supple Resp: Auscultation: clear to auscultation bilaterally Cardio: Rate: regular rate Rhythm: regular rhythm Heart sounds: no gallops, no murmurs and no rubs GI: Palpation (GI): Soft to palpation and Other GI palpation findings present ( Nontender) Auscultation: normal bowel sounds Extrem: General: Yes no pedal edema, No clubbing and No cyanosis Objective Data Labs CBC & Chem 7: 06/19/22 05:13 06/19/22 05:13 Labs: Laboratory Results - last 24 hr 06/18/22 06/18/22 06/18/22 12:02 17:45 22:12 WBC RBC Hgb Hct MCV MCH MCHC RDW Plt Count MPV Immature Gran % (Auto) Neut % (Auto) Lymph % (Auto) [place] % (Auto) Eos % (Auto) Baso % (Auto) Lymph # (Auto) [place] # (Auto) Eos # (Auto) Baso # (Auto) Abs Immat Gran (auto) Absolute Neuts (auto) Absolute Nucleated RBC Nucleated RBC % (auto) VBG pH VBG pCO2 VBG pO2 VBG HCO3 VBG O2 Saturation VBG Base Excess Sodium Potassium Chloride Carbon Dioxide Anion Gap BUN Creatinine Estim Creat Clear Calc Estimated GFR POC Glucose 280 H 220 H 165 H Random Glucose Calcium Phosphorus Magnesium Albumin 06/19/22 06/19/22 06/19/22 05:13 05:13 05:16 WBC 12.4 H RBC 4.45 Hgb 9.2 L Hct 31.3 L MCV 70.3 L MCH 20.7 L MCHC 29.4 L RDW 25.2 H Plt Count 271 MPV 9.5 Immature Gran % (Auto) 0.6 H Neut % (Auto) 76.6 H Lymph % (Auto) 14.2 L [place] % (Auto) 6.5 Eos % (Auto) 2.0 Baso % (Auto) 0.1 Lymph # (Auto) 1.8 [place] # (Auto) 0.8 Eos # (Auto) 0.3 Baso # (Auto) 0.0 Abs Immat Gran (auto) 0.08 H Absolute Neuts (auto) 9.5 H Absolute Nucleated RBC 0.000 Nucleated RBC % (auto) 0.0 VBG pH 7.51 H VBG pCO2 34 VBG pO2 63 VBG HCO3 27 H VBG O2 Saturation 91.0 VBG Base Excess 5.1 Sodium 136 Potassium 4.0 Chloride 99 Carbon Dioxide 24 Anion Gap 17 BUN 20 H D Creatinine 0.68 Estim Creat Clear Calc 79.5 Estimated GFR > 60 POC Glucose Random Glucose 191 H Calcium 8.5 Phosphorus 4.2 Magnesium 2.0 Albumin 3.6 Microbiology Microbiology Results: Microbiology 06/12/22 06:42 Blood - Venous Blood Culture - Final No growth after 5 days. 06/12/22 06:42 Blood - Venous Blood Culture - Final No growth after 5 days. 06/12/22 16:15 Catheter Tip - Cvp Catheter Tip Culture - Final Klebsiella pneumoniae Staphylococcus epidermidis 06/12/22 06:56 Sputum - Suctioned Gram Stain - Final 06/12/22 06:56 Sputum - Suctioned Sputum Culture - Final Klebsiella pneumoniae 06/08/22 05:00 Blood - Venous Blood Culture - Final No growth after 5 days. 06/08/22 05:00 Blood - Venous Blood Culture - Final No growth after 5 days. 06/09/22 07:17 Sputum - Suctioned Gram Stain - Final 06/09/22 07:17 Sputum - Suctioned Sputum Culture - Final 06/05/22 10:33 Blood - Venous Blood Culture - Final No growth after 5 days. 06/05/22 11:03 Blood - Venous Blood Culture - Final Coag negative Staphylococcus 06/06/22 03:43 Sputum - Suctioned Gram Stain - Final 06/06/22 03:43 Sputum - Suctioned Sputum Culture - Final 06/01/22 16:44 Blood - Venous Blood Culture - Final No growth after 5 days. 06/01/22 16:33 Blood - Venous Blood Culture - Final No growth after 5 days. 06/02/22 01:56 Sputum - Suctioned Gram Stain - Final 06/02/22 01:56 Sputum - Suctioned Sputum Culture - Final Progress Note: A&P Assessment and plan (1) CHF (congestive heart failure): Status: Acute (2) Failure to wean from mechanical ventilation: Status: Acute (3) Chronic respiratory failure with hypoxia: Status: Acute (4) Diabetes: Status: Acute (5) Epilepsia partialis continua: Status: Acute (6) Anoxic encephalopathy: Status: Acute (7) Cardiac arrest: Status: Acute (8) ISAAC and COPD overlap syndrome: Status: Acute Plan Assessment: 76-year-old lady with obesity, ISAAC, obesity hyperventilation syndrome, chronic hypoxic/ hypercapnic respiratory failure, congestive heart failure admitted after an out of hospital cardiac arrest with returned spontaneous circulation after a brief CPR, however hospital course with complicated by persistent encephalopathy with minimal improvement. Plan: Neuro: Partial seizures controlled with Keppra. Continue current regimen. Persistent anoxic encephalopathy with minimal improvement, discussion of goals of care are ongoing with the family. Cardiac: Out of hospital cardiac arrest status post returned spontaneous circulation, appears to be respiratory in nature. Follow-up 2D echo with mildly reduced EF. Pulmonary: Intubated after CPR. Weaning from the ventilatory support is limited by minimal improvement in mental status. Family is considering tracheostomy. Renal: No acute issues. Endo: No acute issues. Underlying diabetes mellitus. Continue on subcutaneous insulin. GI: No acute issues. ID: No acute issues Heme/Onc: No acute issues. Psych: No acute issues. Miscellaneous: No acute issues. Prophylaxis: heparin, ppi Diet: Tube feeds Critical care time spent: 45 minutes Quality Stroke Does the patient have a stroke diagnosis?: No VTE Prior VTE?: No VTE Risk Level:: Medical - moderate - high VTE Device Contraindication: N/A - Device Ordered VTE Drug Contraindication: N/A - Med Ordered
[2022-06-19] MEDS: Valsartan 160 MG TABLET PO (09:08)
[2022-06-19] MEDS: Ferrous Sulfate 324 MG TABLET.DR PO (09:08)
[2022-06-19] MEDS: Furosemide 40 MG TABLET PO (09:08)
[2022-06-19] MEDS: Chlorhexidine Gluc Oral Rinse 15 ML MOUTHWASH BUCCAL ×3 (09:08→20:11)
[2022-06-19] MEDS: Nystatin Powder 15 GM BOTTLE 1 APPL TOPICAL ×3 (09:09→20:13)
[2022-06-19] MEDS: Insulin Glargine,Hum.rec.anlog 100 UNIT/ML 10 ML VIAL 45 UNIT SUBCUT ×2 (09:09→20:13)
[2022-06-19] MEDS: carvediloL 25 MG TABLET PO ×2 (09:09→20:11)
--- NOTE | 2022-06-19 10:02 | MHC.CLN ---
F/U PT REMAINS INTUBATED NOTED SERUM NA WNL TODAY PT RECEIVING OSMOLITE 1.5 AT MAX GOAL RATE 35 ML/HR AND ADD 30ML PROSOURCE Q DAY TO PROVIDE 1320KCALS (22KCALS/KG), 67G TOTAL PROTEIN (1.1G/KG), 640ML FREE WATER FROM FORMULA CONTINUE TO HOLD FREE WATER FLUSHES MONITOR TOLERANCE, RESIDUALS AND LYTES
[2022-06-19] MEDS: Heparin Sodium,Porcine 5,000 UNIT/ML VIAL 5000 UNIT SUBCUT ×2 (10:57→18:26)
[2022-06-19 12:05] LABS: Glucose, Whole Blood 166 mg/dL (60-115)
[2022-06-19 18:05] LABS: Glucose, Whole Blood 204 mg/dL (60-115)
[2022-06-19 20:10] LABS: Glucose, Whole Blood 195 mg/dL (60-115)
[2022-06-19 23:49] LABS: Glucose, Whole Blood 201 mg/dL (60-115)
[2022-06-20] VITALS (30 sets, daily range): BP systolic 125–189; BP diastolic 37–82; PULSE 64–78; RESP 13–28; TEMP 34.8–38.4; O2SAT 87–100; BMI 32.2
[2022-06-20] MEDS: Heparin Sodium,Porcine 5,000 UNIT/ML VIAL 5000 UNIT SUBCUT ×3 (02:38→18:04)
[2022-06-20] MEDS: levETIRAcetam in NaCl (iso-os) 500 MG/100 ML PIGGYBACK 400 MG IV ×2 (02:39→14:07)
[2022-06-20 05:27] LABS: VBG Base Excess 6.4 mmol/L; VBG HCO3 29 mmol/L (22-26); VBG pCO2 36 mmHg; VBG pH 7.51 (7.32-7.43); VBG pO2 49 mmHg
[2022-06-20 05:35] LABS: Glucose, Whole Blood 178 mg/dL (60-115)
[2022-06-20] MEDS: Insulin Lispro 100 UNIT/ML 3 ML VIAL SUBCUT ×4 (05:35→23:39)
[2022-06-20 05:56] LABS: Venous Blood Gas Refer to POC result
[2022-06-20 06:06] LABS: MANUAL DIFF FLAG NO
[2022-06-20 06:09] LABS: Basophils Percent Auto 0.1 % (0-2); Eosinophils Absolute Auto 0.2 X10*3/uL (0.0-0.4); Eosinophils Percent Auto 2.3 % (0-4); Hematocrit 32.1 % (37.0-47.0); Hemoglobin 9.4 g/dl (12.0-16.0); Imm Gran Abs Auto 0.07 X10*3/uL (0.00-0.03); Imm Gran Pct Auto 0.7 % (0.0-0.4); Lymphocytes Absolute Auto 1.7 X10*3/uL (1.2-4.9); Lymphocytes Percent Auto 15.8 % (20-40); Mean Corpuscular HGB Conc 29.3 g/dl (31.0-35.0); Mean Corpuscular Hemoglobin 20.8 pg (27.0-33.0); Mean Corpuscular Volume 70.9 fL (80.0-98.0); Mean Platelet Volume 10.1 fL (9.4-12.3); Monocytes Absolute Auto 0.9 X10*3/uL (0.1-1.2); Monocytes Percent Auto 8.1 % (2-11); Neutrophils Absolute Auto 7.8 x10*3/uL (2.0-8.3); Platelet Count 227 X10*3/uL (160-400); Red Blood Count 4.53 X10*6/uL (4.20-5.50); Red Cell Distribution Width 25.2 % (11.0-16.0); White Blood Count 10.6 X10*3/uL (4.8-10.8)
[2022-06-20 06:23] LABS: Albumin Level 3.6 g/dL (3.5-5.0); Anion Gap 16 (12-20); Blood Urea Nitrogen 23 mg/dL (9-16); Calcium 8.7 mg/dL (8.4-10.2); Carbon Dioxide 25 mmol/L (22-29); Chloride 98 mmol/L (96-108); Creatinine Clr Calc Pharmacy 85.8; Estimated Glomerular Filt Rate > 60; Glucose Random 196 mg/dL (60-115); Phosphorus 3.9 mg/dL (2.7-4.5); Potassium 4.2 mmol/L (3.3-5.1); Sodium 135 mmol/L (135-145)
[2022-06-20] MEDS: Insulin Glargine,Hum.rec.anlog 100 UNIT/ML 10 ML VIAL 45 UNIT SUBCUT ×2 (07:25→21:59)
[2022-06-20] MEDS: Nystatin Powder 15 GM BOTTLE 1 APPL TOPICAL ×3 (08:33→21:48)
[2022-06-20] MEDS: Chlorhexidine Gluc Oral Rinse 15 ML MOUTHWASH BUCCAL ×3 (08:34→21:48)
[2022-06-20] MEDS: Valsartan 160 MG TABLET PO (08:34)
[2022-06-20] MEDS: Furosemide 40 MG TABLET PO (08:34)
[2022-06-20] MEDS: Ferrous Sulfate 324 MG TABLET.DR PO (08:34)
[2022-06-20] MEDS: carvediloL 25 MG TABLET PO ×2 (08:34→21:48)
--- NOTE | 2022-06-20 09:17 | P.PNCC_ITS ---
Subjective Subjective Date of Service: 06/20/22 Interval History: 76-year-old lady with underlying obesity, ISAAC with chronic hypercapnia /hypoxemia, congestive heart failure, COPD on 2 L of O2, diabetes mellitus admitted on 06/01/2022 with out of hospital cardiac arrest with return of spon taneous circulation after several rounds of CPR. Patient was intubated in the emergency room and admitted to intensive care unit. Unfortunately, her hospital course is significant for persistent encephalopathy with minimal improvement over the course of hospitalization, even after controlling her partial seizures with Keppra. Family is considering goals of care at this time. No events overnight. Now opens her eyes, but does not track. Critical Care Time (minutes): 45 Physical Exam Vital Signs: Vital Signs: Last Vital Signs Temp 99.9 F 06/20/22 09:00 Pulse 72 06/20/22 09:00 Resp 18 06/20/22 09:00 BP 163/51 H 06/20/22 09:00 Pulse Ox 92 06/20/22 09:00 O2 Del Method 06/20/22 09:00 O2 Flow Rate 2 06/18/22 21:00 FiO2 21 06/20/22 09:00 BMI result Body Mass Index 32.2 Const: General: no acute distress Eyes: Sclerae: sclerae normal EOM: EOMs intact bilaterally Neck: Neck: Yes no lymphadenopathy, Yes trachea midline and Yes supple Resp: Auscultation: clear to auscultation bilaterally Cardio: Rate: regular rate Rhythm: regular rhythm Heart sounds: no gallops, no murmurs and no rubs GI: Palpation (GI): Soft to palpation and Other GI palpation findings present ( Nontender) Auscultation: normal bowel sounds Extrem: General: Yes no pedal edema, No clubbing and No cyanosis Objective Data Labs CBC & Chem 7: 06/20/22 05:23 06/20/22 05:23 Labs: Laboratory Results - last 24 hr 06/19/22 06/19/22 06/19/22 12:02 18:02 20:07 WBC RBC Hgb Hct MCV MCH MCHC RDW Plt Count MPV Immature Gran % (Auto) Neut % (Auto) Lymph % (Auto) Gilchrist % (Auto) Eos % (Auto) Baso % (Auto) Lymph # (Auto) Gilchrist # (Auto) Eos # (Auto) Baso # (Auto) Abs Immat Gran (auto) Absolute Neuts (auto) Absolute Nucleated RBC Nucleated RBC % (auto) VBG pH VBG pCO2 VBG pO2 VBG HCO3 VBG O2 Saturation VBG Base Excess Sodium Potassium Chloride Carbon Dioxide Anion Gap BUN Creatinine Estim Creat Clear Calc Estimated GFR POC Glucose 166 H 204 H 195 H Random Glucose Calcium Phosphorus Magnesium Albumin 06/19/22 06/20/22 06/20/22 23:41 05:21 05:23 WBC 10.6 RBC 4.53 Hgb 9.4 L Hct 32.1 L MCV 70.9 L MCH 20.8 L MCHC 29.3 L RDW 25.2 H Plt Count 227 MPV 10.1 Immature Gran % (Auto) 0.7 H Neut % (Auto) 73.0 Lymph % (Auto) 15.8 L Gilchrist % (Auto) 8.1 Eos % (Auto) 2.3 Baso % (Auto) 0.1 Lymph # (Auto) 1.7 Gilchrist # (Auto) 0.9 Eos # (Auto) 0.2 Baso # (Auto) 0.0 Abs Immat Gran (auto) 0.07 H Absolute Neuts (auto) 7.8 Absolute Nucleated RBC 0.000 Nucleated RBC % (auto) 0.0 VBG pH 7.51 H VBG pCO2 36 VBG pO2 49 VBG HCO3 29 H VBG O2 Saturation 78.0 VBG Base Excess 6.4 Sodium Potassium Chloride Carbon Dioxide Anion Gap BUN Creatinine Estim Creat Clear Calc Estimated GFR POC Glucose 201 H Random Glucose Calcium Phosphorus Magnesium Albumin 06/20/22 06/20/22 05:23 05:32 WBC RBC Hgb Hct MCV MCH MCHC RDW Plt Count MPV Immature Gran % (Auto) Neut % (Auto) Lymph % (Auto) Gilchrist % (Auto) Eos % (Auto) Baso % (Auto) Lymph # (Auto) Gilchrist # (Auto) Eos # (Auto) Baso # (Auto) Abs Immat Gran (auto) Absolute Neuts (auto) Absolute Nucleated RBC Nucleated RBC % (auto) VBG pH VBG pCO2 VBG pO2 VBG HCO3 VBG O2 Saturation VBG Base Excess Sodium 135 Potassium 4.2 Chloride 98 Carbon Dioxide 25 Anion Gap 16 BUN 23 H Creatinine 0.63 Estim Creat Clear Calc 85.8 Estimated GFR > 60 POC Glucose 178 H Random Glucose 196 H Calcium 8.7 Phosphorus 3.9 Magnesium 2.0 Albumin 3.6 Microbiology Microbiology Results: Microbiology 06/12/22 06:42 Blood - Venous Blood Culture - Final No growth after 5 days. 06/12/22 06:42 Blood - Venous Blood Culture - Final No growth after 5 days. 06/12/22 16:15 Catheter Tip - Cvp Catheter Tip Culture - Final Klebsiella pneumoniae Staphylococcus epidermidis 06/12/22 06:56 Sputum - Suctioned Gram Stain - Final 06/12/22 06:56 Sputum - Suctioned Sputum Culture - Final Klebsiella pneumoniae 06/08/22 05:00 Blood - Venous Blood Culture - Final No growth after 5 days. 06/08/22 05:00 Blood - Venous Blood Culture - Final No growth after 5 days. 06/09/22 07:17 Sputum - Suctioned Gram Stain - Final 06/09/22 07:17 Sputum - Suctioned Sputum Culture - Final 06/05/22 10:33 Blood - Venous Blood Culture - Final No growth after 5 days. 06/05/22 11:03 Blood - Venous Blood Culture - Final Coag negative Staphylococcus 06/06/22 03:43 Sputum - Suctioned Gram Stain - Final 06/06/22 03:43 Sputum - Suctioned Sputum Culture - Final 06/01/22 16:44 Blood - Venous Blood Culture - Final No growth after 5 days. 06/01/22 16:33 Blood - Venous Blood Culture - Final No growth after 5 days. 06/02/22 01:56 Sputum - Suctioned Gram Stain - Final 06/02/22 01:56 Sputum - Suctioned Sputum Culture - Final Progress Note: A&P Assessment and plan (1) CHF (congestive heart failure): Status: Acute (2) Failure to wean from mechanical ventilation: Status: Acute (3) Chronic respiratory failure with hypoxia: Status: Acute (4) Diabetes: Status: Acute (5) Epilepsia partialis continua: Status: Acute (6) Anoxic encephalopathy: Status: Acute (7) Cardiac arrest: Status: Acute (8) ISAAC and COPD overlap syndrome: Status: Acute Plan Assessment: 76-year-old lady with obesity, ISAAC, obesity hyperventilation syndrome, chronic hypoxic/ hypercapnic respiratory failure, congestive heart failure admitted after an out of hospital cardiac arrest with returned spontaneous circulation after a brief CPR, however hospital course with complicated by persistent encephalopathy with minimal improvement. Plan: Neuro: Partial seizures controlled with Keppra. Continue current regimen. Persistent anoxic encephalopathy with minimal improvement, discussion of goals of care are ongoing with the family. Cardiac: Out of hospital cardiac arrest status post returned spontaneous circulation, appears to be respiratory in nature. Follow-up 2D echo with mildly reduced EF. Pulmonary: Intubated after CPR. Weaning from the ventilatory support is limited by minimal improvement in mental status. Family is considering tracheostomy. Renal: No acute issues. Endo: No acute issues. Underlying diabetes mellitus. Continue on subcutaneous insulin. GI: No acute issues. ID: No acute issues Heme/Onc: No acute issues. Psych: No acute issues. Miscellaneous: No acute issues. Prophylaxis: heparin, ppi Diet: Tube feeds Critical care time spent: 45 minutes Quality Stroke Does the patient have a stroke diagnosis?: No VTE Prior VTE?: No VTE Risk Level:: Medical - moderate - high VTE Device Contraindication: N/A - Device Ordered VTE Drug Contraindication: N/A - Med Ordered
[2022-06-20 12:02] LABS: Glucose, Whole Blood 207 mg/dL (60-115)
--- NOTE | 2022-06-20 17:11 | PC.NURSE ---
PATIENTS HCP CALLED AND STATED THAT THIS COMING FRIDAY 06/22 AT 1030 THE FAMILY WILL BE COMING IN TO VISIT AND WITHDRAW CARE. MD AND CASE MANAGEMENT NOTIFIED.
[2022-06-20 18:01] LABS: Glucose, Whole Blood 200 mg/dL (60-115)
[2022-06-20] MEDS: Midazolam HCl/PF 2 MG/2 ML VIAL 1 MG IVPUSH (20:43)
[2022-06-20 23:38] LABS: Glucose, Whole Blood 223 mg/dL (60-115)
[2022-06-21] VITALS (31 sets, daily range): BP systolic 134–185; BP diastolic 39–68; PULSE 61–73; RESP 15–29; TEMP 34.6–38.4; O2SAT 90–97; BMI 32.4
[2022-06-21] MEDS: levETIRAcetam in NaCl (iso-os) 500 MG/100 ML PIGGYBACK 400 MG IV ×2 (01:46→14:23)
[2022-06-21] MEDS: Heparin Sodium,Porcine 5,000 UNIT/ML VIAL 5000 UNIT SUBCUT ×3 (03:32→20:03)
[2022-06-21 05:42] LABS: VBG Base Excess 7.2 mmol/L; VBG HCO3 29 mmol/L (22-26); VBG pCO2 33 mmHg; VBG pH 7.55 (7.32-7.43); VBG pO2 41 mmHg
[2022-06-21 06:14] LABS: Glucose, Whole Blood 214 mg/dL (60-115)
[2022-06-21] MEDS: Insulin Lispro 100 UNIT/ML 3 ML VIAL SUBCUT ×3 (06:17→17:56)
[2022-06-21 06:35] LABS: Venous Blood Gas Refer to POC result
[2022-06-21 06:37] LABS: Albumin Level 3.7 g/dL (3.5-5.0); Anion Gap 22 (12-20); Blood Urea Nitrogen 20 mg/dL (9-16); Calcium 8.6 mg/dL (8.4-10.2); Carbon Dioxide 22 mmol/L (22-29); Chloride 97 mmol/L (96-108); Creatinine Clr Calc Pharmacy 82.1; Estimated Glomerular Filt Rate > 60; Glucose Random 220 mg/dL (60-115); Magnesium 2.1 mg/dL (1.6-2.6); Phosphorus 3.8 mg/dL (2.7-4.5); Potassium 4.5 mmol/L (3.3-5.1); Sodium 136 mmol/L (135-145)
[2022-06-21 07:21] LABS: Basophils Percent Auto 0.2 % (0-2); Eosinophils Absolute Auto 0.3 X10*3/uL (0.0-0.4); Eosinophils Percent Auto 2.5 % (0-4); Hematocrit 29.7 % (37.0-47.0); Hemoglobin 8.7 g/dl (12.0-16.0); Imm Gran Abs Auto 0.06 X10*3/uL (0.00-0.03); Imm Gran Pct Auto 0.6 % (0.0-0.4); Lymphocytes Absolute Auto 1.4 X10*3/uL (1.2-4.9); Lymphocytes Percent Auto 14.1 % (20-40); MANUAL DIFF FLAG SCAN; Mean Corpuscular HGB Conc 29.3 g/dl (31.0-35.0); Mean Corpuscular Hemoglobin 20.8 pg (27.0-33.0); Mean Corpuscular Volume 70.9 fL (80.0-98.0); Monocytes Absolute Auto 0.7 X10*3/uL (0.1-1.2); Monocytes Percent Auto 6.5 % (2-11); Neutrophils Absolute Auto 7.6 x10*3/uL (2.0-8.3); Neutrophils Percent Auto 76.1 % (45-73); PLT CLUMP 1; Red Blood Count 4.19 X10*6/uL (4.20-5.50); Red Cell Distribution Width 24.6 % (11.0-16.0); SCAN SMEAR FLAG 1
[2022-06-21 08:05] LABS: SLIDE REVIEW VERIFIED
[2022-06-21] MEDS: carvediloL 25 MG TABLET PO ×2 (08:16→20:03)
[2022-06-21] MEDS: Insulin Glargine,Hum.rec.anlog 100 UNIT/ML 10 ML VIAL 45 UNIT SUBCUT ×2 (08:16→20:03)
[2022-06-21] MEDS: Valsartan 160 MG TABLET PO (08:16)
[2022-06-21] MEDS: Chlorhexidine Gluc Oral Rinse 15 ML MOUTHWASH BUCCAL ×3 (08:16→20:04)
[2022-06-21] MEDS: Nystatin Powder 15 GM BOTTLE 1 APPL TOPICAL ×3 (08:17→20:16)
[2022-06-21] MEDS: Furosemide 40 MG TABLET PO (08:17)
[2022-06-21] MEDS: Ferrous Sulfate 324 MG TABLET.DR PO (08:17)
--- NOTE | 2022-06-21 09:50 | P.PNCC_ITS ---
Subjective Subjective Date of Service: 06/21/22 Interval History: ICU day 20 for out of hospital cardiac arrest, anoxic encephalopathy, respiratory failure. 76-year-old lady with underlying obesity, ISAAC with chronic hypercapnia /hypoxemia, congestive heart failure, COPD on 2 L of O2, diabetes mellitus admitted on 06/01/2022 with out of hospital cardiac arrest with return of spontaneous circulation after several rounds of CPR. Patient was intubated in the emergency room and admitted to intensive care unit. Unfortunately, her hospital course is significant for persistent encephalopathy with minimal improvement over the course of hospitalization, even after controlling her partial seizures with Keppra. Family is considering goals of care at this time. No events overnight. Critical Care Time (minutes): 45 Physical Exam Vital Signs: Vital Signs: Last Vital Signs Temp 100.2 F 06/21/22 09:00 Pulse 61 06/21/22 09:00 Resp 24 H 06/21/22 09:00 BP 147/63 H 06/21/22 09:00 Pulse Ox 90 L 06/21/22 09:00 O2 Del Method 06/21/22 09:00 O2 Flow Rate 21 06/21/22 09:00 FiO2 21 06/21/22 07:52 BMI result Body Mass Index 32.4 Const: General: no acute distress Eyes: Sclerae: sclerae normal EOM: EOMs intact bilaterally Neck: Neck: Yes no lymphadenopathy, Yes trachea midline and Yes supple Resp: Auscultation: clear to auscultation bilaterally Cardio: Rate: regular rate Rhythm: regular rhythm Heart sounds: no gallops, no murmurs and no rubs GI: Palpation (GI): Soft to palpation and Other GI palpation findings present ( Nontender) Auscultation: normal bowel sounds Extrem: General: Yes no pedal edema, No clubbing and No cyanosis Objective Data Labs CBC & Chem 7: 06/21/22 06:55 06/21/22 05:32 Labs: Laboratory Results - last 24 hr 06/20/22 06/20/22 06/20/22 11:54 17:55 23:35 WBC RBC Hgb Hct MCV MCH MCHC RDW Plt Count MPV Immature Gran % (Auto) Neut % (Auto) Lymph % (Auto) Tucker % (Auto) Eos % (Auto) Baso % (Auto) Lymph # (Auto) Tucker # (Auto) Eos # (Auto) Baso # (Auto) Abs Immat Gran (auto) Absolute Neuts (auto) Absolute Nucleated RBC Nucleated RBC % (auto) Smear Tech's Comments VBG pH VBG pCO2 VBG pO2 VBG HCO3 VBG O2 Saturation VBG Base Excess Sodium Potassium Chloride Carbon Dioxide Anion Gap BUN Creatinine Estim Creat Clear Calc Estimated GFR POC Glucose 207 H 200 H 223 H Random Glucose Calcium Phosphorus Magnesium Albumin 06/21/22 06/21/22 06/21/22 05:32 05:36 06:11 WBC RBC Hgb Hct MCV MCH MCHC RDW Plt Count MPV Immature Gran % (Auto) Neut % (Auto) Lymph % (Auto) Tucker % (Auto) Eos % (Auto) Baso % (Auto) Lymph # (Auto) Tucker # (Auto) Eos # (Auto) Baso # (Auto) Abs Immat Gran (auto) Absolute Neuts (auto) Absolute Nucleated RBC Nucleated RBC % (auto) Smear Tech's Comments VBG pH 7.55 H VBG pCO2 33 VBG pO2 41 VBG HCO3 29 H VBG O2 Saturation 70.0 VBG Base Excess 7.2 Sodium 136 Potassium 4.5 Chloride 97 Carbon Dioxide 22 Anion Gap 22 H BUN 20 H Creatinine 0.66 Estim Creat Clear Calc 82.1 Estimated GFR > 60 POC Glucose 214 H Random Glucose 220 H Calcium 8.6 Phosphorus 3.8 Magnesium 2.1 Albumin 3.7 06/21/22 06:55 WBC 10.0 RBC 4.19 L Hgb 8.7 L Hct 29.7 L MCV 70.9 L MCH 20.8 L MCHC 29.3 L RDW 24.6 H Plt Count TNP MPV Not Reportable Immature Gran % (Auto) 0.6 H Neut % (Auto) 76.1 H Lymph % (Auto) 14.1 L Tucker % (Auto) 6.5 Eos % (Auto) 2.5 Baso % (Auto) 0.2 Lymph # (Auto) 1.4 Tucker # (Auto) 0.7 Eos # (Auto) 0.3 Baso # (Auto) 0.0 Abs Immat Gran (auto) 0.06 H Absolute Neuts (auto) 7.6 Absolute Nucleated RBC 0.000 Nucleated RBC % (auto) 0.0 Smear Tech's Comments VERIFIED VBG pH VBG pCO2 VBG pO2 VBG HCO3 VBG O2 Saturation VBG Base Excess Sodium Potassium Chloride Carbon Dioxide Anion Gap BUN Creatinine Estim Creat Clear Calc Estimated GFR POC Glucose Random Glucose Calcium Phosphorus Magnesium Albumin Microbiology Microbiology Results: Microbiology 06/12/22 06:42 Blood - Venous Blood Culture - Final No growth after 5 days. 06/12/22 06:42 Blood - Venous Blood Culture - Final No growth after 5 days. 06/12/22 16:15 Catheter Tip - Cvp Catheter Tip Culture - Final Klebsiella pneumoniae Staphylococcus epidermidis 06/12/22 06:56 Sputum - Suctioned Gram Stain - Final 06/12/22 06:56 Sputum - Suctioned Sputum Culture - Final Klebsiella pneumoniae 06/08/22 05:00 Blood - Venous Blood Culture - Final No growth after 5 days. 06/08/22 05:00 Blood - Venous Blood Culture - Final No growth after 5 days. 06/09/22 07:17 Sputum - Suctioned Gram Stain - Final 06/09/22 07:17 Sputum - Suctioned Sputum Culture - Final 06/05/22 10:33 Blood - Venous Blood Culture - Final No growth after 5 days. 06/05/22 11:03 Blood - Venous Blood Culture - Final Coag negative Staphylococcus 06/06/22 03:43 Sputum - Suctioned Gram Stain - Final 06/06/22 03:43 Sputum - Suctioned Sputum Culture - Final 06/01/22 16:44 Blood - Venous Blood Culture - Final No growth after 5 days. 06/01/22 16:33 Blood - Venous Blood Culture - Final No growth after 5 days. 06/02/22 01:56 Sputum - Suctioned Gram Stain - Final 06/02/22 01:56 Sputum - Suctioned Sputum Culture - Final Progress Note: A&P Assessment and plan (1) Failure to wean from mechanical ventilation: Status: Acute (2) Chronic respiratory failure with hypoxia: Status: Acute (3) Diabetes: Status: Acute (4) Anoxic encephalopathy: Status: Acute (5) Cardiac arrest: Status: Acute (6) ISAAC and COPD overlap syndrome: Status: Acute Plan Assessment: 76-year-old lady with obesity, ISAAC, obesity hyperventilation syndrome, chronic hypoxic/ hypercapnic respiratory failure, congestive heart failure admitted after an out of hospital cardiac arrest with returned spontaneous circulation after a brief CPR, however hospital course with complicated by persistent encephalopathy with minimal improvement. Plan: Neuro: Partial seizures controlled with Keppra. Continue current regimen. Persistent anoxic encephalopathy with minimal improvement, discussion of goals of care are ongoing with the family. Cardiac: Out of hospital cardiac arrest status post returned spontaneous circulation, appears to be respiratory in nature. Follow-up 2D echo with mildly reduced EF. Pulmonary: Intubated after CPR. Weaning from the ventilatory support is limited by minimal improvement in mental status. Family is considering change to comfort measures status on 06/22/2022. Renal: No acute issues. Endo: No acute issues. Underlying diabetes mellitus. Continue on subcutaneous insulin. GI: No acute issues. ID: No acute issues Heme/Onc: No acute issues. Psych: No acute issues. Miscellaneous: No acute issues. Prophylaxis: heparin, ppi Diet: Tube feeds Critical care time spent: 45 minutes Quality Stroke Does the patient have a stroke diagnosis?: No VTE Prior VTE?: No VTE Risk Level:: Medical - moderate - high VTE Device Contraindication: N/A - Device Ordered VTE Drug Contraindication: N/A - Med Ordered
[2022-06-21 11:48] LABS: Glucose, Whole Blood 201 mg/dL (60-115)
[2022-06-21 17:46] LABS: Glucose, Whole Blood 186 mg/dL (60-115)
[2022-06-21 23:41] LABS: Glucose, Whole Blood 187 mg/dL (60-115)
[2022-06-22] VITALS (31 sets, daily range): BP systolic 128–177; BP diastolic 40–70; PULSE 62–80; RESP 13–30; TEMP 33.6–38.6; O2SAT 89–99; BMI 32.4
[2022-06-22] MEDS: Insulin Lispro 100 UNIT/ML 3 ML VIAL SUBCUT ×4 (00:11→18:06)
[2022-06-22] MEDS: levETIRAcetam in NaCl (iso-os) 500 MG/100 ML PIGGYBACK 400 MG IV (02:41)
[2022-06-22] MEDS: Heparin Sodium,Porcine 5,000 UNIT/ML VIAL 5000 UNIT SUBCUT ×3 (02:41→18:06)
[2022-06-22 05:49] LABS: Glucose, Whole Blood 186 mg/dL (60-115)
[2022-06-22 06:05] LABS: MANUAL DIFF FLAG NO
[2022-06-22 06:07] LABS: Basophils Percent Auto 0.5 % (0-2); Eosinophils Absolute Auto 0.2 X10*3/uL (0.0-0.4); Eosinophils Percent Auto 2.7 % (0-4); Hematocrit 30.5 % (37.0-47.0); Imm Gran Abs Auto 0.06 X10*3/uL (0.00-0.03); Imm Gran Pct Auto 0.7 % (0.0-0.4); Lymphocytes Absolute Auto 1.1 X10*3/uL (1.2-4.9); Mean Corpuscular HGB Conc 29.5 g/dl (31.0-35.0); Mean Corpuscular Volume 71.1 fL (80.0-98.0); Mean Platelet Volume 9.9 fL (9.4-12.3); Monocytes Absolute Auto 0.5 X10*3/uL (0.1-1.2); Monocytes Percent Auto 5.4 % (2-11); Neutrophils Absolute Auto 6.8 x10*3/uL (2.0-8.3); Neutrophils Percent Auto 77.7 % (45-73); Platelet Count 178 X10*3/uL (160-400); Red Blood Count 4.29 X10*6/uL (4.20-5.50); Red Cell Distribution Width 24.4 % (11.0-16.0); White Blood Count 8.8 X10*3/uL (4.8-10.8)
[2022-06-22 06:24] LABS: Albumin Level 3.5 g/dL (3.5-5.0); Anion Gap 16 (12-20); Blood Urea Nitrogen 19 mg/dL (9-16); Calcium 8.7 mg/dL (8.4-10.2); Carbon Dioxide 26 mmol/L (22-29); Chloride 99 mmol/L (96-108); Creatinine Clr Calc Pharmacy 88.8; Estimated Glomerular Filt Rate > 60; Glucose Random 213 mg/dL (60-115); Magnesium 2.1 mg/dL (1.6-2.6); Phosphorus 3.8 mg/dL (2.7-4.5); Potassium 4.4 mmol/L (3.3-5.1); Sodium 137 mmol/L (135-145)
[2022-06-22 06:28] LABS: Venous Blood Gas Refer to POC result
[2022-06-22] MEDS: Ferrous Sulfate 324 MG TABLET.DR PO (07:36)
[2022-06-22] MEDS: Nystatin Powder 15 GM BOTTLE 1 APPL TOPICAL ×3 (07:37→22:07)
[2022-06-22] MEDS: Furosemide 40 MG TABLET PO (07:37)
[2022-06-22] MEDS: Chlorhexidine Gluc Oral Rinse 15 ML MOUTHWASH BUCCAL ×3 (07:37→22:25)
[2022-06-22] MEDS: Valsartan 160 MG TABLET PO (07:37)
[2022-06-22] MEDS: Insulin Glargine,Hum.rec.anlog 100 UNIT/ML 10 ML VIAL 45 UNIT SUBCUT ×2 (07:37→22:28)
[2022-06-22] MEDS: carvediloL 25 MG TABLET PO ×2 (07:37→22:25)
[2022-06-22 08:54] LABS: VBG Base Excess 8.2 mmol/L; VBG HCO3 30 mmol/L (22-26); VBG pCO2 35 mmHg; VBG pH 7.55 (7.32-7.43); VBG pO2 47 mmHg
--- NOTE | 2022-06-22 10:06 | PM.CCPN ---
Subjective Subjective Date of Service: 06/22/22 Interval History: Mrs. Ford was admitted to ICU June 01 after [id number] cardiorespiratory arrest. The patient is well known to me from her prior admission to this ICU with acute respiratory failure on May 12.? She is a 76 yo female with PMhx of obesity, COPD on 2L home oxygen, CHF on Aldactone, Coreg and valsartan, HTN, DM on Lantus and metformin, anemia, GERD, SHARON, and restless leg syndrome. According to the patient?s daughter, for years she has needed help with ADLs, including dressing and bathing.? She does go to the bathroom by herself.? She walks with a walker and a cane.? She was living by herself in an apartment until this past November.? She went to visit her daughter Kassy ([phone]) for the holiday, and needed some much help that she never left, she just stayed with Paige in their house in [place].? The daughter, Kassy Gutierrez is the healthcare proxy.? Another daughter, Christi Holland, is the second closest but is not listed on the health care proxy. Records from [facility] indicate that she was hospitalized there for COVID infection 11/25-.? She was never intubated, but prior to that hospitalization, she had had DNR status which she reversed during that hospitalization.? She was then hospitalized 12/15- for pulmonary embolism, for which she was started on Eliquis.? From there she was discharged to rehab facility.? She was readmitted [facility] from 02/13- for COPD exac requiring BiPAP, and 02/24-07/2022 for influenza A requiring BiPAP.? The records indicate that she was an active smoker. On May 11, the patient was intubated at home by paramedics bec of obtundation and hypoxemia.? There was no circulatory or respiratory arrest at that time.? She was BIBA and was awake in the ED.? She was admitted to the ICU.? Workup suggested CHF, and she was diuresed.? The patient was extubated to BiPAP shortly after arrival to the ICU.? She was discharged to the floor the next day. ECHOCARDIOGRAM on May 12 showed:? LV function was normal, no RWMAs noted.? EF 60%.? Moderate LVH with impaired relaxation filling pattern.? Normal RV size and contractility.? Mild .? RVSP normal.? IVC was dilated w minimal insp collapse. She was discharged home on May 16 and advised to have a sleep study. HISTORY OF PRESENT ILLNESS: Since being home, she?s been sleeping in a chair.? She can?t lie down in a bed, because she has too much shortness of breath.? She told her daughter that she breathes better with the CPAP mask, which allows her to lie in bed, but they have not been able to get one for her until she has a sleep study. On the morning of June 01, the patient was feeling a little tired.? In the early afternoon, she had increasing shortness of breath and the daughter went up on her oxygen from her usual 2L to 3 L, and then to 4 L.? She was getting even more short of breath so the daughter went to call the ambulance.? Shortly thereafter, the patient passed out.? The daughter's started CPR and EMS arrived very soon thereafter.? On arrival at the scene, the patient had agonal breathing, and did have a pulse.? Initial heart rate 30s, blood pressure 80s.? Atropine was given followed by cardiac arrest.? CPR was started, 1 mg epinephrine given, and the patient had ROSC after about 1-1/2 minutes.? At some point, a Suhas airway was inserted.? The patient was BIBA to the ED. The patient was immediately intubated on arrival to the ED.? She was normotensive and afebrile.? WBC was 15, Hb 8.5, chemistries OK, trop 9, BNP 139, lactate was 10.? EKG showed T-wave inversion in leads I and aVL, unchanged from previous tracing of May 12. The patient was given fluids and antibiotics.? Central line was placed.? She was admitted to the ICU.? CTPA showed left lower lobe consolidation.? Normal heart size, no pulmonary emboli.? The patient was started on broad-spectrum antibiotics for presumed LLL pneumonia. Initially upon sedation holidays with the propofol off, the patient was very agitated in bed, moving all 4 with strength, had some partial eye opening movement but was 100% non interactive.? Breathing became chaotic, requiring resedation.? But over the last two weeks, she?s been less and less active, to the point that she?s been off sedation since June 08, and flaccid to stimulation, no more eye opening.? Dr. Richardson put her on Keppra on 06/12 bec of ? partial sz.? EEG on June 08 showed moderate generalized slowing, with no evidence of seizure disorder.? Last head CT showed no acute intracranial process; few lacunar infarcts and atrophy that are stable. This morning, she remains off sedation and densely comatose, 100% noninteractive.? With vigorous stimulation, her breathing pattern picks up for a few seconds, and then goes back to baseline, but no eye opening, no movement of any extremities.? Positive corneals, positive gag reflex. ?When I forcefully open her eyes, her eyeballs roll around. ?PERRL, about 5 mm.? HR now 72, 128/40, on Coreg, valsartan, and Lasix 40mg daily.? We switched her over to PSV.? On PSV 20/24/+5, RR is 15, Vt 390cc, Ve 7.3L, PIP 25cm, ETCO2 32mm, Sat 95%.? CVBG this morning 7.55/35/+8 (not on Diamox).? Tmax 100.9 this morning (last cultures 06/12).? No jugular venous distention at 30 degrees. ?Chest is CTA with normal expiratory phase.? Soft heart tones, I heard no murmur or gallops.? Abdomen is obese and benign.? She has about trace central edema; all her pretibial edema is resolved. I&O:? Negative 245cc x 24hrs on Lasix 40 mg po QD.? Overall net positive 1260cc. LABORATORY DATA: ?Below.? Notably, POCs about 190. ECHOCARDIOGRAM 06/02 by the access hospital [place]:? Technically difficult.? Showed perhaps mildly depressed LVEF, 45-50%, with impaired relaxation filling pattern.? New notable valvular Doppler findings.? IVC was dilated with no inspiratory collapse. IMPRESSION: 1. Underlying severe COPD, was on home oxygen. 2. Underlying marked debilitation and frailty. 3. Underlying tobacco abuse. 4. Underlying chronic hypoxemic and hypercapnic resp failure. 5. Underlying diastolic heart failure.? No evidence of acute heart failure this admission.? I note that her Med Rec doesn?t include the aldactone that she was on at the last admission.? Nor was she on any diuretic. I restarted her ARB and Coreg. 6. Hx of PE, for which she was previously on Eliquis at the last admission, but I do not see that on her Med Rec now.? Her daughter said she is no longer taking it, but I don?t know why. 7. Cardiorespiratory arrest.? Unclear etiology.? By history, it sounds like her breathing just got worse over the day, prior to the ambulance being called.? Could have been COPD exacerbation or CHF, but there was no gross evidence of either at admission, and if anything, the edema she had on this admission was less than she had in April.? No evidence of acute ME or PE.? No significant metabolic alkalosis to suggest CO2 narcosis.? Could also have been aspiration, for whatever reason. 8. Coma.? Anoxic encephalopathy.? She has complete absence of cortical activity, which is worse than when she was first admitted on June 01.? CT shows no acute infarct.? EEG shows generalized slowing, no sz activity.? No reason for her to be on Keppra now, I will D/C that. ?I expect a family discussion later today. 9. Acute resp failure.? 2? above.? She?s requiring 18-20 cm pressure support to maintain her tidal volumes.? Continuing the Lasix to keep her dry.? Renal indices are reasonable. 10. ID:? Been running low grade temps since 06/18, w Tmax 101.1.? No worsening in her oxygenation.? WBC is normal.? Nothing notable in her cultures from 06/12.? At this point, with the likelihood of comfort measure status, it would be of appropriate to take any action. 11. Metabolic alkalosis.? Secondary to diuresis. 12. Hyponatremia.? Resolved. 13. HTN.? Continuing her home meds, with the Coreg dose increased to 25mg bid. 14. DM.? Adequate control on Lantus bid, plus sliding scale. 15. Anemia.? She has a h/o anemia which I believe is followed at [facility].? Takes iron at home.? We?ll just transfuse as necessary.? She was transfused 1 unit on 06/04. ?And we?re giving her iron.? Hemoccult was positive on 06/08. 16. Nutrition.? On Osmolyte. No labs tomorrow. ADDENDUM: I met with the family at the bedside this morning and we spoke at length about her condition and where to go from here in terms of continuing care.? They expressed that they do not want a tracheostomy, but they did want a feeding tube placed after the extubation..? We discussed why they wanted a feeding tube, and three things came up: ?First, they definitely do want to extubate, and not reintubate.? Second, they did not seem to be fully cognizant that extubation was likely to lead to with some certainty, and in likely short order. ?So we spoke about that at some length and I believe now they are clear about that.? Third, they seem to want the feeding tube because they were concerned that she would be hungry.? To put that concern to rest, I discussed with them again the way the brain works, and how Abby and other patients at the end of life do not suffer from hunger or thirst, although sometimes we give them drops of water or ice chips so the mouth isn't dry. At the end of our conversation, they decided not to extubate today, but rather to bring in tomorrow all the children and grandchildren and the rest of the family who wanted to say goodbye.? Then we will proceed with extubation.? I discussed with them that I did not think that Abyb with last long.? If she lasted overnight and it looked like she was not going to pass any time soon, she would probably transfer to a hospice room upstairs, and we could talk further about a feeding tube then, Critical care time (including chart review and hospital course summary):? 110+ min. Critical Care Time (minutes): 110 Physical Exam Vital Signs: Vital Signs: Last Vital Signs Temp 100.6 F H 06/22/22 10:00 Pulse 74 06/22/22 10:00 Resp 26 H 06/22/22 10:00 BP 128/40 L 06/22/22 10:00 Pulse Ox 95 06/22/22 10:00 O2 Del Method 06/22/22 10:00 O2 Flow Rate 21 06/21/22 14:00 FiO2 24 06/22/22 10:00 BMI result Body Mass Index 32.4 Objective Data Labs CBC & Chem 7: 06/22/22 05:25 06/22/22 05:25 Labs: Laboratory Results - last 24 hr 06/21/22 06/21/22 06/21/22 11:39 17:43 23:38 WBC RBC Hgb Hct MCV MCH MCHC RDW Plt Count MPV Immature Gran % (Auto) Neut % (Auto) Lymph % (Auto) [place] % (Auto) Eos % (Auto) Baso % (Auto) Lymph # (Auto) [place] # (Auto) Eos # (Auto) Baso # (Auto) Abs Immat Gran (auto) Absolute Neuts (auto) Absolute Nucleated RBC Nucleated RBC % (auto) VBG pH VBG pCO2 VBG pO2 VBG HCO3 VBG O2 Saturation VBG Base Excess Sodium Potassium Chloride Carbon Dioxide Anion Gap BUN Creatinine Estim Creat Clear Calc Estimated GFR POC Glucose 201 H 186 H 187 H Random Glucose Calcium Phosphorus Magnesium Albumin 06/22/22 06/22/22 06/22/22 05:25 05:25 05:32 WBC 8.8 RBC 4.29 Hgb 9.0 L Hct 30.5 L MCV 71.1 L MCH 21.0 L MCHC 29.5 L RDW 24.4 H Plt Count 178 MPV 9.9 Immature Gran % (Auto) 0.7 H Neut % (Auto) 77.7 H Lymph % (Auto) 13.0 L [place] % (Auto) 5.4 Eos % (Auto) 2.7 Baso % (Auto) 0.5 Lymph # (Auto) 1.1 L [place] # (Auto) 0.5 Eos # (Auto) 0.2 Baso # (Auto) 0.0 Abs Immat Gran (auto) 0.06 H Absolute Neuts (auto) 6.8 Absolute Nucleated RBC 0.000 Nucleated RBC % (auto) 0.0 VBG pH 7.55 H VBG pCO2 35 VBG pO2 47 VBG HCO3 30 H VBG O2 Saturation 76.0 VBG Base Excess 8.2 Sodium 137 Potassium 4.4 Chloride 99 Carbon Dioxide 26 Anion Gap 16 BUN 19 H Creatinine 0.61 Estim Creat Clear Calc 88.8 Estimated GFR > 60 POC Glucose Random Glucose 213 H Calcium 8.7 Phosphorus 3.8 Magnesium 2.1 Albumin 3.5 06/22/22 05:43 WBC RBC Hgb Hct MCV MCH MCHC RDW Plt Count MPV Immature Gran % (Auto) Neut % (Auto) Lymph % (Auto) [place] % (Auto) Eos % (Auto) Baso % (Auto) Lymph # (Auto) [place] # (Auto) Eos # (Auto) Baso # (Auto) Abs Immat Gran (auto) Absolute Neuts (auto) Absolute Nucleated RBC Nucleated RBC % (auto) VBG pH VBG pCO2 VBG pO2 VBG HCO3 VBG O2 Saturation VBG Base Excess Sodium Potassium Chloride Carbon Dioxide Anion Gap BUN Creatinine Estim Creat Clear Calc Estimated GFR POC Glucose 186 H Random Glucose Calcium Phosphorus Magnesium Albumin Microbiology Microbiology Results: Microbiology 06/12/22 06:42 Blood - Venous Blood Culture - Final No growth after 5 days. 06/12/22 06:42 Blood - Venous Blood Culture - Final No growth after 5 days. 06/12/22 16:15 Catheter Tip - Cvp Catheter Tip Culture - Final Klebsiella pneumoniae Staphylococcus epidermidis 06/12/22 06:56 Sputum - Suctioned Gram Stain - Final 06/12/22 06:56 Sputum - Suctioned Sputum Culture - Final Klebsiella pneumoniae 06/08/22 05:00 Blood - Venous Blood Culture - Final No growth after 5 days. 06/08/22 05:00 Blood - Venous Blood Culture - Final No growth after 5 days. 06/09/22 07:17 Sputum - Suctioned Gram Stain - Final 06/09/22 07:17 Sputum - Suctioned Sputum Culture - Final 06/05/22 10:33 Blood - Venous Blood Culture - Final No growth after 5 days. 06/05/22 11:03 Blood - Venous Blood Culture - Final Coag negative Staphylococcus 06/06/22 03:43 Sputum - Suctioned Gram Stain - Final 06/06/22 03:43 Sputum - Suctioned Sputum Culture - Final 06/01/22 16:44 Blood - Venous Blood Culture - Final No growth after 5 days. 06/01/22 16:33 Blood - Venous Blood Culture - Final No growth after 5 days. 06/02/22 01:56 Sputum - Suctioned Gram Stain - Final 06/02/22 01:56 Sputum - Suctioned Sputum Culture - Final Quality Stroke Does the patient have a stroke diagnosis?: No VTE Prior VTE?: No VTE Risk Level:: Medical - moderate - high VTE Device Contraindication: N/A - Device Ordered VTE Drug Contraindication: N/A - Med Ordered Critical Care Time Critical Care Time (minutes): 120
--- NOTE | 2022-06-22 11:15 | MHC.CLN ---
F/U PT REMAINS INTUBATED NOTED SERUM NA REMAINS WNL PT RECEIVING OSMOLITE 1.5 AT MAX GOAL RATE 35 ML/HR WITH 30ML PROSOURCE Q DAY PROVIDES 1320KCALS (22KCALS/KG), 67G TOTAL PROTEIN (1.1G/KG), 640ML FREE WATER FROM FORMULA HOLDING FREE WATER FLUSHES MONITOR TOLERANCE, RESIDUALS AND LYTES
[2022-06-22 12:10] LABS: Glucose, Whole Blood 188 mg/dL (60-115)
--- NOTE | 2022-06-22 13:04 | MHC.CM.PN ---
Family meeting held with pt's children/HCP and MD: family has made the choice to withdraw intubation support on 06/23 after family comes to visit. CM to follow for any needs.
[2022-06-22 18:08] LABS: Glucose, Whole Blood 203 mg/dL (60-115)
[2022-06-22 22:31] LABS: Glucose, Whole Blood 199 mg/dL (60-115)
[2022-06-22 23:25] LABS: Glucose, Whole Blood 186 mg/dL (60-115)
[2022-06-23] VITALS (22 sets, daily range): BP systolic 113–168; BP diastolic 35–76; PULSE 65–75; RESP 12–32; TEMP 33.6–38.5; O2SAT 84–95; BMI 32.5
[2022-06-23] MEDS: Insulin Lispro 100 UNIT/ML 3 ML VIAL SUBCUT ×3 (00:22→11:50)
[2022-06-23] MEDS: Heparin Sodium,Porcine 5,000 UNIT/ML VIAL 5000 UNIT SUBCUT ×2 (04:47→11:50)
[2022-06-23 05:06] LABS: Glucose, Whole Blood 170 mg/dL (60-115)
[2022-06-23 05:38] LABS: VBG Base Excess 8.2 mmol/L; VBG HCO3 30 mmol/L (22-26); VBG pCO2 35 mmHg; VBG pH 7.54 (7.32-7.43); VBG pO2 44 mmHg
[2022-06-23 05:39] LABS: Venous Blood Gas Refer to POC result
[2022-06-23 05:50] LABS: Imm Gran Abs Auto 0.06 X10*3/uL (0.00-0.03); Mean Corpuscular Hemoglobin 20.5 pg (27.0-33.0); PLT CLUMP 1; SCAN SMEAR FLAG 1
[2022-06-23 05:52] LABS: Basophils Percent Auto 0.3 % (0-2); Eosinophils Absolute Auto 0.2 X10*3/uL (0.0-0.4); Eosinophils Percent Auto 2.5 % (0-4); Hematocrit 30.6 % (37.0-47.0); Hemoglobin 8.8 g/dl (12.0-16.0); Imm Gran Pct Auto 0.8 % (0.0-0.4); Lymphocytes Absolute Auto 1.1 X10*3/uL (1.2-4.9); Lymphocytes Percent Auto 15.4 % (20-40); MANUAL DIFF FLAG SCAN; Mean Corpuscular HGB Conc 28.8 g/dl (31.0-35.0); Mean Corpuscular Volume 71.2 fL (80.0-98.0); Monocytes Absolute Auto 0.4 X10*3/uL (0.1-1.2); Neutrophils Absolute Auto 5.5 x10*3/uL (2.0-8.3)
[2022-06-23 06:00] LABS: Albumin Level 3.4 g/dL (3.5-5.0)
[2022-06-23 06:12] LABS: Anion Gap 18 (12-20); Blood Urea Nitrogen 20 mg/dL (9-16); Calcium 8.6 mg/dL (8.4-10.2); Carbon Dioxide 26 mmol/L (22-29); Chloride 99 mmol/L (96-108); Creatinine Clr Calc Pharmacy 86.1; Estimated Glomerular Filt Rate > 60; Glucose Random 180 mg/dL (60-115); Magnesium 2.1 mg/dL (1.6-2.6); Phosphorus 4.3 mg/dL (2.7-4.5); Potassium 4.5 mmol/L (3.3-5.1); Sodium 138 mmol/L (135-145)
[2022-06-23 06:14] LABS: PLT ABN DIST 1; Platelet Count 142 X10*3/uL (160-400); White Blood Count 7.2 X10*3/uL (4.8-10.8)
[2022-06-23 06:15] LABS: SLIDE REVIEW VERIFIED
[2022-06-23] MEDS: Valsartan 160 MG TABLET PO (08:27)
[2022-06-23] MEDS: Insulin Glargine,Hum.rec.anlog 100 UNIT/ML 10 ML VIAL 45 UNIT SUBCUT (08:27)
[2022-06-23] MEDS: carvediloL 25 MG TABLET PO (08:27)
[2022-06-23] MEDS: Furosemide 40 MG TABLET PO (08:27)
[2022-06-23] MEDS: Chlorhexidine Gluc Oral Rinse 15 ML MOUTHWASH BUCCAL (08:27)
[2022-06-23] MEDS: Ferrous Sulfate 324 MG TABLET.DR PO (08:28)
[2022-06-23] MEDS: Nystatin Powder 15 GM BOTTLE 1 APPL TOPICAL (08:28)
[2022-06-23 11:34] LABS: Glucose, Whole Blood 216 mg/dL (60-115)
--- NOTE | 2022-06-23 13:15 | PM.CCPN ---
Subjective Subjective Date of Service: 06/23/22 Interval History: Mrs. Ford was admitted to ICU June 01 after [id number] cardiorespiratory arrest. The patient is well known to me from her prior admission to this ICU with acute respiratory failure on May 12.? She is a 76 yo female with PMhx of obesity, COPD on 2L home oxygen, CHF on Aldactone, Coreg and valsartan, HTN, DM on Lantus and metformin, anemia, GERD, SHARON, and restless leg syndrome. According to the patient?s daughter, for years she has needed help with ADLs, including dressing and bathing.? She does go to the bathroom by herself.? She walks with a walker and a cane.? She was living by herself in an apartment until this past November.? She went to visit her daughter Kassy ([phone]) for the holiday, and needed some much help that she never left, she just stayed with Paige in their house in [place].? The daughter, Kassy Gutierrez is the healthcare proxy.? Another daughter, Christi Holland, is the second closest but is not listed on the health care proxy. Records from [facility] indicate that she was hospitalized there for COVID infection 11/25-.? She was never intubated, but prior to that hospitalization, she had had DNR status which she reversed during that hospitalization.? She was then hospitalized 12/15- for pulmonary embolism, for which she was started on Eliquis.? From there she was discharged to rehab facility.? She was readmitted [facility] from 02/13- for COPD exac requiring BiPAP, and 02/24-07/2022 for influenza A requiring BiPAP.? The records indicate that she was an active smoker. On May 11, the patient was intubated at home by paramedics bec of obtundation and hypoxemia.? There was no circulatory or respiratory arrest at that time.? She was BIBA and was awake in the ED.? She was admitted to the ICU.? Workup suggested CHF, and she was diuresed.? The patient was extubated to BiPAP shortly after arrival to the ICU.? She was discharged to the floor the next day. ECHOCARDIOGRAM on May 12 showed:? LV function was normal, no RWMAs noted.? EF 60%.? Moderate LVH with impaired relaxation filling pattern.? Normal RV size and contractility.? Mild .? RVSP normal.? IVC was dilated w minimal insp collapse. She was discharged home on May 16 and advised to have a sleep study. HISTORY OF PRESENT ILLNESS: Since being home, she?s been sleeping in a chair.? She can?t lie down in a bed, because she has too much shortness of breath.? She told her daughter that she breathes better with the CPAP mask, which allows her to lie in bed, but they have not been able to get one for her until she has a sleep study. On the morning of June 01, the patient was feeling a little tired.? In the early afternoon, she had increasing shortness of breath and the daughter went up on her oxygen from her usual 2L to 3 L, and then to 4 L.? She was getting even more short of breath so the daughter went to call the ambulance.? Shortly thereafter, the patient passed out.? The daughter's started CPR and EMS arrived very soon thereafter.? On arrival at the scene, the patient had agonal breathing, and did have a pulse.? Initial heart rate 30s, blood pressure 80s.? Atropine was given followed by cardiac arrest.? CPR was started, 1 mg epinephrine given, and the patient had ROSC after about 1-1/2 minutes.? At some point, a Suhas airway was inserted.? The patient was BIBA to the ED. The patient was immediately intubated on arrival to the ED.? She was normotensive and afebrile.? WBC was 15, Hb 8.5, chemistries OK, trop 9, BNP 139, lactate was 10.? EKG showed T-wave inversion in leads I and aVL, unchanged from previous tracing of May 12. The patient was given fluids and antibiotics.? Central line was placed.? She was admitted to the ICU.? CTPA showed left lower lobe consolidation.? Normal heart size, no pulmonary emboli.? The patient was started on broad-spectrum antibiotics for presumed LLL pneumonia. Initially upon sedation holidays with the propofol off, the patient was very agitated in bed, moving all 4 with strength, had some partial eye opening movement but was 100% non interactive.? Breathing became chaotic, requiring resedation.? But over the last two weeks, she?s been less and less active, to the point that she?s been off sedation since June 08, and flaccid to stimulation, no more eye opening.? EEG on June 08 showed moderate generalized slowing, with no evidence of seizure disorder.? Last head CT on June 12 showed no acute intracranial process; few lacunar infarcts and atrophy that are stable. This morning, she remains off sedation and densely comatose, 100% noninteractive.? No change from yesterday.? With vigorous stimulation, her breathing pattern picks up for a few seconds, and then goes back to baseline, but no eye opening, no movement of any extremities.? Positive corneals, positive gag reflex.? PERRL, about 5-6 mm.? HR 70, SR.? BP 143/40, on Coreg, valsartan, and Lasix 40mg daily.? On PSV 16/24/+5, RR is 20, Vt 300cc, Ve 8.3L, PIP 21cm, Sat 91%.? CVBG this morning 7.54/35/+8.? Tmax 101.3.? No jugular venous distention at 30 degrees. ?Chest is CTA with normal expiratory phase.? Abdomen is obese and benign. ?She has about trace central edema; all her pretibial edema is resolved. I&O:? u/o 1015 cc.? Negative 60cc x 24hrs on Lasix 40 mg po QD.? Overall net positive 1145cc. LABORATORY DATA: ?Below. [facility]:? Technically difficult.? Showed perhaps mildly depressed LVEF, 45-50%, with impaired relaxation filling pattern.? New notable valvular Doppler findings.? IVC was dilated with no inspiratory collapse. IMPRESSION: 1. Underlying severe COPD, was on home oxygen. 2. Underlying marked debilitation and frailty. 3. Underlying tobacco abuse. 4. Underlying chronic hypoxemic and hypercapnic resp failure. 5. Underlying diastolic heart failure.? No evidence of acute heart failure this admission.? I note that her Med Rec doesn?t include the aldactone that she was on at the last admission.? Nor was she on any diuretic. I restarted her ARB and Coreg. 6. Hx of PE, for which she was previously on Eliquis at the last admission, but I do not see that on her Med Rec now.? Her daughter said she is no longer taking it, but I don?t know why. 7. Cardiorespiratory arrest.? Unclear etiology.? By history, it sounds like her breathing just got worse over the day, prior to the ambulance being called.? Could have been COPD exacerbation or CHF, but there was no gross evidence of either at admission, and if anything, the edema she had on this admission was less than she had in April.? No evidence of acute NV or PE.? No significant metabolic alkalosis to suggest CO2 narcosis.? Could also have been aspiration, for whatever reason. 8. Coma.? Anoxic encephalopathy.? She has complete absence of cortical activity, which is worse than when she was first admitted on June 01.? CT shows no acute infarct.? EEG shows generalized slowing, no sz activity.? No reason for her to be on Keppra. 9. Acute resp failure.? 2? above.? She?s requiring 18-20 cm pressure support to maintain her tidal volumes.? Continuing the Lasix to keep her dry.? Renal indices are reasonable. 10. ID:? Been running low grade temps since 06/18.? No worsening in her oxygenation.? WBC is normal.? Nothing notable in her cultures from 06/12.? At this point, with the likelihood of comfort measure status, it would be inappropriate to take any action. 11. Metabolic alkalosis.? Secondary to diuresis. 12. Hyponatremia.? Resolved. 13. HTN.? Continuing her home meds, with the Coreg dose increased to 25mg bid. 14. DM.? Adequate control on Lantus bid, plus sliding scale. 15. Anemia.? She has a h/o anemia which I believe is followed at [facility].? Takes iron at home.? We?ll just transfuse as necessary.? She was transfused 1 unit on 06/04.? And we?re giving her iron.? Hemoccult was positive on 06/08. 16. Nutrition.? On Osmolyte. I met with the family at the bedside yesterday and we spoke at length about her condition and where to go from here in terms of continuing care.? They expressed that they did not want a tracheostomy, but they did want a feeding tube placed after the extubation..? We discussed why they wanted a feeding tube, and three things came up:? First, they definitely did want to extubate, and not reintubate.? Second, they did not seem to be fully cognizant that extubation was likely to lead to with some certainty, and in likely short order.? We spoke about that at some length and I believe now they are clear about that.? Third, they seemed to want the feeding tube because they were concerned that she would be hungry.? To put that concern to rest, I discussed with them again the way the brain works, and how Abby and other patients at the end of life do not suffer from hunger or thirst, although sometimes we give them drops of water or ice chips so the mouth isn't dry. At the end of our conversation, they decided to delay extubation until today, when all the kids and the rest of the family who wanted to say celestebye could do so. ADDENDUM: The family came in and gathered at the bedside.? They spoke with the elevated work platform operator.? We established a comfortable breathing pattern with a fentanyl infusion and then the patient was extubated to room air at about 3pm.? She is breathing very comfortably with a clear airway.? Sat is running about 80% on room air.? The family is very pleased.? I?ve indicated to them that she looks great and that she?ll do whatever she will do on her own time. Time: 90+ min Critical Care Time (minutes): 0 Physical Exam Vital Signs: Vital Signs: Last Vital Signs Temp 100.8 F H 06/23/22 13:00 Pulse 69 06/23/22 13:00 Resp 15 06/23/22 13:00 BP 143/40 H 06/23/22 13:00 Pulse Ox 90 L 06/23/22 13:00 O2 Del Method 06/23/22 13:00 O2 Flow Rate 21 06/21/22 14:00 FiO2 24 06/23/22 13:00 BMI result Body Mass Index 32.5 Objective Data Labs CBC & Chem 7: 06/23/22 05:36 06/23/22 05:36 Labs: Laboratory Results - last 24 hr 06/22/22 06/22/22 06/22/22 18:04 22:27 23:21 WBC RBC Hgb Hct MCV MCH MCHC RDW Plt Count MPV Immature Gran % (Auto) Neut % (Auto) Lymph % (Auto) [place] % (Auto) Eos % (Auto) Baso % (Auto) Lymph # (Auto) [place] # (Auto) Eos # (Auto) Baso # (Auto) Abs Immat Gran (auto) Absolute Neuts (auto) Absolute Nucleated RBC Nucleated RBC % (auto) Smear Tech's Comments VBG pH VBG pCO2 VBG pO2 VBG HCO3 VBG O2 Saturation VBG Base Excess Sodium Potassium Chloride Carbon Dioxide Anion Gap BUN Creatinine Estim Creat Clear Calc Estimated GFR POC Glucose 203 H 199 H 186 H Random Glucose Calcium Phosphorus Magnesium Albumin 06/23/22 06/23/22 06/23/22 05:02 05:32 05:36 WBC 7.2 RBC 4.30 Hgb 8.8 L Hct 30.6 L MCV 71.2 L MCH 20.5 L MCHC 28.8 L RDW 24.0 H Plt Count 142 L MPV Not Reportable Immature Gran % (Auto) 0.8 H Neut % (Auto) 76.0 H Lymph % (Auto) 15.4 L [place] % (Auto) 5.0 Eos % (Auto) 2.5 Baso % (Auto) 0.3 Lymph # (Auto) 1.1 L [place] # (Auto) 0.4 Eos # (Auto) 0.2 Baso # (Auto) 0.0 Abs Immat Gran (auto) 0.06 H Absolute Neuts (auto) 5.5 Absolute Nucleated RBC 0.000 Nucleated RBC % (auto) 0.0 Smear Tech's Comments VERIFIED VBG pH 7.54 H VBG pCO2 35 VBG pO2 44 VBG HCO3 30 H VBG O2 Saturation 73.0 VBG Base Excess 8.2 Sodium Potassium Chloride Carbon Dioxide Anion Gap BUN Creatinine Estim Creat Clear Calc Estimated GFR POC Glucose 170 H Random Glucose Calcium Phosphorus Magnesium Albumin 06/23/22 06/23/22 06/23/22 05:36 05:36 11:30 WBC RBC Hgb Hct MCV MCH MCHC RDW Plt Count MPV Immature Gran % (Auto) Neut % (Auto) Lymph % (Auto) [place] % (Auto) Eos % (Auto) Baso % (Auto) Lymph # (Auto) [place] # (Auto) Eos # (Auto) Baso # (Auto) Abs Immat Gran (auto) Absolute Neuts (auto) Absolute Nucleated RBC Nucleated RBC % (auto) Smear Tech's Comments VBG pH VBG pCO2 VBG pO2 VBG HCO3 VBG O2 Saturation VBG Base Excess Sodium 138 Potassium 4.5 Chloride 99 Carbon Dioxide 26 Anion Gap 18 BUN 20 H Creatinine 0.63 Estim Creat Clear Calc 86.1 Estimated GFR > 60 POC Glucose 216 H Random Glucose 180 H Calcium 8.6 Phosphorus 4.3 Magnesium 2.1 Albumin 3.4 L Microbiology Microbiology Results: Microbiology 06/12/22 06:42 Blood - Venous Blood Culture - Final No growth after 5 days. 06/12/22 06:42 Blood - Venous Blood Culture - Final No growth after 5 days. 06/12/22 16:15 Catheter Tip - Cvp Catheter Tip Culture - Final Klebsiella pneumoniae Staphylococcus epidermidis 06/12/22 06:56 Sputum - Suctioned Gram Stain - Final 06/12/22 06:56 Sputum - Suctioned Sputum Culture - Final Klebsiella pneumoniae 06/08/22 05:00 Blood - Venous Blood Culture - Final No growth after 5 days. 06/08/22 05:00 Blood - Venous Blood Culture - Final No growth after 5 days. 06/09/22 07:17 Sputum - Suctioned Gram Stain - Final 06/09/22 07:17 Sputum - Suctioned Sputum Culture - Final 06/05/22 10:33 Blood - Venous Blood Culture - Final No growth after 5 days. 06/05/22 11:03 Blood - Venous Blood Culture - Final Coag negative Staphylococcus 06/06/22 03:43 Sputum - Suctioned Gram Stain - Final 06/06/22 03:43 Sputum - Suctioned Sputum Culture - Final 06/01/22 16:44 Blood - Venous Blood Culture - Final No growth after 5 days. 06/01/22 16:33 Blood - Venous Blood Culture - Final No growth after 5 days. 06/02/22 01:56 Sputum - Suctioned Gram Stain - Final 06/02/22 01:56 Sputum - Suctioned Sputum Culture - Final Quality Stroke Does the patient have a stroke diagnosis?: No VTE Prior VTE?: No VTE Risk Level:: Medical - moderate - high VTE Device Contraindication: N/A - Device Ordered VTE Drug Contraindication: N/A - Med Ordered
--- NOTE | 2022-06-23 14:00 | PC.NURSE ---
1988-[place] [facility] called, spoke with Laura. pt was declined for organs, but was asked to call back if occurs to evaluate for tissue. Referral #: [id number]
--- NOTE | 2022-06-23 14:03 | PC.NURSE ---
1300-multiple family members in and out of pt's room. family spoke with dr. rebolledo. 1315-family requesting chaplan prior to extubation. Chaplan would be on unit around 1400.
[2022-06-23] MEDS: fentaNYL citrate/NS 1,000 MCG/100 ML PLAST..BAG 5 MCG IVCONT (14:30)
[2022-06-23] MEDS: fentaNYL citrate/PF 100 MCG/2 ML VIAL 50 MCG IVPUSH (14:48)
--- NOTE | 2022-06-23 15:47 | PC.NURSE ---
1506-pt extubate per dr. rebolledo order with RT and RN to room air. Pt on fentanyl gtt prior to extubation and was given a 50 mcg IVP. Multiple family members at bedside upon extubation. pt's eyes open. O2 sats in upper 80's on RA
[2022-06-24] VITALS (9 sets, daily range): BP systolic 173–196; BP diastolic 52–68; PULSE 69–85; RESP 16–23; TEMP 37.9–38.3; O2SAT 83–96; BMI 31.4
--- NOTE | 2022-06-24 06:40 | PC.NURSE ---
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 Patient not in any distress, occasional moist cough. Patient repos Q2H, Mouth care given. Tequila care given. Linen change done. Patient daughter updated before she left in the evening about patient status and plan to call if anything changes.
[2022-06-24] MEDS: fentaNYL citrate/NS 1,000 MCG/100 ML PLAST..BAG 5 MCG IVCONT (07:14)
--- NOTE | 2022-06-24 08:55 | MHC.CLN ---
F/U PT EXTUBATED PT IS NOW EARTH MOVER REMAINS NPO WITHOUT OGT WILL FOLLOW WITH TEAM AND PROVIDE SUPPORT NEEDED PRIMARY GOAL IS COMFORT
--- NOTE | 2022-06-24 08:57 | MHC.CM.PN ---
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 She has been extubated and is comfortable on a fentanyl gtt. Pt may be able to transfer to [place] later today for continuation of HEALTH CENTER MANAGER care.
[2022-06-24 11:34] LABS: Glucose, Whole Blood 115 mg/dL (60-115)
--- NOTE | 2022-06-24 11:51 | HE.PHANOTE ---
Hydromorphone Drip Patient has documented codeine allergy, patients reaction is unknown. Dr. Thompson is aware and we chose to continue the drip.
[2022-06-24] MEDS: HYDROmorphone HCl/NS 10 MG/50 ML PIGGYBACK 1.25 MG IV (12:55)
[2022-06-24] MEDS: Dextrose 5 % and Lactated Ring 1,000 ML 80 ML IVCONT ×2 (12:58→23:30)
--- NOTE | 2022-06-24 16:33 | PM.CCPN ---
Subjective Subjective Date of Service: 06/24/22 Interval History: Mrs. Ford was admitted to ICU June 01 after [id number] cardiorespiratory arrest. The patient is well known to me from her prior admission to this ICU with acute respiratory failure on May 12.? She is a 76 yo female with PMhx of obesity, COPD on 2L home oxygen, CHF on Aldactone, Coreg and valsartan, HTN, DM on Lantus and metformin, anemia, GERD, SHARON, and restless leg syndrome. According to the patient?s daughter, for years she has needed help with ADLs, including dressing and bathing.? She does go to the bathroom by herself.? She walks with a walker and a cane.? She was living by herself in an apartment until this past November.? She went to visit her daughter Kassy ([phone]) for the holiday, and needed some much help that she never left, she just stayed with Paige in their house in [place].? The daughter, Kassy Gutierrez is the healthcare proxy.? Another daughter, Christi Holland, is the second closest but is not listed on the health care proxy. Records from [facility] indicate that she was hospitalized there for COVID infection 11/25-.? She was never intubated, but prior to that hospitalization, she had had DNR status which she reversed during that hospitalization.? She was then hospitalized 12/15- for pulmonary embolism, for which she was started on Eliquis.? From there she was discharged to rehab facility.? She was readmitted [facility] from 02/13- for COPD exac requiring BiPAP, and 02/24-07/2022 for influenza A requiring BiPAP.? The records indicate that she was an active smoker. On May 11, the patient was intubated at home by paramedics bec of obtundation and hypoxemia.? There was no circulatory or respiratory arrest at that time.? She was BIBA and was awake in the ED.? She was admitted to the ICU.? Workup suggested CHF, and she was diuresed.? The patient was extubated to BiPAP shortly after arrival to the ICU.? She was discharged to the floor the next day. ECHOCARDIOGRAM on May 12 showed:? LV function was normal, no RWMAs noted.? EF 60%.? Moderate LVH with impaired relaxation filling pattern.? Normal RV size and contractility.? Mild .? RVSP normal.? IVC was dilated w minimal insp collapse. She was discharged home on May 16 and advised to have a sleep study. HISTORY OF PRESENT ILLNESS: Since being home, she?s been sleeping in a chair.? She can?t lie down in a bed, because she has too much shortness of breath.? She told her daughter that she breathes better with the CPAP mask, which allows her to lie in bed, but they have not been able to get one for her until she has a sleep study. On the morning of June 01, the patient was feeling a little tired.? In the early afternoon, she had increasing shortness of breath and the daughter went up on her oxygen from her usual 2L to 3 L, and then to 4 L.? She was getting even more short of breath so the daughter went to call the ambulance.? Shortly thereafter, the patient passed out.? The daughter's started CPR and EMS arrived very soon thereafter.? On arrival at the scene, the patient had agonal breathing, and did have a pulse.? Initial heart rate 30s, blood pressure 80s.? Atropine was given followed by cardiac arrest.? CPR was started, 1 mg epinephrine given, and the patient had ROSC after about 1-1/2 minutes.? At some point, a Suhas airway was inserted.? The patient was BIBA to the ED. The patient was immediately intubated on arrival to the ED.? She was normotensive and afebrile.? WBC was 15, Hb 8.5, chemistries OK, trop 9, BNP 139, lactate was 10.? EKG showed T-wave inversion in leads I and aVL, unchanged from previous tracing of May 12. The patient was given fluids and antibiotics.? Central line was placed.? She was admitted to the ICU.? CTPA showed left lower lobe consolidation.? Normal heart size, no pulmonary emboli.? The patient was started on broad-spectrum antibiotics for presumed LLL pneumonia. Initially upon sedation holidays with the propofol off, the patient was very agitated in bed, moving all 4 with strength, had some partial eye opening movement but was 100% non interactive.? Breathing became chaotic, requiring resedation.? But over the last two weeks, she?d been less and less active, to the point that she?d been off sedation since June 08, and flaccid to stimulation, no more eye opening.? EEG on June 08 showed moderate generalized slowing, with no evidence of seizure disorder.? Last head CT on June 12 showed no acute intracranial process; few lacunar infarcts and atrophy that are stable. The family made the decision yesterday to transition to comfort measures only (see my notes from last two days) and the patient was extubated to room air yesterday afternoon.? She was breathing easy on a fentanyl infusion at 50 mcg, and maintaining a room air SpO2 of high 80?s-low 90s. This morning, she remains on the fentanyl at 50ug/hr.? Off all other meds.? Not getting any IV fluids.? Respiratory rate about 16-20 with mostly clear airway.? Sat 88-93% on room air.? Heart rate about 70, sinus rhythm.? Blood pressure about 170/50.? This morning, amazingly, she is arousable, opens eyes readily to stimulation, was frequently interactive with family, tracking, and even nodding her head appropriately and whispering a few words.? No jugular venous distention at 30 degrees. ?Chest is CTA with normal expiratory phase.? Abdomen is obese and benign.? She has maybe trace central edema; all her pretibial edema is resolved. I&O:? u/o 1300 cc x 24 hrs.? Overall net positive 189cc. LABORATORY DATA: ?None today.? POC 115. ECHOCARDIOGRAM 06/02 by the [place]:? Technically difficult.? Showed perhaps mildly depressed LVEF, 45-50%, with impaired relaxation filling pattern.? New notable valvular Doppler findings.? IVC was dilated with no inspiratory collapse. IMPRESSION: 1. Underlying severe COPD, was on home oxygen. 2. Underlying marked debilitation and frailty. 3. Underlying tobacco abuse. 4. Underlying chronic hypoxemic and hypercapnic resp failure. 5. Underlying diastolic heart failure.? No evidence of acute heart failure this admission.? I note that her Med Rec doesn?t include the aldactone that she was on at the last admission.? Nor was she on any diuretic. 6. Hx of PE, for which she was previously on Eliquis at the last admission, that was not on her Med Rec this admission.? Her daughter said she was no longer taking it, but I don?t know why. 7. Cardiorespiratory arrest.? Unclear etiology. ?By history, it sounds like her breathing just got worse over the day prior to the ambulance being called.? Could have been COPD exacerbation or CHF, but there was no gross evidence of either at admission, and if anything, the edema she had on this admission was less than she had in April.? No evidence of acute NE or PE.? No significant metabolic alkalosis to suggest CO2 narcosis.? Could also have been aspiration, for whatever reason. 8. Coma.? Anoxic encephalopathy.? Up until today, she had complete absence of cortical activity.? Miraculously, she seems to have woken up.? I discussed the ramifications of this w the family at great length.? See below. 9. Acute resp failure.? 2? above.? For now, she?s breathing adequately enough to maintain reasonable homeostasis. 10. ID:? Still running low grade temps.? No worsening in her oxygenation.? WBC has been normal.? Nothing notable in her cultures from 06/12.? At this point, with comfort measure status, there?s no indication to take any action. 11. Metabolic alkalosis.? Secondary to diuresis. 12. HTN.? Had been well treated with her Coreg and valsartan.? 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 13. DM.? When she was getting tube feeds, she was adequately control on Lantus bid, plus sliding scale. 14. Anemia.? She has a h/o anemia which I believe was followed at [facility].? Had been taking iron at home.? She was transfused 1 unit here on 06/04.? Hemoccult was positive on 06/08. 15. Nutrition.? Had been on Osmolyte tube feeds.? Now nothing. I met with the family this morning at the bedside at length and discussed the current situation.? Obviously this is an unusual situation, and the question is, is this a lucid interval, or is this a lasting improvement in her cortical fxn.? And if the latter, will she stay at this level, or will her cortical fxn improve further.? Either way, I indicated to them that I was fairly confident that she was never going to regain independent function again, that from here on out she was going to require total care.? I also indicated to them that should she go to a mcc, it was not going to be any picnic there, and her mcc course would likely be marked by one complication after another, with a one year mortality of at least 50%. That said, I discussed with them the options in regards to how to proceed from here:? 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 It should be noted, and the family is clear about this (they told me themselves) that the patient never wanted to be intubated.? I discussed with them that they needed to be thinking not of themselves, but of their mother's wants and welfare.? Her own wishes were clearly never to be maintained through artificial means.? Is clear to me that the son and the daughters understand this and want to abide by their mother's wishes, despite also wanting to have their mother be around for themselves. We came to an agreement that we would leave her be as she is for the next couple of days, and give her IV fluids with dextrose containing fluid in order to prevent her from becoming dehydrated and hypo glycemic.? I discussed with them specifically that, in effect, this would be a test and a challenge to see how well their mother would do with this new improvement in cortical function, and to see if that was truly a lasting improvement.? I discussed with them that I would not recommend oxygen or antibiotics or any other treatment during that test period. ?They agreed. The patient will be transferred to a regular room.? The family is in agreement. Time (including hospital course summary, extensive discussion with family, and sign out to hospitalists):? 2+ hours. Critical Care Time (minutes): 0 Physical Exam Vital Signs: Vital Signs: Last Vital Signs Temp 100.4 F 06/24/22 08:00 Pulse 74 06/24/22 12:00 Resp 22 H 06/24/22 12:55 BP 173/52 H 06/24/22 04:00 Pulse Ox 88 L 06/24/22 12:00 O2 Del Method 06/24/22 15:59 O2 Flow Rate 21 06/21/22 14:00 FiO2 24 06/23/22 14:00 BMI result Body Mass Index 31.4 Objective Data Labs CBC & Chem 7: 06/23/22 05:36 06/23/22 05:36 Labs: Laboratory Results - last 24 hr 06/24/22 11:29 POC Glucose 115 Microbiology Microbiology Results: Microbiology 06/12/22 06:42 Blood - Venous Blood Culture - Final No growth after 5 days. 06/12/22 06:42 Blood - Venous Blood Culture - Final No growth after 5 days. 06/12/22 16:15 Catheter Tip - Cvp Catheter Tip Culture - Final Klebsiella pneumoniae Staphylococcus epidermidis 06/12/22 06:56 Sputum - Suctioned Gram Stain - Final 06/12/22 06:56 Sputum - Suctioned Sputum Culture - Final Klebsiella pneumoniae 06/08/22 05:00 Blood - Venous Blood Culture - Final No growth after 5 days. 06/08/22 05:00 Blood - Venous Blood Culture - Final No growth after 5 days. 06/09/22 07:17 Sputum - Suctioned Gram Stain - Final 06/09/22 07:17 Sputum - Suctioned Sputum Culture - Final 06/05/22 10:33 Blood - Venous Blood Culture - Final No growth after 5 days. 06/05/22 11:03 Blood - Venous Blood Culture - Final Coag negative Staphylococcus 06/06/22 03:43 Sputum - Suctioned Gram Stain - Final 06/06/22 03:43 Sputum - Suctioned Sputum Culture - Final 06/01/22 16:44 Blood - Venous Blood Culture - Final No growth after 5 days. 06/01/22 16:33 Blood - Venous Blood Culture - Final No growth after 5 days. 06/02/22 01:56 Sputum - Suctioned Gram Stain - Final 06/02/22 01:56 Sputum - Suctioned Sputum Culture - Final Quality Stroke Does the patient have a stroke diagnosis?: No VTE Prior VTE?: No VTE Risk Level:: Medical - moderate - high VTE Device Contraindication: N/A - Device Ordered VTE Drug Contraindication: N/A - Med Ordered
[2022-06-24 18:23] LABS: Glucose, Whole Blood 152 mg/dL (60-115)
[2022-06-24 23:37] LABS: Glucose, Whole Blood 168 mg/dL (60-115)
[2022-06-25] VITALS (7 sets, daily range): BP systolic 159–206; BP diastolic 60–90; PULSE 79–90; RESP 12–26; TEMP 37.2–38.4; O2SAT 80–88
--- NOTE | 2022-06-25 08:31 | MHC.CM.PN ---
Pt has been extubated and made TAX PROFESSIONAL. She is on a Dilaudid gtt for respiratory distress and is receiving IVF to prevent dehydration and hypoglycemia per care plan initiated by MD and family. It is unknown if pt will pass here, require placement in a SNF, or return to home with family and possible Hospice services. [facility] SN[facility] referrals updated: CM to discuss home with Hospice as a d/c options with family today. Pt will transition out of ICU for continued care on a medical unit.
[2022-06-25 11:25] LABS: Glucose, Whole Blood 177 mg/dL (60-115)
[2022-06-25 11:29] LABS: Glucose, Whole Blood 209 mg/dL (60-115)
--- NOTE | 2022-06-25 12:17 | PC.NURSE ---
Patient has remained in ICU as a floor patient border. 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 She opens eyes to voice and at times makes eye contact with caregiver. She is able to answer some questions with a faint hoarse voice. She knows she is in the hospital and recognizes her family members and says I love you . She denies pain. She looks comfortable on Dilaudid gtt at 0.25 mg/hr. She has not been able to move extremities or make her needs known. BP has been elevated off nicardapine gtt. Systolic bp 170 to 180's via cuff pressure. HR sinus rate 60's. Strong palpable pulses. No cyanosis or mottling noted. Good cms. Elevated temp 100 to 101. Respiratory acosta patient's lungs have coarse inspiratory and expiratory rhonchi bilaterally and some course crackles at the lung bases. She exhibits a weak cough. Gurgling is audible in her upper airway and patient is suctioned orally utilizing a yankaur for creamy yellow secretions. RR is 16 to 20, regular and easy. Patient appears free from resp distress. O2 sats are 80 to 86% today. She remains on RA. Patient is NPO and has likely aspirated some of her own secretions s/p extubation as she is not adept at clearing her own airway. Mouth is swabbed frequently and moisturizer applied. Jovel continues to drain clear yellow urine, quantity sufficient. Per family's wishes patient is receiving IVF- D5LR at 80cc/hr. Also per family's wishes blood glucose poc is monitored q 6 hrs. Blood sugar has remained stable. Skin is generally intact. There is one small (approx nickel sized) DTI on l buttock that has formed some reddish granulation. There is no drainage. It remains open to air and barrier cream is applied as needed and with turns and care. Patient's extended family has visited often. They are aware of patient's status and wish for her to remain comfortable. They are very supportive and ask questions as needed. They verbalize understanding. Dr. Thompson has had numerous conversations with the family regarding their wishes, as well as the patient's wishes regarding plan of care. The plan today is to transfer to the surgical floor for continued comfort care. Family is aware of pending transfer.
[2022-06-25] MEDS: Dextrose 5 % and Lactated Ring 1,000 ML 80 ML IVCONT ×2 (14:29→22:02)
[2022-06-25] MEDS: HYDROmorphone HCl/NS 10 MG/50 ML PIGGYBACK 1.5 MG IV (15:18)
--- NOTE | 2022-06-25 15:53 | P.PNIM_ITS ---
Subjective Subjective Date of Service: 06/25/22 Interval History: Patient seen and examined and discussed with Dr. Thompson yesertday and RN today, son at bed, she is unresponsive, very gurgly.. Review of Systems unresponsive Physical Exam Vital Signs: Vital Signs: Last Vital Signs Temp 100.8 F H 06/25/22 12:00 Pulse 90 06/25/22 12:00 Resp 20 06/25/22 15:26 BP 196/74 H 06/25/22 12:00 Pulse Ox 88 L 06/25/22 15:26 O2 Del Method 06/25/22 15:26 O2 Flow Rate 21 06/21/22 14:00 FiO2 24 06/23/22 14:00 BMI result Body Mass Index 31.4 Const: Other: Not in acute respiratory distress, gurgly sounds Objective Data Active Medications Diazepam (Diazepam 10 Mg/2 Ml Cartridge) 2.5 mg IVPUSH Q4H PRN PRN Reason: anxiety Hydromorphone HCl (Hydromorphone Hcl 0.5 Mg/0.5 Ml Syringe) 0.25 mg IVPUSH Q4H PRN; Protocol PRN Reason: repiratory distress Dextrose/Lactated Ringer's (D5lr) 1,000 mls @ 80 mls/hr IVCONT .[id number] [facility] Last Admin: 06/25/22 14:29 Dose: 80 mls/hr Documented By: LUIS Hydromorphone HCl (Dilaudid) 10 mg in 50 mls @ 0 mls/hr IV .Q0M [facility]; Protocol Last Admin: 06/25/22 15:18 Dose: 0.3 mg/hr, 1.5 mls/hr Documented By: LUIS Pharmacy Consult (Consult Rx Perform Med Rec) 1 each MISCELLANE ONCE PRN PRN Reason: Consult order Pharmacy Consult (Consult Rx Perform Med Rec) 1 each MISCELLANE ONCE PRN PRN Reason: Consult order Scopolamine (Scopolamine 1.5 Mg Patch.Td.3) 1.5 mg EAR-BEHIND Q72H [facility] Labs CBC & Chem 7: 06/23/22 05:36 06/23/22 05:36 Labs: Laboratory Results - last 24 hr 06/24/22 06/24/22 06/25/22 18:20 23:33 05:23 POC Glucose 152 H 168 H 177 H 08/04/22 11:25 POC Glucose 209 H Assessment and Plan (1) Anoxic encephalopathy: Status: Acute Plan Patient is comfort care only following cardic arrest with prolonged inutbation and was terminally extubated Dr. Thompson met with the family on 06/25 morning at the bedside at length and discussed the current situation.? Obviously this is an unusual situation, and the question is, is this a lucid interval, or is this a lasting improvement in her cortical fxn.? And if the latter, will she stay at this level, or will her cortical fxn improve further.? Either way, Dr Thompson indicated to them that he was fairly confident and I do too that the patient is never going to regain independent function again, that from here on out she was going to require total care.? Dr Thompson also indicated to them that should she go to a halfway, it was not going to be any picnic there, and her halfway course would likely be marked by one complication after another, with a one year mortality of at least 50%. That said, Dr. Thompson discussed with them the options in regards to how to proceed from here:? 1) Continue with FAMILY SUPPORT SPECIALIST until she passes; 2) see how she does over the next few days, and then decide, with the option that if she does well, they could than make a reasonable case for a PEG, with or without a tracheo stomy; or 3) proceed with tracheostomy and PEG right now. It should be noted, and the family is clear about this (they told me [Dr. Thompson] themselves) that the patient never wanted to be intubated.? Dr. Thompson discussed with them that they needed to be thinking not of themselves, but of their mother's wants and welfare.? Her own wishes were clearly never to be maintained through artificial means.? Is clear.. that the son and the daughters understand this and want to abide by their mother's wishes, despite also wanting to have their mother be around for themselves. We came to an agreement that we would leave her be as she is for the next couple of days, and give her IV fluids with dextrose containing fluid in order to prevent her from becoming dehydrated and hypo glycemic.? Dr. Thompson discussed with them specifically that, in effect, this would be a test and a challenge to see how well their mother would do with this new improvement in cortical function, and to see if that was truly a lasting improvement.? Finally Dr. Thompson discussed with them that he would not recommend oxygen or antibiotics or any other treatment during that test period. ?They agreed. I concur with the above assessment and son a bed side did not have a contrarian view. I am adding Scopolamine patch, PRN benzo and PRN Dilaudid for maximum comfort Quality Stroke Does the patient have a stroke diagnosis?: No VTE Prior VTE?: No VTE Risk Level:: Medical - moderate - high VTE Device Contraindication: N/A - Device Ordered VTE Drug Contraindication: N/A - Med Ordered
[2022-06-25 16:03] LABS: Glucose, Whole Blood 242 mg/dL (60-115)
[2022-06-25] MEDS: Scopolamine 1.5 MG PATCH.TD.3 EAR-BEHIND (16:40)
[2022-06-25] MEDS: HYDROmorphone HCl 0.5 MG/0.5 ML SYRINGE 0.25 MG IVPUSH (16:40)
[2022-06-25 19:33] LABS: Glucose, Whole Blood 241 mg/dL (60-115)
[2022-06-26 05:28] LABS: Glucose, Whole Blood 227 mg/dL (60-115)
[2022-06-26 07:21] VITALS: BP 184/77; PULSE 87; RESP 15; TEMP 37.7; O2SAT 86
[2022-06-26 08:04] LABS: Glucose, Whole Blood 216 mg/dL (60-115)
--- NOTE | 2022-06-26 09:59 | P.PNIM_ITS ---
Subjective Subjective Date of Service: 06/26/22 Interval History: post ICU care following cardiac arrest, anoxic brain injury pt remains unresponsive, hypoxic.. 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, glucose level being monitored Review of Systems unresponsive Physical Exam Vital Signs: Vital Signs: Last Vital Signs Temp 99.9 F 06/26/22 07:21 Pulse 87 06/26/22 07:21 Resp 15 06/26/22 07:21 BP 184/77 H 06/26/22 07:21 Pulse Ox 86 L 06/26/22 07:21 O2 Del Method 06/26/22 07:21 O2 Flow Rate 21 06/21/22 14:00 FiO2 24 06/23/22 14:00 BMI result Body Mass Index 31.4 Const: Other: Not in acute respiratory distress, gurgly sounds General: no acute distress and other ( not following commands, minimal arousal) Eyes: Sclerae: sclerae normal EOM: EOMs intact bilaterally Neck: Neck: Yes no lymphadenopathy, Yes trachea midline and Yes supple Resp: Effort & Inspection: normal respiratory effort and no respiratory distress Auscultation: clear to auscultation bilaterally Cardio: Rate: regular rate Rhythm: regular rhythm Heart sounds: no gallops, no murmurs and no rubs GI: Palpation (GI): Soft to palpation and Other GI palpation findings present ( Nontender) Auscultation: normal bowel sounds Extrem: General: Yes no pedal edema, No clubbing, No cyanosis and Yes pedal edema ( trace bilateral) Objective Data Active Medications Hydromorphone HCl (Hydromorphone Hcl 0.5 Mg/0.5 Ml Syringe) 0.25 mg IVPUSH Q4H PRN; Protocol PRN Reason: repiratory distress Last Admin: 06/25/22 16:40 Dose: 0.25 mg Documented By: LUIS Dextrose/Lactated Ringer's (D5lr) 1,000 mls @ 80 mls/hr IVCONT .[id number] [facility] Last Admin: 06/25/22 22:02 Dose: 80 mls/hr Documented By: ESTEBAN Hydromorphone HCl (Dilaudid) 10 mg in 50 mls @ 0 mls/hr IV .Q0M [facility]; Protocol Last Admin: 06/25/22 15:18 Dose: 0.3 mg/hr, 1.5 mls/hr Documented By: LUIS Lorazepam (Lorazepam 0.5 Mg Tablet) 0.5 mg SUBLINGUAL Q4H PRN PRN Reason: Anxiety Pharmacy Consult (Consult Rx Perform Med Rec) 1 each MISCELLANE ONCE PRN PRN Reason: Consult order Pharmacy Consult (Consult Rx Perform Med Rec) 1 each MISCELLANE ONCE PRN PRN Reason: Consult order Scopolamine (Scopolamine 1.5 Mg Patch.Td.3) 1.5 mg EAR-BEHIND Q72H [facility] Last Admin: 06/25/22 16:40 Dose: 1.5 mg Documented By: LUIS Labs CBC & Chem 7: 06/23/22 05:36 06/23/22 05:36 Labs: Laboratory Results - last 24 hr 06/25/22 06/25/22 06/25/22 05:23 11:25 15:33 POC Glucose 177 H 209 H 242 H 06/25/22 06/26/22 06/26/22 19:22 05:11 07:18 POC Glucose 241 H 227 H 216 H Assessment and Plan (1) Anoxic encephalopathy: Status: Acute Plan Patient is comfort care only following cardic arrest with prolonged inutbation and was terminally extubated, has anoxic encephalopathy Dr. Thompson met with the family on 06/25 morning at the bedside at length and discussed the current situation.? Obviously this is an unusual situation, and the question is, is this a lucid interval, or is this a lasting improvement in her cortical fxn.? And if the latter, will she stay at this level, or will her cortical fxn improve further.? Either way, Dr Thompson indicated to them that he was fairly confident and I do too that the patient is never going to regain independent function again, that from here on out she was going to require total care.? Dr Thompson also indicated to them that should she go to a custodial, it was not going to be any picnic there, and her custodial course would likely be marked by one complication after another, with a one year mortality of at least 50%. That said, Dr. Thompson discussed with them the options in regards to how to proceed from here:? 1) Continue with INVESTMENT BANKING ASSOCIATE until she passes; 2) see how she does over the next few days, and then decide, with the option that if she does well, they could than make a reasonable case for a PEG, with or without a tracheostomy; or 3) proceed with tracheostomy and PEG right now. It should be noted, and the family is clear about this (they told me [Dr. Thompson] themselves) that the patient never wanted to be intubated.? Dr. Thompson discussed with them that they needed to be thinking not of themselves, but of their mother's wants and welfare.? Her own wishes were clearly never to be maintained through artificial means.? Is clear.. that the son and the daughters understand this and want to abide by their mother's wishes, despite also wanting to have their mother be around for themselves. We came to an agreement that we would leave her be as she is for the next couple of days, and give her IV fluids with dextrose containing fluid in order to prevent her from becoming dehydrated and hypo glycemic.? Dr. Thompson discussed with them specifically that, in effect, this would be a test and a challenge to see how well their mother would do with this new improvement in cortical function, and to see if that was truly a lasting improvement.? Finally Dr. Thompson discussed with them that he would not recommend oxygen or antibiotics or any other treatment during that test period. ?They agreed. I concur with the above assessment and son a bed side did not have a contrarian view. continu Sco polamine patch, PRN benzo and PRN Dilaudid for maximum comfort, will discuss furhter with family above withdrawing of feeds, IVFs, and vital checks since no intervention is been taken at this time and hospice consult. Quality Stroke Does the patient have a stroke diagnosis?: No VTE Prior VTE?: No VTE Risk Level:: Medical - moderate - high (comfort care) VTE Device Contraindication: Treatment Not Indicated (comfort care) VTE Drug Contraindication: Treatment Not Indicated (comfort care)
[2022-06-26] MEDS: Dextrose 5 % and Lactated Ring 1,000 ML 80 ML IVCONT (10:15)
--- NOTE | 2022-06-26 10:30 | MHC.CLN ---
Addendum entered by Ellen Mccarty RD 06/26/22 10:35: SMALL DTI NOTED TO LEFT BUTTOCK. Original Note: F/U PATIENT TRANSFERRED FROM ICU TO MED/SURG UNIT FOR COMFORT CARE. 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 CURRENTLY NPO. RECEIVING IV FLUIDS AND CHECKING POC PER FAMILY REQUEST. WILL FOLLOW WITH TEAM AND PROVIDE SUPPORT NEEDED. PRIMARY GOAL IS COMFORT.
--- NOTE | 2022-06-26 11:55 | MHC.CM.PN ---
Addendum entered by Mary Grace Beach 06/26/22 16:13: EMR review, per family request HYDRAULIC PUNCH PRESS OPERATOR reversed. PEG tube requested. NGT will be inserted and a surgery consult pending for PEG. Original Note: Per ROUNDS discussion, patient is Not yet ready for discharge today r/t post ICU following cardiac arrest and anoxic brain injury. Patient on HYDRAULIC PUNCH PRESS OPERATOR-receiving tube feeding and IV fluids. MD will meet with family to discuss safe discharge. Snf's and LTC facility have been updated and are following. If discharge is home, patient to go home with hospice pending family agreement.
[2022-06-26 13:48] LABS: Glucose, Whole Blood 246 mg/dL (60-115)
--- NOTE | 2022-06-26 14:09 | PM.EVENT ---
Event Note Date of Service: 06/26/22 Event Note: Discussed care with patient's daughter Jeanne (HCP) who notes significant improvement in patient's cognition --that she recognises her, able to say some words to her, reach out to give me a kiss , she is therefore asking that comfort meausres be reversed and patient to have permaent feeding tube placement, labs checks, meds.. She however wants to maintain DNR and DNI status.. Will therefore insert NGT for feeding, Srugery consult for PEG, check routine labs, O2 to keep sat up, will discontinue dilaudid drip and IVP dilaudid for discomfort. Attempt to reconsile meds
[2022-06-26 14:38] VITALS: BP 133/61; PULSE 94; RESP 20; TEMP 37.3; O2SAT 95
[2022-06-26 15:02] LABS: Hematocrit 33.7 % (37.0-47.0); Hemoglobin 9.6 g/dl (12.0-16.0); Mean Corpuscular HGB Conc 28.5 g/dl (31.0-35.0); Mean Corpuscular Hemoglobin 20.6 pg (27.0-33.0); Mean Corpuscular Volume 72.2 fL (80.0-98.0); Platelet Count 186 X10*3/uL (160-400); Red Blood Count 4.67 X10*6/uL (4.20-5.50); Red Cell Distribution Width 23.5 % (11.0-16.0)
--- NOTE | 2022-06-26 15:13 | MHC.CLN ---
RE: CONSULT PT WITH NG TUBE AND TO START TF RECOMMEND OSMOLITE 1.5 AT MAX GOAL RATE 45 ML/HR TO PROVIDE 1620KCALS (27KCALS/KG), 67.6G TOTAL PROTEIN (1.1G/KG), 823ML FREE WATER FROM FORMULA HOLDING FREE WATER FLUSHES R/T HX HYPONATREMIA START TF AT 20ML/HR AND INCREASE BY 10ML Q 4 HRS UNTIL MAX GOAL IS ACHIEVED MONITOR TOLERANCE, RESIDUALS AND LYTES
[2022-06-26 15:14] LABS: Anion Gap 15 (12-20); Blood Urea Nitrogen 14 mg/dL (9-16); Calcium 8.5 mg/dL (8.4-10.2); Carbon Dioxide 29 mmol/L (22-29); Chloride 100 mmol/L (96-108); Creatinine Clr Calc Pharmacy 84.6; Estimated Glomerular Filt Rate > 60; Glucose Random 259 mg/dL (60-115); Potassium 4.1 mmol/L (3.3-5.1); Sodium 140 mmol/L (135-145)
[2022-06-26 15:39] VITALS: BP 123/54; PULSE 89; RESP 17; TEMP 38; O2SAT 92
[2022-06-26 16:17] LABS: Glucose, Whole Blood 231 mg/dL (60-115)
[2022-06-26] MEDS: Dextrose 5 % 1,000 ML 50 ML IVCONT (16:43)
[2022-06-26] MEDS: Acetaminophen 325 MG TABLET 650 MG PO (17:12)
[2022-06-26 19:46] VITALS: BP 139/60; PULSE 92; RESP 18; TEMP 37.1; O2SAT 92
[2022-06-26 20:07] LABS: Glucose, Whole Blood 271 mg/dL (60-115)
[2022-06-26] MEDS: Insulin Lispro 100 UNIT/ML 3 ML VIAL SUBCUT (20:59)
[2022-06-26 23:57] VITALS: BP 160/75; PULSE 84; RESP 20; TEMP 36.5; O2SAT 94
[2022-06-27 03:03] VITALS: BP 174/78; PULSE 93; RESP 20; TEMP 36.6; O2SAT 92
[2022-06-27 07:29] LABS: Glucose, Whole Blood 367 mg/dL (60-115)
[2022-06-27 07:35] VITALS: BP 190/70; PULSE 92; RESP 20; TEMP 37.2; O2SAT 92
[2022-06-27] MEDS: Dextrose 5 % 1,000 ML 50 ML IVCONT (08:11)
[2022-06-27] MEDS: Insulin Lispro 100 UNIT/ML 3 ML VIAL SUBCUT ×4 (08:11→20:43)
--- NOTE | 2022-06-27 08:13 | PM.CNGS ---
History of Present Illness Consult details Consult date: 06/27/22 Requesting physician: Pablo Hauser Narrative: 76-year-old female patient admitted on 06/01/2022 following cardiac arrest and anoxic brain injury, with a prolonged ICU admission. Patient was unresponsive hypoxic and made comfort measures only. Over the past several days however the patient has become slightly more responsive. The patient is currently on nasogastric tube feeds but remains DNR DNI. Her family is requesting PEG tube placement to maintain GI feeds. Review of Systems Review of Systems: Yes Unobtainable due to mental status PMFSH Past Medical History Medical History Anemia CHF (congestive heart failure) COPD (chronic obstructive pulmonary disease) Diabetes HTN (hypertension) Sudden cardiac arrest Social History Social History Household Members: Unknown / Unable to assess Housing: Unknown / Unable to assess Unable to assess alcohol history related to: Unable to respond Patient Tobacco Use Status: Tobacco use Unknown Currently Displaying Signs/Symptoms of Drug Intoxication Withdrawal: No Advance Directives: Yes Advance Directives on File: Yes Advance Directives Date on File: 05/15/22 Do you have thoughts of harming others: None Do you have a plan to hurt others: No Plan Recently lost weight without trying: Unsure Patient : No service: No Current occupational status: disabled Meds Allergies Allergy/AdvReac Type Severity Reaction Status Date / Time codeine Allergy Unknown Verified 05/12/22 12:14 naproxen Allergy Unknown Verified 05/12/22 12:15 Active Medications: Current Medications Acetaminophen (Acetaminophen 325 Mg Tablet) 650 mg PO Q4H PRN PRN Reason: Fever Last Admin: 06/26/22 17:12 Dose: 650 mg Hydromorphone HCl (Hydromorphone Hcl 0.5 Mg/0.5 Ml Syringe) 0.25 mg IVPUSH Q4H PRN; Protocol PRN Reason: repiratory distress Last Admin: 06/25/22 16:40 Dose: 0.25 mg Dextrose (D5w) 1,000 mls @ 50 mls/hr IVCONT .Q20H [facility] Last Admin: 06/26/22 16:43 Dose: 50 mls/hr Insulin Human Lispro (Insulin Lispro 100 Unit/Ml 3 Ml Vial) 0 unit SUBCUT QIDACHS [facility]; Protocol Last Admin: 06/26/22 20:59 Dose: 6 unit Lorazepam (Lorazepam 0.5 Mg Tablet) 0.5 mg SUBLINGUAL Q4H PRN PRN Reason: Anxiety Pharmacy Consult (Consult Rx Perform Med Rec) 1 each MISCELLANE ONCE PRN PRN Reason: Consult order Pharmacy Consult (Consult Rx Perform Med Rec) 1 each MISCELLANE ONCE PRN PRN Reason: Consult order Scopolamine (Scopolamine 1.5 Mg Patch.Td.3) 1.5 mg EAR-BEHIND Q72H [facility] Last Admin: 06/25/22 16:40 Dose: 1.5 mg Home Medications Medication Instructions Recorded Confirmed Last Taken Type albuterol sulfate 90 mcg/actuation 1 inh inhalation Q4-6H PRN Wheezing 05/12/22 06/01/22 Unknown History breath activated powder inhaler,sensor budesonide-formoterol HFA 160 2 puff inhalation BID 05/12/22 06/01/22 06/01/22 History mcg-4.5 mcg/actuation aerosol inhaler (Symbicort) carisoprodol 350 mg tablet (Soma) 350 mg PO QID 05/12/22 06/01/22 06/01/22 History carvedilol 6.25 mg tablet 6.25 mg PO BID 05/12/22 06/01/22 06/01/22 History citalopram 20 mg tablet 30 mg PO DAILY 05/12/22 06/01/22 06/01/22 History clonazepam 1 mg tablet 1 mg PO BEDTIME 05/12/22 06/01/22 05/31/22 History clonidine HCl 0.1 mg tablet 0.1 mg PO BEDTIME 05/12/22 06/01/22 05/31/22 History diltiazem HCl 360 mg 360 mg PO DAILY 05/12/22 06/01/22 06/01/22 History capsule,extended release 24 hr diphenhydramine HCl 25 mg tablet 25 mg PO BEDTIME 05/12/22 06/01/22 05/31/22 History insulin glargine 100 unit/mL (3 65 unit subcut DAILY@1700 05/12/22 06/01/22 05/31/22 History mL) subcutaneous pen (Melany KwikPen U-100 Insulin) irbesartan 300 mg tablet 300 mg PO DAILY 05/12/22 06/01/22 06/01/22 History metformin 500 mg tablet,extended 1,000 mg PO BIDAC 05/12/22 06/01/22 06/01/22 History release 24 hr mirtazapine 15 mg tablet 15 mg PO BEDTIME 05/12/22 06/01/22 05/31/22 History omeprazole 20 mg capsule,delayed 20 mg PO DAILY 05/12/22 06/01/22 06/01/22 History release ramelteon 8 mg tablet 8 mg PO BEDTIME 05/12/22 06/01/22 05/31/22 History Physical Exam Vital Signs: Vital Signs: Last Vital Signs Temp 98.9 F 06/27/22 07:35 Pulse 92 06/27/22 07:35 Resp 20 06/27/22 07:35 BP 190/70 H 06/27/22 07:35 Pulse Ox 92 06/27/22 07:35 O2 Del Method 06/27/22 07:35 O2 Flow Rate 0.5 06/27/22 07:35 FiO2 24 06/23/22 14:00 BMI result Body Mass Index 31.4 Const: General: no acute distress and patient obtunded Orientation/consciousness: patient obtunded Limitations: altered mental status HEENT: Head: Yes normocephalic and Yes atraumatic Resp: Effort & Inspection: normal respiratory effort Auscultation: no rhonchi and no wheezes GI: Palpation (GI): Soft to palpation, nontender, no guarding and not rigid Percussion: Yes normal to percussion Auscultation: normal bowel sounds Skin: General skin exam: no ecchymosis and no erythema Neuro: General: patient obtunded Extrem: General: Yes edema Results Labs Result diagrams: 06/26/22 14:49 06/26/22 14:49 Labs: Abnormal lab results 06/26/22 06/26/22 06/26/22 Range/Units 13:43 14:49 14:49 Hgb 9.6 L (12.0-16.0) g/dl Hct 33.7 L (37.0-47.0) % MCV 72.2 L (80.0-98.0) fL MCH 20.6 L (27.0-33.0) pg MCHC 28.5 L (31.0-35.0) g/dl RDW 23.5 H (11.0-16.0) % POC Glucose 246 H (60-115) mg/dL Random Glucose 259 H (60-115) mg/dL 06/26/22 06/26/22 06/27/22 Range/Units 15:45 19:56 07:22 Hgb (12.0-16.0) g/dl Hct (37.0-47.0) % MCV (80.0-98.0) fL MCH (27.0-33.0) pg MCHC (31.0-35.0) g/dl RDW (11.0-16.0) % POC Glucose 231 H 271 H 367 H* (60-115) mg/dL Random Glucose (60-115) mg/dL Short CBC 06/26/22 Range/Units 14:49 WBC 9.0 (4.8-10.8) X10*3/uL Hgb 9.6 L (12.0-16.0) g/dl Hct 33.7 L (37.0-47.0) % Plt Count 186 D (160-400) X10*3/uL BMP 06/26/22 14:49 Sodium 140 Potassium 4.1 Chloride 100 Carbon Dioxide 29 BUN 14 Creatinine 0.63 Calcium 8.5 Urine 06/01/22 06/02/22 06/05/22 Range/Units 17:40 10:25 09:49 Urine Color YELLOW YELLOW COLORLESS Urine Appearance HAZY CLEAR CLEAR Urine pH 6.5 7.0 7.0 (5.0-8.0) Ur Specific [place] 1.025 1.010 1.015 (1.005-1.025) Urine Protein 2+ H TRACE NEG (NEG-TRACE) MG/DL Urine Glucose (UA) >=1000 H NEG NEG (NEG) MG/DL 06/12/22 Range/Units 06:56 Urine Color YELLOW Urine Appearance HAZY Urine pH 7.5 (5.0-8.0) Ur Specific [place] 1.015 (1.005-1.025) Urine Protein NEG (NEG-TRACE) MG/DL Urine Glucose (UA) NEG (NEG) MG/DL All other labs normal. Assessment and Plan (1) Chronic respiratory failure with hypoxia: Status: Acute (2) Anoxic encephalopathy: Status: Acute Plan 76-year-old female patient with anoxic brain injury, now minimally responsive to family members. Family has requested PEG tube placement for continued enteral feeding. She is currently tolerating nasogastric feeds. I will discuss with Dr. Castro on Wednesday to arrange for this procedure. Procedures Date of Service Date of Service: 06/27/22
--- NOTE | 2022-06-27 09:14 | P.PNIM_ITS ---
Subjective Subjective Date of Service: 06/27/22 Interval History: seen in f/u post ICU care following cardiac arrest, anoxic brain injury pt remains unresponsive, hypoxic without .. 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 yesterday, tolerating tube fee, no new issues/ Review of Systems unresponsive Physical Exam Vital Signs: Vital Signs: Last Vital Signs Temp 98.9 F 06/27/22 07:35 Pulse 92 06/27/22 07:35 Resp 20 06/27/22 07:35 BP 190/70 H 06/27/22 07:35 Pulse Ox 92 06/27/22 07:35 O2 Del Method 06/27/22 07:35 O2 Flow Rate 0.5 06/27/22 07:35 FiO2 24 06/23/22 14:00 BMI result Body Mass Index 31.4 Const: Other: General: Alert, non communicatives Resp: bilateral rhonchi CVS: S1,S2,RRR GI: +BS, NT, no distention Skin: No rash Neuro: motor grossly intact Psych: flat affect Objective Data Active Medications Acetaminophen (Acetaminophen 325 Mg Tablet) 650 mg PO Q4H PRN PRN Reason: Fever Last Admin: 06/26/22 17:12 Dose: 650 mg Documented By: LUIS Hydromorphone HCl (Hydromorphone Hcl 0.5 Mg/0.5 Ml Syringe) 0.25 mg IVPUSH Q4H PRN; Protocol PRN Reason: repiratory distress Last Admin: 06/25/22 16:40 Dose: 0.25 mg Documented By: LUIS Dextrose (D5w) 1,000 mls @ 50 mls/hr IVCONT .Q20H [facility] Last Admin: 06/27/22 08:11 Dose: 50 mls/hr Documented By: DAMION Insulin Glargine (Insulin Glargine,Hum.Rec.Anlog 100 Unit/Ml 10 Ml Vial) 15 unit SUBCUT DAILY [facility] Insulin Human Lispro (Insulin Lispro 100 Unit/Ml 3 Ml Vial) 0 unit SUBCUT QIDACHS [facility]; Protocol Last Admin: 06/27/22 08:11 Dose: 10 unit Documented By: DAMION Lorazepam (Lorazepam 0.5 Mg Tablet) 0.5 mg SUBLINGUAL Q4H PRN PRN Reason: Anxiety Pharmacy Consult (Consult Rx Perform Med Rec) 1 each MISCELLANE ONCE PRN PRN Reason: Consult order Pharmacy Consult (Consult Rx Perform Med Rec) 1 each MISCELLANE ONCE PRN PRN Reason: Consult order Scopolamine (Scopolamine 1.5 Mg Patch.Td.3) 1.5 mg EAR-BEHIND Q72H [facility] Last Admin: 06/25/22 16:40 Dose: 1.5 mg Documented By: LUIS Labs CBC & Chem 7: 06/26/22 14:49 06/26/22 14:49 Labs: Laboratory Results - last 24 hr 06/26/22 06/26/22 06/26/22 13:43 14:49 14:49 MCV 72.2 L MCH 20.6 L MCHC 28.5 L RDW 23.5 H Plt Count 186 D MPV 10.0 Absolute Nucleated RBC 0.000 Nucleated RBC % (auto) 0.0 Anion Gap 15 Estim Creat Clear Calc 84.6 Estimated GFR > 60 POC Glucose 246 H Random Glucose 259 H Calcium 8.5 06/26/22 06/26/22 06/27/22 15:45 19:56 07:22 MCV MCH MCHC RDW Plt Count MPV Absolute Nucleated RBC Nucleated RBC % (auto) Anion Gap Estim Creat Clear Calc Estimated GFR POC Glucose 231 H 271 H 367 H* Random Glucose Calcium Assessment and Plan (1) Anoxic encephalopathy: Status: Acute Plan Patient was admitted through ICU followin cardiac arrest and was intubated for weeks and was terminally extubated but has since been stable, non communicative with apparent signficant brain damage, family wants care to continues contrarary to their prior decision as discussed below Dr. Thompson met with the family on 06/25 morning at the bedside at length and discussed the current situation.? Obviously this is an unusual situation, and the question is, is this a lucid interval, or is this a lasting improvement in her cortical fxn.? And if the latter, will she stay at this level, or will her cortical fxn improve further.? Either way, Dr Thompson indicated to them that he was fairly confident and I do too that the patient is never going to regain independent function again, that from here on out she was going to require total care.? Dr Thompson also indicated to them that should she go to a jail, it was not going to be any picnic there, and her jail course would likely be marked by one complication after another, with a one year mortality of at least 50%. That said, Dr. Thompson discussed with them the options in regards to how to proceed from here:? 1) Continue with APPLIANCE SERVICE TECHNICIAN until she passes; 2) see how she does over the next few days, and then decide, with the option that if she does well, they could than make a reasonable case for a PEG, with or without a tracheostomy ; or 3) proceed with tracheostomy and PEG right now. It should be noted, and the family is clear about this (they told me [Dr. Thompson] themselves) that the patient never wanted to be intubated.? Dr. Thompson discussed with them that they needed to be thinking not of themselves, but of their mother's wants and welfare.? Her own wishes were clearly never to be maintained through artificial means.? Is clear.. that the son and the daughters understand this and want to abide by their mother's wishes, despite also wanting to have their mother be around for themselves. We came to an agreement that we would leave her be as she is for the next couple of days, and give her IV fluids with dextrose containing fluid in order to prevent her from becoming dehydrated and hypo glycemic.? Dr. Thompson discussed with them specifically that, in effect, this would be a test and a challenge to see how well their mother would do with this new improvement in cortical fu nction, and to see if that was truly a lasting improvement.? Finally Dr. Thompson discussed with them that he would not recommend oxygen or antibiotics or any other treatment during that test period. ?They agreed. I concur with the above assessment. On 06/26 following discussion with danette Angel HCP decision was made that she is no longer to APPLIANCE SERVICE TECHNICIAN, and wants a permanent feeding tube plce, therefore surgery consult is obtained, NGT was inserted and started on tube feed which she is tolerating, add Lantus and SSI to control hyperglycemia. SHE IS TO REMAIN DNR/DNI Quality Stroke Does the patient have a stroke diagnosis?: No VTE Prior VTE?: No VTE Risk Level:: Medical - moderate - high (comfort care) VTE Device Contraindication: Treatment Not Indicated (comfort care) VTE Drug Contraindication: Treatment Not Indicated (comfort care)
[2022-06-27] MEDS: Insulin Glargine,Hum.rec.anlog 100 UNIT/ML 10 ML VIAL 15 UNIT SUBCUT (09:59)
[2022-06-27 11:34] LABS: Glucose, Whole Blood 370 mg/dL (60-115)
[2022-06-27 11:42] VITALS: BP 155/66; PULSE 92; RESP 16; TEMP 36.7; O2SAT 94
[2022-06-27 16:00] VITALS: BP 164/64; PULSE 96; RESP 18; TEMP 37.1; O2SAT 96
[2022-06-27 17:15] LABS: Glucose, Whole Blood 398 mg/dL (60-115)
[2022-06-27 19:53] VITALS: BP 174/60; PULSE 90; RESP 18; TEMP 36.4; O2SAT 96
[2022-06-27 20:10] LABS: Glucose, Whole Blood 306 mg/dL (60-115)
[2022-06-27] MEDS: HYDROmorphone HCl 0.5 MG/0.5 ML SYRINGE 0.25 MG IVPUSH (23:50)
[2022-06-28] VITALS (7 sets, daily range): BP systolic 159–200; BP diastolic 60–88; PULSE 74–92; RESP 16–20; TEMP 36.2–36.7; O2SAT 94–98
[2022-06-28] MEDS: Dextrose 5 % 1,000 ML 50 ML IVCONT (02:49)
[2022-06-28 07:37] LABS: Glucose, Whole Blood 356 mg/dL (60-115)
[2022-06-28] MEDS: Insulin Lispro 100 UNIT/ML 3 ML VIAL SUBCUT ×4 (07:57→21:43)
[2022-06-28] MEDS: Insulin Glargine,Hum.rec.anlog 100 UNIT/ML 10 ML VIAL 15 UNIT SUBCUT (07:57)
--- NOTE | 2022-06-28 08:36 | P.PNIM_ITS ---
Subjective Subjective Date of Service: 06/28/22 Interval History: seen in f/u post ICU care following cardiac arrest, anoxic brain injury pt remains unresponsive, breathing easy, no distress, vitals ok Review of Systems unresponsive Physical Exam Vital Signs: Vital Signs: Last Vital Signs Temp 97.9 F 06/28/22 08:00 Pulse 80 06/28/22 08:00 Resp 18 06/28/22 08:00 BP 167/72 H 06/28/22 08:00 Pulse Ox 94 06/28/22 08:00 O2 Del Method 06/28/22 08:00 O2 Flow Rate 5.0 06/28/22 08:00 FiO2 24 06/23/22 14:00 BMI result Body Mass Index 31.4 Const: Other: General: Alert, non communicatives Resp: bilateral rhonchi CVS: S1,S2,RRR GI: +BS, NT, no distention Skin: No rash Neuro: motor grossly intact Psych: flat affect Objective Data Active Medications Acetaminophen (Acetaminophen 325 Mg Tablet) 650 mg PO Q4H PRN PRN Reason: Fever Last Admin: 06/26/22 17:12 Dose: 650 mg Documented By: LUIS Hydromorphone HCl (Hydromorphone Hcl 0.5 Mg/0.5 Ml Syringe) 0.25 mg IVPUSH Q4H PRN; Protocol PRN Reason: repiratory distress Last Admin: 06/27/22 23:50 Dose: 0.25 mg Documented By: SALVATORE Dextrose (D5w) 1,000 mls @ 50 mls/hr IVCONT .Q20H [facility] Last Admin: 06/28/22 02:49 Dose: 50 mls/hr Documented By: SALVATORE Insulin Glargine (Insulin Glargine,Hum.Rec.Anlog 100 Unit/Ml 10 Ml Vial) 15 unit SUBCUT DAILY [facility] Last Admin: 06/28/22 07:57 Dose: 15 unit Documented By: DAMION Insulin Human Lispro (Insulin Lispro 100 Unit/Ml 3 Ml Vial) 0 unit SUBCUT QIDACHS [facility]; Protocol Last Admin: 06/28/22 07:57 Dose: 10 unit Documented By: DAMION Lorazepam (Lorazepam 0.5 Mg Tablet) 0.5 mg SUBLINGUAL Q4H PRN PRN Reason: Anxiety Pharmacy Consult (Consult Rx Perform Med Rec) 1 each MISCELLANE ONCE PRN PRN Reason: Consult order Pharmacy Consult (Consult Rx Perform Med Rec) 1 each MISCELLANE ONCE PRN PRN Reason: Consult order Scopolamine (Scopolamine 1.5 Mg Patch.Td.3) 1.5 mg EAR-BEHIND Q72H [facility] Last Admin: 06/25/22 16:40 Dose: 1.5 mg Documented By: LUIS Labs CBC & Chem 7: 06/26/22 14:49 06/26/22 14:49 Labs: Laboratory Results - last 24 hr 06/27/22 06/27/22 06/27/22 11:29 17:06 19:52 POC Glucose 370 H* 398 H* 306 H 06/28/22 07:29 POC Glucose 356 H* Assessment and Plan (1) Anoxic encephalopathy: Status: Acute Plan 76/with diabetes, copd, ISAAC, epilepsy, HTN who was admitted to the ICU with cardiac arrest on 06/01 and required prolonged intubation in the ICU and was terminally extubated on 06/23 and 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 yet but at that time family requested keeping with IVF and monitor for few day and see what happens, pt's although unresponsive has been ok with what appear to be permanent brain damage and on 06/26 following further discussion with the family, the opted to restart feed, and care but maintain DNI/DNR status 1/ Anoxic brain injury due to cardiac arrest--She remain non verbal, unresponsive although family say they are able to communicate with her 2/Diabetes with hyperglycemia on tube fee--Lantus, SSI and adjust as needed 3/ HTN--BP has been stable, will restart meds as needed 4/ISAAC, respiatory status has been stable 5/ Depression--review medd and restart via NGT 6/ FEN--will have PEG sometime this coming week and ultimately to SNF need for inaptient: s/p cardiac arrest, need PEG and liekly transfer to SNF Quality Stroke Does the patient have a stroke diagnosis?: No VTE Prior VTE?: No VTE Risk Level:: Medical - moderate - high (comfort care) VTE Device Contraindication: Treatment Not Indicated (comfort care) VTE Drug Contraindication: Treatment Not Indicated (comfort care)
[2022-06-28 11:35] LABS: Glucose, Whole Blood 377 mg/dL (60-115)
[2022-06-28 16:04] LABS: Glucose, Whole Blood 270 mg/dL (60-115)
[2022-06-28] MEDS: Scopolamine 1.5 MG PATCH.TD.3 EAR-BEHIND (16:16)
[2022-06-28 20:17] LABS: Glucose, Whole Blood 205 mg/dL (60-115)
[2022-06-29] VITALS (7 sets, daily range): BP systolic 132–185; BP diastolic 62–77; PULSE 65–115; RESP 18–22; TEMP 36–37.2; O2SAT 64–96
[2022-06-29] MEDS: HYDROmorphone HCl 0.5 MG/0.5 ML SYRINGE 0.25 MG IVPUSH ×4 (00:37→21:21)
[2022-06-29 07:58] LABS: Glucose, Whole Blood 324 mg/dL (60-115)
[2022-06-29] MEDS: Insulin Lispro 100 UNIT/ML 3 ML VIAL SUBCUT ×4 (08:27→21:10)
[2022-06-29] MEDS: Insulin Glargine,Hum.rec.anlog 100 UNIT/ML 10 ML VIAL 15 UNIT SUBCUT (08:27)
--- NOTE | 2022-06-29 10:02 | P.PNIM_ITS ---
Subjective Subjective Date of Service: 06/30/22 Interval History: seen in f/u post ICU care following cardiac arrest, anoxic brain injury pt remains unresponsive, breathing easy, no distress, vitals ok, verbalizing more Review of Systems unresponsive Physical Exam Vital Signs: Vital Signs: Last Vital Signs Temp 97.3 F 06/29/22 07:45 Pulse 98 06/29/22 07:45 Resp 20 06/29/22 07:45 BP 180/72 H 06/29/22 03:24 Pulse Ox 96 06/29/22 07:45 O2 Del Method 06/29/22 07:45 O2 Flow Rate 5 06/29/22 07:45 FiO2 24 06/23/22 14:00 BMI result Body Mass Index 31.4 Const: Other: General: Alert, non communicatives Resp: bilateral rhonchi CVS: S1,S2,RRR GI: +BS, NT, no distention Skin: No rash Neuro: motor grossly intact Psych: flat affect Objective Data Active Medications Acetaminophen (Acetaminophen 325 Mg Tablet) 650 mg PO Q4H PRN PRN Reason: Fever Last Admin: 06/26/22 17:12 Dose: 650 mg Documented By: LUIS Hydromorphone HCl (Hydromorphone Hcl 0.5 Mg/0.5 Ml Syringe) 0.25 mg IVPUSH Q4H PRN; Protocol PRN Reason: repiratory distress Last Admin: 06/29/22 09:35 Dose: 0.25 mg Documented By: OFELIA Insulin Glargine (Insulin Glargine,Hum.Rec.Anlog 100 Unit/Ml 10 Ml Vial) 15 unit SUBCUT DAILY [facility] Last Admin: 06/29/22 08:27 Dose: 15 unit Documented By: OFELIA Insulin Human Lispro (Insulin Lispro 100 Unit/Ml 3 Ml Vial) 0 unit SUBCUT QIDACHS [facility]; Protocol Last Admin: 06/29/22 08:27 Dose: 10 unit Documented By: OFELIA Labetalol HCl (Labetalol Hcl 20 Mg/4 Ml Syringe) 10 mg IVPUSH Q4H PRN PRN Reason: bp>160/90 Last Admin: 06/29/22 00:36 Dose: 10 mg Documented By: SILVA Lorazepam (Lorazepam 0.5 Mg Tablet) 0.5 mg SUBLINGUAL Q4H PRN PRN Reason: Anxiety Pharmacy Consult (Consult Rx Perform Med Rec) 1 each MISCELLANE ONCE PRN PRN Reason: Consult order Pharmacy Consult (Consult Rx Perform Med Rec) 1 each MISCELLANE ONCE PRN PRN Reason: Consult order Scopolamine (Scopolamine 1.5 Mg Patch.Td.3) 1.5 mg EAR-BEHIND Q72H [facility] Last Admin: 06/28/22 16:16 Dose: 1.5 mg Documented By: DAMION Labs CBC & Chem 7: 06/26/22 14:49 06/26/22 14:49 Labs: Laboratory Results - last 24 hr 06/28/22 06/28/22 06/28/22 11:24 15:51 20:06 POC Glucose 377 H* 270 H 205 H 06/29/22 07:51 POC Glucose 324 H Assessment and Plan (1) Cardiac arrest: Status: Acute Plan 76/with diabetes, copd, ISAAC, epilepsy, HTN who was admitted to the ICU with cardiac arrest on 06/01 and required prolonged intubation in the ICU and was terminally extubated on 06/23 and subsequently made RN INTERVENTIONAL yet but at that time family requested keeping with IVF and monitor for few day and see what happens, pt's although unresponsive has been ok with what appear to be permanent brain damage and on 06/26 following further discussion with the family, the opted to restart feed, and care but maintain DNI/DNR status 1/ Anoxic brain injury due to cardiac arrest--she is making small progress, appear to verbalizing a little bit more 2/Diabetes with hyperglycemia on tube fee--Lantus increase Lantus, continue, SSI and adjust as needed 3/ HTN--BP has been stable, will restart meds as needed 4/ISAAC, respiatory status has been stable 5/ Depression-restart meds after PEG 6/ FEN--will have PEG planned for PEG tomorrow -she is modrate risk on basis of recent cardiac arest, however family doesn't want any further testing need for inaptient: s/p cardiac arrest, need PEG and liekly transfer to SNF Quality Stroke Does the patient have a stroke diagnosis?: No VTE Prior VTE?: No VTE Risk Level:: Medical - moderate - high (comfort care) VTE Device Contraindication: Treatment Not Indicated (comfort care) VTE Drug Contraindication: Treatment Not Indicated (comfort care)
[2022-06-29 11:38] LABS: Glucose, Whole Blood 392 mg/dL (60-115)
[2022-06-29] MEDS: Enoxaparin Sodium 40 MG/0.4 ML SYRINGE SUBCUT (11:47)
--- NOTE | 2022-06-29 12:05 | P.PNGS_ITS ---
Subjective Subjective Date of Service: 06/30/22 Interval history: History reviewed Patient with anoxic brain injury status post cardiac arrest Family had requested for PEG tube for enteral nutrition Patient says mental status apparently has improved since cardiac arrest Physical Exam Vital Signs: Vital Signs: Last Vital Signs Temp 98.2 F 06/29/22 11:19 Pulse 65 06/29/22 11:42 Resp 21 H 06/29/22 11:42 BP 185/70 H 06/29/22 11:42 Pulse Ox 96 06/29/22 11:42 O2 Del Method 06/29/22 11:19 O2 Flow Rate 5 06/29/22 11:19 FiO2 24 06/23/22 14:00 BMI result Body Mass Index 31.4 Const: Other: Awake but does not have verbal output General: comfortable and no acute distress Resp: Other: Mildly short of breath Cardio: Rhythm: regular rhythm GI: Other: No upper abdominal surgical scars Palpation (GI): Soft to palpation, not firm and nontender Objective Data Active Medications Acetaminophen (Acetaminophen 325 Mg Tablet) 650 mg PO Q4H PRN PRN Reason: Fever Last Admin: 06/26/22 17:12 Dose: 650 mg Documented By: LUIS Enoxaparin Sodium (Enoxaparin Sodium 40 Mg/0.4 Ml Syringe) 40 mg SUBCUT Q24H [facility] Last Admin: 06/29/22 11:47 Dose: 40 mg Documented By: OFELIA Hydromorphone HCl (Hydromorphone Hcl 0.5 Mg/0.5 Ml Syringe) 0.25 mg IVPUSH Q4H PRN; Protocol PRN Reason: repiratory distress Last Admin: 06/29/22 09:35 Dose: 0.25 mg Documented By: OFELIA Insulin Glargine (Insulin Glargine,Hum.Rec.Anlog 100 Unit/Ml 10 Ml Vial) 15 unit SUBCUT DAILY [facility] Last Admin: 06/29/22 08:27 Dose: 15 unit Documented By: OFELIA Insulin Human Lispro (Insulin Lispro 100 Unit/Ml 3 Ml Vial) 0 unit SUBCUT QIDACHS [facility]; Protocol Last Admin: 06/29/22 11:47 Dose: 13 unit Documented By: OFELIA Labetalol HCl (Labetalol Hcl 20 Mg/4 Ml Syringe) 10 mg IVPUSH Q4H PRN PRN Reason: bp>160/90 Last Admin: 06/29/22 00:36 Dose: 10 mg Documented By: SILVA Lorazepam (Lorazepam 0.5 Mg Tablet) 0.5 mg SUBLINGUAL Q4H PRN PRN Reason: Anxiety Pharmacy Consult (Consult Rx Perform Med Rec) 1 each MISCELLANE ONCE PRN PRN Reason: Consult order Pharmacy Consult (Consult Rx Perform Med Rec) 1 each MISCELLANE ONCE PRN PRN Reason: Consult order Scopolamine (Scopolamine 1.5 Mg Patch.Td.3) 1.5 mg EAR-BEHIND Q72H [facility] Last Admin: 06/28/22 16:16 Dose: 1.5 mg Documented By: DAMION Labs CBC & Chem 7: 06/26/22 14:49 06/26/22 14:49 Labs: Laboratory Results - last 24 hr 06/28/22 06/28/22 06/29/22 15:51 20:06 07:51 POC Glucose 270 H 205 H 324 H 06/29/22 11:23 POC Glucose 392 H* Procedures Date of Service Date of Service: 06/29/22 Progress Note: A&P Assessment and plan (1) Cardiac arrest: Status: Acute Assessment and Plan: Status post cardiac arrest Now more awake I had a long discussion with the patient's sister Paige Gutierrez [phone] I explained to her the technique of percutaneous endoscopic gastrostomy tube placement for enteral feeding I reviewed the risks including but not limited to bleeding, infections, injury to bowel, tube displacement, of airway during the procedure, tube leak, as well as the benefits and alternatives. She says she understands and wants to proceed with PEG tube placement She is giving consent on behalf of the patient Time Spent With Patient Time: Total time spent is greater than 50% in coordination of care (as documented) at patient's floor/unit and/or counseling patient: Quality Stroke Does the patient have a stroke diagnosis?: No VTE Prior VTE?: No VTE Risk Level:: Medical - moderate - high (comfort care) VTE Device Contraindication: Treatment Not Indicated (comfort care) VTE Drug Contraindication: Treatment Not Indicated (comfort care)
--- NOTE | 2022-06-29 13:32 | MHC.CM.PN ---
Per ROUNDS discussion, patient is Not yet medically cleared for discharge today r/t waiting for PEG tube placement on 06/30/2022. D/C Plan remains discharge to SNF. CM will continue to follow for D/C needs.
--- NOTE | 2022-06-29 13:42 | MHC.CLN ---
F/U STATUS CHANGED FROM ASSESSMENT SPECIALIST TO DNR/DNI. NG TUBE FEEDING STOPPED TODAY PENDING PEG TUBE PLACEMENT TOMORROW. TF ORDER PRIOR TO PEG: OSMOLITE 1.5 AT MAX GOAL RATE 45 ML/HR TO PROVIDE 1620KCALS (27KCALS/KG), 67.6G TOTAL PROTEIN (1.1G/KG), 823ML FREE WATER FROM FORMULA. PATIENT WITH HX HYPONATREMIA SO MONITOR SODIUM AND FREE WATER CLOSELY. PER MD RX FLUSH 120 ML Q 6 HOURS. PROVIDES ADDITIONAL 480 ML FREE WATER. CONTINUE TUBE FEEDING WHEN ABLE POST PEG PLACEMENT.
[2022-06-29 16:46] LABS: Glucose, Whole Blood 262 mg/dL (60-115)
[2022-06-29 19:21] LABS: Glucose, Whole Blood 217 mg/dL (60-115)
[2022-06-30] VITALS: BP 160/70
--- NOTE | 2022-06-30 03:23 | PM.EVENT ---
Event Note Date of Service: 06/30/22 Event Note: Nurse call me the patient has passed. On my arrival patient is pulseless, and has . Pupils are dilated fixed and nonreactive. Time of 03:19. Left a voice message for her daughter to call us back
--- NOTE | 2022-06-30 07:57 | PM.DDS ---
Discharge Sum: Prov Provider Primary care physician: Misti Francis PA-C Consults: 06/26/22 13:45 Consult to General Surgery Routine Consulting Provider: Melvin Mcneill Reason for consultation: Anoxic brain injury.. Discharge Sum: Diag Contributing Factors (1) Cardiac arrest: Discharge Sum: Summary Date and Time Date of admission: 06/01/22 18:38 Summary Details: Admission HPI Chief Complaint: She was found unresponsive This is a 76-year-old female who is morbidly obese, ISAAC, has a history of hypercapnic/hypoxemic respiratory failure of to be due to CHF who has required BiPAP as well as intubation, most recently she was admitted here at the end of this past month (04/2022), hypertension, hyperlipidemia, anemia, GERD, COPD on home O2 at 2 L nasal cannula, restless legs syndrome, diabetes, who has been admitted to this hospital several times to COPD exacerbations, influenza a and who is also known to be a ongoing smoker. Today the patient was seen emergency room after being brought by EMS who was called for the patient was found unresponsive by family members about 10 minutes prior to their arrival, up on scene by EMS the patient had agonal breathing but did have a pulse, patient was ventilated and at the time her heart rate had been in the 30s with a blood pressure in the 80s systolic, 1 mg of atropine and shortly after the patient had gone into cardiac arrest, CPR had been started and received 1 mg of epinephrine after about a minute and half ROSC ?was obtained, a Suhas airway had been placed and the patient was intubated in the emergency room and a central line was placed.? Patient was placed on propofol and a single dose of Versed was given for sedation, 2 L of IV fluid as and a dose of Zosyn was given, her lactic acid had been elevated and was thought to be secondary to her cardiac arrest. The overall workup revealed a white count 15.1, H&H of 8.5 and 31.9, platelets 318, MCV 68.7, sodium 130, potassium 5.1, chloride 91, carbon dioxide 22, BUN 11, creatinine 0.87, blood glucose 383, electrolytes and renal function were normal.? Her lactic acid was elevated at 10.6 now at 3.7, troponin 9.5, BNP 139, albumin 3.3. PH 7.3, pCO2 34, PO2 103, HC03 17, O2 98%, base excess-7.7 while on a ventilator.? At this point the patient will be transferred to ICU for further management. Hospital course: Patient was admitted following a cardiac arrest as state above and had a long period of intubation and in the was terminally extubation but stay alive longer than expected and so Dr. Thompson? met with the family on 06/25? morning at the bedside at length and discussed the current situation.? Obviously this was an unusual situation, and the question was that , is this a lucid interval, or is this a lasting improvement in her cortical fxn .? And if the latter, will she stay at this level, or will her cortical fxn improve further.? Either way, Dr Thompson indicated to them that he was fairly confident and, I do too, that the patient was? never going to regain independent function again, that from there on out she was going to require total care.? Tony Thompson also indicated to them (family) that should she go [place] a [place], it was not going to be any picnic there , and her [place] course would likely be marked by one complication after another, with a one year mortality of at least 50%. That said, Dr. Thompson discussed with them the options in regards to how to proceed from here:? 1) Continue with [employer] until she passes; 2) see how she does over the next few days, and then decide, with the option that if she does well, they could than make a reasonable case for a PEG, with or without a tracheostomy; or 3) proceed with tracheostomy and PEG right now. It should be noted, and the family was clear about this (they told [Dr. Thompson] themselves) that the patient never wanted to be intubated.? Dr. Thompson discussed with them that they needed to be thinking not of themselves, but of their mother's wants and welfare.? Her own wishes were clearly never to be maintained through artificial means.? Is clear.. that the son and the daughters understoodd this and wanted to abide by their mother's wishes, despite also wanting to have their mother be around an agreement was reached that she she be monitored on IV fluid and see how she does in couple of days, she stayed alive for couple of days, vitals been on and following further discussion on on 06/25 family recommended resumming full care including feeding. She was started on tube feed she tolerated and plan was made for the patient to have a PEG on 06/30 but in the medical lab technologist of 06/30 she was found unresponsive by RN, just an hour earlier she was find. patient was pronounced 06/30 at 3.19 am, family was notified. Final diagnoses: Cardiorespiratory arrest.? Coma.? Anoxic encephalopathy.? Acute resp failure.? sec to cardiac arrest? Underlying severe COPD, Underlying marked debilitation and frailty. Underlying tobacco abuse. Underlying chronic hypoxemic and hypercapnic resp failure. Underlying diastolic heart failure.? History of f PE, Metabolic alkalosis.? HTN.? DM.? Anemia ? Additional Data Attending physician: Pablo Hauser MD
[2022-06-30 12:33] LABS: Glucose, Whole Blood 379 mg/dL (60-115)
== END 2022-06-30 04:16 | disposition expired | DRG 207 ==
LOC: HO.ED 18:15 → HO.EDOVER 19:09 → HO.ICU 19:45 → HO.S3 06-25 12:45
PROVIDERS: Internal Medicine Cardiovascular Disease; Internal Medicine Pulmonary Disease; Physician Assistant; Physician Assistant Medical; Student in an Organized Health Care Education/Training Program; Admitting Provider Anesthesiology; Emergency Provider Emergency Medicine; PCP Registered Nurse; Visit Provider Internal Medicine
DX: J15.0 Pneumonia due to Klebsiella pneumoniae (principal); J96.21 Acute and chronic respiratory failure with hypoxia; R40.20 Unspecified coma; J96.22 Acute and chronic respiratory failure with hypercapnia; J44.0 Chronic obstructive pulmonary disease with (acute) lower respiratory infection; N17.9 Acute kidney failure, unspecified; I50.32 Chronic diastolic (congestive) heart failure; G93.1 Anoxic brain damage, not elsewhere classified; E87.4 Mixed disorder of acid-base balance; E66.2 Morbid (severe) obesity with alveolar hypoventilation; G40.109 Localization-related (focal) (partial) symptomatic epilepsy and epileptic syndromes with simple partial seizures, not intractable, without status epilepticus; Z99.11 Dependence on respirator [ventilator] status; J44.1 Chronic obstructive pulmonary disease with (acute) exacerbation; Z51.5 Encounter for palliative care; E11.65 Type 2 diabetes mellitus with hyperglycemia; D64.9 Anemia, unspecified; F17.210 Nicotine dependence, cigarettes, uncomplicated; G25.81 Restless legs syndrome; F41.1 Generalized anxiety disorder; E88.09 Other disorders of plasma-protein metabolism, not elsewhere classified; Z71.6 Tobacco abuse counseling; Z20.822 Contact with and (suspected) exposure to COVID-19; Z86.711 Personal history of pulmonary embolism; Z68.37 Body mass index [BMI] 37.0-37.9, adult; Z99.81 Dependence on supplemental oxygen; Z86.16 Personal history of COVID-19; Z86.74 Personal history of sudden cardiac arrest; Z88.5 Allergy status to narcotic agent; Z88.6 Allergy status to analgesic agent; Z79.4 Long term (current) use of insulin; Z79.84 Long term (current) use of oral hypoglycemic drugs; Z79.899 Other long term (current) drug therapy
CPT/HCPCS: 36415; 70450; 71045; 71250; 71275; 74176; 74177; 80048; 80053; 80076; 81001; 82040; 82272; 82565; 82803; 82947; 83605; 83735; 83880; 84100; 84145; 84484; 85007; 85025; 85027; 85610; 86850; 86900; 86901; 86923; 87040; 87070; 87071; 87077; 87147; 87186; 87205; 87493; 87635; 93005; 93308; 94002; 94003; 94640; 94799; 95816; 99285; C1758; J0171; J0295; J0696; J1170; J1650; J1940; J1953; J1956; J2060; J2185; J2250; J2543; J2765; J2920; J3010; J3360; J3370; J3475; P9016; P9047; Q9967